=== PATIENT | female | born 1950 | race Caucasian/White ===

== ENCOUNTER → 2016-10-25 | Outpatient (CLI) | payer BC ==
[~2016-10-25] MED LIST: ALEN70TA4 PO; ASPCH81X PO; CALC600T9 PO; HYDROXYCHLOROQUINE PO; LEVO150T PO; LISI10TA PO; MULT-506 PO
--- NOTE | 2016-10-25 15:48 | MAMMOGRAPHY REPORT ---
BILATERAL DIGITAL SCREENING MAMMOGRAM TOMOSYNTHESIS WITH CAD: 10/25/2016 CLINICAL HISTORY: Routine screening. Patient has no complaints. TECHNIQUE: Breast tomosynthesis in addition to standard 2D mammography was performed. Current study was also evaluated with a Computer Aided Detection (CAD) system. COMPARISON: Comparison is made to exams dated: 10/24/2015 mammogram, 09/30/2014 mammogram, 05/06/2012 mammogram, and 03/14/2005 mammogram - [facility]. BREAST COMPOSITION: The tissue of both breasts is heterogeneously dense, which may obscure small ma sses. FINDINGS: No suspicious masses, calcifications, or areas of architectural distortion are noted in e ither breast. There has been no significant interval change compared to prior exams. There are stab le post surgical changes in the right 12:00 breast from prior lumpectomy. Scattered bilateral benig n-appearing calcifications are not significantly changed. IMPRESSION: ACR BI-RADS CATEGORY 2: BENIGN There is no mammographic evidence of malignancy. A 1 year screening mammogram is recommended. The p atient will receive written notification of the results. Approximately 10% of breast cancers are not detected with mammography. A negative mammographic repor t should not delay biopsy if a clinically suggestive mass is present. Jackie Mcclure M.D. ah/:10/25/2016 15:20:01 Restaurant Crew Member: Bety CHAMPAGNE)(M), [facility] letter sent: Normal 1/2 BI-RADS Code: ACR BI-RADS Category 2: Benign
== END | disposition home or self-care (01) ==
LOC: C.MAMM 10:57
PROVIDERS: ATTEND Family Medicine
DX: Z12.31 Encounter for screening mammogram for malignant neoplasm of breast (principal)

== ENCOUNTER → 2017-02-26 | Day surgery (SDC) | payer BC ==
[2017-02-20 13:14] VITALS: Ht 167.6 cm; Wt 72.7 kg
[~2017-02-26] VITALS: Ht 167.6 cm; Wt 72.7 kg
[~2017-02-26] MED LIST changes: +500ML BSS 0.3ML EPI 1:1000PF IRRIG ONE; +ACETAMINOPHEN 325 MG TAB PO PRN; +AMVISC PLUS 0.8ML SYRINGE INT OCU ONE; +ATROPINE SULFATE 0.1 MG/ML 5ML SYR IV PRN; +AcetaZOLAMIDE 250 MG TAB PO SCH; +BETAXOLOL HCL 0.25% OP SUSP PER DROP CHARGE OPL SCH; +BRIMONIDINE TART 0.2% OP SOLN PER DROP CHARGE ONE; +BSS FLUSH ONE; +ENDOCOAT 0.85ML SYRINGE INT OCU ONE; +EpHEDrine SULFATE INJ 50 MG/ML AMP IV PRN; +EpINEphrine INJ 1MG/ML AMP 1 MG/ML AMP ONE; +FENTANYL CITRATE INJ 50 MCG/1 ML 2 ML VIAL IV PRN; -HYDROXYCHLOROQUINE PO; +LACTATED RINGER'S 1000ML 500 ML IV SCH; +LIDOCAINE 4% OP SOLN DROP CHARGE ONE; +LIDOCAINE 4% OP SOLN DROP CHARGE OPL SCH; +LIDOCAINE HCL 1% MPF 2 ML VIAL ONE; +MIX: 4ML BSS 1ML EPI 1:1000 PF INSTIL ONE; +MOXIFLOXACIN OPH SOLN PER DROP CHARGE ONE; +OCUCOAT 1 ML SOLN IO ONE; +ONDANSETRON INJ 2 MG/ML 2 ML VIAL IV PRN; +POVIDONE-IODINE OP SOLN 30 ML BTL ONE; +PROPARACAINE 0.5% OP SOLN PER DROP CHARGE OPL SCH; +TOBRAMYCIN/DEXAMETHASONE OPH OINT PER APPLN CHARGE ONE
--- NOTE | 2017-02-26 09:37 | History & Physical Bridge - SC ---
H&P Re-Evaluation Bridge Note: I have examined the patient, reviewed the History & Physical and in the interval since the performance of the History & Physical I have noted the following changes of clinical significance: No changes noted
[2017-02-26 09:57] VITALS: TEMP 36.8
[2017-02-26] MEDS: PHENYLEPHRINE HCL 2.5% OP SOLN PER DROP CHARGE OPL SCH ×2 (10:11→10:16)
[2017-02-26] MEDS: TROPICAMIDE 1% OP SOLN PER DROP CHARGE OPL SCH ×2 (10:12→10:17)
[2017-02-26] MEDS: CYCLOPENTOLATE HCL 1% OP SOLN PER DROP CHARGE OPL SCH ×2 (10:13→10:19)
[2017-02-26] MEDS: MOXIFLOXACIN OPH SOLN PER DROP CHARGE OPL SCH ×2 (10:14→10:28)
[2017-02-26 11:05] VITALS: BP 179/93
[2017-02-26 11:06] VITALS: PULSE 81; O2SAT 95
--- NOTE | 2017-02-26 11:08 | Discharge Instructions-SurgCtr ---
Discharge Instructions Date of Service February 26, 2017. Visit Reason for Visit: Cataract Left Eye Discharge Discharge Diagnosis / Problem: lens implant left eye Discharge Goals Goal(s): Improve function Activity Recommendations Activity Limitations: resume your previous activity Lifting Limitations: no more than 10 pounds Exercise/Sports Limitations: gradually increase as tolerated May Resume Sexual Activity: when tolerated Shower/Bathe: tomorrow Driving or Machine Use: resume 1 day after discharge Anesthesia . Post Anesthesia Instructions: If you have had General Anesthesia or IV Sedation: * Do not drive today. * Resume driving when surgeon permits. * Do not make important decisions or sign legal documents today. * Call surgeon for: 1. Temperature elevations greater than 101 degrees F. 2. Uncontrollable pain. 3. Excessive bleeding. 4. Persistent nausea and vomiting. 5. Medication intolerance (nausea, vomiting or rash). * For nausea and vomiting use only clear liquids such as: tea, soda, bouillon until nausea subsides, then gradually increase diet as tolerated. * If you have any concerns or questions, call your surgeon's office. If physician is unavailable and it is an emergency, call 911 or go to the nearest emergency room. . Instructions / Follow-Up Instructions / Follow-Up ACTIVITY RECOMMENDATIONS: * Light activities. * Mild irritation and blurred vision are common for the first few days. * You may walk outside, read, watch television. * Redness around the white part of the eye is common. MEDICATIONS: Resume previous medications unless instructed otherwise by your surgeon. * Take white Diamox (Acetazolamide) tablet at 1 pm today. Start all eye drops at 1 pm today: * Eye drops (today and tomorrow): Durezol - one drop in operative eye every 3 hours while awake Ofloxacin - one drop in operative eye every 3 hours while awake Ilevro - one drop in operative eye once a day SPECIAL CARE INSTRUCTIONS: * Tape plastic shield over eye to sleep at night. Call your doctor at with any concerns or problems. FOLLOW UP VISIT: Follow-up with Dr Omalley at [place] office as scheduled. Diet Recommendations Home Diet: no limitations Procedures Procedures Performed: cataract extraction with lens implant Pending Studies Studies pending at discharge: no Medical Emergencies . Who to Call and When: Medical Emergencies: If at any time you feel your situation is an emergency, please call 911 immediately. . Non-Emergent Contact Non-Emergency issues call your: Systems Designer Call Non-Emergent contact if: your pain is not controlled [phone] . . "Provider Documentation" section prepared by Tip Omalley. .
--- NOTE | 2017-02-26 11:09 | [facility] Operative Report ---
Operative Report Date of Service February 26, 2017. Operative Report 1. PREOPERATIVE DIAGNOSIS: Senile nuclear cataract, left eye. 2. POSTOPERATIVE DIAGNOSIS: Senile nuclear cataract, left eye. 3. PROCEDURE: Phacoemulsification of left cataract with posterior chamber lens implant, type Bausch [employer] Lomb, model MX60, power +19.0 diopters. ANESTHESIA: Local standby. SURGEON: Dr. Omalley. COMPLICATIONS: None. OPERATING TIME: 10 minutes. 4. OPERATION AND FINDINGS: DESCRIPTION OF PROCEDURE: The left pupil was dilated. The anesthetic was administered using a topical technique. The left eye was prepped and draped. A speculum was placed. A clear corneal incision was formed. The chamber was filled with Amvisc Plus and Endocoat. Epinephrine solution was used. A paracentesis was placed. A capsulorrhexis was performed. The nucleus was hydrodissected. The lens was removed with phacoemulsification. Time was 2.59 seconds. The aspiration unit was used to remove the cortex. The capsule was filled with Amvisc Plus. The lens implant was folded and placed into the capsule. The incision was hydrated. The Amvisc was aspirated. The wound was secure. The chamber was deep. The pupil was round. Brimonidine, TobraDex ointment and Vigamox solution were placed. The speculum was removed. The patient was returned to the Recovery Room in stable condition. I attest to the content of the Intraoperative Record and any orders documented therein. Any exceptions are noted below. The scribe's documentation has been prepared in my presence, under my direction and personally reviewed by me in its entirety. I confirm that the note above accurately reflects all work, treatment, procedures, and medical decision making performed by me. I personally scribed for Tip Omalley M.D. (OSMAN) on 02/26/17 at 11:09. Electronically submitted by Beverley Power ([email or web address]).
== END | disposition home or self-care (01) ==
LOC: X.SURG 09:47
PROVIDERS: ATTEND Specialist
DX: H25.12 Age-related nuclear cataract, left eye (principal)

== ENCOUNTER → 2017-03-12 | Day surgery (SDC) | payer BC ==
[2017-03-10 15:41] VITALS: Ht 167.6 cm; Wt 72.7 kg
[~2017-03-12] VITALS: Ht 167.6 cm; Wt 72.7 kg
[~2017-03-12] MED LIST changes: -500ML BSS 0.3ML EPI 1:1000PF IRRIG ONE; -AMVISC PLUS 0.8ML SYRINGE INT OCU ONE; -ATROPINE SULFATE 0.1 MG/ML 5ML SYR IV PRN; -BETAXOLOL HCL 0.25% OP SUSP PER DROP CHARGE OPL SCH; +BETAXOLOL HCL 0.25% OP SUSP PER DROP CHARGE OPR SCH; -BSS FLUSH ONE; -EpHEDrine SULFATE INJ 50 MG/ML AMP IV PRN; -FENTANYL CITRATE INJ 50 MCG/1 ML 2 ML VIAL IV PRN; -LIDOCAINE 4% OP SOLN DROP CHARGE OPL SCH; +LIDOCAINE 4% OP SOLN DROP CHARGE OPR SCH; -ONDANSETRON INJ 2 MG/ML 2 ML VIAL IV PRN; -PROPARACAINE 0.5% OP SOLN PER DROP CHARGE OPL SCH; +PROPARACAINE 0.5% OP SOLN PER DROP CHARGE OPR SCH
[2017-03-12] MEDS: PHENYLEPHRINE HCL 2.5% OP SOLN PER DROP CHARGE OPR SCH ×2 (07:45→07:50)
[2017-03-12] MEDS: TROPICAMIDE 1% OP SOLN PER DROP CHARGE OPR SCH ×2 (07:46→07:51)
[2017-03-12] MEDS: CYCLOPENTOLATE HCL 1% OP SOLN PER DROP CHARGE OPR SCH ×2 (07:47→07:52)
[2017-03-12] MEDS: MOXIFLOXACIN OPH SOLN PER DROP CHARGE OPR SCH ×2 (07:48→08:00)
--- NOTE | 2017-03-12 08:32 | Discharge Instructions-SurgCtr ---
Discharge Instructions Date of Service March 12, 2017. Visit Reason for Visit: Cataract Right Eye Discharge Discharge Diagnosis / Problem: lens implant right eye Discharge Goals Goal(s): Improve function Activity Recommendations Activity Limitations: resume your previous activity Lifting Limitations: no more than 10 pounds Exercise/Sports Limitations: gradually increase as tolerated May Resume Sexual Activity: when tolerated Shower/Bathe: tomorrow Driving or Machine Use: resume 1 day after discharge Anesthesia . Post Anesthesia Instructions: If you have had General Anesthesia or IV Sedation: * Do not drive today. * Resume driving when surgeon permits. * Do not make important decisions or sign legal documents today. * Call surgeon for: 1. Temperature elevations greater than 101 degrees F. 2. Uncontrollable pain. 3. Excessive bleeding. 4. Persistent nausea and vomiting. 5. Medication intolerance (nausea, vomiting or rash). * For nausea and vomiting use only clear liquids such as: tea, soda, bouillon until nausea subsides, then gradually increase diet as tolerated. * If you have any concerns or questions, call your surgeon's office. If physician is unavailable and it is an emergency, call 911 or go to the nearest emergency room. . Instructions / Follow-Up Instructions / Follow-Up ACTIVITY RECOMMENDATIONS: * Light activities. * Mild irritation and blurred vision are common for the first few days. * You may walk outside, read, watch television. * Redness around the white part of the eye is common. MEDICATIONS: Resume previous medications unless instructed otherwise by your surgeon. * Take white Diamox (Acetazolamide) tablet at 1 pm today. Start all eye drops at 1 pm today: * Eye drops (today and tomorrow): Durezol - one drop in operative eye every 3 hours while awake Ofloxacin - one drop in operative eye every 3 hours while awake SPECIAL CARE INSTRUCTIONS: * Tape plastic shield over eye to sleep at night. Call your doctor at with any concerns or problems. FOLLOW UP VISIT: Follow-up with Dr Omalley at [place] office as scheduled. Diet Recommendations Home Diet: no limitations Procedures Procedures Performed: cataract extraction with lens implant Pending Studies Studies pending at discharge: no Medical Emergencies . Who to Call and When: Medical Emergencies: If at any time you feel your situation is an emergency, please call 911 immediately. . Non-Emergent Contact Non-Emergency issues call your: Assistant Clinical Nurse Manager Call Non-Emergent contact if: your pain is not controlled [phone] . . "Provider Documentation" section prepared by Tip Omalley. .
--- NOTE | 2017-03-12 08:35 | [facility] Operative Report ---
Operative Report Date of Service March 12, 2017. Operative Report 1. PREOPERATIVE DIAGNOSIS: Senile nuclear cataract, right eye. 2. POSTOPERATIVE DIAGNOSIS: Senile nuclear cataract, right eye. 3. PROCEDURE: Phacoemulsification of right cataract with posterior chamber lens implant, type Bausch & Lomb, model MX60, power +21.5 diopters. ANESTHESIA: Straight Local. SURGEON: Dr. Omalley. COMPLICATIONS: None. OPERATING TIME: 10 minutes. 4. OPERATION AND FINDINGS: DESCRIPTION OF PROCEDURE: The right pupil was dilated. The anesthetic was administered using a topical technique. The right eye was prepped and draped. A speculum was placed. A clear corneal incision was formed. The chamber was filled with Amvisc Plus and Endocoat. Epinephrine solution was used. A paracentesis was placed. A capsulorrhexis was performed. The nucleus was hydrodissected. The lens was removed with phacoemulsification. Time was 3.20 seconds. The aspiration unit was used to remove the cortex. The capsule was filled with Amvisc Plus. The lens implant was folded and placed into the capsule. The incision was hydrated. The Amvisc was aspirated. The wound was secure. The chamber was deep. The pupil was round. Brimonidine, TobraDex ointment and Vigamox solution were placed. The speculum was removed. The patient was returned to the Recovery Room in stable condition. I attest to the content of the Intraoperative Record and any orders documented therein. Any exceptions are noted below. The scribe's documentation has been prepared in my presence, under my direction and personally reviewed by me in its entirety. I confirm that the note above accurately reflects all work, treatment, procedures, and medical decision making performed by me. I personally scribed for Tip Omalley M.D. (OSMAN) on 03/12/17 at 08:35. Electronically submitted by Beverley Power ([facility]).
[2017-03-12 08:38] VITALS: TEMP 36.7
[2017-03-12 08:48] VITALS: BP 169/85; PULSE 76; O2SAT 96
== END | disposition home or self-care (01) ==
LOC: X.SURG 07:21
PROVIDERS: ATTEND Specialist
DX: H25.11 Age-related nuclear cataract, right eye (principal); Z85.3 Personal history of malignant neoplasm of breast; F17.200 Nicotine dependence, unspecified, uncomplicated

== ENCOUNTER → 2017-10-28 | Outpatient (CLI) | payer BC ==
[~2017-10-28] MED LIST changes: -ACETAMINOPHEN 325 MG TAB PO PRN; -AcetaZOLAMIDE 250 MG TAB PO SCH; -BETAXOLOL HCL 0.25% OP SUSP PER DROP CHARGE OPR SCH; -BRIMONIDINE TART 0.2% OP SOLN PER DROP CHARGE ONE; -ENDOCOAT 0.85ML SYRINGE INT OCU ONE; -EpINEphrine INJ 1MG/ML AMP 1 MG/ML AMP ONE; -LACTATED RINGER'S 1000ML 500 ML IV SCH; -LIDOCAINE 4% OP SOLN DROP CHARGE ONE; -LIDOCAINE 4% OP SOLN DROP CHARGE OPR SCH; -LIDOCAINE HCL 1% MPF 2 ML VIAL ONE; -MIX: 4ML BSS 1ML EPI 1:1000 PF INSTIL ONE; -MOXIFLOXACIN OPH SOLN PER DROP CHARGE ONE; -OCUCOAT 1 ML SOLN IO ONE; -POVIDONE-IODINE OP SOLN 30 ML BTL ONE; -PROPARACAINE 0.5% OP SOLN PER DROP CHARGE OPR SCH; -TOBRAMYCIN/DEXAMETHASONE OPH OINT PER APPLN CHARGE ONE
--- NOTE | 2017-10-28 14:29 | MAMMOGRAPHY REPORT ---
BILATERAL DIGITAL SCREENING MAMMOGRAM TOMOSYNTHESIS WITH CAD: 10/28/2017 CLINICAL HISTORY: Asymptomatic. Personal history of breast cancer. TECHNIQUE: Bilateral breast tomosynthesis in addition to standard 2D mammography was performed. Curre nt study was also evaluated with a Computer Aided Detection (CAD) system. COMPARISON: Comparison is made to exams dated: 10/25/2016 mammogram, 10/24/2015 mammogram, 09/30/2014 ma mmogram, 05/06/2012 mammogram, 03/14/2005 mammogram, and 12/30/2002 mammogram - [facility] nter. BREAST COMPOSITION: The tissue of both breasts is heterogeneously dense, which may obscure small mas ses. FINDINGS: There is a 10 mm nodular asymmetry in the superior posterior left breast, only seen on the MLO view that partially effaces on the corresponding tomosynthesis images. Although this could repr esent normal overlapping fibroglandular tissue, additional spot compression tomosynthesis views and p ossible ultrasound are recommended. There are stable post surgical changes in the 12:00 posterior right breast, including expected connie ectural distortion and surgical clips. There are numerous benign rim calcifications bilaterally. No other suspicious mass, architectural distortion or cluster of microcalcifications is seen. IMPRESSION: ACR BI-RADS CATEGORY 0: INCOMPLETE EVALUATION: NEED ADDITIONAL IMAGING EVALUATION The 10 mm nodular asymmetry in the superior, posterior left breast needs additional evaluation. The patient will be called to schedule an appointment. Approximately 10% of breast cancers are not detected with mammography. A negative mammographic report should not delay biopsy if a clinically suggestive mass is present. Angie Smith M.D. ay/:10/28/2017 14:21:18 Used Car Make Ready Worker: Bety MILLAN(R)(M), [facility] letter sent: Addl Imaging 0 BI-RADS Code: ACR BI-RADS Category 0: Incomplete Evaluation: Need Additional Imaging Evaluation
== END | disposition home or self-care (01) ==
LOC: C.MAMM 11:22
PROVIDERS: ATTEND Family Medicine
DX: Z12.31 Encounter for screening mammogram for malignant neoplasm of breast (principal); N64.89 Other specified disorders of breast; Z85.3 Personal history of malignant neoplasm of breast

== ENCOUNTER → 2017-10-31 | Outpatient (CLI) | payer BC ==
--- NOTE | 2017-10-31 15:08 | MAMMOGRAPHY REPORT ---
UNILATERAL LEFT DIGITAL DIAGNOSTIC MAMMOGRAM TOMOSYNTHESIS: 10/31/2017 CLINICAL HISTORY: Callback from screening mammogram for left breast asymmetry. TECHNIQUE: Breast tomosynthesis in addition to standard 2D mammography was performed. Spot compress ion left CC and MLO 2-D and tomosynthesis images were obtained. COMPARISON: Comparison is made to exams dated: 10/28/2017 mammogram, 10/25/2016 mammogram, 10/24/2015 mamm ogram, 09/30/2014 ultrasound, 09/30/2014 mammogram, and 03/14/2005 mammogram - [facility] enter. BREAST COMPOSITION: The tissue of the left breast is heterogeneously dense, which may obscure small masses. FINDINGS: The previously described asymmetry seen within the left superior posterior breast on the M LO view effaces to a baseline appearance on the spot compression tomosynthesis views, and has the parmjit earance of normal fibroglandular tissue on the tomosynthesis images. No suspicious mass, architectur al distortion, or other suspicious mammographic abnormality is seen on the additional images. Findin gs are benign and compatible with normal fibroglandular tissue. IMPRESSION: ACR BI-RADS CATEGORY 2: BENIGN The left breast asymmetry effaces on the additional spot compression views, and is benign and compati ble with normal fibroglandular tissue. There is no mammographic evidence of malignancy. A 1 year scr eening mammogram is recommended. The patient has been verbally notified of the results. Approximately 10% of breast cancers are not detected with mammography. A negative mammographic report should not delay biopsy if a clinically suggestive mass is present. Jackie Mcclure M.D. /:10/31/2017 11:33:04 Hand Drawer In Helper: Jessica MILLAN(Claus)(M), [facility] letter sent: Normal / BI-RADS Code: ACR BI-RADS Category 2: Benign
== END | disposition home or self-care (01) ==
LOC: C.MAMM 11:13
PROVIDERS: ATTEND Family Medicine
DX: N64.89 Other specified disorders of breast (principal)

== ENCOUNTER 2021-08-27 19:11 | Inpatient (IN) ==
[2021-08-27] MEDS ORDERED: dilTIAZem HCl 5 MG/ML 5 ML VIAL IV STA (19:21)
[2021-08-27] MEDS ORDERED: STAT IV Infusion **Titration per Protocol STA (19:21)
--- NOTE | 2021-08-27 19:24 | Emergency Department Note ---
Impression & Plan Atrial fibrillation with RVR, SOB (shortness of breath), Weakness ED Provider Note NAME: DARIA GORDILLO AGE: 71 SEX: F : 1950 ARRIVES VIA: Ambulance INFORMANT: Patient ED PROVIDER(S): Kirill Rivera DO CHIEF COMPLAINT: Weak and short of breath HPI: Patient is a 71-year-old female that presents the ER with past medical history of A. fib, COPD, emphysema, SLE, hypertension, hypothyroid who presents to the ER referred in by PCP. She was found to be in atrial fib with RVR as an outpatient. She denies any chest pain but admits to some shortness of breath. No belly pain, nausea, vomiting, or diarrhea. No dysuria, urgency, or frequency. No other exacerbating or remitting factors. She believes that she is always in A. fib. About a month ago she stopped her Cardizem. For the past several weeks she has been short of breath. She does not feel her heart racing notes that she normally does not feel that. She normally is not symptomatic with her A. fib so is difficult to ascertain when she went into her A. fib per the patient. ROS: See above HPI for pertinent positives & negatives. A total of 10 systems reviewed and were otherwise negative. PAST MEDICAL HISTORY:See Below PAST SURGICAL HISTORY:See Below FAMILY HISTORY:See Below SOCIAL HISTORY:See Below HOME MEDICATIONS:See Below ALLERGIES:See Below VITALS:See Below PHYSICAL EXAMINATION: GENERAL: Sitting up in bed, alert, well appearing, well nourished, no distress, non-toxic EYE EXAM: normal conjunctiva. PERRL and EOM's grossly intact. OROPHARYNX: no exudate, no erythema, lips, buccal mucosa, and tongue normal and mucous membranes are moist NECK: supple, no nuchal rigidity, no adenopathy, non-tender LUNGS: Clear to auscultation. Normal chest wall mechanics HEART: Tachycardic and irregular regular, S1 normal and S2 normal ABDOMEN: abdomen soft, non-tender, normo-active bowel sounds, no masses, no rebound or guarding. UPPER EXTREMITIES: upper extremities are grossly normal. LOWER EXTREMITIES: No pitting edema. NEURO EXAM: Normal sensorium, cranial nerves II-XII grossly intact, normal speech, no gross weakness of arms, no gross weakness of legs. MEDICAL DECISION MAKING: Patient is a 71-year-old female who presents the ER for A. fib with RVR referred in by PCP. IV was established blood work was taken. Labs show no significant leukocytosis or anemia. BMP was fairly unremarkable. INR was elevated at 7. She is not bleeding from anywhere. Troponin was negative. Lipase was unremarkable. TSH was elevated at 10.4. Free T4 was pending. Covid was negative. Patient was given Cardizem bolus and placed on Cardizem drip. Heart rate trended down to 130s down to the 80s with a flutter with a variable block. Chest x-ray with bilateral pleural effusions likely secondary to the A. fib with RVR. Triage Nursing notes reviewed. Limited review of prior medical records performed Vital Signs: reviewed and remarkable for tachycardic Differential diagnosis: Differential diagnoses includes but is not limited to pneumonia, bronchitis, COPD/Asthma exacerbation, pneumothorax, pulmonary embolism, congestive heart failure, acute coronary syndrome ER treatment provided: See below Diagnostics interpreted by me: ECG: A. fib RVR rate of 130 Left axis Inferior Q waves Right bundle branch block Nonspecific ST wave changes in lateral leads QTC 400 Cardiac Monitoring: An order was placed for continuous cardiac monitoring. The monitor shows a rate of 131 with A. fib RVR rhythm. Laboratory studies: As stated above and show below. Imaging studies: Chest x-ray with bilateral pleural effusions Consultation(s): Discussed with hospitalist for further evaluation Procedures: none Critical Care: I have personally spent 32 minutes of critical care time in the direct management of this patient. This includes bedside care, interpretation of diagnostic studies, and testing, discussion with consultants, patient, and family members, and other required patient management activities. This 32 minutes is in excess of all separately billable procedures. Past Med/Surg History Medical History Atrial fibrillation DX 11/2018 - ON WARFARIN - FOLLOWS W/ DR. COSTELLO Cancer of right breast 1995--sx, chemo, radiation Carotid atherosclerosis s/p CEA Chronic obstructive pulmonary disease RARELY USES INH. ONLY FLARES UP WHEN PATIENT HAS COLD History of colon polyps Hyperlipidemia Hypertension Hypothyroidism Lupus SLE- on chronic Plaquenil On anticoagulant therapy coumadin daily Pancreatic cyst GETTING CHECKED > REASON FOR PROCEDURE Parathyroid disorder Proteinuria FOLLOWS DR. FREDDY BAKER Surgical History History of anesthesia reaction "takes a long time to stop feeling weird after anesthesia" History of bilateral cataract extraction History of colonoscopy History of esophagogastroduodenoscopy (EGD) History of lumpectomy of right breast History of repair of patent ductus arteriosus CHILD REPAIRED History of right breast biopsy malignant History of right-sided carotid endarterectomy 7 YRS AGO >@ [facility] History of tonsillectomy and adenoidectomy History of tooth extraction Family History Sister Family hx of colon cancer Other No family history of adverse response to anesthesia Social History Smoking Status: Heavy tobacco smoker Tobacco Type: Cigarettes Cigarettes Per Day: 40; Second Hand Exposure: Yes; Hx Alcohol Use: No Hx Substance Use: No Preferred Language: Scottish Communication Ability: Effective 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 Beliefs That Will Affect Care: None Current Living Situation: Alone Feels Safe at Home: Yes Assistive Devices: Glasses Allergies Allergies Allergy/AdvReac Type Severity Reaction Status Date / Time No Known Drug Allergies Allergy Mild Verified 05/20/21 13:50 Pollen Allergy Mild cough, Uncoded 05/20/21 13:50 itchy watery eyes, stuffy nose Home Meds Home Medications Medication Instructions Recorded Confirmed hydroxychloroquine 200 mg tablet 200 mg PO HS 12/08/18 08/27/21 levothyroxine 150 mcg tablet 150 mcg PO QAM 12/08/18 08/27/21 atorvastatin 10 mg tablet 10 mg PO HS 01/13/19 08/27/21 cinacalcet 30 mg tablet (Sensipar) 30 mg PO Q OTHER DAY 11/16/19 08/27/21 zoledronic acid 5 mg/100 mL in 5 mg IV YEARLY 11/16/19 08/27/21 mannitol 5 %-water intravenous piggybck (Reclast) clobetasol 0.05 % topical ointment 1 applic TOPICAL DAILY PRN 12/11/20 08/27/21 metoprolol succinate 25 mg 25 mg PO BID 05/20/21 08/27/21 tablet,extended release 24 hr warfarin 5 mg tablet 5 mg PO UD 08/27/21 08/27/21 Results & Data (ED) Vital Signs Vital Signs - 24 hr 08/27/21 20:28 08/27/21 22:15 Temperature 36.8 C Temperature Source Oral Pulse Rate 105 H Pulse Rate [Finger] 80 96 H Blood Pressure 114/64 Blood Pressure [Left Arm] 114/75 132/78 Blood Pressure Mean 80 Blood Pressure Mean [Left Arm] 88 96 Pulse Oximetry 96 98 Oxygen Delivery Method Nasal Cannula Room Air Oxygen Flow Rate 2 Sepsis Recent Fever Within 48 Hours No Sepsis New/Unexplained Change in Mental Status N/A Sepsis Action Taken by Nursing No Action Required Oxygen Flow Rate - Titration 2 Pulse Oximetry Post Tiitration 96 Laboratory Data Result diagrams: 08/27/21 19:30 08/27/21 19:30 Lab Results 08/27/21 08/27/21 08/27/21 Range/Units 19:30 19:30 19:30 WBC 5.76 (4.8-10.8) K/uL RBC 5.04 (4.2-5.4) M/uL Hgb 14.4 (12.0-16.0) g/dL Hct 44.9 (37-47) % MCV 89.1 (80-100) fL MCH 28.6 (25-34) pg MCHC 32.1 (32-36) g/dL RDW Std Deviation 56.2 H (36.4-46.3) fL RDW Coeff of Jerri 17.6 H (11.5-14.5) % Plt Count 212 (130-400) K/uL MPV 11.9 H (7.4-10.4) fL Immature Gran % (Auto) 0.2 % Neut % (Auto) 72.6 % Lymph % (Auto) 15.1 % [place] % (Auto) 11.8 % Eos % (Auto) 0.0 % Baso % (Auto) 0.3 % Neut # (Auto) 4.18 (1.4-6.5) K/uL Lymph # (Auto) 0.87 L (1.2-3.4) K/uL [place] # (Auto) 0.68 H (0.11-0.59) K/uL Eos # (Auto) 0.00 (0-0.5) K/uL Baso # (Auto) 0.02 (0-0.2) K/uL Immature Gran # (Auto) 0.01 (0.00-0.02) K/uL Absolute Nucleated RBC 0.08 H (0-0) K/uL Nucleated RBC % (auto) 1.4 % PT 62.7 H (9.0-12.0) Seconds INR 7.2 H* (0.9-1.1) Sodium 137 (136-145) mmol/L Potassium 4.4 (3.5-5.1) mmol/L Chloride 105 (98-107) mmol/L Carbon Dioxide 25 (21-32) mmol/L Anion Gap 7.0 (3-11) BUN 20 H (7-18) mg/dl Creatinine 0.61 (0.6-1.2) mg/dl Est Cr Clr Drug Dosing Not Reportable Est GFR ( Amer) 105.0 ml/min Est GFR (Non-Af Amer) 90.6 ml/min BUN/Creatinine Ratio 31.9 H (10-20) Glucose 83 (70-99) mg/dl Calcium 9.8 (8.5-10.1) mg/dl Magnesium 1.9 (1.8-2.4) mg/dl Total Bilirubin 0.4 (0.2-1) mg/dl AST 74 H (15-37) U/L ALT 64 (12-78) U/L Alkaline Phosphatase 154 H (45-117) U/L Troponin I < 0.015 (0-0.045) ng/ml Total Protein 7.6 (6.4-8.2) gm/dl Albumin 3.4 (3.4-5.0) gm/dl Globulin 4.2 H (2.5-4.0) gm/dl Albumin/Globulin Ratio 0.8 L (0.9-2) Lipase 359 (73-393) U/L TSH 10.400 H (0.300-4.500) uIu/ml Specimen Hemolysis COVID-19 Eval Order SARS-CoV-2 (PCR) (Negative) 08/27/21 08/27/21 Range/Units Unknown Unknown WBC (4.8-10.8) K/uL RBC (4.2-5.4) M/uL Hgb (12.0-16.0) g/dL Hct (37-47) % MCV (80-100) fL MCH (25-34) pg MCHC (32-36) g/dL RDW Std Deviation (36.4-46.3) fL RDW Coeff of Jerri (11.5-14.5) % Plt Count (130-400) K/uL MPV (7.4-10.4) fL Immature Gran % (Auto) % Neut % (Auto) % Lymph % (Auto) % [place] % (Auto) % Eos % (Auto) % Baso % (Auto) % Neut # (Auto) (1.4-6.5) K/uL Lymph # (Auto) (1.2-3.4) K/uL [place] # (Auto) (0.11-0.59) K/uL Eos # (Auto) (0-0.5) K/uL Baso # (Auto) (0-0.2) K/uL Immature Gran # (Auto) (0.00-0.02) K/uL Absolute Nucleated RBC (0-0) K/uL Nucleated RBC % (auto) % PT (9.0-12.0) Seconds INR (0.9-1.1) Sodium (136-145) mmol/L Potassium (3.5-5.1) mmol/L Chloride (98-107) mmol/L Carbon Dioxide (21-32) mmol/L Anion Gap (3-11) BUN (7-18) mg/dl Creatinine (0.6-1.2) mg/dl Est Cr Clr Drug Dosing Est GFR ( Amer) ml/min Est GFR (Non-Af Amer) ml/min BUN/Creatinine Ratio (10-20) Glucose (70-99) mg/dl Calcium (8.5-10.1) mg/dl Magnesium (1.8-2.4) mg/dl Total Bilirubin (0.2-1) mg/dl AST (15-37) U/L ALT (12-78) U/L Alkaline Phosphatase (45-117) U/L Troponin I (0-0.045) ng/ml Total Protein (6.4-8.2) gm/dl Albumin (3.4-5.0) gm/dl Globulin (2.5-4.0) gm/dl Albumin/Globulin Ratio (0.9-2) Lipase (73-393) U/L TSH (0.300-4.500) uIu/ml Specimen Hemolysis COVID-19 Eval Order Covid19 at [facility] SARS-CoV-2 (PCR) NEGATIVE (Negative) Administered Medications Diltiazem HCl 125 mg/ Dextrose 125 mls @ 5 mls/hr IV .Q24H [facility]; Protocol Stop: 09/26/21 19:29 Last Admin: 08/27/21 19:37 Dose: 5 mg/hr, 5 mls/hr Documented by: [id number] Cosigned by: [id number] Magnesium Sulfate/Dextrose (Magnesium Sulfate / D5w) 1 gm in 100 mls @ 50 mls/hr IV ONE ONE Stop: 08/28/21 01:11 Last Admin: 08/27/21 23:38 Dose: 50 mls/hr Documented by: [id number] Discontinued Medications Diltiazem HCl (Diltiazem Hcl 5 Mg/Ml 5 Ml Vial) 10 mg IV NOW STA Stop: 08/27/21 19:22 Last Admin: 08/27/21 19:37 Dose: 10 mg Documented by: [id number] Cosigned by: [id number] Miscellaneous (Stat Iv Infusion Titration Per Protocol) 1 ea N/A NOW STA Stop: 08/27/21 19:22 Last Admin: 08/27/21 19:40 Dose: 1 ea Documented by: [id number] Imaging Data Radiologist's Impression: Chest X-Ray 08/27/21 19:22 XR chest 1V portable CLINICAL HISTORY: Atypical chest pain TECHNIQUE: Single frontal radiograph of the chest was obtained. Comparison: Comparison is made to chest one view 05/20/2021 FINDINGS: No lines and tubes are seen. Surgical clips are seen in the right axilla. Calcified aortic knob is seen. Bilateral lower lobe predominant airspace opacities are seen. There are small bilateral pleural effusions. IMPRESSION: Lateral small pleural effusions. Bilateral lower lobe predominant airspace opacities which may represent atelectasis, pneumonia, and/or aspiration. ACT 112: Negative or not required by law. Electronically signed by: Gene Neri M.D. 08/27/2021 7:55 PM Discharge Plan Visit Data Chief Complaint: Arrhythmia/Palpitations Stated Complaint: SOB, WEAKNESS, AFIB ED Provider: Kirill Rivera Discharge Problem: Atrial fibrillation with RVR, SOB (shortness of breath), Weakness Patient Disposition: Admitted As Inpatient Forms Stand Alone Forms: [facility] Prescriptions Prescriptions: No Action clobetasol 0.05 % ointment 1 applic topical DAILY PRN (Reason: lupus) RF: 0 atorvastatin 10 mg Tablet 10 mg PO HS RF: 0 cinacalcet [Sensipar] 30 mg Tablet 30 mg PO Q OTHER DAY RF: 0 zoledronic [id number] [Reclast] 5 mg/100 mL Piggyback 5 mg IV YEARLY RF: 0 levothyroxine 150 mcg tablet 150 mcg PO QAM RF: 0 hydroxychloroquine 200 mg tablet 200 mg PO HS RF: 0 metoprolol succinate 25 mg tablet extended release 24 hr 25 mg PO BID RF: 0 warfarin 5 mg tablet 5 mg PO UD RF: 0 Referrals Referrals: Kusum Rutherford DO [Primary Care Provider] -
[2021-08-27] MEDS ORDERED: dilTIAZem HCL 125 MG in DEXTROSE 5% 100 ML IV SCH (19:30)
[2021-08-27 19:43] LABS: Basophils # (auto) 0.02 K/uL (0-0.2); Basophils % (auto) 0.3 %; Hematocrit (blood only) 44.9 % (37-47); Hemoglobin 14.4 g/dL (12.0-16.0); Immature Granulocytes # (auto) 0.01 K/uL (0.00-0.02); Immature Granulocytes % (auto) 0.2 %; Lymphocytes # (auto) 0.87 K/uL (1.2-3.4); Lymphocytes % (auto) 15.1 %; Mean Corpuscular Hemoglobin 28.6 pg (25-34); Mean Corpuscular Hgb Conc 32.1 g/dL (32-36); Mean Corpuscular Volume 89.1 fL (80-100); Mean Platelet Volume 11.9 fL (7.4-10.4); Monocytes # (auto) 0.68 K/uL (0.11-0.59); Monocytes % (auto) 11.8 %; Neutrophils # (auto) 4.18 K/uL (1.4-6.5); Neutrophils % (auto) 72.6 %; Nucleated RBC # (auto) 0.08 K/uL (0-0); Nucleated RBC % (auto) 1.4 %; Platelet Count 212 K/uL (130-400); RDW Coefficient of Variation 17.6 % (11.5-14.5); RDW Standard Deviation 56.2 fL (36.4-46.3); Red Blood Count 5.04 M/uL (4.2-5.4); White Blood Count 5.76 K/uL (4.8-10.8)
--- NOTE | 2021-08-27 19:57 | XRay Report ---
XR chest 1V portable CLINICAL HISTORY: Atypical chest pain TECHNIQUE: Single frontal radiograph of the chest was obtained. Comparison: Comparison is made to chest one view 05/20/2021 FINDINGS: No lines and tubes are seen. Surgical clips are seen in the right axilla. Calcified aortic knob is se en. Bilateral lower lobe predominant airspace opacities are seen. There are small bilateral pleural e ffusions. IMPRESSION: Lateral small pleural effusions. Bilateral lower lobe predominant airspace opacities which may repres ent atelectasis, pneumonia, and/or aspiration. ACT 112: Negative or not required by law. Electronically signed by: Gene Neri M.D. 08/27/2021 7:55 PM
[2021-08-27 20:04] LABS: INR 7.2 (0.9-1.1); Prothrombin Time 62.7 Seconds (9.0-12.0)
[2021-08-27 20:06] LABS: Alanine Aminotransferase 64 U/L (12-78); Albumin Level 3.4 gm/dl (3.4-5.0); Aspartate Aminotransferase 74 U/L (15-37); BUN Creatinine Ratio 31.9 (10-20); Blood Urea Nitrogen 20 mg/dl (7-18); Calcium 9.8 mg/dl (8.5-10.1); Carbon Dioxide 25 mmol/L (21-32); Chloride 105 mmol/L (98-107); Est GFR (Non-African American) 90.6 ml/min; Glucose 83 mg/dl (70-99); Lipase 359 U/L (73-393); Potassium 4.4 mmol/L (3.5-5.1); Sodium 137 mmol/L (136-145)
[2021-08-27 20:10] LABS: Albumin Globulin Ratio 0.8 (0.9-2); Alkaline Phosphatase 154 U/L (45-117); Bilirubin,Total 0.4 mg/dl (0.2-1); Globulin 4.2 gm/dl (2.5-4.0); Total Protein 7.6 gm/dl (6.4-8.2); Troponin I < 0.015 ng/ml (0-0.045)
[2021-08-27 22:51] LABS: Magnesium 1.9 mg/dl (1.8-2.4)
[2021-08-27] MEDS ORDERED: MAGNESIUM SULFATE / D5W 1 GM/100 ML BAG IV ONE (23:12)
[2021-08-27] MEDS ORDERED: PHYTONADIONE 5 MG TAB PO STA (23:13)
[2021-08-27] MEDS ORDERED: PHYTONADIONE PED 1 MG, ORA-SWEET SYRUP 2.25 ML, ORA-PLUS SUSP VEHICLE 2.25 ML, BARCODE ... PO SCH (23:30)
--- NOTE | 2021-08-27 23:42 | History & Physical Report ---
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 until patient seen by Cardiology in anticipation of any procedure Update TTE Recheck TFTs with a.m. labs DVT prophylaxis. Coumadin INR goal between 2 and 3 Full code Text document was generated using Facio voice recognition software. It may contain grammatical or spelling errors. Kindly contact undersigned for clarification of any documentation item in question. History of Present Illness Chief Complaint: Fast heartbeat, sent by family doctor Primary Care Provider: Kusum Rutherford, History obtained from patient and records. Medical history significant for Christopher crane on Coumadin, hypertension, hyperlipidemia, PVD status post surgery, COPD, breast cancer status post surgery, IPMN status post surgery, SLE, ongoing tobacco abuse. Last confinement November 2018 for Christopher crane RVR secondary to COPD exacerbation. 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 Patient diltiazem was being weaned off due to hypotension, lightheadedness especially in the morning. Patient as not to some weight loss after elective pancreactomy[place] [facility] [place] for a pancreatic tumor. SBP 90s, cardiac rate 90s during Cardiology visit. Patient cardiac rate in the 110s on patient's BP monitor after stopping Cardizem. 2 weeks ago, patient noted fatigue and generalized weakness symptoms. Shortness of breath usually with exertion. No unusual cough symptoms. No actual chest pain, palpitations. Denies headache or bleeding concerns. Ankle swelling coming and going at home. Patient seen at PCPs office today, cardiac rate noted to be 140s. Rapid atrial flutter noted on EKG. Patient directed to the ER for evaluation. IV Cardizem initiated at the ER. 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 Allergies Allergy/AdvReac Type Severity Reaction Status Date / Time No Known Drug Allergies Allergy Mild Verified 05/20/21 13:50 Pollen Allergy Mild cough, Uncoded 05/20/21 13:50 itchy watery eyes, stuffy nose Home Medications Medication Instructions Recorded Confirmed Type hydroxychloroquine 200 mg tablet 200 mg PO HS 12/08/18 08/27/21 History levothyroxine 150 mcg tablet 150 mcg PO QAM 12/08/18 08/27/21 History atorvastatin 10 mg tablet 10 mg PO HS 01/13/19 08/27/21 History cinacalcet 30 mg tablet (Sensipar) 30 mg PO Q OTHER DAY 11/16/19 08/27/21 History zoledronic acid 5 mg/100 mL in 5 mg IV YEARLY 11/16/19 08/27/21 History mannitol 5 %-water intravenous piggybck (Reclast) clobetasol 0.05 % topical ointment 1 applic TOPICAL DAILY PRN 12/11/20 08/27/21 History metoprolol succinate 25 mg 25 mg PO BID 05/20/21 08/27/21 History tablet,extended release 24 hr warfarin 5 mg tablet 5 mg PO UD 08/27/21 08/27/21 History Past Med/Surg History Medical History Atrial fibrillation DX 11/2018 - ON WARFARIN - FOLLOWS W/ DR. SAWYER Cancer of right breast 1995--sx, chemo, radiation Carotid atherosclerosis s/p CEA Chronic obstructive pulmonary disease RARELY USES INH. ONLY FLARES UP WHEN PATIENT HAS COLD History of colon polyps Hyperlipidemia Hypertension Hypothyroidism Lupus SLE- on chronic Plaquenil On anticoagulant therapy coumadin daily Pancreatic cyst GETTING CHECKED > REASON FOR PROCEDURE Parathyroid disorder Proteinuria FOLLOWS DR. FREDDY BAKER Surgical History History of anesthesia reaction "takes a long time to stop feeling weird after anesthesia" History of bilateral cataract extraction History of colonoscopy History of esophagogastroduodenoscopy (EGD) History of lumpectomy of right breast History of repair of patent ductus arteriosus CHILD REPAIRED History of right breast biopsy malignant History of right-sided carotid endarterectomy 7 YRS AGO >@ [facility] History of tonsillectomy and adenoidectomy History of tooth extraction Family History Sister Family hx of colon cancer Other No family history of adverse response to anesthesia Social History Smoking Status: Current every day smoker Tobacco Type: Cigarettes Cigarettes Per Day: 60; Second Hand Exposure: Yes; Do You Dip or Chew Tobacco: No; Tobacco Cessation Education Requested by Patient: No Hx Alcohol Use: No Hx Substance Use: No Preferred Language: [place] Communication Ability: Effective Barrel Centerer Required: No Beliefs That Will Affect Care: None Current Living Situation: Alone How many Children do You have: 0 Other Information That Helps Us Care for You: No Feels Safe at Home: Yes Safety Concerns: Feels Safe At This Time Assistive Devices: None Review of Systems Review of Systems: As per HPI, all 10 systems reviewed, all other ROS negative Physical Exam Physical Exam: GENERAL: Comfortable, pleasant, no respiratory distress SKIN: Normal color, warm HEENT: [place] palpebral conjunctivae, no ptosis, dry buccal mucosa NECK : Supple, no tenderness CHEST : Decreased breath sounds, no tenderness HEART : Tachycardic, no obvious murmurs ABDOMEN: Some distention, nontender EXTREMITIES : Minimal LE swelling, no LE tenderness, no other conspicuous deformities noted NEUROLOGIC : Coherent, no facial asymmetry, no other gross focality Results & Data Results & Data ([facility]) Vital Signs (Past 12 Hours) Vital Signs Temp Pulse Pulse BP BP Pulse Ox 08/27/21 22:15 96 H 132/78 98 08/27/21 20:28 36.8 C 105 H 80 114/64 114/75 96 Laboratory Results Laboratory Results WBC 5.76 K/uL (4.8-10.8) 08/27/21 19:30 RBC 5.04 M/uL (4.2-5.4) 08/27/21 19:30 Hgb 14.4 g/dL (12.0-16.0) 08/27/21 19:30 Hct 44.9 % (37-47) 08/27/21 19:30 MCV 89.1 fL (80-100) 08/27/21 19: MCH 28.6 pg (25-34) 08/27/21 19: MCHC 32.1 g/dL (32-36) 08/27/21 19: RDW Std Deviation 56.2 fL (36.4-46.3) H 08/27/21 19:30 RDW Coeff of Jerri 17.6 % (11.5-14.5) H 08/27/21 19: Plt Count 212 K/uL (130-400) 08/27/21 19: MPV 11.9 fL (7.4-10.4) H 08/27/21 19: Immature Gran % (Auto) 0.2 % 08/27/21: Neut % (Auto) 72.6 % 08/27/21 19: Lymph % (Auto) 15.1 % 08/27/21 19:30 [place] % (Auto) 11.8 % 08/27/21: Eos % (Auto) 0.0 % 08/27/21: Baso % (Auto) 0.3 % 08/27/21: Neut # (Auto) 4.18 K/uL (1.4-6.5) 08/27/21 19: Lymph # (Auto) 0.87 K/uL (1.2-3.4) L 08/27/21 19:30 [place] # (Auto) 0.68 K/uL (0.11-0.59) H 08/27/21 19: Eos # (Auto) 0.00 K/uL (0-0.5) 08/27/21: Baso # (Auto) 0.02 K/uL (0-0.2) 08/27/21: Immature Gran # (Auto) 0.01 K/uL (0.00-0.02) 08/27/21: Absolute Nucleated RBC 0.08 K/uL (0-0) H 08/27/21: Nucleated RBC % (auto) 1.4 % 08/27/21 19: PT 62.7 Seconds (9.0-12.0) H 08/27/21 19:30 INR 7.2 (0.9-1.1) H* 08/27/21 19:30 Sodium 137 mmol/L (136-145) 08/27/21 19:30 Potassium 4.4 mmol/L (3.5-5.1) 08/27/21: Chloride 105 mmol/L (98-107) 08/27/21 19:30 Carbon Dioxide 25 mmol/L (21-32) 08/27/21 19: Anion Gap 7.0 (3-11) 08/27/21:30 BUN 20 mg/dl (7-18) H 08/27/21 19:30 Creatinine 0.61 mg/dl (0.6-1.2) 08/27/21 19: Est Cr Clr Drug Dosing Not Reportable 08/27/21: Est GFR ( Amer) 105.0 ml/min 08/27/21: Est GFR (Non-Af Amer) 90.6 ml/min 08/27/21:30 BUN/Creatinine Ratio 31.9 (10-20) H 08/27/21: Glucose 83 mg/dl (70-99) 08/27/21: Calcium 9.8 mg/dl (8.5-10.1) 08/27/21: Magnesium 1.9 mg/dl (1.8-2.4) 08/27/21: Total Bilirubin 0.4 mg/dl (0.2-1) 08/27/21 19:30 AST 74 U/L (15-37) H 08/27/21:30 ALT 64 U/L (12-78) 08/27/21: Alkaline Phosphatase 154 U/L (45-117) H 08/27/21 19:30 Troponin I < 0.015 ng/ml (0-0.045) 08/27/21 19:30 Total Protein 7.6 gm/dl (6.4-8.2) 08/27/21: Albumin 3.4 gm/dl (3.4-5.0) 08/27/21 19: Globulin 4.2 gm/dl (2.5-4.0) H 08/27/21 19:30 Albumin/Globulin Ratio 0.8 (0.9-2) L 08/27/21 19: Lipase 359 U/L (73-393) 08/27/21 19:30 TSH 10.400 uIu/ml (0.300-4.500) H 08/27/21 19:30 Specimen Hemolysis 08/27/21 19:30 COVID-19 Eval Order Covid19 at [facility] 08/27/21 Unknown SARS-CoV-2 (PCR) NEGATIVE (Negative) 08/27/21 Unknown Impressions Chest X-Ray 08/27/21 19:22 XR chest 1V portable CLINICAL HISTORY: Atypical chest pain TECHNIQUE: Single frontal radiograph of the chest was obtained. Comparison: Comparison is made to chest one view 05/20/2021 FINDINGS: No lines and tubes are seen. Surgical clips are seen in the right axilla. Calcified aortic knob is seen. Bilateral lower lobe predominant airspace opacities are seen. There are small bilateral pleural effusions. IMPRESSION: Lateral small pleural effusions. Bilateral lower lobe predominant airspace opacities which may represent atelectasis, pneumonia, and/or aspiration. ACT 112: Negative or not required by law. Electronically signed by: Gene Neri M.D. 08/27/2021 7:55 PM Diagnostic Findings EKG as per my interpretation: Rate 130, atrial flutter, LAD, LAFB, incomplete RBBB, inferior infarct, low voltage
[2021-08-27] MEDS ORDERED: METOPROLOL SUCC 25MG EXT REL TAB PO STA (23:49)
[2021-08-27] MEDS ORDERED: ALBUMIN 25% 12.5 GM/50 ML VIAL IV ONE (23:49)
[2021-08-28 00:48] LABS: T4 Free Thyroxine 4.08 ng/dl (0.8-1.6)
[2021-08-28] MEDS ORDERED: HYDROXYCHLOROQUINE SULFATE 200 MG TAB PO STA (01:12)
[2021-08-28] MEDS ORDERED: NITROGLYCERIN SL 0.4 MG/TAB TAB SL PRN (02:15)
[2021-08-28] MEDS ORDERED: traMADol HCL 50 MG TABLET PO PRN (02:15)
[2021-08-28] MEDS ORDERED: ACETAMINOPHEN 325 MG TAB PO PRN (02:15)
[2021-08-28] MEDS ORDERED: PROMETHAZINE HCL 12.5 MG in SODIUM CHLORIDE 0.9% 50 ML IV PRN (02:15)
[2021-08-28] MEDS: ATORVASTATIN 10 MG TAB PO SCH ×2 (02:58→21:00)
[2021-08-28] MEDS: CINACALCET HCL 30 MG TAB PO SCH (03:20)
[2021-08-28] MEDS ORDERED: LEVOTHYROXINE SODIUM 150 MCG TABLET PO SCH (06:30)
[2021-08-28 06:33] LABS: Basophils # (auto) 0.02 K/uL (0-0.2); Basophils % (auto) 0.4 %; Eosinophils # (auto) 0.05 K/uL (0-0.5); Hematocrit (blood only) 39.5 % (37-47); Hemoglobin 12.6 g/dL (12.0-16.0); Immature Granulocytes # (auto) 0.01 K/uL (0.00-0.02); Immature Granulocytes % (auto) 0.2 %; Lymphocytes # (auto) 1.04 K/uL (1.2-3.4); Lymphocytes % (auto) 20.9 %; Mean Corpuscular Hemoglobin 27.6 pg (25-34); Mean Corpuscular Hgb Conc 31.9 g/dL (32-36); Mean Corpuscular Volume 86.4 fL (80-100); Mean Platelet Volume 11.4 fL (7.4-10.4); Monocytes # (auto) 0.73 K/uL (0.11-0.59); Monocytes % (auto) 14.7 %; Neutrophils # (auto) 3.12 K/uL (1.4-6.5); Neutrophils % (auto) 62.8 %; Nucleated RBC # (auto) 0.07 K/uL (0-0); Nucleated RBC % (auto) 1.3 %; Platelet Count 208 K/uL (130-400); RDW Coefficient of Variation 17.6 % (11.5-14.5); RDW Standard Deviation 54.8 fL (36.4-46.3); Red Blood Count 4.57 M/uL (4.2-5.4); White Blood Count 4.97 K/uL (4.8-10.8)
[2021-08-28 07:03] LABS: INR 4.3 (0.9-1.1); Prothrombin Time 39.2 Seconds (9.0-12.0)
[2021-08-28 07:14] LABS: BUN Creatinine Ratio 30.8 (10-20); Creatinine Clr Calc Pharmacy 95.2 ml/min; Est GFR (African American) 112.1 ml/min; Est GFR (Non-African American) 96.7 ml/min; Magnesium 2.6 mg/dl (1.8-2.4); Potassium 4.5 mmol/L (3.5-5.1)
[2021-08-28 07:29] LABS: Thyroid Stimulating Hormone 12.2 uIu/ml (0.300-4.500)
[2021-08-28] MEDS: METOPROLOL SUCC 25MG EXT REL TAB PO SCH ×2 (08:26→21:00)
--- NOTE | 2021-08-28 08:57 | Cardiology Consultation ---
Date of Consultation August 28, 2021 Assessment & Plan (1) Atrial fibrillation with RVR: (2) SLE (systemic lupus erythematosus): (3) Weakness: (4) COPD exacerbation: Patient is a complex 71-year-old female who notes several months history of declining functional capacity worsening shortness of breath and fatigue. She carries a history of chronic atrial fibrillation previously requiring high-dose medical therapies to control heart rate including metoprolol succinate 25 mg/day and diltiazem CD 300 mg/day. She underwent abdominal surgery in May and postoperatively suffered difficulties with hypotension and diltiazem was weaned from medical regimen but with increasing heart rate response. She presents now noting marked fatigue dyspnea with minimal exertion. Heart rate significantly elevated on presentation. Echocardiogram demonstrates low normal LV systolic function but with bilateral pleural effusions noted on echo as well as chest x-ray Exam with rhonchorous cough Atrial fibrillation now improved with IV diltiazem Patient with chronic atrial fibrillation flutter heart rates being driven elevated due to multiple issues including reduction in medical therapy, likely COPD exacerbation by exam, component of diastolic heart failure with bilateral pleural effusions Plan: We will restart oral diltiazem initially at 120 mg/day and discontinue IV diltiazem. Continue metoprolol succinate at 25 mg twice per day Dose of IV furosemide 40 mg to be administered given pleural effusion and increased vasculature on chest x-ray Evaluation/treatment of COPD suggested INR on presentation supratherapeutic and warfarin currently on hold Expect minimum 1 to 2 days to rectify current complaints History of Present Illness Reason for Consultation: Chronic atrial fibrillation with elevated ventricular response rate, weakness Requesting Physician: Dr. Linares Attending Physician: Ashok Linares MD History of Present Illness Patient is a 71-year-old female with ongoing issues which include 1. Systemic lupus erythematous, on chronic Plaquenil 2. Chronic obstructive lung disease, moderate chronic tobacco use 3. Atherosclerotic carotid disease status post right carotid enterectomy, 2008 4. Hypothyroidism 5. Persistent atrial fibrillation, [id number] score of 3 (age, female, carotid disease), on warfarin 6. Status post laparoscopic distal pancreatectomy and splenectomy my Dr. De La Torre [place] [facility] [place] for low-grade IPMN She has recent complex history which includes undergoing surgical procedure as noted in April. Postoperatively patient had difficulties with anorexia malaise and greater than 20 pound weight loss. She was seen in the outpatient setting for complaints of hypotension on several occasions and ultimately diltiazem was weaned then discontinued due to lower blood pressures metoprolol succinate increased to twice daily. Patient's continued to feel weak and washed out since that time and was seen in the outpatient setting by PCP due to dyspnea. Chronic atrial fibrillation flutter was noted to have elevated ventricular response rate and patient was sent to the ER for multiple concerns for further evaluation. Hypoxia noted on presentation. Patient was begun on IV diltiazem with good rate control. Chest x-ray does demonstrate diffuse increase in interstitial markings as well as bilateral pleural effusions Patient notes as described poor p.o. intake for several months. Feels it may have increased slightly recently. The weight has been trending upward has a persistent cough. This morning rhonchorous in nature. Does continue to smoke. Denies overt fevers or chills. Allergies Allergy/AdvReac Type Severity Reaction Status Date / Time No Known Drug Allergies Allergy Mild Verified 05/20/21 13:50 Pollen Allergy Mild cough, Uncoded 05/20/21 13:50 itchy watery eyes, stuffy nose Home Medications Medication Instructions Recorded Confirmed Type hydroxychloroquine 200 mg tablet 200 mg PO HS 12/08/18 08/27/21 History levothyroxine 150 mcg tablet 150 mcg PO QAM 12/08/18 08/27/21 History atorvastatin 10 mg tablet 10 mg PO HS 01/13/19 08/27/21 History cinacalcet 30 mg tablet (Sensipar) 30 mg PO Q OTHER DAY 11/16/19 08/27/21 History zoledronic acid 5 mg/100 mL in 5 mg IV YEARLY 11/16/19 08/27/21 History mannitol 5 %-water intravenous piggybck (Reclast) clobetasol 0.05 % topical ointment 1 applic TOPICAL DAILY PRN 12/11/20 08/27/21 History metoprolol succinate 25 mg 25 mg PO BID 05/20/21 08/27/21 History tablet,extended release 24 hr warfarin 5 mg tablet 5 mg PO UD 08/27/21 08/27/21 History Patient History Medical History Atrial fibrillation DX 11/2018 - ON WARFARIN - FOLLOWS W/ DR. SAWYER Cancer of right breast 1995--sx, chemo, radiation Carotid atherosclerosis s/p CEA Chronic obstructive pulmonary disease RARELY USES INH. ONLY FLARES UP WHEN PATIENT HAS COLD History of colon polyps Hyperlipidemia Hypertension Hypothyroidism Lupus SLE- on chronic Plaquenil On anticoagulant therapy coumadin daily Pancreatic cyst GETTING CHECKED > REASON FOR PROCEDURE Parathyroid disorder Proteinuria FOLLOWS DR. FREDDY BAKER Surgical History History of anesthesia reaction "takes a long time to stop feeling weird after anesthesia" History of bilateral cataract extraction History of colonoscopy History of esophagogastroduodenoscopy (EGD) History of lumpectomy of right breast History of repair of patent ductus arteriosus CHILD REPAIRED History of right breast biopsy malignant History of right-sided carotid endarterectomy 7 YRS AGO >@ [facility] History of tonsillectomy and adenoidectomy History of tooth extraction Family History Sister Family hx of colon cancer Other No family history of adverse response to anesthesia Social History Smoking Status: Current every day smoker Tobacco Type: Cigarettes Cigarettes Per Day: 60; Second Hand Exposure: Yes; Do You Dip or Chew Tobacco: No; Tobacco Cessation Education Requested by Patient: No Hx Alcohol Use: No Hx Substance Use: No Preferred Language: Albanian Communication Ability: Effective 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: No Beliefs That Will Affect Care: None Current Living Situation: Alone Other Information That Helps Us Care for You: No Feels Safe at Home: Yes Safety Concerns: Feels Safe At This Time Assistive Devices: Oxygen - Continuous Review of Systems Review of Systems: All systems reviewed & are unremarkable except as noted in HPI & below Physical Exam Constitutional: + ill appearing; no acute distress Eyes: PERRL, conjunctivae normal, anicteric sclerae Neck: trachea midline, no thyromegaly Respiratory: Auscultation: + rhonchi (Bilateral, worse with forced cough with diminished breath sounds at the bas) Cardiovascular: Rate/Rhythm: + irregularly irregular Heart Sounds: no gallop Extremities: + edema (1+) Gastrointestinal (Abdomen): normal bowel sounds, soft, nontender, no hepatosplenomegaly Musculoskeletal: no cyanosis or clubbing, extremities motor strength 5/5 Skin: Chronic malar rash Neurologic: PERRL, EOMI, accommodation nl, no face palsy, no dysarthria Results & Data ([facility]) Vital Signs (Past 12 Hours) Vital Signs Temp Pulse Resp BP Pulse Ox 08/28/21 08:07 36.6 C 79 18 112/82 98 08/28/21 04:39 36.4 C L 77 16 110/74 98 08/28/21 02:57 36.3 C L 90 18 115/72 99 08/28/21 01:00 85 122/86 98 08/27/21 22:15 96 H 132/78 98 Laboratory Results Laboratory Results - last 24 hr 08/27/21 08/27/21 08/27/21 19:30 19:30 19:30 WBC 5.76 RBC 5.04 Hgb 14.4 Hct 44.9 MCV 89.1 MCH 28.6 MCHC 32.1 RDW Std Deviation 56.2 H RDW Coeff of Jerri 17.6 H Plt Count 212 MPV 11.9 H Immature Gran % (Auto) 0.2 Neut % (Auto) 72.6 Lymph % (Auto) 15.1 Wilcox % (Auto) 11.8 Eos % (Auto) 0.0 Baso % (Auto) 0.3 Neut # (Auto) 4.18 Lymph # (Auto) 0.87 L Wilcox # (Auto) 0.68 H Eos # (Auto) 0.00 Baso # (Auto) 0.02 Immature Gran # (Auto) 0.01 Absolute Nucleated RBC 0.08 H Nucleated RBC % (auto) 1.4 PT 62.7 H INR 7.2 H* Sodium 137 Potassium 4.4 Chloride 105 Carbon Dioxide 25 Anion Gap 7.0 BUN 20 H Creatinine 0.61 Est Cr Clr Drug Dosing Not Reportable Est GFR ( Amer) 105.0 Est GFR (Non-Af Amer) 90.6 BUN/Creatinine Ratio 31.9 H Glucose 83 Calcium 9.8 Magnesium 1.9 Total Bilirubin 0.4 AST 74 H ALT 64 Alkaline Phosphatase 154 H Troponin I < 0.015 Total Protein 7.6 Albumin 3.4 Globulin 4.2 H Albumin/Globulin Ratio 0.8 L Lipase 359 TSH 10.400 H Free T4 4.08 H Specimen Hemolysis COVID-19 Eval Order SARS-CoV-2 (PCR) Hepatitis C Ab Screen 1108/27/21 08/28/21 Unknown Unknown 06:11 WBC 4.97 RBC 4.57 Hgb 12.6 Hct 39.5 MCV 86.4 MCH 27.6 MCHC 31.9 L RDW Std Deviation 54.8 H RDW Coeff of Jerri 17.6 H Plt Count 208 MPV 11.4 H Immature Gran % (Auto) 0.2 Neut % (Auto) 62.8 Lymph % (Auto) 20.9 Wilcox % (Auto) 14.7 Eos % (Auto) 1.0 Baso % (Auto) 0.4 Neut # (Auto) 3.12 Lymph # (Auto) 1.04 L Wilcox # (Auto) 0.73 H Eos # (Auto) 0.05 Baso # (Auto) 0.02 Immature Gran # (Auto) 0.01 Absolute Nucleated RBC 0.07 H Nucleated RBC % (auto) 1.3 PT INR Sodium Potassium Chloride Carbon Dioxide Anion Gap BUN Creatinine Est Cr Clr Drug Dosing Est GFR ( Amer) Est GFR (Non-Af Amer) BUN/Creatinine Ratio Glucose Calcium Magnesium Total Bilirubin AST ALT Alkaline Phosphatase Troponin I Total Protein Albumin Globulin Albumin/Globulin Ratio Lipase TSH Free T4 Specimen Hemolysis COVID-19 Eval Order Covid19 at [facility] SARS-CoV-2 (PCR) NEGATIVE Hepatitis C Ab Screen 08/28/21 08/28/21 08/28/21 06:11 06:11 06:11 WBC RBC Hgb Hct MCV MCH MCHC RDW Std Deviation RDW Coeff of Jerri Plt Count MPV Immature Gran % (Auto) Neut % (Auto) Lymph % (Auto) Wilcox % (Auto) Eos % (Auto) Baso % (Auto) Neut # (Auto) Lymph # (Auto) Wilcox # (Auto) Eos # (Auto) Baso # (Auto) Immature Gran # (Auto) Absolute Nucleated RBC Nucleated RBC % (auto) PT 39.2 H INR 4.3 H Sodium 138 Potassium 4.5 Chloride 105 Carbon Dioxide 30 Anion Gap 3.0 BUN 15 Creatinine 0.50 L Est Cr Clr Drug Dosing 95.2 Est GFR ( Amer) 112.1 Est GFR (Non-Af Amer) 96.7 BUN/Creatinine Ratio 30.8 H Glucose 85 Calcium 9.0 Magnesium 2.6 H Total Bilirubin AST ALT Alkaline Phosphatase Troponin I Total Protein Albumin Globulin Albumin/Globulin Ratio Lipase TSH 12.200 H Free T4 Specimen Hemolysis COVID-19 Eval Order SARS-CoV-2 (PCR) Hepatitis C Ab Screen Neg Diagnostic Findings Echocardiogram 08/28/2021: Mild left hypertrophy, ejection fraction 50 to 55% without regional abnormality. Mild to moderate mitral insufficiency, dilated IVC ECG Additional Comments: 27-AUG-2021 19:23:35 [facility]-EDSTAT ROUTINE RETRIEVAL Atrial flutter with variable A-V block Left axis deviation Low voltage QRS Inferior infarct (cited on or bef ore 22-MAR-2019) Cannot rule out Anterior infarct (cited on or before 20-MAY-2021) Abnormal ECG When compared with ECG of 20-MAY-2021 11:22, Questionable change in initial forces of Inferior leads Non-specific change in ST segment in Inferior leads Nonspecific T wave abnormality now evident in Inferior leads
[2021-08-28] MEDS ORDERED: FUROSEMIDE 40 MG/4 ML VIAL IV ONE (10:30)
[2021-08-28] MEDS: dilTIAZem ER 120 MG CAPCR PO SCH (11:09)
--- NOTE | 2021-08-28 13:36 | Electrocardiogram Report ---
Test Reason : Blood Pressure : / mmHG Vent. Rate : 130 BPM Atrial Rate : 375 BPM P-R Int : 000 ms QRS Dur : 080 ms QT Int : 272 ms P-R-T Axes : 000 -58 066 degrees QTc Int : 400 ms Atrial flutter with variable A-V block Left axis deviation Low voltage QRS Inferior infarct (cited on or before 22-MAR-2019) Cannot rule out Anterior infarct (cited on or before 20-MAY-2021) Abnormal ECG When compared with ECG of 20-MAY-2021 11:22, Nonspecific T wave abnormality now evident in Inferior leads Confirmed by Tip Silva ([id number]) on 08/28/2021 1:35:44 PM Referred By: REFERRED SELF Confirmed By:Tip Silva
--- NOTE | 2021-08-28 14:43 | Hospitalist Progress Note ---
Date of Service August 28, 2021 Assessment & Plan (1) Atrial flutter with rapid ventricular response: Plan: Atrial fibrillation with RVR H/O chronic atrial fibrillation H/O Cardioversion --ECHO: Mild concentric LVH. EF 50 to 55%. Moderate sized left pleural effus ion. Mild to moderate mitral regurgitation. Left atrium is moderately dilated. IV diltiazem transition to regular p.o. diltiazem 120 mg daily Also continue metoprolol succinate 25 mg twice daily Appreciate cardiology input Supratherapeutic INR Secondary to Coumadin use Hold Coumadin for now Monitor INR Currently no bleeding issues Possible COPD Exacerbation Suspected Pneumonitis Hypoxia H/O COPD Tobacco use disorder Reports minimal non productive cough CXR:Lateral small pleural effusions. Bilateral lower lobe predominant airspace opacities which may represent atelectasis, pneumonia, and/or aspiration. Started on doxycycline, prednisone Xopenex as needed Check procalcitonin Pulmonary toilet Consider CT chest if no improvement Continue supplemental oxygen as needed H/O SLE On hydroxychloroquine Abnormal thyroid function test Elevated TSH, free T4 H/O hypothyroidism Discussed with cable spooler on 08/28/21 Advised to hold levothyroxine for 1 week Plan to resume levothyroxine at reduced dose 75 mcg daily after 1 week Recommend to follow-up with endocrinology upon discharge Hypertension Blood pressure stable Continue current medications Hyperlipidemia on statin PVD S/P Surgery Continue statin H/O Breast cancer S/P lumpectomy, radiation therapy, chemotherapy DVT Px; INR supratherapeutic Coumadin on hold CODE STATUS Full code Admission and Anticipated Discharge Date Admission Date: August 27, 2021 Subjective Patient is seen and examined at bedside States having generalized weakness, tiredness Reports dyspnea on exertion Denies any chest pain, dizziness, nausea, abdominal pain Review of Systems Review of Systems: All systems reviewed & are unremarkable except as noted in Subjective Physical Exam Physical Exam: Physical Exam: Vitals signs as noted above General Appearance: Thin, chronically ill appearing, no apparent distress Head: normocephalic, Atraumatic Eyes: normal inspection, EOMI Neck: supple, Trachea midline Respiratory/Chest: Decreased breath sounds, scattered rhonchi Cardiovascular: Irregularly irregular, No murmur Abdomen/GI:Soft, Non tender, Bowel sounds present Extremities/Musculoskeletal:normal inspection, Trace edema Neurologic/Psych:AAOX3, grossly no focal neurological deficits Skin: normal color, warm Results & Data Results & Data ([facility]) Vital Signs (Past 12 Hours) Vital Signs Temp Pulse Resp BP Pulse Ox 08/28/21 12:32 36.4 C L 94 H 14 118/74 98 08/28/21 08:07 36.6 C 79 18 112/82 98 08/28/21 04:39 36.4 C L 77 16 110/74 98 08/28/21 02:57 36.3 C L 90 18 115/72 99 Laboratory Results Short CBC 08/27/21 08/28/21 Range/Units 19:30 06:11 WBC 5.76 4.97 (4.8-10.8) K/uL Hgb 14.4 12.6 (12.0-16.0) g/dL Hct 44.9 39.5 (37-47) % Plt Count 212 208 (130-400) K/uL BMP 08/27/21 08/28/21 19:30 06:11 Sodium 137 138 Potassium 4.4 4.5 Chloride 105 105 Carbon Dioxide 25 30 BUN 20 H 15 Creatinine 0.61 0.50 L Glucose 83 85 Calcium 9.8 9.0 Cardiac Enzymes 08/27/21 Range/Units 19:30 Troponin I < 0.015 (0-0.045) ng/ml Liver Function 08/27/21 Range/Units 19:30 Total Bilirubin 0.4 (0.2-1) mg/dl AST 74 H (15-37) U/L ALT 64 (12-78) U/L Alkaline Phosphatase 154 H (45-117) U/L Albumin 3.4 (3.4-5.0) gm/dl
[2021-08-28] MEDS ORDERED: LEVALBUTEROL HCL 0.63 MG/3 ML NEB NEB PRN (14:49)
[2021-08-28] MEDS: DOXYCYCLINE HYCLATE 100 MG CAP PO SCH ×2 (15:51→21:00)
[2021-08-28] MEDS: predniSONE 20 MG TAB PO SCH (15:53)
[2021-08-28] MEDS: HYDROXYCHLOROQUINE SULFATE 200 MG TAB PO SCH (21:00)
[2021-08-29] MEDS ORDERED: SODIUM CHLORIDE 0.65% NA SOLN 45 ML (OCEAN) ONE (06:01)
[2021-08-29 07:31] LABS: Hematocrit (blood only) 41.4 % (37-47); Hemoglobin 12.8 g/dL (12.0-16.0); Mean Corpuscular Hemoglobin 27.3 pg (25-34); Mean Corpuscular Hgb Conc 30.9 g/dL (32-36); Mean Corpuscular Volume 88.3 fL (80-100); Mean Platelet Volume 11.3 fL (7.4-10.4); Nucleated RBC # (auto) 0.07 K/uL (0-0); Nucleated RBC % (auto) 1.6 %; Platelet Count 215 K/uL (130-400); RDW Coefficient of Variation 17.4 % (11.5-14.5); RDW Standard Deviation 56.3 fL (36.4-46.3); Red Blood Count 4.69 M/uL (4.2-5.4); White Blood Count 4.35 K/uL (4.8-10.8)
[2021-08-29 07:43] LABS: INR 2.2 (0.9-1.1); Prothrombin Time 20.9 Seconds (9.0-12.0)
[2021-08-29] MEDS: predniSONE 20 MG TAB PO SCH (07:46)
[2021-08-29] MEDS: dilTIAZem ER 120 MG CAPCR PO SCH (07:46)
[2021-08-29] MEDS: METOPROLOL SUCC 25MG EXT REL TAB PO SCH ×2 (07:46→20:45)
[2021-08-29] MEDS: DOXYCYCLINE HYCLATE 100 MG CAP PO SCH ×2 (07:46→20:45)
[2021-08-29 08:12] LABS: BUN Creatinine Ratio 24.1 (10-20); Calcium 9.3 mg/dl (8.5-10.1); Creatinine Clr Calc Pharmacy 91.5 ml/min; Est GFR (African American) 110.6 ml/min; Est GFR (Non-African American) 95.5 ml/min; Magnesium 1.9 mg/dl (1.8-2.4); Potassium 4.3 mmol/L (3.5-5.1)
[2021-08-29] MEDS ORDERED: dilTIAZem ER 120 MG CAPCR PO ONE (09:30)
--- NOTE | 2021-08-29 10:24 | Cardiology Progress Note ---
Date of Service August 29, 2021 Assessment & Plan (1) Atrial fibrillation with RVR: (2) SLE (systemic lupus erythematosus): (3) Weakness: (4) COPD exacerbation: (5) Pleural effusion: Plan: Patient is a complex 71-year-old female who notes several months history of declining functional capacity worsening shortness of breath and fatigue. She carries a history of chronic atrial fibrillation previously requiring high-dose medical therapies to control heart rate including metoprolol succinate 25 mg/day and diltiazem CD 300 mg/day. She underwent abdominal surgery in May and postoperatively suffered difficulties with hypotension and diltiazem was weaned from medical regimen but with increasing heart rate response. She presented noting marked fatigue dyspnea with minimal exertion. Heart rate significantly elevated on presentation. Echocardiogram demonstrates low normal LV systolic function but with bilateral pleural effusions noted on echo as well as chest x-ray Exam with rhonchorous cough Atrial fibrillation/flutter now improved with IV diltiazem Patient with chronic atrial fibrillation flutter heart rates being driven elevated due to multiple issues including reduction in medical therapy, likely COPD exacerbation by exam, component of diastolic heart failure with bilateral pleural effusions Heart rates now improved but still elevated times with 3-1 conduction flutter mechanism. Plan: Increase oral diltiazem continuing current dose of metoprolol Patient responding to treatment of underlying pulmonary Resume anticoagulation with warfarin Full diet and increase in activity We will give oral dose of furosemide today and repeat chest x-ray in a.m. Future considerations may mean flutter ablation versus AV junction ablation with pacemaker insertion. Would not consider at this time Admission and Anticipated Discharge Date Admission Date: August 27, 2021 Subjective Patient seen and examined, chart, medications, telemetry reviewed. Feels somewhat improved from yesterday less dyspneic. Still with rhonchorous cough now clearing secretions. Appetite has returned and patient is hungry Heart rates generally controlled overnight but increase with activity to 3-1 conduction with atrial flutter No bleeding issues and INR returning to therapeutic levels Responded to diuretics yesterday Review of Systems Review of Systems: All systems reviewed & are unremarkable except as noted in Subjective Physical Exam Constitutional: + ill appearing (Chronic); no acute distress Eyes: PERRL, conjunctivae normal, anicteric sclerae Neck: trachea midline, no thyromegaly Respiratory: Auscultation: + rhonchi (Bilateral, worse with forced cough with diminished breath sounds at the bas) Cardiovascular: Rate/Rhythm: + irregularly irregular Heart Sounds: no gallop Vessels: no JVD Extremities: + edema (1+) Gastrointestinal (Abdomen): normal bowel sounds, soft, nontender, no hepatosplenomegaly Musculoskeletal: no cyanosis or clubbing, extremities motor strength 5/5 Neurologic: PERRL, EOMI, accommodation nl, no face palsy, no dysarthria Results & Data ([facility]) Vital Signs (Past 12 Hours) Vital Signs Temp Pulse Resp BP Pulse Ox 08/29/21 07:31 36.3 C L 114 H 24 117/76 93 08/29/21 02:32 36.4 C L 68 16 110/75 98 08/28/21 22:49 36.5 C 71 17 107/72 96 Laboratory Results Laboratory Results - last 24 hr 08/29/21 08/29/21 08/29/21 07:04 07:04 07:04 WBC 4.35 L RBC 4.69 Hgb 12.8 Hct 41.4 MCV 88.3 MCH 27.3 MCHC 30.9 L RDW Std Deviation 56.3 H RDW Coeff of Jerri 17.4 H Plt Count 215 MPV 11.3 H Absolute Nucleated RBC 0.07 H Nucleated RBC % (auto) 1.6 PT 20.9 H INR 2.2 H Sodium 139 Potassium 4.3 Chloride 104 Carbon Dioxide 29 Anion Gap 6.0 BUN 13 Creatinine 0.52 L Est Cr Clr Drug Dosing 91.5 Est GFR ( Amer) 110.6 Est GFR (Non-Af Amer) 95.5 BUN/Creatinine Ratio 24.1 H Glucose 106 H Calcium 9.3 Magnesium 1.9 Procalcitonin Specimen Hemolysis 08/29/21 07:04 WBC RBC Hgb Hct MCV MCH MCHC RDW Std Deviation RDW Coeff of Jerri Plt Count MPV Absolute Nucleated RBC Nucleated RBC % (auto) PT INR Sodium Potassium Chloride Carbon Dioxide Anion Gap BUN Creatinine Est Cr Clr Drug Dosing Est GFR ( Amer) Est GFR (Non-Af Amer) BUN/Creatinine Ratio Glucose Calcium Magnesium Procalcitonin 0.62 H Specimen Hemolysis
[2021-08-29] MEDS ORDERED: FUROSEMIDE 40 MG TAB PO ONE (11:00)
--- NOTE | 2021-08-29 14:16 | Hospitalist Progress Note ---
Date of Service August 29, 2021 Assessment & Plan (1) Atrial flutter with rapid ventricular response: Plan: H/O chronic atrial fibrillation s/p Cardioversion. Presented with RVR, treated with IV diltiazem wtih transition to oral diltiazem and continues on home met oprolol. (2) Hypoxia: (3) Pleural effusion: (4) Pneumonia: Plan: Recent productive cough symptoms with atelectasis vs pneumonia on chest imaging along with secondary pleural effusions. Effusions likely the result of poorly controlled disease in recent months and is contributing to her hypoxia. With ongoing respiratory symptoms and elevated procalcitonin will broaden antibiotic coverage to include Rocephin and treat her with a short course of antibiotics for pneumonia. Cont with diuretic per direction of cardiology team and monitor strict I/Os. (5) Supratherapeutic INR: Plan: INR 7.2 on admission, which has trended down. No overt bleeding, restart co umadin (6) Hypothyroidism: Plan: Abnormal thyroid function test Elevated TSH, free T4 H/O hypothyroidism Discussed with rhinestone setter on 08/28/21 Advised to hold levothyroxine for 1 week Plan to resume levothyroxine at reduced dose 75 mcg daily after 1 week Recommend to follow-up with endocrinology upon discharge (7) COPD (chronic obstructive pulmonary disease): Plan: h/o COPD (8) Osteoporosis: Plan: Receives annual Reclast infusions. Encourage Ca/D supplementation at discharge. (9) SLE (systemic lupus erythematosus): Plan: cont hydroxychloroquine to avoid stopping it and causing flare of her disease. She is not septic or even grossly infected at this point, and will only be on a short course of antibiotics. (10) DVT prophylaxis: Plan: warfarin Full Code Dispo-to home when off oxygen and medically improved. DO [facility] [place] [facility] Admission and Anticipated Discharge Date Admission Date: August 27, 2021 Subjective 71 yo F with h/o afib on Coumadin presented with rapid ventricular response and hypoxia 2/2 pleural effusions recent large pancreatic surgery this summer which caused her a significant post- operative recovery process. reports she was very sedentary postop for a few months today, denies any chest pain or SOB +junky productive cough, no fevers or chills She is feeling better overall since admission. Furosemide IV given yesterday and one additional dose PO today Review of Systems Review of Systems: All systems were reviewed and negative except as indicated in HPI above. Physical Exam Physical Exam: CONSTITUTIONAL: thin, vitals as above, generally well- appearing, NAD EYES: normal conjunctivae, no scleral icterus ENT: external ear and nose normal, MMM, 4LPM NC in place. NECK: trachea midline RESPIRATORY: +crackles at bases antionette on the left base, +rales at left base, no wheezing, normal respiratory effort on 4LPM oxygen CARDIOVASCULAR: regular rate and rhythm, S1 and 2 heard without murmurs, gallops or rubs, no JVD, no peripheral edema CHEST: inspection of chest was normal GASTROINTESTINAL: soft, nontender, ND, small laparoscopic incision site that is well-healing, no guarding MUSCULOSKELETAL: strength 5/5 throughout, head is normocephalic and atraumatic SKIN: warm and dry, malar rash, erythema on dorsal fingers antionette right side NEUROLOGIC: CN 2-12 grossly intact, normal cognition, normal speech, no gross focal deficits. PSYCHIATRIC: alert cooperative and oriented to person, place and time. Euthymic mood, makes good eye contact, language grossly intact, recent and remote memory grossly intact. Results & Data Results & Data ([facility]) Vital Signs (Past 12 Hours) Vital Signs Temp Pulse Resp BP Pulse Ox 08/29/21 11:07 36.3 C L 96 H 18 110/67 93 08/29/21 07:31 36.3 C L 114 H 24 117/76 93 08/29/21 02:32 36.4 C L 68 16 110/75 98 Laboratory Results Short CBC 08/29/21 Range/Units 07:04 WBC 4.35 L (4.8-10.8) K/uL Hgb 12.8 (12.0-16.0) g/dL Hct 41.4 (37-47) % Plt Count 215 (130-400) K/uL BMP 08/29/21 07:04 Sodium 139 Potassium 4.3 Chloride 104 Carbon Dioxide 29 BUN 13 Creatinine 0.52 L Glucose 106 H Calcium 9.3 Medications Administered Current Inpatient Medications Acetaminophen (Acetaminophen 325 Mg Tab) 650 mg PO Q6H PRN PRN Reason: Fever/pain Stop: 09/27/21 02:14 Atorvastatin Calcium (Atorvastatin 10 Mg Tab) 10 mg PO HS MARY Stop: 09/27/21 01:11 Last Admin: 08/28/21 21:00 Dose: 10 mg Documented by: Cinacalcet (Cinacalcet Hcl 30 Mg Tab) 30 mg PO Q2D@2100 [facility] Stop: 09/27/21 02:14 Last Admin: 08/28/21 03:20 Dose: Not Given Documented by: Diltiazem HCl (Diltiazem Er 180 Mg Capcr) 180 mg PO QAM [facility] Stop: 09/29/21 08:59 Doxycycline Hyclate (Doxycycline Hyclate 100 Mg Cap) 100 mg PO BID [facility] Stop: 09/04/21 14:59 Last Admin: 08/29/21 07:46 Dose: 100 mg Documented by: Hydroxychloroquine Sulfate (Hydroxychloroquine Sulfate 200 Mg Tab) 200 mg PO HS [facility] Stop: 09/27/21 20:59 Last Admin: 08/28/21 21:00 Dose: 200 mg Documented by: Promethazine HCl 12.5 mg/ (Sodium Chloride) 50.5 mls @ 202 mls/hr IV Q6H PRN PRN Reason: Nausea And Vomiting Stop: 09/27/21 02:14 Levalbuterol HCl (Levalbuterol Hcl 0.63 Mg/3 Ml Neb) 0.63 mg NEB Q6R PRN PRN Reason: Shortness Of Breath Or Wheezing Stop: 09/27/21 18:59 Levothyroxine Sodium (Levothyroxine Sodium 150 Mcg Tablet) 150 mcg PO DAILYBB [facility] Stop: 09/27/21 06:29 Last Admin: 08/28/21 07:58 Dose: 150 mcg Documented by: Metoprolol Succinate (Metoprolol Succ 25mg Ext Rel Tab) 25 mg PO BID [facility] Stop: 09/27/21 08:59 Last Admin: 08/29/21 07:46 Dose: 25 mg Documented by: Nitroglycerin (Nitroglycerin Sl 0.4 Mg/Tab Tab) 0.4 mg SL PRN PRN PRN Reason: cp Stop: 09/27/21 02:14 Prednisone (Prednisone 20 Mg Tab) 20 mg PO DAILY [facility] Stop: 09/27/21 14:59 Last Admin: 08/29/21 07:46 Dose: 20 mg Documented by: Tramadol HCl (Tramadol Hcl 50 Mg Tablet) 25 - 50 mg PO Q4H PRN PRN Reason: Pain Stop: 09/27/21 02:14
--- NOTE | 2021-08-29 16:27 | CT Scan Report ---
CT SCAN OF THE CHEST WITHOUT IV CONTRAST CLINICAL HISTORY: Hypoxia. Pleural effusion. COMPARISON STUDY: Chest x-ray dated 08/27/2021. Chest CT scans dated 03/01/2021 and 12/08/2018. TECHNIQUE: CT scan of the thorax was performed from the thoracic inlet to the upper abdomen. Images are reviewed in the axial, sagittal, and coronal planes. IV contrast was not administered for this ex amination as per the referring clinician. A dose lowering technique was utilized adhering to the alberto soto of [place]. CT DOSE: 239.26 mGycm FINDINGS: Thyroid: Atrophic versus surgically absent. Thoracic aorta: There is atherosclerotic calcification of the thoracic aorta, which is normal in tita essie and demonstrates standard 3-vessel arch anatomy. Heart: The heart is enlarged and without pericardial effusion. The coronary arteries and mitral annul us are densely calcified. Lungs and pleural spaces: Advanced emphysematous change is similar to previous. There are small to mo derate pleural effusions with bibasilar consolidation. Segmental atelectasis is noted in the lingula. A 12 mm focus of pleural-based nodularity is suggested in the right middle lobe on image #[id number]. This appear increased in size as compared to 03/01/2021. The trachea and central airways are clear. Mediastinum: There are prominent subcentimeter mediastinal lymph nodes. Heather: Not well assessed without IV contrast. Axillae: Surgical clips are noted in the right axilla. There is no axillary lymphadenopathy. Upper abdomen: Partially visualized upper abdominal viscera is within normal limits. Skeletal structures: The skeletal structures are osteopenic. Degenerative change and hyperkyphosis ar e noted in the thoracic spine. No lytic or blastic bony lesions are seen. IMPRESSION: 1. Cardiomegaly and advanced emphysema. 2. There are small to moderate pleural effusions with bibasilar consolidation. This could represent a telectasis and/or pneumonia and clinical correlation will be required. 3. There is a 12 mm pleural-based nodule within the right middle lobe. This appears increased in size as compared to 03/01/2021 but suboptimally assessed due to pleural effusions and atelectasis. A follo w-up chest CT in 3 months time is recommended for reassessment. 4. Additional findings as above. ACT 112: Negative or not required by law. Electronically signed by: Ismael Levin M.D. 08/29/2021 4:26 PM
[2021-08-29] MEDS: HYDROXYCHLOROQUINE SULFATE 200 MG TAB PO SCH (20:45)
[2021-08-29] MEDS: ATORVASTATIN 10 MG TAB PO SCH (20:45)
[2021-08-29] MEDS: cefTRIAXone SODIUM 1,000 MG in DEXTROSE 5% 50 ML IV SCH (23:11)
[2021-08-29] MEDS ORDERED: diphenhydrAMINE HCL 25 MG/10 ML UDC PO ONE (23:48)
[2021-08-30 06:22] LABS: Hematocrit (blood only) 39.1 % (37-47); Hemoglobin 12.4 g/dL (12.0-16.0); Mean Corpuscular Hemoglobin 28.1 pg (25-34); Mean Corpuscular Hgb Conc 31.7 g/dL (32-36); Mean Corpuscular Volume 88.7 fL (80-100); Mean Platelet Volume 11.4 fL (7.4-10.4); Nucleated RBC # (auto) 0.08 K/uL (0-0); Nucleated RBC % (auto) 1.1 %; Platelet Count 200 K/uL (130-400); RDW Coefficient of Variation 17.2 % (11.5-14.5); RDW Standard Deviation 55.2 fL (36.4-46.3); Red Blood Count 4.41 M/uL (4.2-5.4); White Blood Count 7.73 K/uL (4.8-10.8)
[2021-08-30 06:35] LABS: INR 1.9 (0.9-1.1); Prothrombin Time 18.1 Seconds (9.0-12.0)
[2021-08-30 06:58] LABS: BUN Creatinine Ratio 27.6 (10-20); Calcium 9.1 mg/dl (8.5-10.1); Creatinine Clr Calc Pharmacy 101.3 ml/min; Est GFR (African American) 114.4 ml/min; Est GFR (Non-African American) 98.7 ml/min; Magnesium 1.9 mg/dl (1.8-2.4); Potassium 3.8 mmol/L (3.5-5.1)
[2021-08-30] MEDS: METOPROLOL SUCC 25MG EXT REL TAB PO SCH ×2 (08:00→20:32)
[2021-08-30] MEDS: dilTIAZem ER 180 MG CAPCR PO SCH (08:00)
[2021-08-30] MEDS: DOXYCYCLINE HYCLATE 100 MG CAP PO SCH ×2 (08:01→20:32)
--- NOTE | 2021-08-30 11:30 | Cardiology Progress Note ---
Date of Service August 30, 2021 Assessment & Plan (1) Atrial fibrillation with RVR: (2) SLE (systemic lupus erythematosus): (3) Weakness: (4) COPD exacerbation: (5) Pleural effusion: Plan: Patient is a complex 71-year-old female who notes several months history of declining functional capacity worsening shortness of breath and fatigue. She carries a history of chronic atrial fibrillation previously requiring high-dose medical therapies to control heart rate including metoprolol succinate 25 mg/day and diltiazem CD 300 mg/day. She underwent abdominal surgery in May and postoperatively suffered difficulties with hypotension and diltiazem was weaned from medical regimen but with increasing heart rate response. She presented noting marked fatigue dyspnea with minimal exertion. Heart rate significantly elevated on presentation. Echocardiogram demonstrates low normal LV systolic function but with bilateral pleural effusions noted on echo as well as chest x-ray Patient with chronic atrial fibrillation flutter heart rates being driven elevated due to multiple issues including reduction in medical therapy, likely COPD exacerbation by exam, component of diastolic heart failure with bilateral pleural effusions Heart rates now improved Plan: Continue metoprolol and diltiazem as ordered Furosemide 40 mg p.o. today with potassium supplement then 20 mg daily Patient responding to treatment of underlying pneumonia/COPD exac erbation Warfarin resumed Future considerations may mean flutter ablation versus AV junction ablation with pacemaker insertion. Would not consider at this time Admission and Anticipated Discharge Date Admission Date: August 27, 2021 Subjective Patient was seen and examined, chart, medications, telemetry reviewed. Review of Systems Review of Systems: All systems reviewed & are unremarkable except as noted in Subjective Physical Exam Constitutional: no acute distress Eyes: PERRL, conjunctivae normal, anicteric sclerae Neck: trachea midline, no thyromegaly Respiratory: Auscultation: + rhonchi (Bilateral, worse with forced cough with diminished breath sounds at the bas) Cardiovascular: Rate/Rhythm: + irregularly irregular Heart Sounds: no gallop Vessels: no JVD Extremities: + edema (1+) Gastrointestinal (Abdomen): normal bowel sounds, soft, nontender, no hepatosplenomegaly Musculoskeletal: no cyanosis or clubbing, extremities motor strength 5/5 Neurologic: PERRL, EOMI, accommodation nl, no face palsy, no dysarthria Results & Data ([facility]) Vital Signs (Past 12 Hours) Vital Signs Temp Pulse Resp BP Pulse Ox 08/30/21 08:08 36.8 C 78 18 118/72 94 08/30/21 03:18 36.4 C L 93 H 19 114/71 98
[2021-08-30] MEDS ORDERED: FUROSEMIDE 40 MG TAB PO ONE (11:32)
--- NOTE | 2021-08-30 11:49 | XRay Report ---
TWO VIEW CHEST CLINICAL HISTORY: Pleural effusions. COPD. FINDINGS: PA and lateral chest radiographs are compared to study dated 08/27/2021 and correlated with chest CT dated 08/29/2021. The heart is enlarged noting atherosclerotic calcification of the thoracic aorta. The pulmonary vasculature is noncongested. Advanced and edematous change and chronic intersti tial thickening are similar to previous. There are small to moderate pleural effusions with bibasilar consolidation. There is no pneumothorax. The skeletal structures are osteopenic. The bony thorax parmjit ears intact. Surgical clips are noted in the right axilla and the right breast. IMPRESSION: 1. Cardiomegaly and emphysema. 2. Small to moderate pleural effusions with bibasilar consolidation. This is similar to yesterday's C T scan ACT 112: Negative or not required by law. Electronically signed by: Ismael Levin M.D. 08/30/2021 11:48 AM
[2021-08-30] MEDS: POTASSIUM CHLORIDE 10 MEQ TABCR PO SCH (12:18)
--- NOTE | 2021-08-30 13:00 | Hospitalist Progress Note ---
Date of Service August 30, 2021 Assessment & Plan (1) Atrial flutter with rapid ventricular response: Plan: H/O chronic atrial fibrillation s/p Cardioversion historically (not this admission). Presented with RVR, treated with IV diltiazem with transition to oral diltiazem and continues on home metoprolol. (2) Hypoxia: (3) Pleural effusion: (4) Pneumonia: Plan: Recent productive cough symptoms with atelectasis vs pneumonia on chest imaging along with secondary pleural effusions. Effusions likely the result of poorly controlled disease in recent months and is contributing to her hypoxia. With ongoing respiratory symptoms and elevated procalcitonin will broaden antibiotic coverage to include Rocephin and treat her with a short course of antibiotics for pneumonia. Cont with diuretic per direction of cardiology team and monitor strict I/Os. (5) Supratherapeutic INR: Plan: INR 7.2 on admission, which has trended down. No overt bleeding, coumadin restarted (6) Hypothyroidism: Plan: Abnormal thyroid function test Elevated TSH, free T4 H/O hypothyroidism Discussed with stationary engineer on 08/28/21 Advised to hold levothyroxine for 1 week Plan to resume levothyroxine at reduced dose 75 mcg daily after 1 week Recommend to follow-up with endocrinology upon discharge (7) COPD (chronic obstructive pulmonary disease): Plan: h/o COPD (8) Osteoporosis: Plan: Receives annual Reclast infusions. Encourage Ca/D supplementation at discharge. (9) SLE (systemic lupus erythematosus): Plan: cont hydroxychloroquine to avoid stopping it and causing flare of her disease. She is not septic or even grossly infected at this point, and will only be on a short course of antibiotics. (10) DVT prophylaxis: Plan: warfarin Full Code Dispo-to home when off oxygen and medically improved. Khushbu Mendes DO [facility] Hospitalist Admission and Anticipated Discharge Date Admission Date: August 27, 2021 Subjective 71-year-old female with known history of atrial fibrillation on chronic warfarin presented with several months history of declining functional capacity and worsening shortness of breath fatigue along with atrial fibrillation with RVR. She remains hypoxic today and reports feeling somewhat better after addition of ceftriaxone overnight to doxycycline. Remains afebrile. Reports improvement in junky cough. Diuresing well with furosemide. Review of Systems Review of Systems: All systems were reviewed and negative except as indicated in HPI above. Physical Exam Physical Exam: CONSTITUTIONAL: thin, vitals as above, generally well- appearing, NAD EYES: normal conjunctivae, no scleral icterus ENT: external ear and nose normal, MMM, 4LPM NC in place. NECK: trachea midline RESPIRATORY: +crackles at bases bilaterally, no rales or wheezing, normal respiratory effort on 4LPM oxygen CARDIOVASCULAR: regular rate and rhythm, S1 and 2 heard without murmurs, gallops or rubs, no JVD, no peripheral edema CHEST: inspection of chest was normal GASTROINTESTINAL: soft, nontender, ND, small laparoscopic incision site that is well-healing, no guarding MUSCULOSKELETAL: strength 5/5 throughout, head is normocephalic and atraumatic SKIN: warm and dry, malar rash, erythema on dorsal fingers antionette right side NEUROLOGIC: CN 2-12 grossly intact, normal cognition, normal speech, no gross focal deficits. PSYCHIATRIC: alert cooperative and oriented to person, place and time. Euthymic mood, makes good eye contact, language grossly intact, recent and remote memory grossly intact. Results & Data Results & Data ([facility]) Vital Signs (Past 12 Hours) Vital Signs Temp Pulse Resp BP Pulse Ox 08/30/21 12:00 36.8 C 74 74 H 134/63 98 08/30/21 08:08 36.8 C 78 18 118/72 94 08/30/21 03:18 36.4 C L 93 H 19 114/71 98 Laboratory Results Short CBC 08/30/21 Range/Units 05:54 WBC 7.73 (4.8-10.8) K/uL Hgb 12.4 (12.0-16.0) g/dL Hct 39.1 (37-47) % Plt Count 200 (130-400) K/uL BMP 08/30/21 05:54 Sodium 139 Potassium 3.8 Chloride 105 Carbon Dioxide 29 BUN 13 Creatinine 0.47 L Glucose 93 Calcium 9.1 Diagnostic Findings Chest X-Ray 08/30/21 08:36 TWO VIEW CHEST CLINICAL HISTORY: Pleural effusions. COPD. FINDINGS: PA and lateral chest radiographs are compared to study dated 08/27/2021 and correlated with chest CT dated 08/29/2021. The heart is enlarged noting atherosclerotic calcification of the thoracic aorta. The pulmonary vasculature is noncongested. Advanced and edematous change and chronic interstitial thickening are similar to previous. There are small to moderate pleural effusions with bibasilar consolidation. There is no pneumothorax. The skeletal structures are osteopenic. The bony thorax appears intact. Surgical clips are noted in the right axilla and the right breast. IMPRESSION: 1. Cardiomegaly and emphysema. 2. Small to moderate pleural effusions with bibasilar consolidation. This is similar to yesterday's CT scan ACT 112: Negative or not required by law. Electronically signed by: Ismael Levin M.D. 08/30/2021 11:48 AM Medications Administered Current Inpatient Medications Acetaminophen (Acetaminophen 325 Mg Tab) 650 mg PO Q6H PRN PRN Reason: Fever/pain Stop: 09/27/21 02:14 Atorvastatin Calcium (Atorvastatin 10 Mg Tab) 10 mg PO [facility] Stop: 09/27/21 01:11 Last Admin: 08/29/21 20:45 Dose: 10 mg Documented by: Cinacalcet (Cinacalcet Hcl 30 Mg Tab) 30 mg PO Q2D@2100 [facility] Stop: 09/27/21 02:14 Last Admin: 08/28/21 03:20 Dose: Not Given Documented by: Diltiazem HCl (Diltiazem Er 180 Mg Capcr) 180 mg PO [facility] Stop: 09/29/21 08:59 Last Admin: 08/30/21 08:00 Dose: 180 mg Documented by: Doxycycline Hyclate (Doxycycline Hyclate 100 Mg Cap) 100 mg PO BID [facility] Stop: 09/04/21 14:59 Last Admin: 08/30/21 08:01 Dose: 100 mg Documented by: Furosemide (Furosemide 20 Mg Tab) [facility] [place]: 09/30/21 08:59 Hydroxychloroquine Sulfate (Hydroxychloroquine Sulfate 200 Mg Tab) 200 mg PO [facility] Stop: 09/27/21 20:59 Last Admin: 08/29/21 20:45 Dose: 200 mg Documented by: Promethazine HCl 12.5 mg/ (Sodium Chloride) 50.5 mls @ 202 mls/hr IV Q6H PRN PRN Reason: Nausea And Vomiting Stop: 09/27/21 02:14 Ceftriaxone Sodium 1,000 mg/ (Dextrose) 50 mls @ 100 mls/hr IV Q24H [facility]; Protocol Stop: 09/05/21 22:14 Last Infusion: 08/29/21 23:48 Dose: Infused Documented by: Levalbuterol HCl (Levalbuterol Hcl 0.63 Mg/3 Ml Neb) 0.63 mg NEB Q6R PRN PRN Reason: Shortness Of Breath Or Wheezing Stop: 09/27/21 18:59 Levothyroxine Sodium (Levothyroxine Sodium 150 Mcg Tablet) 150 mcg PO DAILYBB [facility] Stop: 09/27/21 06:29 Last Admin: 08/28/21 07:58 Dose: 150 mcg Documented by: Metoprolol Succinate (Metoprolol Succ 25mg Ext Rel Tab) 25 mg PO BID [facility] Stop: 09/27/21 08:59 Last Admin: 08/30/21 08:00 Dose: 25 mg Documented by: Nitroglycerin (Nitroglycerin Sl 0.4 Mg/Tab Tab) 0.4 mg SL PRN PRN PRN Reason: cp Stop: 09/27/21 02:14 Potassium Chloride (Potassium Chloride 10 Meq Tabcr) 10 meq PO DAILY [facility] Stop: 09/29/21 11:44 Last Admin: 08/30/21 12:18 Dose: 10 meq Documented by: Tramadol HCl (Tramadol Hcl 50 Mg Tablet) 25 - 50 mg PO Q4H PRN PRN Reason: Pain Stop: 09/27/21 02:14 Warfarin Sodium (Warfarin Sod 5 Mg Tab) 5 mg PO DAILY@1600 [facility] Stop: 09/29/21 15:59
[2021-08-30] MEDS ORDERED: WARFARIN SOD 5 MG TAB PO SCH (16:00)
[2021-08-30] MEDS: CINACALCET HCL 30 MG TAB PO SCH (20:32)
[2021-08-30] MEDS: ATORVASTATIN 10 MG TAB PO SCH (20:32)
[2021-08-30] MEDS ORDERED: diphenhydrAMINE HCL 25 MG/10 ML UDC PO ONE (20:40)
[2021-08-30] MEDS: HYDROXYCHLOROQUINE SULFATE 200 MG TAB PO SCH (21:20)
[2021-08-30] MEDS: cefTRIAXone SODIUM 1,000 MG in DEXTROSE 5% 50 ML IV SCH (23:07)
[2021-08-31] MEDS: dilTIAZem ER 180 MG CAPCR PO SCH (08:19)
[2021-08-31] MEDS: POTASSIUM CHLORIDE 10 MEQ TABCR PO SCH (08:19)
[2021-08-31] MEDS: METOPROLOL SUCC 25MG EXT REL TAB PO SCH (08:19)
[2021-08-31] MEDS: DOXYCYCLINE HYCLATE 100 MG CAP PO SCH (08:19)
--- NOTE | 2021-08-31 08:32 | Discharge Summary ---
Date of Service August 31, 2021 Admission HPI Per Admitting Provider History obtained from patient and records. Medical history significant for Christopher crane on Coumadin, hypertension, hyperlipidemia, PVD status post surgery, COPD, breast cancer status post surgery, IPMN status post surgery, SLE, ongoing tobacco abuse. Last confinement November 2018 for Rtu. royce RVR secondary to COPD exacerbation. Patient seen at [facility] group sales manager office last month for follow-up visit. Patient diltiazem was being weaned off due to hypotension, lightheadedness especially in the morning. Patient as not to some weight loss after [place] [facility] for a pancreatic tumor. SBP 90s, cardiac rate 90s during Cardiology visit. Patient cardiac rate in the 110s on patient's BP monitor after stopping Cardizem. 2 weeks ago, patient noted fatigue and generalized weakness symptoms. Shortness of breath usually with exertion. No unusual cough symptoms. No actual chest pain, palpitations. Denies headache or bleeding concerns. Ankle swelling coming and going at home. Patient seen at PCPs office today, cardiac rate noted to be 140s. Rapid atrial flutter noted on EKG. Patient directed to the ER for evaluation. IV Cardizem initiated at the ER. 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 Admission Exam Per Admitting Provider GENERAL: Comfortable, pleasant, no respiratory distress SKIN: Normal color, warm HEENT: [place] palpebral conjunctivae, no ptosis, dry buccal mucosa NECK : Supple, no tenderness CHEST : Decreased breath sounds, no tenderness HEART : Tachycardic, no obvious murmurs ABDOMEN: Some distention, nontender EXTREMITIES : Minimal LE swelling, no LE tenderness, no other conspicuous deformities noted NEUROLOGIC : Coherent, no facial asymmetry, no other gross focality Principal Diagnosis Atrial flutter with rapid ventricular response Hypoxia Pleural effusion Pneumonia Hypothyroidism Discharge Exam CONSTITUTIONAL: thin, vitals as above, generally well-appearing, NAD EYES: normal conjunctivae, no scleral icterus ENT: external ear and nose normal, MMM, 4LPM NC in place. NECK: trachea midline RESPIRATORY: Bilateral crackles at bases have improved, no rales or wheezing, Normal respiratory effort. CARDIOVASCULAR: regular rate and rhythm, S1 and 2 heard without murmurs, gallops or rubs, no JVD, no peripheral edema CHEST: inspection of chest was normal GASTROINTESTINAL: soft, nontender, ND, small laparoscopic incision site that is well-healing, no guarding MUSCULOSKELETAL: strength 5/5 throughout, head is normocephalic and atraumatic SKIN: warm and dry, malar rash, erythema on dorsal fingers antionette right side NEUROLOGIC: CN 2-12 grossly intact, normal cognition, normal speech, no gross focal deficits. PSYCHIATRIC: alert cooperative and oriented to person, place and time. Euthymic mood, makes good eye contact, language grossly intact, recent and remote memory grossly intact. Discharge Data Allergies Allergy/AdvReac Type Severity Reaction Status Date / Time No Known Drug Allergies Allergy Mild Verified 05/20/21 13:50 Pollen Allergy Mild cough, Uncoded 05/20/21 13:50 itchy watery eyes, stuffy nose Consultations 08/27/21 20:11 ED Decision to Admit Stat 08/27/21 23:48 Consult Cardiology Routine Ordered Studies Laboratory Results WBC 7.73 K/uL (4.8-10.8) 08/30/21 05:54 RBC 4.41 M/uL (4.2-5.4) 08/30/21 05:54 Hgb 12.4 g/dL (12.0-16.0) 08/30/21 05:54 Hct 39.1 % (37-47) 08/30/21 05:54 MCV 88.7 fL (80-100) 08/30/21 05:54 MCH 28.1 pg (25-34) 08/30/21 05:54 MCHC 31.7 g/dL (32-36) L 08/30/21 05:54 RDW Std Deviation 55.2 fL (36.4-46.3) H 08/30/21 05:54 RDW Coeff of Jerri 17.2 % (11.5-14.5) H 08/30/21 05:54 Plt Count 200 K/uL (130-400) 08/30/21 05:54 MPV 11.4 fL (7.4-10.4) H 08/30/21 05:54 Immature Gran % (Auto) 0.2 % 08/28/21 06:11 Neut % (Auto) 62.8 % 08/28/21 06:11 Lymph % (Auto) 20.9 % 08/28/21 06:11 [place] % (Auto) 14.7 % 08/28/21 06:11 Eos % (Auto) 1.0 % 08/28/21 06:11 Baso % (Auto) 0.4 % 08/28/21 06:11 Neut # (Auto) 3.12 K/uL (1.4-6.5) 08/28/21 06:11 Lymph # (Auto) 1.04 K/uL (1.2-3.4) L 08/28/21 06:11 [place] # (Auto) 0.73 K/uL (0.11-0.59) H 08/28/21 06:11 Eos # (Auto) 0.05 K/uL (0-0.5) 08/28/21 06:11 Baso # (Auto) 0.02 K/uL (0-0.2) 08/28/21 06:11 Immature Gran # (Auto) 0.01 K/uL (0.00-0.02) 08/28/21 06:11 Absolute Nucleated RBC 0.08 K/uL (0-0) H 08/30/21 05:54 Nucleated RBC % (auto) 1.1 % 08/30/21 05:54 PT 18.1 Seconds (9.0-12.0) H 08/30/21 05:54 INR 1.9 (0.9-1.1) H 08/30/21 05:54 Sodium 139 mmol/L (136-145) 08/30/21 05:54 Potassium 3.8 mmol/L (3.5-5.1) 08/30/21 05:54 Chloride 105 mmol/L (98-107) 08/30/21 05:54 Carbon Dioxide 29 mmol/L (21-32) 08/30/21 05:54 Anion Gap 5.0 (3-11) 08/30/21 05:54 BUN 13 mg/dl (7-18) 08/30/21 05:54 Creatinine 0.47 mg/dl (0.6-1.2) L 08/30/21 05:54 Est Cr Clr Drug Dosing 101.3 ml/min 08/30/21 05:54 Est GFR ( Amer) 114.4 ml/min 08/30/21 05:54 Est GFR (Non-Af Amer) 98.7 ml/min 08/30/21 05:54 BUN/Creatinine Ratio 27.6 (10-20) H 08/30/21 05:54 Glucose 93 mg/dl (70-99) 08/30/21 05:54 Calcium 9.1 mg/dl (8.5-10.1) 08/30/21 05:54 Magnesium 1.9 mg/dl (1.8-2.4) 08/30/21 05:54 Total Bilirubin 0.4 mg/dl (0.2-1) 08/27/21 19:30 AST 74 U/L (15-37) H 08/27/21 19:30 ALT 64 U/L (12-78) 08/27/21 19:30 Alkaline Phosphatase 154 U/L (45-117) H 08/27/21 19:30 Troponin I < 0.015 ng/ml (0-0.045) 08/27/21 19:30 Total Protein 7.6 gm/dl (6.4-8.2) 08/27/21 19:30 Albumin 3.4 gm/dl (3.4-5.0) 08/27/21 19:30 Globulin 4.2 gm/dl (2.5-4.0) H 08/27/21 19:30 Albumin/Globulin Ratio 0.8 (0.9-2) L 08/27/21 19:30 Lipase 359 U/L (73-393) 08/27/21 19:30 Procalcitonin 0.37 ng/ml (0-0.5) 08/30/21 05:54 TSH 12.200 uIu/ml (0.300-4.500) H 08/28/21 06:11 Free T4 4.08 ng/dl (0.8-1.6) H 08/27/21 19:30 Specimen Hemolysis 08/29/21 07:04 COVID-19 Eval Order Covid19 at [facility] 08/27/21 Unknown SARS-CoV-2 (PCR) NEGATIVE (Negative) 08/27/21 Unknown Hepatitis C Ab Screen Neg (Neg) 08/28/21 06:[address] 08/29/21 14:20 CT SCAN OF THE CHEST WITHOUT IV CONTRAST CLINICAL HISTORY: Hypoxia. Pleural effusion. COMPARISON STUDY: Chest x-ray dated 08/27/2021. Chest CT scans dated 03/01/2021 and 12/08/2018. TECHNIQUE: CT scan of the thorax was performed from the thoracic inlet to the upper abdomen. Images are reviewed in the axial, sagittal, and coronal planes. IV contrast was not administered for this examination as per the referring clinician. A dose lowering technique was utilized adhering to the principles of ALARA. CT DOSE: 239.26 mGycm FINDINGS: Thyroid: Atrophic versus surgically absent. Thoracic aorta: There is atherosclerotic calcification of the thoracic aorta, which is normal in caliber and demonstrates standard 3-vessel arch anatomy. Heart: The heart is enlarged and without pericardial effusion. The coronary arteries and mitral annulus are densely calcified. Lungs and pleural spaces: Advanced emphysematous change is similar to previous. There are small to moderate pleural effusions with bibasilar consolidation. Segmental atelectasis is noted in the lingula. A 12 mm focus of pleural-based nodularity is suggested in the right middle lobe on image #[id number]. This appear increased in size as compared to 03/01/2021. The trachea and central airways are clear. Mediastinum: There are prominent subcentimeter mediastinal lymph nodes. Heather: Not well assessed without IV contrast. Axillae: Surgical clips are noted in the right axilla. There is no axillary lymphadenopathy. Upper abdomen: Partially visualized upper abdominal viscera is within normal limits. Skeletal structures: The skeletal structures are osteopenic. Degenerative change and hyperkyphosis are noted in the thoracic spine. No lytic or blastic bony lesions are seen. IMPRESSION: 1. Cardiomegaly and advanced emphysema. 2. There are small to moderate pleural effusions with bibasilar consolidation. This could represent atelectasis and/or pneumonia and clinical correlation will be required. 3. There is a 12 mm pleural-based nodule within the right middle lobe. This appears increased in size as compared to 03/01/2021 but suboptimally assessed due to pleural effusions and atelectasis. A follow-up chest CT in 3 months time is recommended for reassessment. 4. Additional findings as above. ACT 112: Negative or not required by law. Electronically signed by: Ismael Levin M.D. 08/29/2021 4:26 PM Chest X-Ray 08/30/21 08:36 TWO VIEW CHEST CLINICAL HISTORY: Pleural effusions. COPD. FINDINGS: PA and lateral chest radiographs are compared to study dated 08/27/2021 and correlated with chest CT dated 08/29/2021. The heart is enlarged noting atherosclerotic calcification of the thoracic aorta. The pulmonary vasculature is noncongested. Advanced and edematous change and chronic interstitial thickening are similar to previous. There are small to moderate pleural effusions with bibasilar consolidation. There is no pneumothorax. The skeletal structures are osteopenic. The bony thorax appears intact. Surgical clips are noted in the right axilla and the right breast. IMPRESSION: 1. Cardiomegaly and emphysema. 2. Small to moderate pleural effusions with bibasilar consolidation. This is similar to yesterday's CT scan ACT 112: Negative or not required by law. Electronically signed by: Ismael Levin M.D. 08/30/2021 11:48 AM Hospital Course (1) Atrial flutter with rapid ventricular response: H/O chronic atrial fibrillation s/p Cardioversion. Presented with RVR, treated with IV diltiazem wtih transition to oral diltiazem and continues on home metoprolol. (2) Hypoxia: (3) Pleural effusion: (4) Pneumonia: Recent productive cough symptoms with atelectasis vs pneumonia on chest imaging along with secondary pleural effusions. Effusions likely the result of poorly controlled disease in recent months and is contributing to her hypoxia. With ongoing respiratory symptoms and elevated procalcitonin will broaden antibiotic coverage to include Rocephin and treat her with a short course of antibiotics for pneumonia. She was transitioned to oral furosemide with potassium supplementation at discharge and will need a BMP in 1 to 2 weeks. Intravenous antibiotics were transitioned to Augmentin and doxycycline for short course to treat pneumonia. Repeat chest x-ray is recommended in 4 weeks time to ensure complete resolution of pneumonia and pleural effusions. Suspect oxygen supplementation needs will decrease as this improves. She will be discharged on 2 L/min oxygen supplementation continuously. (5) Supratherapeutic INR: INR 7.2 on admission, which has trended down. No overt bleeding, restart coumadin. Close follow-up with [facility] for INR goal 2-3 is recommended. (6) Hypothyroidism: Abnormal thyroid function test Elevated TSH, free T4 H/O hypothyroidism Discussed with patient support partner on 08/28/21 Advised to hold levothyroxine for 1 week Plan to resume levothyroxine at reduced dose 75 mcg daily after 1 week Recommend to follow-up with endocrinology upon discharge (7) COPD (chronic obstructive pulmonary disease): h/o COPD (8) Osteoporosis: Receives annual Reclast infusions. Encourage Ca/D supplementation at discharge. (9) SLE (systemic lupus erythematosus): cont hydroxychloroquine to avoid stopping it and causing flare of her disease. She is not septic or even grossly infected at this point, and will only be on a short course of antibiotics. At time of discharge she was hemodynamically stable and afebrile and tolerating p.o. She was mentating and ambulating at baseline and oxygenating well on 2 L/min oxygen supplementation continuously per two-step evaluation by respiratory therapy. She was sent home in stable condition with close primary care follow-up recommended. Follow-up with cardiology as instructed. Total Time Total Time Spent Total Time Spent (In Minutes): 60 Discharge Plan Discharge Items Patient Disposition: Home - Self-Care Reason For Visit: AF RVR Discharge Diagnosis: Atrial flutter with rapid ventricular response Hypoxia Pleural effusion Pneumonia Hypothyroidism Condition on Discharge: Good Activity: Resume your previous activity Non-emergency contact: Primary Care Provider and Technical Communication Teacher Call non-emergency contact if: you have any medication questions and your symptoms worsen Follow-up/Referrals: Kusum Rutherford, [Primary Care Provider] - (Date & Time 09/05/2021 12:20 PM Provider Martha Rome PA-C Department [facility] ) Diet: Heart Healthy and Low Sodium (2gm) Addtl Attending Provider Instructions: Please take all medications as instructed on discharge list below. Please followup with [facility] Cardiology as instructed It is recommended that you follow up with your primary care provider within one week of discharge from the hospital. This will be to ensure your INR is at goal, ensure your kidney function and electrolytes are stable on the new me dications via bloodwork, and continued monitoring of your pleural effusions and oxygen levels. Repeat chest x-ray is recommended within 4 weeks to ensure complete resolution of pneumonia and pleural effusions. This may be ordered by her primary care provider. Per Dr. Melendez from Endocrinology: Advised to hold levothyroxine for 1 week Plan to resume levothyroxine at reduced dose 75 mcg daily after 1 week Recommend to follow-up with endocrinology upon discharge It was a pleasure taking care of you! Please call if you have any questions or problems. You can reach a [facility] hospitalist on duty at [facility] 24 hours a day by calling [phone]. Take care of yourself. Khushbu Mendes, [facility] Medical Center[facility] Pending Studies at Discharge: No Stand-Alone Forms: My [facility] Medications and DC Order Prescriptions: New doxycycline hyclate 100 mg Capsule 100 mg PO BID Qty: 10 RF: 0 amoxicillin-pot clavulanate [Augmentin] 875-125 mg tablet 1 tab PO BID Qty: 10 RF: 0 diltiazem HCl [Tiazac] 180 mg Capsule,Extended Release 24 Hr 180 mg PO QAM Qty: 60 RF: 0 furosemide 20 mg Tablet 20 mg PO QAM Qty: 30 RF: 0 potassium chloride 10 mEq Tablet,Er Particles/Crystals 10 meq PO DAILY Qty: 30 RF: 0 levothyroxine 75 mcg capsule 75 mcg PO DAILY@0600 Qty: 30 RF: 0 Continued clobetasol 0.05 % ointment 1 applic topical DAILY PRN (Reason: lupus) RF: 0 atorvastatin 10 mg Tablet 10 mg PO HS RF: 0 cinacalcet [Sensipar] 30 mg Tablet 30 mg PO Q OTHER DAY RF: 0 zoledronic [id number] [Reclast] 5 mg/100 mL Piggyback 5 mg IV YEARLY RF: 0 hydroxychloroquine 200 mg tablet 200 mg PO HS RF: 0 metoprolol succinate 25 mg tablet extended release 24 hr 25 mg PO BID RF: 0 warfarin 5 mg tablet 5 mg PO UD RF: 0 Discontinued levothyroxine 150 mcg tablet 150 mcg PO QAM RF: 0 Discharge Orders: Discharge Order (Routine); Ordered 08/31/21 Ordered By: Khushbu Mendes Admission Data Admit Date/Time: 08/27/21 23:45 Attending Provider: Khushbu Mendes Admit Provider: Viktor Ro Primary Care Provider: Kusum Rutherford Other Providers: Vin Uribe ; Jamir Abel ; Anthony Sawyer ; Juanito Vitale ; Jeremy Quinones ; Carlos Alberto Taylor ; Violette Bryson ; Wendi Larsen ; Deborah Yost ; Karson Lujan ; Viktor Ro.
[2021-08-31] MEDS ORDERED: FUROSEMIDE 20 MG TAB PO SCH (09:00)
--- NOTE | 2021-08-31 10:11 | Cardiology Progress Note ---
Date of Service August 31, 2021 Assessment & Plan (1) Atrial fibrillation with RVR: (2) SLE (systemic lupus erythematosus): (3) Weakness: (4) COPD exacerbation: (5) Pleural effusion: Plan: Patient is a complex 71-year-old female who notes several months history of declining functional capacity worsening shortness of breath and fatigue. She carries a history of chronic atrial fibrillation previously requiring high-dose medical therapies to control heart rate including metoprolol succinate 25 mg/day and diltiazem CD 300 mg/day. She underwent abdominal surgery in May and postoperatively suffered difficulties with hypotension and diltiazem was weaned from medical regimen but with increasing heart rate response. She presented noting marked fatigue dyspnea with minimal exertion. Heart rate significantly elevated on presentation. Echocardiogram demonstrates low normal LV systolic function but with bilateral pleural effusions noted on echo as well as chest x-ray Patient with chronic atrial fibrillation flutter heart rates being driven elevated due to multiple issues including reduction in medical therapy, likely COPD exacerbation by exam, component of diastolic heart failure with bilateral pleural effusions Heart rates now improved Plan: Patient stable for discharge as planned on current dosing of metoprolol, diltiazem extended release 240 mg/day Warfarin resumed and will need recheck next week Furosemide 20 mg p.o. daily, CHF instructions Office contacted to arrange cardiology follow-up approximately 2 weeks time Admission and Anticipated Discharge Date Admission Date: August 27, 2021 Subjective Patient was seen and examined, chart, medications, telemetry reviewed. Patient once again feels improved this morning. Heart rate is under much better control predominantly though occasional elevation with activity Cough improved Review of Systems Review of Systems: All systems reviewed & are unremarkable except as noted in Subjective Physical Exam Constitutional: no acute distress Eyes: PERRL, conjunctivae normal, anicteric sclerae Neck: trachea midline, no thyromegaly Respiratory: Auscultation: + rhonchi (Bilateral, worse with forced cough with diminished breath sounds at the bas) Cardiovascular: Rate/Rhythm: + irregularly irregular Heart Sounds: no gallop Vessels: no JVD Extremities: + edema (1+) Gastrointestinal (Abdomen): normal bowel sounds, soft, nontender, no hepatosplenomegaly Musculoskeletal: no cyanosis or clubbing, extremities motor strength 5/5 Neurologic: PERRL, EOMI, accommodation nl, no face palsy, no dysarthria Results & Data ([facility]) Vital Signs (Past 12 Hours) Vital Signs Temp Pulse Pulse Pulse Pulse Pulse Resp 08/31/21 08:41 94 H 117 H 105 H 93 H 08/31/21 07:52 36.5 C 68 18 08/31/21 03:31 36.4 C L 74 15 08/30/21 22:27 36.6 C 80 18 Resp Resp Resp Resp BP Pulse Ox Pulse Ox 08/31/21 08:41 16 20 16 16 93 08/31/21 07:52 124/60 98 08/31/21 03:31 118/83 96 08/30/21 22:27 122/74 95 Pulse Ox Pulse Ox Pulse Ox 08/31/21 08:41 94 94 88 L 08/31/21 07:52 08/31/21 03:31 08/30/21 22:27
[2021-09-01] MEDS ORDERED: dilTIAZem ER 120 MG CAPCR PO SCH (09:00)
== END 2021-08-31 15:46 | disposition home or self-care (01) | DRG 308 ==
LOC: ED 19:11 → 2S 23:45 → SUATTDRO 23:45 → 2S 08-28 01:36

== ENCOUNTER 2022-01-18 14:04 | Inpatient (IN) ==
[2022-01-18] MEDS ORDERED: SODIUM CHLORIDE 0.9% 1000ML 1,000 ML IV ONE (14:30)
--- NOTE | 2022-01-18 14:37 | XRay Report ---
XR chest 1V portable CLINICAL HISTORY: Chest Pain. COMPARISON STUDY: 08/30/2021 TECHNIQUE: 1 view of the chest FINDINGS: Single frontal view of the chest demonstrates the cardiomediastinal silhouette to be within normal li mits. Compared to the previous examination, there is either a chronic or recurrent small right pleura l effusion with atelectasis versus scarring at the right lung base. There is no evidence for left ple ural effusion. The lungs are otherwise clear of acute alveolar opacities. There are no air bronchograms. There is no evidence for vascular congestion. There is no acute osseous pathology. IMPRESSION: 1. Small right pleural effusion with right basilar atelectasis versus scarring. This is similar as wa s seen on the previous study and the findings may represent either a recurrent pleural effusion or re sidual chronic pleural effusion. 2. The remainder of the lungs are clear. ACT 112: Negative or not required by law. Electronically signed by: Varun Pleitez M.D. 01/18/2022 2:35 PM
--- NOTE | 2022-01-18 14:43 | Emergency Department Note ---
Impression & Plan Pneumothorax, Pleural effusion, Elevated INR ED Provider Note NAME: DARIA GORDILLO AGE: 71 SEX: F : 1950 ARRIVES VIA: Walk-In INFORMANT: Patient ED PROVIDER(S): Kirill Rivera DO CHIEF COMPLAINT: coughing up blood HPI: Patient is a 71-year-old female with a past medical history of hypothyroidism, COPD, pulmonary emphysema, hypertension that presents the ER for coughing up blood. She had a biopsy performed at [facility] where they came through her right chest wall and biopsied a lymph node. She notes she was off Coumadin for 5 days prior to that. That day she restarted her Coumadin. She notes that she is coughing up blood in the morning initially when she wakes up and then every couple hours she coughs up a little blood. She admits to mild shortness of breath. No belly pain, nausea, vomiting, or diarrhea. No dysuria, urgency, or frequency. No other exacerbating or remitting factors. ROS: See above HPI for pertinent positives & negatives. A total of 10 systems reviewed and were otherwise negative. PAST MEDICAL HISTORY:See Below PAST SURGICAL HISTORY:See Below FAMILY HISTORY:See Below SOCIAL HISTORY:See Below HOME MEDICATIONS:See Below ALLERGIES:See Below VITALS:See Below PHYSICAL EXAMINATION: GENERAL: Sitting up in bed, alert, well appearing, well nourished, no distress, non-toxic EYE EXAM: normal conjunctiva. PERRL and EOM's grossly intact. OROPHARYNX: no exudate, no erythema, lips, buccal mucosa, and tongue normal and mucous membranes are moist NECK: supple, no nuchal rigidity, no adenopathy, non-tender LUNGS: Clear to auscultation. Normal chest wall mechanics CHEST: Right chest wall slightly green discoloration from casting cleaner with no active bleeding or swelling HEART: no murmurs, S1 normal and S2 normal ABDOMEN: abdomen soft, non-tender, normo-active bowel sounds, no masses, no rebound or guarding. UPPER EXTREMITIES: upper extremities are grossly normal. LOWER EXTREMITIES: No pitting edema. NEURO EXAM: Normal sensorium, cranial nerves II-XII grossly intact, normal speech, no gross weakness of arms, no gross weakness of legs. MEDICAL DECISION MAKING: Patient is a 71-year-old female who presents ER for above-stated complaint. IV was established blood was obtained. Labs showed a mild leukopenia at 4.3 thousand. No significant anemia. INR was therapeutic at 2.7. BMP with LFTs bilirubin and lipase is unremarkable. Troponin was negative. Chest x-ray consistent with previous. CT angio of the chest shows pneumothorax, pleural effusion. Case was discussed with Dr. Kurtz who is on-call for pulmonology. He recommended reversal of the Coumadin level and admission to medicine. Updated and discussed with Kapil Samuels. Patient was updated at bedside admitted for further work-up. Patient was given vitamin K. Triage Nursing notes reviewed. Limited review of prior medical records performed Vital Signs: reviewed and remarkable for tachy Differential diagnosis: Differential diagnoses includes but is not limited to pneumonia, bronchitis, COPD/Asthma exacerbation, pneumothorax, pulmonary embolism, congestive heart failure, acute coronary syndrome ER treatment provided: See below Diagnostics interpreted by me: ECG: Atrial flutter rate of 100 Left axis PVC QTC 456 Cardiac Monitoring: An order was placed for continuous cardiac monitoring. The monitor shows a rate of 102 with sinus rhythm. Laboratory studies: As stated above and show below. Imaging studies: CT angio as discussed above Consultation(s): Discussed with pulmonology as stated above Discussed with hospitalists as discussed above Procedures: none Critical Care: None Past Med/Surg History Medical History (Updated 01/18/22 @ 19:39 by Kirill Rivera DO) Acute on chronic diastolic (congestive) heart failure Atrial fibrillation DX 11/2018 - ON WARFARIN - FOLLOWS W/ DR. SAWYER Atrial fibrillation with RVR Cancer of right breast 1995--sx, chemo, radiation Carotid atherosclerosis s/p CEA Chronic obstructive pulmonary disease RARELY USES INH. ONLY FLARES UP WHEN PATIENT HAS COLD History of colon polyps Hyperlipidemia Hypertension Lupus SLE- on chronic Plaquenil On anticoagulant therapy coumadin daily Osteoporosis Pancreatic cyst GETTING CHECKED > REASON FOR PROCEDURE Pancreatic cyst Parathyroid disorder Primary hyperparathyroidism Proteinuria FOLLOWS DR. FREDDY BAKER SOB (shortness of breath) Vitamin D deficiency Weakness Surgical History History of anesthesia reaction "takes a long time to stop feeling weird after anesthesia" History of bilateral cataract extraction History of colonoscopy History of esophagogastroduodenoscopy (EGD) History of lumpectomy of right breast History of repair of patent ductus arteriosus CHILD REPAIRED History of right breast biopsy malignant History of right-sided carotid endarterectomy 7 YRS AGO >@ [facility] History of tonsillectomy and adenoidectomy History of tooth extraction Family History Sister Family hx of colon cancer Other No family history of adverse response to anesthesia Social History Smoking Status: Current every day smoker Tobacco Type: Cigarettes Cigarettes Per Day: 60; Second Hand Exposure: Yes; Hx Alcohol Use: No Hx Substance Use: No Preferred Language: Mohawk Communication Ability: Effective Vocational Trainer Required: No Beliefs That Will Affect Care: None Current Living Situation: Alone How many Children do You have: 0 Feels Safe at Home: Yes Assistive Devices: Glasses and Oxygen - Continuous Allergies Allergies Allergy/AdvReac Type Severity Reaction Status Date / Time No Known Drug Allergies Allergy Mild Verified 01/18/22 17:33 Pollen Allergy Mild cough, Uncoded 01/01/22 10:30 itchy watery eyes, stuffy nose Home Meds Home Medications Medication Instructions Recorded Confirmed hydroxychloroquine 200 mg tablet 200 mg PO HS 12/08/18 01/18/22 atorvastatin 10 mg tablet 10 mg PO HS 01/13/19 01/18/22 metoprolol succinate 25 mg 25 mg PO BID 05/20/21 01/18/22 tablet,extended release 24 hr warfarin 5 mg tablet 5 mg PO 3XWK 08/27/21 01/18/22 aspirin 81 mg tablet,delayed 81 mg PO DAILY 01/18/22 01/18/22 release valacyclovir 1 gram tablet 1,000 mg PO DAILY PRN 01/18/22 01/18/22 warfarin 5 mg tablet 7.5 mg PO 4XWK 01/18/22 01/18/22 Previous Rx's Medication Instructions Recorded levothyroxine 150 mcg tablet 150 mcg PO DAILY #90 tab 10/29/21 Results & Data (ED) Vital Signs Vital Signs - 24 hr 01/18/22 14:06 01/18/22 15:08 01/18/22 15:30 Temperature 36.8 C Temperature Source Temporal Artery Scan Pulse Rate 129 H 87 85 Respiratory Rate 20 17 Respiratory Effort / Characteristics Respiratory Depth Blood Pressure 135/84 Blood Pressure [Left Arm] Blood Pressure Mean 101 Blood Pressure Mean [Left Arm] Blood Pressure Position [Left Arm] Pulse Oximetry 91 92 92 Oxygen Delivery Method Room Air Room Air Sepsis Recent Fever Within 48 Hours No Sepsis New/Unexplained Change in Mental Status No Sepsis Action Taken by Nursing No Action Required 01/18/22 17:00 Temperature Temperature Source Pulse Rate Respiratory Rate Respiratory Effort / Characteristics Non-Labored Respiratory Depth Normal Blood Pressure Blood Pressure [Left Arm] 127/84 Blood Pressure Mean Blood Pressure Mean [Left Arm] 98 Blood Pressure Position [Left Arm] Semi-fowlers Pulse Oximetry Oxygen Delivery Method Room Air Sepsis Recent Fever Within 48 Hours Sepsis New/Unexplained Change in Mental Status Sepsis Action Taken by Nursing Laboratory Data Result diagrams: 01/18/22 15:53 01/18/22 15:53 Lab Results 01/18/22 01/18/22 01/18/22 Range/Units 15:53 15:53 15:53 WBC 4.30 L (4.8-10.8) K/uL RBC 4.69 (4.2-5.4) M/uL Hgb 14.1 (12.0-16.0) g/dL Hct 42.6 (37-47) % MCV 90.8 (80-100) fL MCH 30.1 (25-34) pg MCHC 33.1 (32-36) g/dL RDW Std Deviation 52.7 H (36.4-46.3) fL RDW Coeff of Jerri 16.5 H (11.5-14.5) % Plt Count 187 (130-400) K/uL MPV 10.8 H (7.4-10.4) fL Immature Gran % (Auto) 0.2 % Neut % (Auto) 74.5 % Lymph % (Auto) 13.7 % [place] % (Auto) 10.9 % Eos % (Auto) 0.5 % Baso % (Auto) 0.2 % Neut # (Auto) 3.20 (1.4-6.5) K/uL Lymph # (Auto) 0.59 L (1.2-3.4) K/uL [place] # (Auto) 0.47 (0.11-0.59) K/uL Eos # (Auto) 0.02 (0-0.5) K/uL Baso # (Auto) 0.01 (0-0.2) K/uL Immature Gran # (Auto) 0.01 (0.00-0.02) K/uL PT 27.0 H (9.0-12.0) Seconds INR 2.7 H (0.9-1.1) Sodium 140 (136-145) mmol/L Potassium 4.1 (3.5-5.1) mmol/L Chloride 105 (98-107) mmol/L Carbon Dioxide 28 (21-32) mmol/L Anion Gap 7 (3-11) BUN 16 (6-23) mg/dl Creatinine 0.52 L (0.6-1.2) mg/dl Est Cr Clr Drug Dosing 91.5 ml/min Est GFR ( Amer) 110.6 ml/min Est GFR (Non-Af Amer) 95.5 ml/min BUN/Creatinine Ratio 30.8 H (10-20) Glucose 86 (70-99(Fasting)) mg/dl Calcium 10.1 (8.5-10.1) mg/dl Total Bilirubin 0.5 (0.2-1.0) mg/dl AST 25 (13-39) U/L ALT 19 (7-52) U/L Alkaline Phosphatase 103 (34-104) U/L Troponin I < 0.03 (0-0.04) ng/ml Total Protein 7.8 (6.0-8.3) gm/dl Albumin 4.0 (3.4-5.0) gm/dl Globulin 3.8 (2.5-4.0) gm/dl Albumin/Globulin Ratio 1.1 (0.9-2) Lipase 60 (11-82) U/L Administered Medications Discontinued Medications Sodium Chloride (Nss 1000ml) 1,000 mls @ 999 mls/hr IV .Q1H1M ONE Stop: 01/18/22 15:30 Last Infusion: 01/18/22 18:00 Dose: 999 mls/hr Documented by: [id number] Admin: 01/18/22 16:30 Dose: 999 mls/hr Documented by: [id number] Phytonadione 10 mg/ Dextrose 51 mls @ 102 mls/hr IV ONE ONE Stop: 01/18/22 18:39 Last Admin: 01/18/22 19:27 Dose: 102 mls/hr Documented by: [id number] Ioversol (Optiray 320 125ml) 121 ml IV ONCE ONE Stop: 01/18/22 17:04 Last Admin: 01/18/22 17:04 Dose: 121 ml Documented by: [id number] Imaging Data Radiologist's Impression: Chest X-Ray 01/18/22 14:18 XR chest 1V portable CLINICAL HISTORY: Chest Pain. COMPARISON STUDY: 08/30/2021 TECHNIQUE: 1 view of the chest FINDINGS: Single frontal view of the chest demonstrates the cardiomediastinal silhouette to be within normal limits. Compared to the previous examination, there is either a chronic or recurrent small right pleural effusion with atelectasis versus scarring at the right lung base. There is no evidence for left pleural effusion. The lungs are otherwise clear of acute alveolar opacities. There are no air bronchograms. There is no evidence for vascular congestion. There is no acute osseous pathology. IMPRESSION: 1. Small right pleural effusion with right basilar atelectasis versus scarring. This is similar as was seen on the previous study and the findings may represent either a recurrent pleural effusion or residual chronic pleural effusion. 2. The remainder of the lungs are clear. ACT 112: Negative or not required by law. Electronically signed by: Varun Pleitez M.D. 01/18/2022 2:35 PM Chest CTA 01/18/22 14:30 CT ANGIOGRAPHY OF THE CHEST, PULMONARY EMBOLUS PROTOCOL CLINICAL HISTORY: recent biopsy of the right chest on Coumadin cough COMPARISON STUDY: Chest CT August 29, 2021. Chest radiograph performed earlier today. PET/CT December 26, 2021. TECHNIQUE: Following IV administration of 121 mL of Optiray, helical axial images of the chest were obtained utilizing the pulmonary embolus protocol. Maximal intensity projections and sagittal and coronal reformats were viewed on an independent 3D workstation. IV contrast was administered without complication. Automated exposure control was utilized for the study. A dose lowering technique was utilized adhering to the principles of ALARA. CT DOSE: 252.83 mGy.cm FINDINGS: No pulmonary emboli are identified. Moderate cardiomegaly is present. There is no pericardial effusion. A right hydropneumothorax is present. The amount of pleural fluid has increased since PET/CT of January 05, 2022. Small to moderate amount of pleural gas within the right hemithorax is noted. There is no left pneumothorax. Extensive right lower lobe airspace opacity is noted. Emphysema is present. A 1.9 cm subpleural right middle lobe nodule has increased in size since CT of August 29, 2021. This is similar to PET/CT of December 26, 2021. There are suspected mild interstitial pulmonary edema. No suspicious lesions within the bony thorax are present. Gastrohepatic ligament stranding is nonspecific. This is partially imaged on this examination. IMPRESSION: 1. Right hydropneumothorax with a small to moderate size right pneumothorax. Short-term radiographic follow-up is recommended to ensure stability. 2. No pulmonary emboli identified. 3. Increase in size of a right pleural effusion with extensive right lower lobe airspace opacity which could reflect atelectasis or consolidation. 4. Redemonstration of an indeterminate 1.9 cm subpleural right middle lobe nodule, increased in size since CT of August 29, 2021. 5. Emphysema. 6. Interstitial pulmonary edema. ACT 112: Negative or not required by law. Electronically signed by: Rohan Ayala M.D. 01/18/2022 5:36 PM Discharge Plan Visit Data Chief Complaint: Cough Stated Complaint: LUNG BIOPSY ON 01/14, COUGHING UP BLOOD ED Provider: Kirill Rivera Discharge Problem: Pneumothorax, Pleural effusion, Elevated INR Forms Stand Alone Forms: My [facility] Prescriptions Prescriptions: No Action levothyroxine 150 mcg tablet 150 mcg PO DAILY Qty: 90 RF: 0 atorvastatin 10 mg Tablet 10 mg PO HS RF: 0 hydroxychloroquine 200 mg tablet 200 mg PO HS RF: 0 metoprolol succinate 25 mg tablet extended release 24 hr 25 mg PO BID RF: 0 warfarin 5 mg tablet 5 mg PO 3XWK RF: 0 warfarin 5 mg tablet 7.5 mg PO 4XWK RF: 0 aspirin [Aspir-Low] 81 mg Tablet,Delayed Release (Dr/Ec) 81 mg PO DAILY RF: 0 valacyclovir 1 gram tablet 1,000 mg PO DAILY PRN (Reason: .FLARES) RF: 0 Referrals Referrals: Kusum Rutherford DO [Primary Care Provider] - Discharge Problem: Pneumothorax Qualifiers: Pneumothorax type: unspecified pneumothorax Qualified Code(s): J93.9 - Pneumothorax, unspecified
[2022-01-18 16:04] LABS: Basophils # (auto) 0.01 K/uL (0-0.2); Basophils % (auto) 0.2 %; Eosinophils # (auto) 0.02 K/uL (0-0.5); Eosinophils % (auto) 0.5 %; Hematocrit (blood only) 42.6 % (37-47); Hemoglobin 14.1 g/dL (12.0-16.0); Immature Granulocytes # (auto) 0.01 K/uL (0.00-0.02); Immature Granulocytes % (auto) 0.2 %; Lymphocytes # (auto) 0.59 K/uL (1.2-3.4); Lymphocytes % (auto) 13.7 %; Mean Corpuscular Hemoglobin 30.1 pg (25-34); Mean Corpuscular Hgb Conc 33.1 g/dL (32-36); Mean Corpuscular Volume 90.8 fL (80-100); Mean Platelet Volume 10.8 fL (7.4-10.4); Monocytes # (auto) 0.47 K/uL (0.11-0.59); Monocytes % (auto) 10.9 %; Neutrophils % (auto) 74.5 %; Platelet Count 187 K/uL (130-400); RDW Coefficient of Variation 16.5 % (11.5-14.5); RDW Standard Deviation 52.7 fL (36.4-46.3); Red Blood Count 4.69 M/uL (4.2-5.4)
[2022-01-18 16:24] LABS: Alanine Aminotransferase 19 U/L (7-52); Albumin Globulin Ratio 1.1 (0.9-2); Alkaline Phosphatase 103 U/L (34-104); Anion Gap 7 (3-11); Aspartate Aminotransferase 25 U/L (13-39); BUN Creatinine Ratio 30.8 (10-20); Bilirubin,Total 0.5 mg/dl (0.2-1.0); Blood Urea Nitrogen 16 mg/dl (6-23); Calcium 10.1 mg/dl (8.5-10.1); Carbon Dioxide 28 mmol/L (21-32); Chloride 105 mmol/L (98-107); Creatinine Clr Calc Pharmacy 91.5 ml/min; Est GFR (African American) 110.6 ml/min; Est GFR (Non-African American) 95.5 ml/min; Globulin 3.8 gm/dl (2.5-4.0); Glucose 86 mg/dl (70-99(Fasting)); Lipase 60 U/L (11-82); Potassium 4.1 mmol/L (3.5-5.1); Sodium 140 mmol/L (136-145); Total Protein 7.8 gm/dl (6.0-8.3)
[2022-01-18 16:25] LABS: Troponin I < 0.03 ng/ml (0-0.04)
[2022-01-18 16:30] LABS: INR 2.7 (0.9-1.1)
--- NOTE | 2022-01-18 16:31 | Electrocardiogram Report ---
Test Reason : Blood Pressure : / mmHG Vent. Rate : 100 BPM Atrial Rate : 104 BPM P-R Int : 000 ms QRS Dur : 094 ms QT Int : 354 ms P-R-T Axes : 000 -59 000 degrees QTc Int : 456 ms Atrial fibrillation Left axis deviation Incomplete right bundle branch block Inferior infarct (cited on or before 22-MAR-2019) Possible Anterior infarct (cited on or before 20-MAY-2021) Abnormal ECG When compared with ECG of 27-AUG-2021 19:23, Atrial fibrillation has replaced Atrial flutter Nonspecific T wave abnormality no longer evident in Anterior leads Confirmed by Tip Silva ([id number]) on 01/18/2022 4:30:46 PM Referred By: REFERRED SELF Confirmed By:Tip Silva
[2022-01-18] MEDS ORDERED: OPTIRAY 320 125ml IV ONE (17:03)
--- NOTE | 2022-01-18 17:38 | CT Scan Report ---
CT ANGIOGRAPHY OF THE CHEST, PULMONARY EMBOLUS PROTOCOL CLINICAL HISTORY: recent biopsy of the right chest on Coumadin cough COMPARISON STUDY: Chest CT August 29, 2021. Chest radiograph performed earlier today. PET/CT December 26, 2021. TECHNIQUE: Following IV administration of 121 mL of Optiray, helical axial images of the chest were o btained utilizing the pulmonary embolus protocol. Maximal intensity projections and sagittal and cor onal reformats were viewed on an independent 3D workstation. IV contrast was administered without co mplication. Automated exposure control was utilized for the study. A dose lowering technique was ut ilized adhering to the principles of ALARA. CT DOSE: 252.83 mGy.cm FINDINGS: No pulmonary emboli are identified. Moderate cardiomegaly is present. There is no pericard ial effusion. A right hydropneumothorax is present. The amount of pleural fluid has increased since P ET/CT of January 05, 2022. Small to moderate amount of pleural gas within the right hemithorax is noted . There is no left pneumothorax. Extensive right lower lobe airspace opacity is noted. Emphysema is p resent. A 1.9 cm subpleural right middle lobe nodule has increased in size since CT of August 29. This is similar to PET/CT of December 26, 2021. There are suspected mild interstitial pulmonary solitario a. No suspicious lesions within the bony thorax are present. Gastrohepatic ligament stranding is nons pecific. This is partially imaged on this examination. IMPRESSION: 1. Right hydropneumothorax with a small to moderate size right pneumothorax. Short-term radiographic follow-up is recommended to ensure stability. 2. No pulmonary emboli identified. 3. Increase in size of a right pleural effusion with extensive right lower lobe airspace opacity whic h could reflect atelectasis or consolidation. 4. Redemonstration of an indeterminate 1.9 cm subpleural right middle lobe nodule, increased in size since CT of August 29, 2021. 5. Emphysema. 6. Interstitial pulmonary edema. ACT 112: Negative or not required by law. Electronically signed by: Rohan Ayala M.D. 01/18/2022 5:36 PM
[2022-01-18] MEDS ORDERED: PHYTONADIONE 10 MG in DEXTROSE 5% 50 ML IV ONE (18:10)
[2022-01-18] MEDS ORDERED: CONSULT PHARMACY STA (19:34)
--- NOTE | 2022-01-18 20:40 | History & Physical Report ---
Date of Service January 18, 2022 Assessment & Plan (1) Pneumothorax: (2) Hemothorax: Plan: 71-year-old female with history of COPD, atrial fibrillation on Coumadin, SLE, smoking, hyperparathyroidism, hypothyroidism Presenting with hemoptysis and cough x2 to 3 days. Right hemo-/pneumothorax Status post lung biopsy January 14, 2022 Chronic Coumadin use for A. fib -92% on room air -Hemoglobin 14 INR 2.7 -Messaged Dr. Kurtz Recommend: INR reversal, oxygen supplement, repeat chest x-ray in the morning -Vitamin K 10 mg IV ordered 2 L via nasal cannula Repeat check x-ray in the morning INR in the morning CBC in a.m. as well Possible right-sided pneumonia -Check nasal MRSA swab, sputum culture -Cefepime plus doxycycline started COPD -Not in exacerbation Atrial fibrillation on Coumadin -Continue diltiazem and metoprolol Hold Coumadin SLE -Hydroxychloroquine Smoker Hyperparathyroidism Hypothyroidism Full code as per patient History of Present Illness Primary Care Provider: Kusum Rutherford, 71-year-old female with history of COPD, atrial fibrillation on Coumadin, SLE, smoking, hyperparathyroidism, hypothyroidism Presenting with hemoptysis and cough x2 to [address]-guided percutaneous right middle lobe lung biopsy last January 15, 2020. The next day, patient resumed her usual Coumadin regimen. Since that time, patient has been having hemoptysis and shortness of breath. At the ER, patient saturating 92% on room air. CT chest revealing moderate pneumo/hydrothorax. INR 2.7. Dr. Rivera, ER physician, discussed with orthotic technician, Dr. Kurtz. Reversal of INR recommended as well as repeat chest x-ray. On exam, patient seen sitting up in bed, comfortable, not in distress States she feels okay while resting, but does have dyspnea on exertion Denies active chest pain, dizziness, palpitations, nausea vomiting abdominal pain, or any other symptoms. Allergies Allergy/AdvReac Type Severity Reaction Status Date / Time No Known Drug Allergies Allergy Mild Verified 01/18/22 17:33 Pollen Allergy Mild cough, Uncoded 01/01/22 10:30 itchy watery eyes, stuffy nose Home Medications Medication Instructions Recorded Confirmed Type hydroxychloroquine 200 mg tablet 200 mg PO HS 12/08/18 01/18/22 History atorvastatin 10 mg tablet 10 mg PO HS 01/13/19 01/18/22 History metoprolol succinate 25 mg 25 mg PO BID 05/20/21 01/18/22 History tablet,extended release 24 hr warfarin 5 mg tablet 5 mg PO 3XWK 08/27/21 01/18/22 History levothyroxine 150 mcg tablet 150 mcg PO DAILY #90 tab 10/29/21 01/18/22 Rx aspirin 81 mg tablet,delayed 81 mg PO DAILY 01/18/22 01/18/22 History release valacyclovir 1 gram tablet 1,000 mg PO DAILY PRN 01/18/22 01/18/22 History warfarin 5 mg tablet 7.5 mg PO 4XWK 01/18/22 01/18/22 History Past Med/Surg History Medical History (Updated 01/18/22 @ 20:37 by Kapil Saravia MD) Acute on chronic diastolic (congestive) heart failure Atrial fibrillation DX 11/2018 - ON WARFARIN - FOLLOWS W/ DR. SAWYER Atrial fibrillation with RVR Cancer of right breast 1995--sx, chemo, radiation Carotid atherosclerosis s/p CEA Chronic obstructive pulmonary disease RARELY USES INH. ONLY FLARES UP WHEN PATIENT HAS COLD History of colon polyps Hyperlipidemia Hypertension Lupus SLE- on chronic Plaquenil On anticoagulant therapy coumadin daily Osteoporosis Pancreatic cyst GETTING CHECKED > REASON FOR PROCEDURE Pancreatic cyst Parathyroid disorder Primary hyperparathyroidism Proteinuria FOLLOWS DR. FREDDY BAKER SOB (shortness of breath) Vitamin D deficiency Weakness Surgical History History of anesthesia reaction "takes a long time to stop feeling weird after anesthesia" History of bilateral cataract extraction History of colonoscopy History of esophagogastroduodenoscopy (EGD) History of lumpectomy of right breast History of repair of patent ductus arteriosus CHILD REPAIRED History of right breast biopsy malignant History of right-sided carotid endarterectomy 7 YRS AGO >@ [facility] History of tonsillectomy and adenoidectomy History of tooth extraction Family History Sister Family hx of colon cancer Other No family history of adverse response to anesthesia Social History Smoking Status: Current every day smoker Tobacco Type: Cigarettes Cigarettes Per Day: 40; Second Hand Exposure: Yes; Do You Dip or Chew Tobacco: No; Tobacco Cessation Education Requested by Patient: No Hx Alcohol Use: No Hx Substance Use: No Preferred Language: Slovak Communication Ability: Effective Principal Database Developer Required: No Beliefs That Will Affect Care: None Current Living Situation: Alone How many Children do You have: 0 Other Information That Helps Us Care for You: No Feels Safe at Home: Yes Safety Concerns: Feels Safe At This Time Assistive Devices: Glasses Review of Systems Review of Systems: all noted and negative except for above Physical Exam Physical Exam: General- oriented x 3, not in distress, speaks in sentences with no effort or accessory muscle use Head- atraumatic Eyes- PERRL, EOMI, anicteric ENT- oropharynx clear Neck- supple, no JVD, no adenopathy, no thyromegaly; carotids +2/2, no bruits appreciated Lungs-right lung: Somewhat decreased breath sounds Left lung: Diminished but clear Heart- normal rate, regular rhythm; no murmur, no gallop, no rub appreciated Abdomen- normal bowel sounds, nondistended, soft, nontender, no masses or hepatosplenomegaly Extremities- no pretibial edema, no calf tenderness; peripheral pulses intact Neuro- alert, oriented x 3; CN 2-12 grossly intact; motor 5/5 bilaterally;sensation 100% on all extremities; no other gross focal neurologic deficits Skin- warm & dry Results & Data Results & Data ([facility]) Vital Signs (Past 12 Hours) Vital Signs Temp Pulse Resp BP BP Pulse Ox 01/18/22 19:55 100 01/18/22 19:30 128/83 91 01/18/22 19:17 149/75 H 95 01/18/22 19:16 91 01/18/22 17:00 127/84 01/18/22 15:30 85 92 01/18/22 15:08 87 17 92 01/18/22 14:06 36.8 C 129 H 20 135/84 91 all noted and reviewed including below Code Status & VTE Plan VTE Prophylaxis Plan VTE Prophylaxis will be ordered: No (1) Pneumothorax Pneumothorax type: unspecified pneumothorax Qualified Code(s): J93.9 - Pneumothorax, unspecified
[2022-01-18] MEDS ORDERED: ACETAMINOPHEN 325 MG TAB PO PRN (21:11)
[2022-01-18] MEDS ORDERED: NSS + 20MEQ KCL 20 MEQ/1,000 ML BAG IV SCH (21:11)
[2022-01-18] MEDS: HYDROXYCHLOROQUINE SULFATE 200 MG TAB PO SCH (21:48)
[2022-01-18] MEDS: DOXYCYCLINE HYCLATE 100 MG CAP PO SCH (21:49)
[2022-01-18] MEDS: METOPROLOL SUCC 25MG EXT REL TAB PO SCH (21:49)
[2022-01-18] MEDS: CEFEPIME 2,000 MG in SYRINGE 0 ML IV SCH (21:50)
[2022-01-18 22:01] LABS: BUN Creatinine Ratio 28.3 (10-20); Calcium 9.6 mg/dl (8.5-10.1); Creatinine Clr Calc Pharmacy 103.5 ml/min; Est GFR (African American) 115.2 ml/min; Est GFR (Non-African American) 99.4 ml/min
[2022-01-19] MEDS: CEFEPIME 2,000 MG in SYRINGE 0 ML IV SCH ×3 (05:19→22:14)
[2022-01-19 06:11] LABS: Basophils # (auto) 0.02 K/uL (0-0.2); Basophils % (auto) 0.5 %; Eosinophils % (auto) 2.5 %; Hematocrit (blood only) 39.4 % (37-47); Hemoglobin 12.4 g/dL (12.0-16.0); Immature Granulocytes # (auto) 0.01 K/uL (0.00-0.02); Immature Granulocytes % (auto) 0.2 %; Lymphocytes # (auto) 0.62 K/uL (1.2-3.4); Lymphocytes % (auto) 15.4 %; Mean Corpuscular Hemoglobin 28.8 pg (25-34); Mean Corpuscular Hgb Conc 31.5 g/dL (32-36); Mean Corpuscular Volume 91.6 fL (80-100); Mean Platelet Volume 11.3 fL (7.4-10.4); Monocytes # (auto) 0.62 K/uL (0.11-0.59); Monocytes % (auto) 15.4 %; Neutrophils # (auto) 2.65 K/uL (1.4-6.5); Platelet Count 188 K/uL (130-400); RDW Coefficient of Variation 16.7 % (11.5-14.5); RDW Standard Deviation 53.9 fL (36.4-46.3); White Blood Count 4.02 K/uL (4.8-10.8)
[2022-01-19] MEDS: LEVOTHYROXINE SODIUM 150 MCG TABLET PO SCH (06:13)
[2022-01-19 06:28] LABS: INR 1.4 (0.9-1.1); Prothrombin Time 14.3 Seconds (9.0-12.0)
[2022-01-19 06:39] LABS: BUN Creatinine Ratio 34.9 (10-20); Calcium 8.8 mg/dl (8.5-10.1); Creatinine Clr Calc Pharmacy 110.7 ml/min; Est GFR (African American) 117.8 ml/min; Est GFR (Non-African American) 101.6 ml/min; Potassium 4.3 mmol/L (3.5-5.1)
--- NOTE | 2022-01-19 06:54 | XRay Report ---
XR chest 1V portable HISTORY: 71 years-old Female ff up pneumo- and hydrothorax follow-up study in a patient with right-s ided hydropneumothorax COMPARISON: Chest radiograph and CTA chest study is 01/18/2022 TECHNIQUE: Portable AP view of the chest FINDINGS: Right hydropneumothorax redemonstrated. There is pleural separation at the right lung apex of 1.9 cm which appears similar to yesterday's study. Layering pleural effusion with mildly progressed right ba silar opacities. Emphysema. Progressively worsened reticular interstitial opacities. Atherosclerosis of the aorta. Degenerative changes of the shoulders and spine. Surgical clips of the right axilla and chest wall. Right middle lobe nodule is better seen on the comparison CTA of the chest. IMPRESSION: 1. Stable right-sided hydropneumothorax. 2. Progressively worsened consolidation of the right lung base. 3. Cardiomegaly with mild pulmonary edema. 4. Emphysema. ACT 112: Negative or not required by law. The above report was generated using voice recognition software. It may contain grammatical, syntax o r spelling errors. Electronically signed by: Lee Kumar M.D. 01/19/2022 6:52 AM
[2022-01-19] MEDS: DOXYCYCLINE HYCLATE 100 MG CAP PO SCH (09:22)
[2022-01-19] MEDS: dilTIAZem ER 180 MG CAPCR PO SCH (09:22)
[2022-01-19] MEDS: METOPROLOL SUCC 25MG EXT REL TAB PO SCH ×2 (09:22→20:01)
--- NOTE | 2022-01-19 10:25 | Pulmonary Consultation ---
Date of Consultation January 19, 2022 Assessment & Plan (1) Pneumothorax: Pneumothorax type: unspecified pneumothorax Qualified Code(s): J93.9 - Pneumothorax, unspecified (2) Pleural effusion: (3) Pulmonary nodule: Impression: 71-year-old female with history of tobacco abuse being worked up for pulmonary nodule status post biopsy with associated pneumothorax. She has a pleural effusion as well. Recommendations: 1. Postprocedural pneumothorax: Given that it is persisted for about 5 days, drainage is indicated. Will proceed with 12 Brazilian pigtail catheter placement and follow clinically. 2. Pleural effusion: Unclear etiology. Hemothorax would be in the differential although the Hounsfield units do not appear elevated. We will plan on placing pigtail catheter. Fluid will be sent for microbiologic as well as cytologic analysis. 3. Pulmonary nodule: Await pathology report from [facility]. 4. Tobacco abuse: Smoking cessation was recommended. 5. Her chest x-ray appears to demonstrate mild fluid overload. Recommend diuresis and assessment of BNP. No indication for abx currently. We will follow with chest tube in place. Thanks for the opportunity of participating in the care of this patient. Feel free to contact us with additional questions or concerns History of Present Illness Attending Physician: Kapil Saravia MD History of Present Illness Asked by hospitalist to evaluate this patient with post lung biopsy pneumothorax and associated pleural effusion. History is obtained from discussion with the ER staff, review the patient, and reviewed electronic medical record. Patient is a 71-year-old female who I cared for in the outpatient pulmonary clinic. She is being worked up for pulmonary nodule. She underwent CT-guided biopsy with interventional radiology at [facility] on Friday. She was taken off her Coumadin for the procedure. She restarted it 24 hours later. She developed some scant hemoptysis but over the last 24 hours has noted that hemoptysis is increased. Remains submassive and she states that she is coughing up may be a tablespoon of blood-tinged phlegm 3-4 times in the morning and then clears out during the day. The last time that she had an hemoptysis was over 24 hours ago. She contacted her primary care provider who referred her to the emergency room. In the ER she was studied with a chest x-ray which demonstrated a right-sided pleural effusion. She then had a CT angiogram performed which sh owed an associated pneumothorax with the effusion. She was admitted to the hospital and placed on oxygen. Her Coumadin was reversed. This morning the patient states that she feels well. She denies fevers chills or night sweats. She not had any trauma. She does not report any increased shortness of breath or oxygen requirement. Overall she feels well and states that she contemplated not even coming to the hospital. Allergies Allergy/AdvReac Type Severity Reaction Status Date / Time No Known Drug Allergies Allergy Mild Verified 01/18/22 17:33 Pollen Allergy Mild cough, Uncoded 01/01/22 10:30 itchy watery eyes, stuffy nose Home Medications Medication Instructions Recorded Confirmed Type hydroxychloroquine 200 mg tablet 200 mg PO HS 12/08/18 01/18/22 History atorvastatin 10 mg tablet 10 mg PO HS 01/13/19 01/18/22 History metoprolol succinate 25 mg 25 mg PO BID 05/20/21 01/18/22 History tablet,extended release 24 hr warfarin 5 mg tablet 5 mg PO 3XWK 08/27/21 01/18/22 History levothyroxine 150 mcg tablet 150 mcg PO DAILY #90 tab 10/29/21 01/18/22 Rx aspirin 81 mg tablet,delayed 81 mg PO DAILY 01/18/22 01/18/22 History release valacyclovir 1 gram tablet 1,000 mg PO DAILY PRN 01/18/22 01/18/22 History warfarin 5 mg tablet 7.5 mg PO 4XWK 01/18/22 01/18/22 History Patient History Medical History (Updated 01/18/22 @ 20:37 by Kapil Saravia MD) Acute on chronic diastolic (congestive) heart failure Atrial fibrillation DX 11/2018 - ON WARFARIN - FOLLOWS W/ DR. SAWYER Atrial fibrillation with RVR Cancer of right breast 1995--sx, chemo, radiation Carotid atherosclerosis s/p CEA Chronic obstructive pulmonary disease RARELY USES INH. ONLY FLARES UP WHEN PATIENT HAS COLD History of colon polyps Hyperlipidemia Hypertension Lupus SLE- on chronic Plaquenil On anticoagulant therapy coumadin daily Osteoporosis Pancreatic cyst GETTING CHECKED > REASON FOR PROCEDURE Pancreatic cyst Parathyroid disorder Primary hyperparathyroidism Proteinuria FOLLOWS DR. FREDDY BAKER SOB (shortness of breath) Vitamin D deficiency Weakness Surgical History History of anesthesia reaction "takes a long time to stop feeling weird after anesthesia" History of bilateral cataract extraction History of colonoscopy History of esophagogastroduodenoscopy (EGD) History of lumpectomy of right breast History of repair of patent ductus arteriosus CHILD REPAIRED History of right breast biopsy malignant History of right-sided carotid endarterectomy 7 YRS AGO >@ [facility] History of tonsillectomy and adenoidectomy History of tooth extraction Family History Sister Family hx of colon cancer Other No family history of adverse response to anesthesia Social History Smoking Status: Current every day smoker Tobacco Type: Cigarettes Cigarettes Per Day: 40; Second Hand Exposure: Yes; Do You Dip or Chew Tobacco: No; Tobacco Cessation Education Requested by Patient: No Hx Alcohol Use: No Hx Substance Use: No Preferred Language: Afghan Communication Ability: Effective Tank Cleaner Required: No Beliefs That Will Affect Care: None Current Living Situation: Alone How many Children do You have: 0 Other Information That Helps Us Care for You: No Feels Safe at Home: Yes Safety Concerns: Feels Safe At This Time Assistive Devices: Glasses Review of Systems Review of Systems: Please refer to admission H&P. No additions or deletions Physical Exam Constitutional: WD/WN, vitals as above Neck: trachea midline, no thyromegaly Respiratory: no respiratory distress, no labored breathing and not tachypneic Decreased breath sounds at the right lung base. Few crackles. No wheezes Cardiovascular: RRR, no murmur, no edema Gastrointestinal (Abdomen): normal bowel sounds, soft, nontender, no hepatosplenomegaly Musculoskeletal: Extremities: extremities normal to inspection Skin: no rashes, warm and dry Neurologic: Nonfocal exam Lymphatic: no cervical lymphadenopathy Results & Data Results & Data ([facility]) Vital Signs (Past 12 Hours) Vital Signs Temp Pulse Pulse Resp BP BP Pulse Ox 01/19/22 08:11 36.6 C 82 18 117/67 92 01/19/22 02:15 36.4 C L 74 16 123/75 98 01/18/22 23:04 36.4 C L 84 18 116/64 100 Critical Care Results & Data Vital Signs (Past 12 Hours) Vital Signs Temp Pulse Pulse Resp BP BP Pulse Ox 01/19/22 08:11 36.6 C 82 18 117/67 92 01/19/22 02:15 36.4 C L 74 16 123/75 98 01/18/22 23:04 36.4 C L 84 18 116/64 100 Lab & Micro Results (Past 24 Hours) RBC 4.30 M/uL (4.2-5.4) 01/19/22 WBC 4.02 K/uL (4.8-10.8) L 01/19/22 Hgb 12.4 g/dL (12.0-16.0) 01/19/22 Hct 39.4 % (37-47) 01/19/22 MCV 91.6 fL (80-100) 01/19/22 MCH 28.8 pg (25-34) 01/19/22 MCHC 31.5 g/dL (32-36) L 01/19/22 RDW Standard Deviation 53.9 fL (36.4-46.3) H 01/19/22 RDW Coefficient of Variation 16.7 % (11.5-14.5) H 01/19/22 Plt Count 188 K/uL (130-400) 01/19/22 MPV 11.3 fL (7.4-10.4) H 01/19/22 Neutrophils (%) (Auto) 66.0 % 01/19/22 Lymphocytes (%) (Auto) 15.4 % 01/19/22 Monocytes # (Auto) 0.62 K/uL (0.11-0.59) H 01/19/22 Eosinophils # (Auto) 0.10 K/uL (0-0.5) 01/19/22 Immature Granulocyte % (Auto) 0.2 % 01/19/22 Neutrophils # (Auto) 2.65 K/uL (1.4-6.5) 01/19/22 Lymphocytes # (Auto) 0.62 K/uL (1.2-3.4) L 01/19/22 Monocytes # (Auto) 0.62 K/uL (0.11-0.59) H 01/19/22 Eosinophils # (Auto) 0.10 K/uL (0-0.5) 01/19/22 Basophils # (Auto) 0.02 K/uL (0-0.2) 01/19/22 Immature Granulocyte # (Auto) 0.01 K/uL (0.00-0.02) 01/19/22 Na 141 mmol/L (136-145) 01/19/22 K 4.3 mmol/L (3.5-5.1) 01/19/22 Cl 110 mmol/L (98-107) H 01/19/22 CO2 27 mmol/L (21-32) 01/19/22 Anion Gap 4 (3-11) 01/19/22 BUN 15 mg/dl (6-23) 01/19/22 Creatinine 0.43 mg/dl (0.6-1.2) L 01/19/22 Estimated GFR ( Amer) 117.8 ml/min 01/19/22 Estimated GFR (Non-Af Amer) 101.6 ml/min 01/19/22 BUN/Creatinine Ratio 34.9 (10-20) H 01/19/22 Glu 97 mg/dl (70-99(Fasting)) 01/19/22 Ca 8.8 mg/dl (8.5-10.1) 01/19/22 Total Bilirubin 0.5 mg/dl (0.2-1.0) 01/18/22 AST 25 U/L (13-39) 01/18/22 ALT 19 U/L (7-52) 01/18/22 Alkaline Phosphatase 103 U/L (34-104) 01/18/22 TP 7.8 gm/dl (6.0-8.3) 01/18/22 Albumin 4.0 gm/dl (3.4-5.0) 01/18/22 Globulin 3.8 gm/dl (2.5-4.0) 01/18/22 Albumin/Globulin Ratio 1.1 (0.9-2) 01/18/22 Calcium Level 8.8 mg/dl (8.5-10.1) 01/19/22 05:35 01/19/22 Prothromb Time International Ratio 1.4 (0.9-1.1) H 01/19/22 05:35 01/19/22 Microbiology 01/18/22 23:00 Gram Stain - Final Sputum, Expectorated Diagnostic Findings (Past 24 Hours) Chest X-Ray 01/18/22 14:18 XR chest 1V portable CLINICAL HISTORY: Chest Pain. COMPARISON STUDY: 08/30/2021 TECHNIQUE: 1 view of the chest FINDINGS: Single frontal view of the chest demonstrates the cardiomediastinal silhouette to be within normal limits. Compared to the previous examination, there is either a chronic or recurrent small right pleural effusion with atelectasis versus scarring at the right lung base. There is no evidence for left pleural effusion. The lungs are otherwise clear of acute alveolar opacities. There are no air bronchograms. There is no evidence for vascular congestion. There is no acute osseous pathology. IMPRESSION: 1. Small right pleural effusion with right basilar atelectasis versus scarring. This is similar as was seen on the previous study and the findings may represent either a recurrent pleural effusion or residual chronic pleural effusion. 2. The remainder of the lungs are clear. ACT 112: Negative or not required by law. Electronically signed by: Varun Pleitez M.D. 01/18/2022 2:35 PM Chest CTA 01/18/22 14:30 CT ANGIOGRAPHY OF THE CHEST, PULMONARY EMBOLUS PROTOCOL CLINICAL HISTORY: recent biopsy of the right chest on Coumadin cough COMPARISON STUDY: Chest CT August 29, 2021. Chest radiograph performed earlier today. PET/CT December 26, 2021. TECHNIQUE: Following IV administration of 121 mL of Optiray, helical axial images of the chest were obtained utilizing the pulmonary embolus protocol. Maximal intensity projections and sagittal and coronal reformats were viewed on an independent 3D workstation. IV contrast was administered without complication. Automated exposure control was utilized for the study. A dose lowering technique was utilized adhering to the principles of ALARA. CT DOSE: 252.83 mGy.cm FINDINGS: No pulmonary emboli are identified. Moderate cardiomegaly is present. There is no pericardial effusion. A right hydropneumothorax is present. The amount of pleural fluid has increased since PET/CT of January 05, 2022. Small to moderate amount of pleural gas within the right hemithorax is noted. There is no left pneumothorax. Extensive right lower lobe airspace opacity is noted. Emphysema is present. A 1.9 cm subpleural right middle lobe nodule has increased in size since CT of August 29, 2021. This is similar to PET/CT of December 26, 2021. There are suspected mild interstitial pulmonary edema. No suspicious lesions within the bony thorax are present. Gastrohepatic ligament stranding is nonspecific. This is partially imaged on this examination. IMPRESSION: 1. Right hydropneumothorax with a small to moderate size right pneumothorax. Short-term radiographic follow-up is recommended to ensure stability. 2. No pulmonary emboli identified. 3. Increase in size of a right pleural effusion with extensive right lower lobe airspace opacity which could reflect atelectasis or consolidation. 4. Redemonstration of an indeterminate 1.9 cm subpleural right middle lobe nodule, increased in size since CT of August 29, 2021. 5. Emphysema. 6. Interstitial pulmonary edema. ACT 112: Negative or not required by law. Electronically signed by: Rohan Ayala M.D. 01/18/2022 5:36 PM Chest X-Ray 01/19/22 07:00 XR chest 1V portable HISTORY: 71 years-old Female ff up pneumo- and hydrothorax follow-up study in a patient with right-sided hydropneumothorax COMPARISON: Chest radiograph and CTA chest study is 01/18/2022 TECHNIQUE: Portable AP view of the chest FINDINGS: Right hydropneumothorax redemonstrated. There is pleural separation at the right lung apex of 1.9 cm which appears similar to yesterday's study. Layering pleural effusion with mildly progressed right basilar opacities. Emphysema. Progressively worsened reticular interstitial opacities. Atherosclerosis of the aorta. Degenerative changes of the shoulders and spine. Surgical clips of the right axilla and chest wall. Right middle lobe nodule is better seen on the comparison CTA of the chest. IMPRESSION: 1. Stable right-sided hydropneumothorax. 2. Progressively worsened consolidation of the right lung base. 3. Cardiomegaly with mild pulmonary edema. 4. Emphysema. ACT 112: Negative or not required by law. The above report was generated using voice recognition software. It may contain grammatical, syntax or spelling errors. Electronically signed by: Lee Kumar M.D. 01/19/2022 6:52 AM I & O Totals 24 Hours 01/18/22 01/19/22 01/20/22 06:59 06:59 06:59 Intake Total 1401 / 1401 Balance 1401 / 1401 Cumulative 01/18/22 14:04 thru 01/18/22 22:00 Intake Total 1401 Balance 1401 RT Ventilator Mngmt (Last Documented) Ventilator Ordered Settings Respiratory Rate 18 01/19/22 08:11 Ventilator - PT Measurements Respiratory Rate 18 PG Care Time/CCT Total # of Minutes Spent Total Time Spent with Patient: Total time spent is greater than 50% in coordination of care (as documented) at patient's floor/unit and/or counseling patient: Coding Level of Care Code 30358 Initial Inpt Care Lvl 3 Diagnoses Pneumothorax J93.9 Pneumothorax type: unspecified pneumothorax Pleural effusion J90 Pulmonary nodule R91.1
--- NOTE | 2022-01-19 10:30 | Procedure Note ---
Procedure Note Date of Service January 19, 2022 Note Procedure: Diagnostic therapeutic ultrasound-guided 12 Kittitian pigtail catheter placement on right Photographic Laboratory Supervisor: Dr. Mane Kurtz Indication: Pleural effusion with postprocedural pneumothorax Consent: Signed by patient and verified with timeout prior to procedure Anesthesia: 8 mL's 1% lidocaine without epinephrine local. Procedure: Consent was verified and timeout performed. Appropriate imaging studies were reviewed prior to the procedure. Patient was placed in a seated position and limited thoracic ultrasound was performed of the right chest. A moderate-sized pleural effusion with compressive atelectasis was noted.Site appropriate for thoracentesis was selected. The skin was prepped and draped in normal sterile fashion. Lidocaine was used for local analgesia. Fluid was aspirated via the finder needle. A small skin carissa was made with the scalpel and an 8 Kittitian catheter over the needle apparatus was advanced over the rib into the pleural space. The needle was withdrawn leaving the catheter in place. A guidewire was advanced through the 8 Kittitian catheter and the catheter removed leaving the guidewire in place. Through the chest wall into the pleural space. A 12 Kittitian locking pigtail catheter was then advanced over the wire. The locking mechanism was secured. Elsy fluid was collected. No evidence of pneumothorax. System was attached to a Cori drainage system at 20 cm of suction. There did appear to be significant aspiration of air. The tube was secured using the skater catheter locking mechanism and a Tegaderm. Post procedure chest x-ray is pending Fluid was sent for cytology, cell count differential, Gram stain and culture, LDH, glucose, and total protein. Follow-up chest x-ray is pending The patient tolerated the procedure well without obvious complication Coding CPT Codes Pulmonary/Thoracic - Pulmonary and Thoracic: 61651 Tube thoracostomy ([id number]) Pulmonary/Thoracic - Pulmonary and Thoracic: 41635 US, Chest, real time with imaging documentation ([id number]) [facility] [place] Codes (Charges) Pulmonary/Thoracic Procedure 1: Pulmonary and Thoracic: 20807 Tube thoracostomy Procedure 2: Pulmonary and Thoracic: 28291 US, Chest, real time with imaging documentation
--- NOTE | 2022-01-19 10:48 | XRay Report ---
XR chest 1V portable HISTORY: 71 years-old Female S/P Thoracentesis follow-up study in a patient with right pleural effus ion. Status post thoracentesis. COMPARISON: Chest radiograph of same day at 6:22 AM, CTA chest 01/18/2022 TECHNIQUE: Portable AP view of the chest FINDINGS: Right-sided hydropneumothorax redemonstrated. The right apical pneumothorax component appears stable with pleural separation of 1.7 cm. Decreased amount of pleural fluid within the right hemithorax stat us post placement of a pigtail drainage catheter projecting over the right lung base. There is improv ed aeration of the right lung base. Mild persistent bibasilar densities. Cardiomegaly with emphysema and persistent interstitial coarsening. Degenerative changes of the shoulders and spine. Surgical cli ps project over the right axilla. IMPRESSION: 1. Right-sided hydropneumothorax redemonstrated with decreased amount of right-sided pleural fluid. P igtail drainage catheter projects over the right lung base. 2. Improved aeration of the right lung base. 3. Cardiomegaly with emphysema and unchanged interstitial coarsening. ACT 112: Negative or not required by law. The above report was generated using voice recognition software. It may contain grammatical, syntax o r spelling errors. Electronically signed by: Lee Kumar M.D. 01/19/2022 10:47 AM
[2022-01-19 10:53] LABS: Total Protein Pleural Fluid 3.8 gm/dl
[2022-01-19 11:02] LABS: Appearance Pleural Fluid CLOUDY; Color Pleural Fluid AMBER; RBC Pleural Fluid (A) 11000 /uL; Source Pleural Fluid RIGHT LUNG; WBC Pleural Fluid (A) 10306 /uL
[2022-01-19] MEDS: FUROSEMIDE INJ 20 MG/2 ML VIAL IV SCH (11:05)
[2022-01-19 11:12] LABS: Basophils, Fluid 0 %; Eosinophils, Fluid 1 %; Lymphocytes, Fluid 14 %; Mono,Macrophage,Mesothelial 29 %; Neutrophils, Fluid 56 %
[2022-01-19] MEDS: traMADol HCL 50 MG TABLET PO PRN ×3 (13:14→23:45)
--- NOTE | 2022-01-19 15:15 | Hospitalist Progress Note ---
Date of Service January 19, 2022 Assessment & Plan (1) Pneumothorax: (2) Hemothorax: Plan: 71-year-old female with history of COPD, atrial fibrillation on Coumadin, SLE, smoking, hyperparathyroidism, hypothyroidism Presenting with hemoptysis and cough x2 to 3 days. Right hemo-/pneumothorax Status post lung biopsy January 14, 2022 Chronic Coumadin use for A. fib 01/19/2022: Status post pigtail catheter placement today With thoracentesis Follow-up chest x-ray, pleural fluid studies Currently on 2 L of oxygen via nasal cannula DC antibiotics per pulmonary service INR reversed with vitamin K INR 1.4 Coumadin on hold COPD -Not in exacerbation Atrial fibrillation on Coumadin -Continue diltiazem and metoprolol Hold Coumadin SLE -Hydroxychloroquine Smoker Hyperparathyroidism Hypothyroidism Full code as per patient plan of care discussed with patient in detail and at length all questions answered she is understanding, agreeable, comfortable with the plan of care Admission and Anticipated Discharge Date Admission Date: January 18, 2022 Subjective Follow-up for pneumothorax, hydrothorax, status post lung biopsy, etc. Status post pigtail catheter placement on the right Sitting up in bed, comfortable, on 2 L of oxygen Good spirits States her breathing is improved today No cough, fevers or chills, chest pain No other symptom Review of Systems Review of Systems: all noted and negative except for above Physical Exam Physical Exam: General- oriented x 3, not in distress, speaks in sentences with no effort or accessory muscle use Eyes- anicteric Neck- no JVD Lungs-mild crackles on the right base Good air entry bilaterally Heart- normal rate, regular rhythm; no murmurs Abdomen- normal bowel sounds, nondistended, soft, nontender Extremities- no pretibial edema, no calf tenderness Neuro- alert, oriented x 3; no gross focal neurologic deficits Skin- warm & dry Results & Data Results & Data ([facility]) Vital Signs (Past 12 Hours) Vital Signs Temp Pulse Pulse Resp BP Pulse Ox 01/19/22 11:53 36.4 C L 80 19 124/80 97 01/19/22 11:34 71 01/19/22 08:11 36.6 C 82 18 117/67 92 all noted and reviewed including below (1) Pneumothorax Pneumothorax type: unspecified pneumothorax Qualified Code(s): J93.9 - Pneumothorax, unspecified
[2022-01-19] MEDS: HYDROXYCHLOROQUINE SULFATE 200 MG TAB PO SCH (20:01)
[2022-01-20] MEDS: CEFEPIME 2,000 MG in SYRINGE 0 ML IV SCH (05:22)
[2022-01-20] MEDS: LEVOTHYROXINE SODIUM 150 MCG TABLET PO SCH (05:32)
[2022-01-20 05:47] LABS: Basophils # (auto) 0.01 K/uL (0-0.2); Basophils % (auto) 0.3 %; Eosinophils # (auto) 0.15 K/uL (0-0.5); Eosinophils % (auto) 4.2 %; Hematocrit (blood only) 37.6 % (37-47); Hemoglobin 12.2 g/dL (12.0-16.0); Immature Granulocytes # (auto) 0.01 K/uL (0.00-0.02); Immature Granulocytes % (auto) 0.3 %; Lymphocytes # (auto) 0.71 K/uL (1.2-3.4); Lymphocytes % (auto) 19.7 %; Mean Corpuscular Hemoglobin 30.3 pg (25-34); Mean Corpuscular Hgb Conc 32.4 g/dL (32-36); Mean Corpuscular Volume 93.3 fL (80-100); Mean Platelet Volume 10.9 fL (7.4-10.4); Monocytes # (auto) 0.53 K/uL (0.11-0.59); Monocytes % (auto) 14.7 %; Neutrophils # (auto) 2.19 K/uL (1.4-6.5); Neutrophils % (auto) 60.8 %; Nucleated RBC # (auto) 0.02 K/uL (0-0); Nucleated RBC % (auto) 0.5 %; Platelet Count 176 K/uL (130-400); RDW Coefficient of Variation 16.6 % (11.5-14.5); RDW Standard Deviation 54.5 fL (36.4-46.3); Red Blood Count 4.03 M/uL (4.2-5.4)
[2022-01-20 06:02] LABS: INR 1.2 (0.9-1.1); Prothrombin Time 12.5 Seconds (9.0-12.0)
[2022-01-20 06:21] LABS: BUN Creatinine Ratio 34.5 (10-20); Creatinine Clr Calc Pharmacy 86.6 ml/min; Est GFR (African American) 108.6 ml/min; Est GFR (Non-African American) 93.7 ml/min; Potassium 4.4 mmol/L (3.5-5.1)
--- NOTE | 2022-01-20 06:59 | XRay Report ---
XR chest 1V portable CLINICAL HISTORY: chest tube COMPARISON STUDY: Chest radiograph January 19, 2022 at 10:16 AM. FINDINGS: Right basilar pleural catheter remains in place. A right hydropneumothorax is again noted. Small amount of pleural gas has decreased since prior exam. Superior pleural separation measures 1.2 cm. Interstitial thickening suggests pulmonary edema. Bibasilar opacities persist. Mild cardiomegaly is unchanged. There are right axillary surgical clips IMPRESSION: Right basilar pleural catheter in place. Small right hydropneumothorax with interval dec rease in pleural gas. ACT 112: Negative or not required by law. Electronically signed by: Rohan Ayala M.D. 01/20/2022 6:58 AM
--- NOTE | 2022-01-20 08:05 | Pulmonology Progress Note ---
Date of Service January 20, 2022 Assessment & Plan (1) Pneumothorax: Pneumothorax type: unspecified pneumothorax Qualified Code(s): J93.9 - Pneumothorax, unspecified (2) Pleural effusion: (3) Pulmonary nodule: Plan: Impression: 71-year-old female with history of tobacco abuse being worked up for pulmonary nodule status post biopsy with associated pneumothorax. She underwent pigtail catheter placement 01/19/2022 with drainage of pleural fluid and improvement in the pneumothorax. Recommendations: 1. Postprocedural pneumothorax: Increased pigtail drain to 40 cm of suction and follow-up chest x-ray in the morning. If the pneumothorax continues to decrease in size, would consider clamping the tube and following up chest x-ray in 4 hours with potential discontinuation of the tube if the lung remains up. 2. Pleural effusion: Unclear etiology. Appears exudative. Await cytology 3. Pulmonary nodule: Await pathology report from [facility]. 4. Tobacco abuse: Smoking cessation was recommended. 5. Mild fluid overload: BNP elevated and better with diuretics. Continue Lasix. We will follow with chest tube in place. Thanks for the opportunity of participating in the care of this patient. Feel free to contact us with additional questions or concerns Admission and Anticipated Discharge Date Admission Date: January 18, 2022 Subjective Patient seen and examined. She is sitting up in bed eating breakfast. She feels better. She required 1 dose of tramadol yesterday but otherwise her pain is controlled. She is coughing less. She continues to expectorate small amounts of dark blood. No fevers chills night sweats or other constitutional symptoms. Review of Systems Review of Systems: All systems reviewed & are unremarkable except as noted in Subjective Physical Exam Constitutional: WD/WN, vitals as above Neck: trachea midline, no thyromegaly Respiratory: no respiratory distress, no labored breathing and not tachypneic Cardiovascular: RRR, no murmur, no edema Chest (Breasts): Additional Comments: No crepitus Gastrointestinal (Abdomen): normal bowel sounds, soft, nontender, no he patosplenomegaly Musculoskeletal: Extremities: extremities normal to inspection Skin: no rashes, warm and dry Lymphatic: no cervical lymphadenopathy Results & Data Results & [facility] ([facility]) Vital Signs (Past 12 Hours) Vital Signs Temp Pulse Pulse Resp BP Pulse Ox Pulse Ox 01/20/22 07:33 36.4 C L 87 19 114/71 92 01/20/22 07:22 86 01/20/22 03:20 36.7 C 92 H 18 122/78 87 L 01/19/22 23:09 36.5 C 68 18 115/66 94 01/19/22 22:20 65 01/19/22 21:11 95 Laboratory Results 01/20/22 05:16 01/20/22 05:16 Pleural fluid studies: Differential: 56% neutrophils, 14% lymphocytes, 1% eosinophils, 29% mesothelial cells Total protein 3.8 Pleural LDH 494 Pleural glucose 92 Gram stain: Many polys no organisms, cultures pending Cytology: Pending Diagnostic Findings Chest x-ray from today was reviewed. The pigtail catheter is in the costophrenic recess. Minimal effusion. Pulmonary edema looks slightly better. The apical pneumothorax has decreased in size currently measuring about 12 mm PG Care Time/CCT Total # of Minutes Spent Total Time Spent with Patient: Total time spent is greater than 50% in coordination of care (as documented) at patient's floor/unit and/or counseling patient: Coding Level of Care Code 61856 Subseq Hosp Care Lvl 2 Diagnoses Pneumothorax J93.9 Pneumothorax type: unspecified pneumothorax Pleural effusion J90 Pulmonary nodule R91.1
[2022-01-20] MEDS: FUROSEMIDE INJ 20 MG/2 ML VIAL IV SCH (08:43)
[2022-01-20] MEDS: dilTIAZem ER 180 MG CAPCR PO SCH (08:43)
[2022-01-20] MEDS: METOPROLOL SUCC 25MG EXT REL TAB PO SCH ×2 (08:43→20:06)
--- NOTE | 2022-01-20 12:42 | Hospitalist Progress Note ---
Date of Service January 20, 2022 Assessment & Plan (1) Pneumothorax: (2) Hemothorax: Plan: 71-year-old female with history of COPD, atrial fibrillation on Coumadin, SLE, smoking, hyperparathyroidism, hypothyroidism Presenting with hemoptysis and cough x2 to 3 days. Right hemo-/pneumothorax Status post lung biopsy January 14, 2022 Chronic Coumadin use for A. fib 01/19/2022: Status post pigtail catheter placement pleural fluid studies: exudative pleural fluid culture: negative so far Cytology: pending Sputum culture: negative so far INR reversed with vitamin K INR 1.2 Coumadin on hold COPD -Not in exacerbation Atrial fibrillation on Coumadin -Continue diltiazem and metoprolol Hold Coumadin SLE -Hydroxychloroquine Smoker Hyperparathyroidism Hypothyroidism Full code as per patient plan of care discussed with patient in detail and at length all questions answered she is understanding, agreeable, comfortable with the plan of care Admission and Anticipated Discharge Date Admission Date: January 18, 2022 Subjective ff up for pneumo-/hemothorax seen resting in bed, sitting up on 2 L NC comfortable states she feels better today breathing continues to improve less cough no fever/chills, chest pain no other symptoms Review of Systems Review of Systems: all noted and negative except for above Physical Exam Physical Exam: General- oriented x 2, not in distress, speaks in sentences with no effort or accessory muscle use Eyes- anicteric Neck- no JVD Lungs- mild crackles on the R base clear on the left pigtail cath in place Heart- normal rate, regular rhythm; no murmurs Abdomen- normal bowel sounds, nondistended, soft, nontender Extremities- no pretibial edema, no calf tenderness Neuro- alert, oriented x 3; no gross focal neurologic deficits Skin- warm & dry Results & Data Results & Data ([facility]) Vital Signs (Past 12 Hours) Vital Signs Temp Pulse Pulse Resp BP Pulse Ox 01/20/22 11:35 36.5 C 98 H 20 103/69 90 01/20/22 07:33 36.4 C L 87 19 114/71 92 01/20/22 07:22 86 01/20/22 03:20 36.7 C 92 H 18 122/78 87 L all noted and reviewed including below (1) Pneumothorax Pneumothorax type: unspecified pneumothorax Qualified Code(s): J93.9 - Pneumothorax, unspecified
[2022-01-20] MEDS: HYDROXYCHLOROQUINE SULFATE 200 MG TAB PO SCH (20:05)
[2022-01-20] MEDS: traMADol HCL 50 MG TABLET PO PRN (21:48)
[2022-01-21] MEDS: LEVOTHYROXINE SODIUM 150 MCG TABLET PO SCH (05:35)
[2022-01-21 06:38] LABS: Basophils # (auto) 0.01 K/uL (0-0.2); Basophils % (auto) 0.3 %; Eosinophils # (auto) 0.13 K/uL (0-0.5); Eosinophils % (auto) 3.3 %; Hematocrit (blood only) 37.8 % (37-47); Hemoglobin 12.3 g/dL (12.0-16.0); Lymphocytes # (auto) 0.69 K/uL (1.2-3.4); Lymphocytes % (auto) 17.6 %; Mean Corpuscular Hemoglobin 28.9 pg (25-34); Mean Corpuscular Hgb Conc 32.5 g/dL (32-36); Mean Corpuscular Volume 88.9 fL (80-100); Mean Platelet Volume 11.5 fL (7.4-10.4); Monocytes # (auto) 0.55 K/uL (0.11-0.59); Neutrophils # (auto) 2.55 K/uL (1.4-6.5); Neutrophils % (auto) 64.8 %; Platelet Count 216 K/uL (130-400); RDW Coefficient of Variation 16.3 % (11.5-14.5); RDW Standard Deviation 52.4 fL (36.4-46.3); Red Blood Count 4.25 M/uL (4.2-5.4); White Blood Count 3.93 K/uL (4.8-10.8)
[2022-01-21 06:51] LABS: INR 1.2 (0.9-1.1); Prothrombin Time 12.6 Seconds (9.0-12.0)
[2022-01-21 07:08] LABS: BUN Creatinine Ratio 42.9 (10-20); Calcium 8.8 mg/dl (8.5-10.1); Creatinine Clr Calc Pharmacy 113.3 ml/min; Est GFR (African American) 118.7 ml/min; Est GFR (Non-African American) 102.4 ml/min; Potassium 3.8 mmol/L (3.5-5.1)
[2022-01-21] MEDS: METOPROLOL SUCC 25MG EXT REL TAB PO SCH ×2 (08:35→20:21)
[2022-01-21] MEDS: FUROSEMIDE INJ 20 MG/2 ML VIAL IV SCH (08:36)
[2022-01-21] MEDS: dilTIAZem ER 180 MG CAPCR PO SCH (08:36)
--- NOTE | 2022-01-21 08:43 | Pulmonology Progress Note ---
Date of Service January 21, 2022 Assessment & Plan (1) Pneumothorax: Pneumothorax type: unspecified pneumothorax Qualified Code(s): J93.9 - Pneumothorax, unspecified (2) Pleural effusion: (3) Pulmonary nodule: Plan: Impression: 71-year-old female with history of tobacco abuse being worked up for pulmonary nodule status post biopsy with associated pneumothorax. She underwent pigtail catheter placement 01/19/2022 with drainage of pleural fluid and improvement in the pneumothorax. Recommendations: 1. Postprocedural pneumothorax: Pigtail catheter was clamped. Discussed with nursing at bedside. The patient can ambulate with the stopcock closed if she would like. We will plan on repeating her chest x-ray in 4 hours. If the lung remains up, the tube can be discontinued. 2. Pleural effusion: Unclear etiology. Appears exudative. Await cytology. The chest tube did put out almost 700 cc yesterday. 3. Pulmonary nodule: Await pathology report from [facility]. 4. Tobacco abuse: Smoking cessation was recommended. 5. Mild fluid overload: Continue Lasix. 6. Hemoptysis: Resolved. Can likely restart Coumadin once the tube is discontinued We will follow with chest tube in place. Thanks for the opportunity of participating in the care of this patient. Feel free to contact us with additional questions or concerns Admission and Anticipated Discharge Date Admission Date: January 18, 2022 Subjective Patient seen and examined. EMR reviewed. She states she is feeling well. Her hemoptysis is completely resolved. Her pain is well controlled. She is not experiencing any shortness of breath. No cough or sputum production. She denies any wheezing or shortness of breath. Review of Systems Review of Systems: All systems reviewed & are unremarkable except as noted in Subjective Physical Exam Constitutional: WD/WN, vitals as above Neck: trachea midline, no thyromegaly Respiratory: no respiratory distress, no labored breathing and not tachypneic Cardiovascular: RRR, no murmur, no edema Gastrointestinal (Abdomen): normal bowel sounds, soft, nontender, no hepa tosplenomegaly Musculoskeletal: Extremities: extremities normal to inspection Skin: no rashes, warm and dry Lymphatic: no cervical lymphadenopathy Results & Data Results & Data ([facility]) Vital Signs (Past 12 Hours) Vital Signs Temp Pulse Pulse Resp BP Pulse Ox Pulse Ox 01/21/22 07:33 36.5 C 82 15 102/66 93 04/04/22 07:08 71 01/21/22 03:08 36.5 C 83 17 106/68 95 01/20/22 23:23 36.5 C 70 18 114/73 95 01/20/22 22:22 68 01/20/22 21:00 95 Laboratory Results 01/21/22 06:18 01/21/22 06:18 Diagnostic Findings Chest x-ray from today was independently reviewed. No obvious pneumothorax is identified. Pigtail catheter is in good position. No residual fluid PG Care Time/CCT Total # of Minutes Spent Total Time Spent with Patient: Total time spent is greater than 50% in coordination of care (as documented) at patient's floor/unit and/or counseling patient: Coding Level of Care Code 30676 Subseq Hosp Care Lvl 2 Diagnoses Pneumothorax J93.9 Pneumothorax type: unspecified pneumothorax Pleural effusion J90 Pulmonary nodule R91.1
--- NOTE | 2022-01-21 09:45 | XRay Report ---
XR chest 1V portable HISTORY: Follow-up right-sided pneumothorax COMPARISON: Chest 01/20/2022. FINDINGS: A right basilar pleural catheter is unchanged in position. Small right pneumothorax has sli ghtly decreased in size. This demonstrate a maximal pleural gap of 9 mm, previously measuring 12 mm. No left-sided pneumothorax. The heart is mildly enlarged. There is diffuse interstitial/vascular thic kening consistent with mild pulmonary edema. Small bilateral pleural effusions and bibasilar densitie s persist. IMPRESSION: 1. Small right pneumothorax has slightly decreased in size. A right basilar chest tube is unchanged i n position. 2. Cardiomegaly with mild interstitial pulmonary edema, small bilateral pleural effusions, and bibasi lar densities persist. ACT 112: Negative or not required by law. Electronically signed by: Owen Campuzano M.D. 01/21/2022 9:44 AM
--- NOTE | 2022-01-21 12:44 | XRay Report ---
XR chest 1V portable HISTORY: Follow-up Pneumothorax, tube clamped COMPARISON: Chest 01/21/2022. FINDINGS: Slight decrease in size in the small right pneumothorax demonstrating a maximal pleural gap of 7 mm. Small bilateral pleural effusions and bibasilar densities persist. Cardiomegaly with mild i nterstitial pulmonary edema remains unchanged. Right basilar chest tube is unchanged in position. IMPRESSION: 1. Slight decrease in size in the small right pneumothorax. Right basilar chest tube is unchanged in position. 2. No change in the cardiomegaly, mild interstitial pulmonary edema, small bilateral pleural effusion s, bibasilar densities. ACT 112: Negative or not required by law. Electronically signed by: Owen Campuzano M.D. 01/21/2022 12:42 PM
--- NOTE | 2022-01-21 16:12 | Hospitalist Progress Note ---
Date of Service January 21, 2022 Assessment & Plan (1) Pneumothorax: (2) Hemothorax: Plan: 71-year-old female with history of COPD, atrial fibrillation on Coumadin, SLE, smoking, hyperparathyroidism, hypothyroidism Presenting with hemoptysis and cough x2 to 3 days. Right hemo-/pneumothorax Status post lung biopsy January 14, 2022 Chronic Coumadin use for A. fib 01/19/2022: Status post pigtail catheter placement pleural fluid studies: exudative pleural fluid culture: negative so far Cytology: pending Sputum culture: negative so far INR reversed with vitamin K INR 1.2 Coumadin on hold CXR: pneumothorax improving 01/21/2022: s/p removal of pigtail cath repeat CXR tomorrow COPD -Not in exacerbation Atrial fibrillation on Coumadin -Continue diltiazem and metoprolol Hold Coumadin SLE -Hydroxychloroquine Smoker Hyperparathyroidism Hypothyroidism Full code as per patient plan of care discussed with patient in detail and at length all questions answered she is understanding, agreeable, comfortable with the plan of care Admission and Anticipated Discharge Date Admission Date: January 18, 2022 Subjective ff up for pneumo/hydrothorax, etc seen resting in bed, sitting in chair comfortable, on 2 L NC states she feels fine overall no shortness of breath, cough, fever/chills, chest pain no other symptoms Review of Systems Review of Systems: all noted and negative except for above Physical Exam Physical Exam: General- oriented x 3, not in distress, speaks in sentences with no effort or accessory muscle use Eyes- anicteric Neck- no JVD Lungs-very mild rales at the bases, no wheezing Heart- normal rate, regular rhythm; no murmurs Abdomen- normal bowel sounds, nondistended, soft, nontender Extremities- no pretibial edema, no calf tenderness Neuro- alert, oriented x 3; no gross focal neurologic deficits Skin- warm & dry Results & Data Results & Data ([facility]) Vital Signs (Past 12 Hours) Vital Signs Temp Pulse Pulse Resp BP BP Pulse Ox 01/21/22 15:33 36.5 C 71 15 96/65 L 93 01/21/22 15:14 94 H 01/21/22 11:21 36.7 C 92 H 15 123/84 97 01/21/22 07:33 36.5 C 82 15 102/66 93 01/21/22 07:08 71 all noted and reviewed including below (1) Pneumothorax Pneumothorax type: unspecified pneumothorax Qualified Code(s): J93.9 - Pneumothorax, unspecified
[2022-01-21] MEDS ORDERED: POLYETHYLENE (MIRALAX) 17 GM PACK PO STA (19:52)
[2022-01-21] MEDS: HYDROXYCHLOROQUINE SULFATE 200 MG TAB PO SCH (20:21)
[2022-01-22] MEDS: LEVOTHYROXINE SODIUM 150 MCG TABLET PO SCH (05:33)
[2022-01-22 06:23] LABS: Basophils # (auto) 0.01 K/uL (0-0.2); Basophils % (auto) 0.2 %; Eosinophils # (auto) 0.19 K/uL (0-0.5); Eosinophils % (auto) 4.1 %; Hematocrit (blood only) 40.1 % (37-47); Hemoglobin 12.8 g/dL (12.0-16.0); Lymphocytes # (auto) 0.72 K/uL (1.2-3.4); Lymphocytes % (auto) 15.6 %; Mean Corpuscular Hemoglobin 28.8 pg (25-34); Mean Corpuscular Hgb Conc 31.9 g/dL (32-36); Mean Corpuscular Volume 90.1 fL (80-100); Mean Platelet Volume 10.9 fL (7.4-10.4); Monocytes # (auto) 0.72 K/uL (0.11-0.59); Monocytes % (auto) 15.6 %; Neutrophils # (auto) 2.98 K/uL (1.4-6.5); Neutrophils % (auto) 64.5 %; Platelet Count 229 K/uL (130-400); RDW Standard Deviation 51.3 fL (36.4-46.3); Red Blood Count 4.45 M/uL (4.2-5.4); White Blood Count 4.62 K/uL (4.8-10.8)
[2022-01-22 06:32] LABS: INR 1.1 (0.9-1.1); Prothrombin Time 11.9 Seconds (9.0-12.0)
[2022-01-22 06:46] LABS: BUN Creatinine Ratio 29.5 (10-20); Calcium 9.3 mg/dl (8.5-10.1); Creatinine Clr Calc Pharmacy 102.4 ml/min; Est GFR (African American) 116.9 ml/min; Est GFR (Non-African American) 100.8 ml/min; Potassium 3.8 mmol/L (3.5-5.1)
[2022-01-22] MEDS ORDERED: SODIUM CHLORIDE 0.65% NA SOLN 45 ML (OCEAN) ONE (07:44)
[2022-01-22] MEDS: dilTIAZem ER 180 MG CAPCR PO SCH (07:45)
[2022-01-22] MEDS: METOPROLOL SUCC 25MG EXT REL TAB PO SCH (07:45)
[2022-01-22] MEDS: FUROSEMIDE INJ 20 MG/2 ML VIAL IV SCH (07:46)
--- NOTE | 2022-01-22 08:20 | XRay Report ---
XR chest 1V portable CLINICAL HISTORY: ff up pneumothorax COMPARISON STUDY: Chest radiograph January 21, 2022 at 10:59 AM. FINDINGS: Right pleural catheter has been removed. A small right apical pneumothorax has slightly dec reased in size since prior exam. Small bilateral pleural effusions are present. There are minimal bib asilar opacities. Emphysema is present. Cardiomediastinal silhouette is stable IMPRESSION: Interval removal of the right pleural catheter. Slight decrease in size of a small right apical pneumothorax. ACT 112: Negative or not required by law. Electronically signed by: Rohan Ayala M.D. 01/22/2022 8:18 AM
--- NOTE | 2022-01-22 09:44 | Hospitalist Progress Note ---
Date of Service January 22, 2022 Assessment & Plan (1) Pneumothorax: (2) Hemothorax: Plan: 71-year-old female with history of COPD, atrial fibrillation on Coumadin, SLE, smoking, hyperparathyroidism, hypothyroidism Presenting with hemoptysis and cough x2 to 3 days. Right hemo-/pneumothorax Status post lung biopsy January 14, 2022 Chronic Coumadin use for A. fib 01/19/2022: Status post pigtail catheter placement pleural fluid studies: exudative pleural fluid culture: negative so far Cytology: pending Sputum culture: negative so far INR reversed with vitamin K INR 1.1 Coumadin may be resumed as per Pulm 01/21/2022: s/p removal of pigtail cath repeat CXR: pneumothorax further improving ff up with Pulm in 1 week COPD -Not in exacerbation Atrial fibrillation on Coumadin -Continue diltiazem and metoprolol resume Coumadin ff up with [facility] SLE -Hydroxychloroquine Smoker Hyperparathyroidism Hypothyroidism Full code as per patient plan of care discussed with patient in detail and at length all questions answered she is understanding, agreeable, comfortable with the plan of care Admission and Anticipated Discharge Date Admission Date: January 18, 2022 Subjective delayed entry date of service noted above ff up for pneumothorax, pleural effusion, etc seen resting in bed, comfortable states she feels fine overall denies SOB, palpitations, chest pain, dizziness no other symptoms states she is ready and would like to be discharged Review of Systems Review of Systems: all noted and negative except for above Physical Exam Physical Exam: General- oriented x 3, not in distress, speaks in sentences with no effort or accessory muscle use Eyes- anicteric Neck- no JVD Lungs- clear breath sounds bilaterally, no crackles or wheezing Heart- normal rate, regular rhythm; no murmurs Abdomen- normal bowel sounds, nondistended, soft, nontender Extremities- no pretibial edema, no calf tenderness Neuro- alert, oriented x 3; no gross focal neurologic deficits Skin- warm & dry Results & Data Results & Data ([facility]) Vital Signs (Past 12 Hours) Vital Signs Temp Pulse Pulse Pulse Pulse Pulse Pulse 01/22/22 09:27 36.5 C 85 64 01/22/22 07:47 36.5 C 85 01/22/22 07:33 99 H 101 H 79 01/22/22 03:40 36.3 C L 84 01/21/22 23:42 36.4 C L 87 01/21/22 23:15 77 Pulse Resp Resp Resp Resp Resp BP 01/22/22 09:27 18 96/65 L 01/22/22 07:47 18 01/22/22 07:33 80 16 20 16 16 01/22/22 03:40 18 01/21/22 23:42 18 01/21/22 23:15 BP Pulse Ox Pulse Ox Pulse Ox Pulse Ox Pulse Ox 01/22/22 09:27 121/79 98 01/22/22 07:47 121/79 98 01/22/22 07:33 93 93 91 86 L 01/22/22 03:40 125/78 96 01/21/22 23:42 111/69 93 01/21/22 23:15 all noted and reviewed including below (1) Pneumothorax Pneumothorax type: unspecified pneumothorax Qualified Code(s): J93.9 - Pneumothorax, unspecified
--- NOTE | 2022-01-28 10:45 | Discharge Summary ---
Date of Service January 28, 2022 Admission HPI Per Admitting Provider 71-year-old female with history of COPD, atrial fibrillation on Coumadin, SLE, smoking, hyperparathyroidism, hypothyroidism Presenting with hemoptysis and cough x2 to [address]-guided percutaneous right middle lobe lung biopsy last January 15, 2020. The next day, patient resumed her usual Coumadin regimen. Since that time, patient has been having hemoptysis and shortness of breath. At the ER, patient saturating 92% on room air. CT chest revealing moderate pneumo/hydrothorax. INR 2.7. Dr. Rivera, ER physician, discussed with heel pricker, Dr. Arnold. Reversal of INR recommended as well as repeat chest x-ray. On exam, patient seen sitting up in bed, comfortable, not in distress States she feels okay while resting, but does have dyspnea on exertion Denies active chest pain, dizziness, palpitations, nausea vomiting abdominal pain, or any other symptoms. Admission Exam Per Admitting Provider General- oriented x 3, not in distress, speaks in sentences with no effort or accessory muscle use Head- atraumatic Eyes- PERRL, EOMI, anicteric ENT- oropharynx clear Neck- supple, no JVD, no adenopathy, no thyromegaly; carotids +2/2, no bruits appreciated Lungs-right lung: Somewhat decreased breath sounds Left lung: Diminished but clear Heart- normal rate, regular rhythm; no murmur, no gallop, no rub appreciated Abdomen- normal bowel sounds, nondistended, soft, nontender, no masses or hepatosplenomegaly Extremities- no pretibial edema, no calf tenderness; peripheral pulses intact Neuro- alert, oriented x 3; CN 2-12 grossly intact; motor 5/5 bilaterally;sensation 100% on all extremities; no other gross focal neurologic deficits Skin- warm & dry Principal Diagnosis Right hemo-/pneumothorax Status post lung biopsy January 14, 2022 Chronic Coumadin use for A. fib Discharge Exam General- oriented x 3, not in distress, speaks in sentences with no effort or accessory muscle use Eyes- anicteric Neck- no JVD Lungs- clear breath sounds bilaterally, no crackles or wheezing Heart- normal rate, regular rhythm; no murmurs Abdomen- normal bowel sounds, nondistended, soft, nontender Extremities- no pretibial edema, no calf tenderness Neuro- alert, oriented x 3; no gross focal neurologic deficits Skin- warm & dry Discharge Data Allergies Allergy/AdvReac Type Severity Reaction Status Date / Time No Known Drug Allergies Allergy Mild Verified 01/25/22 10:49 Pollen Allergy Mild cough, Uncoded 01/25/22 10:49 itchy watery eyes, stuffy nose Consultations 01/18/22 18:10 ED Decision to Admit Stat 01/18/22 21:11 Consult Pulmonology Routine Ordered Studies 01/18/22 14:30 CT angio chest PE protocol Stat FINDINGS: No pulmonary emboli are identified. Moderate cardiomegaly is present. There is no pericardial effusion. A right hydropneumothorax is present. The amount of pleural fluid has increased since PET/CT of January 05, 2022. Small to moderate amount of pleural gas within the right hemithorax is noted. There is no left pneumothorax. Extensive right lower lobe airspace opacity is noted. Emphysema is present. A 1.9 cm subpleural right middle lobe nodule has increased in size since CT of August 29, 2021. This is similar to PET/CT of December 26, 2021. There are suspected mild interstitial pulmonary edema. No suspicious lesions within the bony thorax are present. Gastrohepatic ligament stranding is nonspecific. This is partially imaged on this examination. IMPRESSION: 1. Right hydropneumothorax with a small to moderate size right pneumothorax. Short-term radiographic follow-up is recommended to ensure stability. 2. No pulmonary emboli identified. 3. Increase in size of a right pleural effusion with extensive right lower lobe airspace opacity which could reflect atelectasis or consolidation. 4. Redemonstration of an indeterminate 1.9 cm subpleural right middle lobe nodule, increased in size since CT of August 29, 2021. 5. Emphysema. 6. Interstitial pulmonary edema. ACT 112: Negative or not required by law. Electronically signed by: Rohan Ayala M.D. 01/18/2022 5:36 PM Hospital Course (1) Pneumothorax: (1) Pneumothorax: (2) Hemothorax: Plan: 71-year-old female with history of COPD, atrial fibrillation on Coumadin, SLE, smoking, hyperparathyroidism, hypothyroidism Presenting with hemoptysis and cough x2 to 3 days. Right hemo-/pneumothorax Status post lung biopsy January 14, 2022 Chronic Coumadin use for A. fib 01/19/2022: Status post pigtail catheter placement pleural fluid studies: exudative pleural fluid culture: negative so far Cytology: pending Sputum culture: negative so far INR reversed with vitamin K INR 1.1 Coumadin may be resumed as per Pulm 01/21/2022: s/p removal of pigtail cath repeat CXR: pneumothorax further improving ff up with Pulm in 1 week REPEAT CHEST XRAY ON FOLLOW UP WITH PRIMARY CARE PHYSICIAN IN 1 WEEK REPEAT BLOODWORK (BASIC METABOLIC PANEL) ON FOLLOW UP WITH PRIMARY CARE PHYSICIAN IN 1 WEEK FINAL RESULT OF PLEURAL EFFUSION CYTOLOGY STUDIES COPD -Not in exacerbation Atrial fibrillation on Coumadin -Continue diltiazem and metoprolol resume Coumadin ff up with Coumadin Clinic SLE -Hydroxychloroquine Smoker Hyperparathyroidism Hypothyroidism Full code as per patient plan of care discussed with patient in detail and at length all questions answered she is understanding, agreeable, comfortable with the plan of care Total Time Total Time Spent Total Time Spent (In Minutes): >30 minutes Discharge Plan Discharge Items Patient Disposition: Home - Self-Care Reason For Visit: PNEUMO - AND HEMOTHORAX Discharge Diagnosis: PNEUMOTHORAX PLEURAL EFFUSION Activity: As commented below Activity Comment: NO HEAVY EXERTION, USE 2 LITERS VIA NASAL CANNULA AT ALL TIMES Lifting: Wait until after follow-up appointment Exercise/Sports: Wait until after follow-up appointment Driving/Machine Use: NO DRIVING UNTIL RE-EVALUATED AND ALLOWED BY PRIMARY CARE PHYSICIAN Non-emergency contact: Primary Care Provider Call non-emergency contact if: you have any medication questions, your symptoms worsen, your pain is not controlled, your pain is worsening, your pain is unusual for you, your pain is concerning for you and you have a fever Follow-up/Referrals: Mane Arnold MD [Physician] - 03/15/22 3:45 pm (Please follow up with Dr. Arnold on Friday03/15/22 at 3:45 pm. Please arrive to the office at 3:30 pm for your appointment. If you are unable to keep this appointment, please call the office to reschedule at [phone].) Kusum Rutherford DO [Primary Care Provider] - (Date & Time 01/28/2022 11:20 AM Provider Kusum Rutherford DO [facility] ) Diet: Heart Healthy Addtl Attending Provider Instructions: PLEASE REFER TO YOUR NEW MEDICATION LIST AND FOLLOW INSTRUCTIONS CAREFULLY. YOUR NEW MEDICATIONS INCLUDE: LASIX- diuretic for pleural effusion THE COUMADIN CLINIC WILL BE CALLING YOU SOON FOR ADVICE REGARDING BLOODWORK AND COUMADIN DOSE. PLEASE CALL YOUR PRIMARY CARE PHYSICIAN OR RETURN TO THE ER IF WITH WORSENING OF SYMPTOMS, INCLUDING SHORTNESS OF BREATH, COUGH, CHEST PAIN, FEVER/CHILLS, LEG SWELLING. FOLLOW UP WITH PRIMARY CARE PHYSICIAN IN 1 WEEK OUTLINED ABOVE. FOLLOW UP WITH LUNG SPECIALIST DR. ARNOLD IN 2 WEEKS. Pending Studies at Discharge: Yes Studies:: REPEAT CHEST XRAY ON FOLLOW UP WITH PRIMARY CARE PHYSICIAN IN 1 WEEK REPEAT BLOODWORK (BASIC METABOLIC PANEL) ON FOLLOW UP WITH PRIMARY CARE PHYSICIAN IN 1 WEEK FINAL RESULT OF PLEURAL EFFUSION CYTOLOGY STUDIES Stand-Alone Forms: [facility] [employer], Smoking Cessation Medications and DC Order Prescriptions: New furosemide [Lasix] 20 mg tablet 20 mg PO DAILY Qty: 30 RF: 0 Continued levothyroxine 150 mcg tablet 150 mcg PO DAILY Qty: 90 RF: 0 atorvastatin 10 mg Tablet 10 mg PO HS RF: 0 hydroxychloroquine 200 mg tablet 200 mg PO HS RF: 0 metoprolol succinate 25 mg tablet extended release 24 hr 25 mg PO BID RF: 0 warfarin 5 mg tablet 5 mg PO 3XWK RF: 0 warfarin 5 mg tablet 7.5 mg PO 4XWK RF: 0 aspirin 81 mg Tablet,Delayed Release (Dr/Ec) 81 mg PO DAILY RF: 0 valacyclovir 1 gram tablet 1,000 mg PO DAILY PRN (Reason: .FLARES) RF: 0 diltiazem HCl 180 mg capsule,extended release 24hr 180 mg PO RF: 0 Discharge Orders: Discharge Order (Routine); Ordered 01/22/22 Ordered By: Kapil Saravia Admission Data Admit Date/Time: 01/18/22 19:34 Attending Provider: Kapil Saravia Admit Provider: Kapil Saravia Primary Care Provider: Kusum Rutherford Other Providers: Kapil Saravia ; Mane Arnold Other Interventions: Discharge Summary Assessment (RN) Last Done: 01/22/22 09:27
== END 2022-01-22 10:50 | disposition home or self-care (01) | DRG 200 ==
LOC: ED 14:04 → 2S 19:34

== ENCOUNTER 2024-05-12 11:16 | Inpatient (IN) ==
--- NOTE | 2024-05-12 11:19 | Emergency Department Note ---
Impression & Plan Acute exacerbation of chronic heart failure, Localized swelling of both lower legs, Leukopenia, Thrombocytopenia ED Provider Note NAME: DARIA GORDILLO AGE: 73 SEX: F : 1950 ARRIVES VIA: Ambulance INFORMANT: Patient, Outpatient records, triage note ED PROVIDER(S): Lobito Hebert MD CHIEF COMPLAINT: Shortness of breath, outpatient referral MEDICAL DECISION MAKING: Patient presented due to concern for worsening shortness of breath after being seen and evaluated in the outpatient setting by cardiology. IV was established and blood work was obtained. Patient was ordered Xopenex as well as IV steroids 40 mg as the patient could have a COPD component. The patient is unsure as whether or not she feels as though she has COPD in addition to her CHF. [place] shows leukopenia with thrombocytopenia. Platelet count today is 102. This may be new from comparison. Patient does have associated leukopenia. A bio fire was added. Kidney function with prerenal azotemia. Troponin is 29.5 with BNP of 964. Patient's weight is up 6 kg from December. I did speak with the on-call hospital service Clementina Laws PA-C and the patient was admitted by Dr. Bills. Discussion w/ other healthcare providers: Dr. Bills inpatient medicine service Prior /Outside records reviewed: I reviewed a discharge summary from December 21, 2023. Known history of COPD lung cancer status post right middle lobectomy A-fib RVR carotid stenosis status post right carotid endarterectomy SLE tobacco use hypothyroidism hyperparathyroidism dyslipidemia history of IPMN status post distal pancreatectomy and splenectomy who presented with worsening shortness of breath at that time. Patient was noted to have acute on chronic heart failure with preserved EF pulmonary edema and acute COPD exacerbation. I reviewed a cardiology progress note from Dr. Ray from December 20, 2023. Patient reportedly on metoprolol 37.5 twice daily and diltiazem 180 as well as Coumadin. Also on Lasix 20 mg daily as needed for weight gain or swelling. I reviewed outpatient visit note from JOSE ALFREDO Pino dated from today. Referred here for evaluation and treatment for hypervolemia and anticipated IV diuresis. Differential diagnosis: Reactive airway disease, pneumonia, pneumothorax, COPD, CHF, ACS, pulmonary embolism, musculoskeletal, GERD as well as other pathologies were considered. Diagnostics, as interpreted by me: ECG: A-fib, rate 93, normal QRS, left axis deviation, nonspecific T wave abnormality. Cardiac monitoring: An order was placed for continuous cardiac monitoring. The monitor shows a rate of 92 with irregular irregular rhythm. Patient was placed on pulse oximetry Medical decision rules: None Imaging studies: I informally interpreted the patient'sChest x-ray shows bilateral pulmonary edema with bilateral pleural effusions no obvious pneumothorax with formal report to follow. HPI: Patient presents as a referral from the cardiology clinic due to concern for worsening shortness of breath lower extremity edema. The patient's had worsening swelling over the last 1 month in duration. Patient does have a known history of CHF and COPD. Patient still smokes about 1 pack/day but has been improving. The patient has her normal productive cough with whitish sputum. No change in the amount of sputum production. The patient does complain of shortness of breath but no chest pains. Patient has exertional dyspnea but no significant orthopnea. Patient states that she is taking her medications as prescribed. No falls or trauma. Patient states that her energy level has been down that she has been more weak and fatigable. Patient believes that she has gained 10 to 15 pounds. Cardiology note reports significant orthopnea and PND. Patient did admit that sometimes if she lays on a certain side she may get short of breath but that seems to resolve but does not complain of orthopnea. The patient is on 2 L at all times. Patient was seen by Deborah Yost today and was referred here for further evaluation. Prior echo LVEF 55 to 60% left atrium moderately dilated mild MR mild TR. Patient was referred here for admission for CHF and A-fib anticipated needs for IV diuretics. PAST MEDICAL HISTORY: See Below PAST SURGICAL HISTORY: See Below SOCIAL HISTORY: See Below HOME MEDICATIONS: See Below ALLERGIES: See Below VITALS: See Below PHYSICAL EXAMINATION: GENERAL: NAD, non-toxic. Nasal cannula in place, wearing glasses, smells of cigarette smoke. EYE EXAM: Normal conjunctiva. PERRL, no anisocoria and EOM's grossly intact w/o pain. OROPHARYNX: Moist mucus membranes, grossly normal dentition. NECK: Trachea midline, no stridor. Supple, no nuchal rigidity, no adenopathy, non-tender. No signs of meningismus. FROM of the neck with good chin to chest and neck extension. LUNGS: Slight wheezing in the right upper chest, bibasilar crackles. Normal chest wall mechanics. HEART: Irregular irregular, no MRG. ABDOMEN: Abdomen soft, non-tender, no masses, no rebound or guarding. BACK: No CVA TTP. SKIN: No rashes and no bruising. UPPER EXTREMITIES: Upper extremities are grossly normal. LOWER EXTREMITIES: Grossly normal, 3+ bilateral lower extremity edema without any calf pain or erythema no calor. Compartments are soft. NEURO EXAM: A&O x3, cranial nerves II-XII grossly intact, normal speech, moves all 4 extremities. Past Med/Surg History Problem List (Updated 05/12/24 @ 14:40 by Lobito Hebert MD) Thrombocytopenia (Acute) Leukopenia (Acute) Localized swelling of both lower legs (Acute) Acute exacerbation of chronic heart failure (Acute) Permanent atrial fibrillation Acute diastolic CHF (congestive heart failure) Fluid overload (Acute) Hypoxia (Acute) Carotid atherosclerosis s/p CEA Tobacco use disorder Acute respiratory failure with hypoxia Pulmonary edema Primary hyperparathyroidism Vitamin D deficiency Osteoporosis Hypothyroidism Colon adenomas COPD (chronic obstructive pulmonary disease) (Acute) Pulmonary emphysema determined by X-ray HTN (hypertension) History of breast cancer Carotid artery aneurysm Medical History COPD (chronic obstructive pulmonary disease) Proteinuria FOLLOWS DR. FREDDY BAKER History of colon polyps Hypothyroidism Cancer of right breast 1995--sx, chemo, radiation Hyperlipidemia Hypertension Atrial fibrillation DX 11/2018 - ON WARFARIN - FOLLOWS W/ DR. COSTELLO Osteoporosis SLE (systemic lupus erythematosus) Surgical History S/P breast biopsy, right (04/17/22) Right breast punch biopsy in office 04/17/22 Dr. Hay History of pancreatectomy (05/02/21) Laparoscopic pancreatic tail resection with splenectomy mobilization of the splenic flexure of the colon Dr. De La Torre in [place] Status post lung surgery (03/08/22) Robotic right VATS (thoracoscopy) -- therapeutic right middle lobe lateral wedge resection and franco dissection Dr Zacarias in [place] History of right-sided carotid endarterectomy (04/07/09) 7 YRS AGO >@ [facility] Right carotid endarterectomy with Bovine patch angioplasty Dr. Anaya History of anesthesia reaction "takes a long time to stop feeling weird after anesthesia" History of colonoscopy History of esophagogastroduodenoscopy (EGD) History of lumpectomy of right breast (~1995) History of right breast biopsy malignant History of tooth extraction History of tonsillectomy and adenoidectomy History of bilateral cataract extraction History of repair of patent ductus arteriosus CHILD REPAIRED Family History Sister Family hx of colon cancer Colorectal cancer Grandfather Breast cancer Father Heart disease Other No family history of adverse response to anesthesia Social History Smoking Status: Current every day smoker Tobacco Type: Cigarettes Age Started Using Tobacco: 17; packs per day: 2; Cigarettes Per Day: 40; Second Hand Exposure: Yes; Do You Dip or Chew Tobacco: No; Hx Alcohol Use: No Hx Substance Use: No Preferred Language: Haitian Communication Ability: Effective Visual Impairment: No Limitations Physician Pediatrician Required: No Beliefs That Will Affect Care: None marital status: Single Current Living Situation: Alone current occupational status: retired How many Children do You have: 0 Feels Safe at Home: Yes Diet: regular during the past year weight has: decreased > 10 lbs Assistive Devices: None Allergies Allergies Allergy/AdvReac Type Severity Reaction Status Date / Time No Known Drug Allergies Allergy Mild Unknown Verified 05/12/24 14:21 Home Meds Home Medications Medication Instructions Recorded Confirmed hydroxychloroquine 200 mg tablet 200 mg PO QPM 12/08/18 05/12/24 atorvastatin 10 mg tablet 10 mg PO QPM 01/13/19 05/12/24 metoprolol succinate 25 mg 75 mg PO BID 05/20/21 05/12/24 tablet,extended release 24 hr valacyclovir 1 gram tablet 0.5 mg PO AMHS PRN flare 01/18/22 05/12/24 albuterol sulfate 90 mcg/actuation 2 puff inhalation Q4 PRN Shortness 12/15/23 05/12/24 aerosol inhaler Of Breath Or Wheezing aspirin 81 mg capsule 81 mg PO QPM 12/15/23 05/12/24 dicyclomine 10 mg capsule 10 mg PO BID PRN Abdominal Pain 12/15/23 05/12/24 fluoride (sodium) 1.1 % dental 1 applic dental DAILY 12/15/23 05/12/24 paste levothyroxine 175 mcg tablet 175 mcg PO DAILYBB 12/15/23 05/12/24 warfarin 5 mg tablet 0 mg PO DAILY 12/15/23 05/12/24 digoxin 125 mcg (0.125 mg) tablet 125 mcg PO QAM 05/12/24 05/12/24 Previous Rx's Medication Instructions Recorded Oxygen Home #1 ea 05/01/22 furosemide 20 mg tablet 20 mg PO DAILY PRN edema #20 tabs 12/21/23 nicotine 21 mg/24 hr daily 21 mg transdermal QAM #7 ea 12/21/23 transdermal patch (Nicoderm CQ) Results & Data (ED) Vital Signs Vital Signs - 24 hr 05/12/24 11:24 05/12/24 12:01 05/12/24 13:06 Temperature 36.5 C Temperature Source Oral Pulse Rate 102 H 114 H Pulse Rate [Apical] 93 H Pulse Rhythm Irregular Pulse Rhythm [Apical] Respiratory Rate 19 19 20 Respiratory Effort / Characteristics Non-Labored Non-Labored Respiratory Depth Normal Normal Respiratory Pattern Regular Blood Pressure 93/70 L Blood Pressure [Left Arm] 103/78 Blood Pressure [Right Arm] Blood Pressure Mean 77 Blood Pressure Mean [Left Arm] 86 Blood Pressure Mean [Right Arm] Blood Pressure Position [Right Arm] Pulse Oximetry 96 95 96 Oxygen Delivery Method Nasal Cannula Nasal Cannula Nasal Cannula Oxygen Flow Rate 2 2 3 Sepsis Recent Fever Within 48 Hours No Sepsis New/Unexplained Change in Mental Status N/A Sepsis Action Taken by Nursing No Action Required 05/12/24 13:06 05/12/24 13:48 Temperature Temperature Source Pulse Rate Pulse Rate [Apical] 114 H 113 H Pulse Rhythm Pulse Rhythm [Apical] Irregular Respiratory Rate 20 18 Respiratory Effort / Characteristics Non-Labored Spontaneous Non-Labored Respiratory Depth Normal Normal Respiratory Pattern Regular Blood Pressure Blood Pressure [Left Arm] Blood Pressure [Right Arm] 106/73 112/66 Blood Pressure Mean Blood Pressure Mean [Left Arm] Blood Pressure Mean [Right Arm] 84 81 Blood Pressure Position [Right Arm] Semi-fowlers Pulse Oximetry 96 95 Oxygen Delivery Method Nasal Cannula Nasal Cannula Oxygen Flow Rate 3 2 Sepsis Recent Fever Within 48 Hours Sepsis New/Unexplained Change in Mental Status Sepsis Action Taken by Retirement Medications Current Medication List: was personally reviewed by me Laboratory Data Attestation: I reviewed the patient's lab results. 05/12/24 11:30 05/12/24 12:22 Lab Results 05/12/24 05/12/24 05/12/24 Range/Units 11:30 12:16 12:22 WBC 3.11 L (4.8-10.8) K/ul RBC 5.29 (4.20-5.40) M/uL Hgb 12.4 (12.0-16.0) g/dl Hct 42.4 (37.0-47.0) % MCV 80.2 (80.0-100.0) fL MCH 23.4 L (25.0-34.0) pg MCHC 29.2 L (32.0-36.0) g/dL RDW Std Deviation 75.2 H (36.4-46.3) fL RDW Coeff of Jerri 27.3 H (11.5-14.5) % Plt Count 102 L (130-400) K/uL Immature Gran % (Auto) 0.3 % Neut % (Auto) 75.3 % Lymph % (Auto) 10.3 % [place] % (Auto) 12.5 % Eos % (Auto) 1.0 % Baso % (Auto) 0.6 % Neut # (Auto) 2.34 (1.40-6.50) K/uL Lymph # (Auto) 0.32 L (1.20-3.40) K/uL [place] # (Auto) 0.39 (0.11-0.59) K/uL Eos # (Auto) 0.03 (0.00-0.50) K/uL Baso # (Auto) 0.02 (0.00-0.20) K/uL Immature Gran # (Auto) 0.01 (0.01-0.20) K/uL Absolute Nucleated RBC 0.39 H (0.00-0.12) K/uL Nucleated RBC % (auto) 12.5 % Polychromasia 1+ Anisocytosis Present Spherocytes 1+ Target Cells 1+ [place] Bodies 1+ PT Cancelled Cancelled INR Cancelled Cancelled APTT Cancelled Cancelled PTT Ratio Cancelled Cancelled Sodium 138 (136-145) mmol/L Potassium TNP TNP Chloride 106 (98-107) mmol/L Carbon Dioxide 26 (21-32) mmol/L Anion Gap 6 (3-11) BUN 24 H (6-23) mg/dl Creatinine 0.64 (0.6-1.2) mg/dl Est Cr Clr Drug Dosing 80.9 ml/min Est GFR ( Amer) 101.9 ml/min Est GFR (Non-Af Amer) 87.9 ml/min BUN/Creatinine Ratio 37.5 H (10-20) Glucose 74 (70-99(Fasting)) mg/dl Calcium 10.1 (8.6-10.3) mg/dl Magnesium 1.4 L (1.7-2.4) mg/dl Total Bilirubin 1.1 H (0.2-1.0) mg/dl AST TNP TNP ALT 41 (7-52) U/L Alkaline Phosphatase 141 H (34-104) U/L Troponin I High Sens 29.5 H (0-14) pg/ml B-Natriuretic Peptide 964 H (0-100) pg/ml Total Protein 7.7 (6.0-8.3) gm/dl Albumin 3.4 (3.4-5.0) gm/dl Globulin 4.3 H (2.5-4.0) gm/dl Albumin/Globulin Ratio 0.8 L (0.9-2) Digoxin 1.4 (0.8-2.0) ng/ml Administered Medications Discontinued Medications Furosemide (Furosemide 40 Mg/4 Ml Vial) 40 mg IV ONE ONE Stop: 05/12/24 11:37 Last Admin: 05/12/24 11:51 Dose: 40 mg Documented By: UNIQUE Levalbuterol HCl (Levalbuterol 1.25 Mg/3 Ml Neb) 1.25 mg NEB NOW STA Stop: 05/12/24 11:37 Last Admin: 05/12/24 11:51 Dose: 1.25 mg Documented By: UNIQUE Methylprednisolone (Methylprednisolone 125 Mg/2 Ml Vial) 40 mg IV NOW STA Stop: 05/12/24 11:37 Last Admin: 05/12/24 11:51 Dose: 40 mg Documented By: UNIQUE Imaging Data Radiologist's Impression: Chest X-Ray 05/12/24 11:36 XR chest 1V portable HISTORY: Dyspnea COMPARISON: Chest 12/20/2023. FINDINGS: No pneumothorax. Mild emphysema again noted. Cardiomegaly with diffuse interstitial thickening which has progressed. This suggests mild interstitial pulmonary edema. Small bilateral pleural effusions and bibasilar densities have also increased. No acute fractures. IMPRESSION: 1. Cardiomegaly with interval progression of the mild pulmonary edema and small bilateral pleural effusions. 2. Emphysema. 3. Bibasilar densities have progressed. These are nonspecific but may represent atelectasis from the pleural effusions. ACT 112: Negative or not required by law. Electronically signed by: Owen Campuzano M.D. 05/12/2024 12:25 PM Discharge Plan Visit Data Chief Complaint: Swelling/Edema to Extremity Stated Complaint: EDEMA ED Provider: Lobito Hebert Discharge Problem: Acute exacerbation of chronic heart failure, Localized swelling of both lower legs, Leukopenia, Thrombocytopenia Forms Stand Alone Forms: My [facility] [employer] Prescriptions Prescriptions: No Action (DME) Oxygen Home Liters Per Minute See Rx Instructions .MEDSUPPLY Qty: 1 0RF Rx Instructions: discontinue home oxygen atorvastatin 10 mg Tablet 10 mg PO QPM hydroxychloroquine 200 mg tablet 200 mg PO QPM metoprolol succinate 25 mg tablet extended release 24 hr 75 mg PO BID valacyclovir 1 gram tablet 0.5 mg PO AMHS PRN (Reason: flare) levothyroxine 175 mcg tablet 175 mcg PO DAILYBB fluoride (sodium) 1.1 % paste 1 applic dental DAILY Rx Instructions: apply thin ribbon to toothbrush warfarin 5 mg tablet 0 mg PO DAILY Rx Instructions: Pt doesn't remember how she was taking this medication. Does state that today is her new INR check. albuterol sulfate 90 mcg/actuation HFA aerosol inhaler 2 puff INHALATION Q4 PRN (Reason: Shortness Of Breath Or Wheezing) dicyclomine 10 mg Capsule 10 mg PO BID PRN (Reason: Abdominal Pain) aspirin 81 mg Capsule 81 mg PO QPM nicotine [Nicoderm CQ] 21 mg/24 hr Patch 24 Hour 21 mg transdermal QAM Qty: 7 0RF furosemide 20 mg tablet 20 mg PO DAILY PRN (Reason: edema) Qty: 20 0RF digoxin [Digox] 125 mcg (0.125 mg) Tablet 125 mcg PO QAM Referrals Referrals: Kusum Rutherford DO [Primary Care Provider] - Discharge Problem: Leukopenia Qualifiers: Leukopenia type: unspecified Qualified Code(s): D72.819 - Decreased white blood cell count, unspecified
[2024-05-12] MEDS: methylPREDNISolone 125 MG/2 ML VIAL IV STA (11:51)
[2024-05-12] MEDS: LEVALBUTEROL 1.25 MG/3 ML NEB NEB STA (11:51)
[2024-05-12] MEDS: FUROSEMIDE 40 MG/4 ML VIAL IV ONE (11:51)
[2024-05-12 12:20] LABS: Albumin Level 3.4 gm/dl (3.4-5.0); Anion Gap 6 (3-11); Bilirubin,Total 1.1 mg/dl (0.2-1.0); Calcium 10.1 mg/dl (8.6-10.3); Carbon Dioxide 26 mmol/L (21-32); Chloride 106 mmol/L (98-107); Magnesium 1.4 mg/dl (1.7-2.4); Sodium 138 mmol/L (136-145)
[2024-05-12 12:22] LABS: Alanine Aminotransferase 41 U/L (7-52); Albumin Globulin Ratio 0.8 (0.9-2); Alkaline Phosphatase 141 U/L (34-104); BUN Creatinine Ratio 37.5 (10-20); Blood Urea Nitrogen 24 mg/dl (6-23); Creatinine Clr Calc Pharmacy 80.9 ml/min; Est GFR (African American) 101.9 ml/min; Est GFR (Non-African American) 87.9 ml/min; Globulin 4.3 gm/dl (2.5-4.0); Glucose 74 mg/dl (70-99(Fasting)); Total Protein 7.7 gm/dl (6.0-8.3)
--- NOTE | 2024-05-12 12:27 | XRay Report ---
XR chest 1V portable HISTORY: Dyspnea COMPARISON: Chest 12/20/2023. FINDINGS: No pneumothorax. Mild emphysema again noted. Cardiomegaly with diffuse interstitial thicken ing which has progressed. This suggests mild interstitial pulmonary edema. Small bilateral pleural ef fusions and bibasilar densities have also increased. No acute fractures. IMPRESSION: 1. Cardiomegaly with interval progression of the mild pulmonary edema and small bilateral pleural eff usions. 2. Emphysema. 3. Bibasilar densities have progressed. These are nonspecific but may represent atelectasis from the pleural effusions. ACT 112: Negative or not required by law. Electronically signed by: Owen Campuzano M.D. 05/12/2024 12:25 PM
[2024-05-12 12:29] LABS: Troponin I High Sensitivity 29.5 pg/ml (0-14)
[2024-05-12 12:42] LABS: Hematocrit (blood only) 42.4 % (37.0-47.0); Hemoglobin 12.4 g/dl (12.0-16.0); Mean Corpuscular Hemoglobin 23.4 pg (25.0-34.0); Mean Corpuscular Hgb Conc 29.2 g/dL (32.0-36.0); Mean Corpuscular Volume 80.2 fL (80.0-100.0); Nucleated RBC # (auto) 0.39 K/uL (0.00-0.12); Nucleated RBC % (auto) 12.5 %; Platelet Count 102 K/uL (130-400); RDW Coefficient of Variation 27.3 % (11.5-14.5); RDW Standard Deviation 75.2 fL (36.4-46.3); Red Blood Count 5.29 M/uL (4.20-5.40); White Blood Count 3.11 K/ul (4.8-10.8)
[2024-05-12 13:16] LABS: Anisocytosis Present; Basophils # (auto) 0.02 K/uL (0.00-0.20); Basophils % (auto) 0.6 %; Eosinophils # (auto) 0.03 K/uL (0.00-0.50); Howell-Jolly Bodies 1+; Immature Granulocytes # (auto) 0.01 K/uL (0.01-0.20); Immature Granulocytes % (auto) 0.3 %; Lymphocytes # (auto) 0.32 K/uL (1.20-3.40); Lymphocytes % (auto) 10.3 %; Monocytes # (auto) 0.39 K/uL (0.11-0.59); Monocytes % (auto) 12.5 %; Neutrophils # (auto) 2.34 K/uL (1.40-6.50); Neutrophils % (auto) 75.3 %; Polychromasia 1+; Spherocytes 1+; Target Cells 1+
--- NOTE | 2024-05-12 13:46 | History & Physical Report ---
Date of Service May 12, 2024 Assessment & Plan (1) Acute diastolic CHF (congestive heart failure): Plan: PE and Assessment and Plan Per Dr Bills Patient is a 73-year-old female with past medical history of COPD, history of lung cancer status post RM Lobectomy 03/08/22 , A-fib on Coumadin, carotid stenosis s/p R CEA, SLE, tobacco use disorder (2-3 ppd), hypothyroidism, hyperparathyroidism, dyslipidemia, h/o IPMN s/p distal pancreatectomy and splenectomy was referred to the ED from cardiology clinic due to volume overload. Acute on chronic diastolic heart failure Atrial fibrillation with RVR History of recent admission in with CHF exacerbation. Was discharged on Lasix 20 mg as needed daily. Was not taking diuretics Presents with bilateral lower extremity 4+ pitting edema going up to upper thigh and lower back. Last echocardiogram in November 2023 showed EF of 55 to 60%; LA moderately dilated. BNP- 964 pg/ml: 419 in November Will start diuresis with IV Lasix 40 mg twice daily Strict input output monitoring Daily weights For A-fib; on metoprolol and digoxin. On Coumadin; continue telemonitoring COPD Not on acute exacerbation Continue DuoNeb as needed Will need follow-up with pulmonology as outpatient Hypertensioncontinue on metoprolol, dose increased to 100mg bid Hypothyroidismcontinue levothyroxine Hyperlipidemiacontinue on Lipitor SLEcontinue on Plaquenil Full code DVT prophylaxis Coumadin Time spent evaluating patient, direct bedside care, chart review, placing orders, interpretation of diagnostic studies, discussion with consultants, patient, and family members, as well as other required patient management activities is 75 minutes Please note the above document was generated using voice recognition software. It may contain grammatical, syntax or spelling errors. Any formal questions or concerns about the content, text or information contained within the body of this dictation should be directly addressed to the provider for clarification History of Present Illness Chief Complaint: Referred by cardiology Primary Care Provider: Kusum Rutherford DO Patient is 73-year-old female with PMH COPD, history of lung CA s/p right VATS with RML lateral wedge resection and franco dissection, atrial fibrillation anticoagulated on Coumadin, dyslipidemia, carotid stenosis s/p right carotid en darterectomy, SLE, tobacco use, hypothyroidism, dyslipidemia, history IPMN s/p distal pancreatectomy and splenectomy and other medical problems listed below presented to ER from cardiology clinic for volume overload. Reviewed recent inpatient hospitalization notes 11/2023 for acute hypoxic respiratory failure, acute on chronic heart failure. Has been following up with cardiology outpatient for persistent atrial fibrillation RVR. Her metoprolol was increased to 75 mg twice daily from 50 mg twice daily. Had follow-up appointment with cardiology on 04/01/2024 patient had remained tachycardic and metoprolol was continued at 75 mg twice daily and digoxin was added at 125 mcg daily, Aldactone was stopped due to hyperkalemia, Lasix 20mg, however patient states hasn't been taking Lasix as when she takes it she feels like she doesn't have any energy. Her levothyroxine was reduced to 150 mcg daily however patient thinks is still taking 175mcg daily. Patient continues to use oxygen 2L with exertion at home. She reports chronic has cough with white phlegm and doesn't think worsening cough. Uses albuterol as needed. States past week with some lightheadedness and denies CP, syncope. Reviewed outpatient notes was seen in outpatient cardiology clinic today 05/12/2024 for close follow-up and patient had reported continued to feel poorly with progressive shortness of breath over past week and orthopnea, PND and fluid retention with weight gain 10 to 15 pounds. States took Lasix Friday and Friday and did urinate more but has continued edema. States edema extends from legs to abdomen. Patient was referred to ER today for further evaluation and treatment. Denies fever/chills, diaphoresis, N/V/D/C, GARCIA, neck pain, CP, palpitations, hemoptysis, sore throat, rhinorrhea, abdominal pain, paresthesias, rashes, urinary symptoms. In ER given lasix 40mg IV, Xopenex, Solumderol 40mg IV Allergies Allergy/AdvReac Type Severity Reaction Status Date / Time No Known Drug Allergies Allergy Mild Unknown Verified 05/12/24 14:21 Home Medications Medication Instructions Recorded Confirmed Type hydroxychloroquine 200 mg tablet 200 mg PO QPM 12/08/18 05/12/24 History atorvastatin 10 mg tablet 10 mg PO QPM 01/13/19 05/12/24 History metoprolol succinate 25 mg 75 mg PO BID 05/20/21 05/12/24 History tablet,extended release 24 hr Oxygen Home #1 ea 05/01/22 12/15/23 Rx albuterol sulfate 90 mcg/actuation 2 puff inhalation Q4 PRN Shortness 12/15/23 05/12/24 History aerosol inhaler Of Breath Or Wheezing aspirin 81 mg capsule 81 mg PO QPM 12/15/23 05/12/24 History levothyroxine 175 mcg tablet 175 mcg PO DAILYBB 12/15/23 05/12/24 History warfarin 5 mg tablet 5 mg PO UD 12/15/23 05/12/24 History furosemide 20 mg tablet 20 mg PO DAILY PRN edema #20 tabs 12/21/23 05/12/24 Rx digoxin 125 mcg (0.125 mg) tablet 125 mcg PO QAM 05/12/24 05/12/24 History warfarin 5 mg tablet 2.5 mg PO UD 05/12/24 05/12/24 History Past Med/Surg History Problem List Acute heart failure with preserved ejection fraction Thrombocytopenia (Acute) Leukopenia (Acute) Localized swelling of both lower legs (Acute) Acute exacerbation of chronic heart failure (Acute) Permanent atrial fibrillation Acute diastolic CHF (congestive heart failure) Fluid overload (Acute) Hypoxia (Acute) Carotid atherosclerosis s/p CEA Tobacco use disorder Acute respiratory failure with hypoxia Pulmonary edema Primary hyperparathyroidism Vitamin D deficiency Osteoporosis Hypothyroidism Colon adenomas COPD (chronic obstructive pulmonary disease) (Acute) Pulmonary emphysema determined by X-ray HTN (hypertension) History of breast cancer Carotid artery aneurysm Medical History COPD (chronic obstructive pulmonary disease) Proteinuria FOLLOWS DR. FREDDY BAKER History of colon polyps Hypothyroidism Cancer of right breast 1995--sx, chemo, radiation Hyperlipidemia Hypertension Atrial fibrillation DX 11/2018 - ON WARFARIN - FOLLOWS W/ DR. COSTELLO Osteoporosis SLE (systemic lupus erythematosus) Surgical History S/P breast biopsy, right (04/17/22) Right breast punch biopsy in office 04/17/22 Dr. Hay History of pancreatectomy (05/02/21) Laparoscopic pancreatic tail resection with splenectomy mobilization of the splenic flexure of the colon Dr. De La Torre in [place] Status post lung surgery (03/08/22) Robotic right VATS (thoracoscopy) -- therapeutic right middle lobe lateral wedge resection and franco dissection Dr Zacarias in [place] History of right-sided carotid endarterectomy (04/07/09) 7 YRS AGO >@ [facility] Right carotid endarterectomy with Bovine patch angioplasty Dr. Anaya History of anesthesia reaction "takes a long time to stop feeling weird after anesthesia" History of colonoscopy History of esophagogastroduodenoscopy (EGD) History of lumpectomy of right breast (~1995) History of right breast biopsy malignant History of tooth extraction History of tonsillectomy and adenoidectomy History of bilateral cataract extraction History of repair of patent ductus arteriosus CHILD REPAIRED Family History Sister Family hx of colon cancer Colorectal cancer Grandfather Breast cancer Father Heart disease Other No family history of adverse response to anesthesia Social History Smoking Status: Current every day smoker Tobacco Type: Cigarettes Age Started Using Tobacco: 17; packs per day: 2; Cigarettes Per Day: 40; Second Hand Exposure: Yes; Do You Dip or Chew Tobacco: No; Hx Alcohol Use: No Hx Substance Use: No Preferred Language: Wallisian Communication Ability: Effective Visual Impairment: No Limitations 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 Respiratory: Occasional bilateral basilar crackles Cardiovascular: Irregular, no murmur, no edema Vessels: no JVD or carotid bruit Chest: normal inspection of chest Abdomen: normal bowel sounds, soft, nontender, no hepatosplenomegaly Musculoskeletal: 4+ pitting edema going up to the lower back. Neurologic: PERRL, EOMI, accommodation nl, no face palsy, no dysarthria CN's II- XI intact bilaterally and moves all extremities Psychiatric: A+Ox3, euthymic affect Results & Data Results & Data Vital Signs (Past 12 Hours) Vital Signs Temp Pulse Pulse Resp BP BP BP 05/12/24 13:06 114 H 20 106/73 05/12/24 13:06 114 H 20 05/12/24 12:01 93 H 19 103/78 05/12/24 11:24 36.5 C 102 H 19 93/70 L Pulse Ox O2 Del Method O2 Flow Rate 05/12/24 13:06 96 Nasal Cannula 3 05/12/24 13:06 96 Nasal Cannula 3 05/12/24 12:01 95 Nasal Cannula 2 05/12/24 11:24 96 Nasal Cannula 2 Laboratory Results Short CBC 05/12/24 Range/Units 11:30 WBC 3.11 L (4.8-10.8) K/ul Hgb 12.4 (12.0-16.0) g/dl Hct 42.4 (37.0-47.0) % Plt Count 102 L (130-400) K/uL BMP 05/12/24 05/12/24 05/12/24 11:30 12:22 14:12 Sodium 138 Potassium TNP TNP 3.9 Chloride 106 Carbon Dioxide 26 BUN 24 H Creatinine 0.64 Glucose 74 Calcium 10.1 Liver Function 05/12/24 05/12/24 05/12/24 Range/Units 11:30 12:22 14:12 Total Bilirubin 1.1 H (0.2-1.0) mg/dl AST TNP TNP 56 H ALT 41 (7-52) U/L Alkaline Phosphatase 141 H (34-104) U/L Albumin 3.4 (3.4-5.0) gm/dl
--- NOTE | 2024-05-12 14:05 | Cardiology Consultation ---
Date of Consultation May 12, 2024 Assessment & Plan (1) Acute heart failure with preserved ejection fraction: (2) Acute respiratory failure with hypoxia: (3) Permanent atrial fibrillation: Plan Patient admitted with worsening SOB, volume overload, hypoxia consistent with acute on chronic HFpEF. Symptoms have been persistent over the last few weeks. BNP elevated. Start IV lasix - 40 mg IV BID. She received one dose IV lasix this morning. 2nd dose later this afternoon. Magnesium is low - Supplement 2 gm now. Potassium level pending. Recent hyperkalemia and spironolactone stopped as outpatient. Monitor I+O's Afib RVR - Continue digoxin. Increase metoprolol to 100 mg BID INR pending continue coumadin. Continue supplemental O2. Update echo given persistent afib RVR and worsening fluid retention. Further recommendations pending response to medication adjustments and discussion/evaluation with Dr. Vitale Case discussed with Dr. Vitale I spent a total of 50 minutes on the date of service in preparation, delivery, and documentation of the care provided to this patient, excluding any time spent in the performance of separately billed services. Violette Bryson PA-C Department of Cardiology, [facility] This chart was completed in part utilizing Speech Voice Recognition Software. Grammatical errors, random word insertions, pronoun errors, and incomplete sentences are an occasional consequence of this system due to software limitations, ambient noise, and hardware issues. Any formal questions or concerns about the content, text, or information contained within the body of this dictation should be directly addressed to the provider for clarification. Supervising Physician Co-Signing Physician Notes Attending attestation. I have personally performed a history and physical examination on the patient. I have reviewed the advance practitioner's documentation, and I agree with, and take responsibility for the plan of care. 73-year-old female admitted with acute decompensated heart failure and atrial fibrillation with rapid ventricular response. Patient failed outpatient medical treatment. Recommend IV diuresis and titration of beta-radha therapy. Will continue to follow during hospitalization. I spent a total of 35 minutes on the date of service in preparation, delivery, and documentation of the care provided to this patient, excluding any time spent in the performance of separately billed services. Juanito Vitale DO, [facility] History of Present Illness Reason for Consultation: CHF Requesting Physician: [facility] Hospitalist Attending Physician: Dr. Vitale History of Present Illness Patient is a 73 year old female who was referred to [facility] ER from cardiology office after several weeks of worsening SOB, fluid overload and afib RVR. 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 History includes: 1. Permanent atrial fibrillation, [id number] score of 3 (age, female, carotid disease), on warfarin 2. Atherosclerotic carotid disease, status post carotid endarterectomy. a. Carotid duplex less than 50% stenosis bilaterally, per [id number] 3. Moderate to MR/TR. 4. Systemic lupus erythematous, on chronic Plaquenil- follows with Rheumatology 5. COPD with ongoing tobacco use (2-3 ppd) and chronic PARRA a. Malignant neoplasm of middle lobe of lung, S/p RM Lobectomy 03/08/22 Pathological stage IB, follows with heme/onc (did not receive chemo) and thoracic surgery. 6. Hypothyroidism- following with [facility] endocrine 7. Status post laparoscopic distal pancreatectomy and splenectomy my Dr. De La Torre at [facility] [place] 05/[place]21 8. Acute respiratory failure December 09, 2023, COPD exacerbation, diastolic heart failure with preserved ejection fraction Recently evaluation in March [address] Sawyer revealed persistent afib (chronic) with elevated rates. Metoprolol increased and digoxin added. Spironolactone was stopped due to elevated potassium. Furosemide also initiated at 20 mg weekly but patient admits she has not been taking. She also just started digoxin 4 days ago. She returned to the office today feeling poorly. Arrived in a wheelchair, normally able to walk into the office. Notes that she has had progressive shortness of breath and fluid retention over the last week or so. Swelling extends up to her abdomen and buttocks She is up at minimum 10-15 lb. Unable to weigh herself at home as she can not stand for even short periods of time. Notes significant orthopnea and PND. Woke up multiple times in the middle of the night through the week with shortness of breath and thought to call an ambulance but held off. She is having palpitations. She feels very weak and lightheaded at times. She has a congested cough. Has not increased her oxygen requirements. Patient appears pale. Due to her worsening symptoms, patient was referred to the ER. Upon arrival to ER, stable renal function. Potassium needed to be repeated due to hemolysis and is pending. Magnesium is low at 1.4. BNP is elevated. Troponin minimally elevated at 29. EKG demonstrated afib with RVR. No acute ischemic changes. At time of evaluation, patient resting in bed comfortably. She reports ongoing dyspnea with minmal activity but comfortable at rest. Swelling noted to hips. She has received one dose IV lasix thus far and notes frequent urination. Allergies Allergy/AdvReac Type Severity Reaction Status Date / Time No Known Drug Allergies Allergy Mild Unknown Verified 05/12/24 14:21 Home Medications Medication Instructions Recorded Confirmed Type hydroxychloroquine 200 mg tablet 200 mg PO QPM 12/08/18 05/12/24 History atorvastatin 10 mg tablet 10 mg PO QPM 01/13/19 05/12/24 History metoprolol succinate 25 mg 75 mg PO BID 05/20/21 05/12/24 History tablet,extended release 24 hr Oxygen Home #1 ea 05/01/22 12/15/23 Rx albuterol sulfate 90 mcg/actuation 2 puff inhalation Q4 PRN Shortness 12/15/23 05/12/24 History aerosol inhaler Of Breath Or Wheezing aspirin 81 mg capsule 81 mg PO QPM 12/15/23 05/12/24 History levothyroxine 175 mcg tablet 175 mcg PO DAILYBB 12/15/23 05/12/24 History warfarin 5 mg tablet 5 mg PO UD 12/15/23 05/12/24 History furosemide 20 mg tablet 20 mg PO DAILY PRN edema #20 tabs 12/21/23 05/12/24 Rx digoxin 125 mcg (0.125 mg) tablet 125 mcg PO QAM 05/12/24 05/12/24 History warfarin 5 mg tablet 2.5 mg PO UD 05/12/24 05/12/24 History Patient History Medical History COPD (chronic obstructive pulmonary disease) Proteinuria FOLLOWS DR. FREDDY BAKER History of colon polyps Hypothyroidism Cancer of right breast 1995--sx, chemo, radiation Hyperlipidemia Hypertension Atrial fibrillation DX 11/2018 - ON WARFARIN - FOLLOWS W/ DR. SAWYER Osteoporosis SLE (systemic lupus erythematosus) Surgical History S/P breast biopsy, right (04/17/22) Right breast punch biopsy in office 04/17/22 Dr. Hay History of pancreatectomy (05/02/21) Laparoscopic pancreatic tail resection with splenectomy mobilization of the splenic flexure of the colon Dr. De La Torre in [place] Status post lung surgery (03/08/22) Robotic right VATS (thoracoscopy) -- therapeutic right middle lobe lateral wedge resection and franco dissection Dr Zacarias in [place] History of right-sided carotid endarterectomy (04/07/09) 7 YRS AGO >@ [facility] Right carotid endarterectomy with Bovine patch angioplasty Dr. nAaya History of anesthesia reaction "takes a long time to stop feeling weird after anesthesia" History of colonoscopy History of esophagogastroduodenoscopy (EGD) History of lumpectomy of right breast (~1995) History of right breast biopsy malignant History of tooth extraction History of tonsillectomy and adenoidectomy History of bilateral cataract extraction History of repair of patent ductus arteriosus CHILD REPAIRED Family History Sister Family hx of colon cancer Colorectal cancer Grandfather Breast cancer Father Heart disease Other No family history of adverse response to anesthesia Social History Smoking Status: Current every day smoker Tobacco Type: Cigarettes Age Started Using Tobacco: 17; packs per day: 2; Cigarettes Per Day: 1 PPD; Second Hand Exposure: No; Do You Dip or Chew Tobacco: No; Hx Alcohol Use: No Hx Substance Use: No Preferred Language: Malay Communication Ability: Effective Visual Impairment: No Limitations [employer] 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 Beliefs That Will Affect Care: None marital status: Single Current Living Situation: Alone current occupational status: retired How many Children do You have: 0 Other Information That Helps Us Care for You: No Feels Safe at Home: Yes Safety Concerns: Feels Safe At This Time Diet: regular during the past year weight has: decreased > 10 lbs Assistive Devices: Glasses and Oxygen - Continuous Review of Systems Review of Systems: All systems reviewed & are unremarkable except as noted in HPI & below Physical Exam Constitutional: + ill appearing; no acute distress Respiratory: able to speak in complete sentences (Mild conversational dyspnea) Auscultation: + diminished lung sounds and + rales Cardiovascular: Rate/Rhythm: + tachycardic and + irregularly irregular Heart Sounds: + murmur (II/ systolic murmur) Vessels: + JVD Extremities: + edema (2-3+ edema to hips; +sacral edema) Gastrointestinal (Abdomen): normal bowel sounds, soft, nontender, no hepatosplenomegaly Neurologic: PERRL, EOMI, accommodation nl, no face palsy, no dysarthria Psychiatric: A+Ox3, euthymic affect Results & Data Vital Signs (Past 12 Hours) Vital Signs Temp Pulse Pulse Resp BP BP BP 05/12/24 13:48 113 H 18 112/66 05/12/24 13:06 114 H 20 106/73 05/12/24 13:06 114 H 20 05/12/24 12:01 93 H 19 103/78 05/12/24 11:24 36.5 C 102 H 19 93/70 L Pulse Ox O2 Del Method O2 Flow Rate 05/12/24 13:48 95 Nasal Cannula 2 05/12/24 13:06 96 Nasal Cannula 3 05/12/24 13:06 96 Nasal Cannula 3 05/12/24 12:01 95 Nasal Cannula 2 05/12/24 11:24 96 Nasal Cannula 2 Laboratory Results Cardiac Enzymes 05/12/24 05/12/24 05/12/24 Range/Units 11:30 12:16 12:22 AST TNP TNP Troponin I High Sens 29.5 H (0-14) pg/ml B-Natriuretic Peptide 964 H (0-100) pg/ml 05/12/24 Range/Units 14:12 AST 56 H Troponin I High Sens (0-14) pg/ml B-Natriuretic Peptide (0-100) pg/ml Coagulation 05/12/24 05/12/24 05/12/24 Range/Units 11:30 12:16 12:22 PT Cancelled Cancelled APTT Cancelled Cancelled B-Natriuretic Peptide 964 H (0-100) pg/ml CBC 05/12/24 Range/Units 11:30 WBC 3.11 L (4.8-10.8) K/ul RBC 5.29 (4.20-5.40) M/uL Hgb 12.4 (12.0-16.0) g/dl Hct 42.4 (37.0-47.0) % Plt Count 102 L (130-400) K/uL Neut # (Auto) 2.34 (1.40-6.50) K/uL Lymph # (Auto) 0.32 L (1.20-3.40) K/uL [place] # (Auto) 0.39 (0.11-0.59) K/uL Eos # (Auto) 0.03 (0.00-0.50) K/uL Baso # (Auto) 0.02 (0.00-0.20) K/uL Comprehensive Metabolic Panel 05/12/24 05/12/24 05/12/24 Range/Units 11:30 12:22 14:12 Sodium 138 (136-145) mmol/L Potassium TNP TNP 3.9 Chloride 106 (98-107) mmol/L Carbon Dioxide 26 (21-32) mmol/L BUN 24 H (6-23) mg/dl Creatinine 0.64 (0.6-1.2) mg/dl Glucose 74 (70-99(Fasting)) mg/dl Calcium 10.1 (8.6-10.3) mg/dl AST TNP TNP 56 H ALT 41 (7-52) U/L Alkaline Phosphatase 141 H (34-104) U/L Total Protein 7.7 (6.0-8.3) gm/dl Albumin 3.4 (3.4-5.0) gm/dl Intake and Output 05/11/24 05/12/24 05/12/24 22:59 06:59 14:59 Output Total 900 / 900 Balance -900 / -900 Output: Urine 900 / 900 Other: Weight 77.2 kg Patient Weight 05/13/24 06:59 Weight 77.2 kg Diagnostic Findings Telemetry reviewed: Afib with elevated rates ranging 100-120 bmp EKG on admission: Afib at 93 bmp LAD Low voltage Underlying artifact noted. No acute change Chest xray reviewed: IMPRESSION: 1. Cardiomegaly with interval progression of the mild pulmonary edema and small bilateral pleural effusions. 2. Emphysema. 3. Bibasilar densities have progressed. These are nonspecific but may represent atelectasis from the pleural effusions. Echo report reviewed from 11/2023: Normal LV systolic function is normal EF 55-60% LA is moderately dilated Mild MR Mild TR Estimated systolic pulm pressure is 36 mmHg Medications Administered Medications hydroxychloroquine 200 mg tablet 200 mg PO QPM 12/08/18 [History Confirmed 05/12/24] atorvastatin 10 mg tablet 10 mg PO QPM 01/13/19 [History Confirmed 05/12/24] metoprolol succinate 25 mg tablet,extended release 24 hr 75 mg PO BID 05/20/21 [History Confirmed 05/12/24] Oxygen Home #1 ea 05/01/22 [Rx Confirmed 12/15/23] albuterol sulfate 90 mcg/actuation aerosol inhaler 2 puff inhalation Q4 PRN Shortness Of Breath Or Wheezing 12/15/23 [History Confirmed 05/12/24] aspirin 81 mg capsule 81 mg PO QPM 12/15/23 [History Confirmed 05/12/24] levothyroxine 175 mcg tablet 175 mcg PO DAILYBB 12/15/23 [History Confirmed 05/12/24] warfarin 5 mg tablet 5 mg PO UD 12/15/23 [History Confirmed 05/12/24] furosemide 20 mg tablet 20 mg PO DAILY PRN edema #20 tabs 12/21/23 [Rx Confirmed 05/12/24] digoxin 125 mcg (0.125 mg) tablet 125 mcg PO QAM 05/12/24 [History Confirmed 05/12/24] warfarin 5 mg tablet 2.5 mg PO UD 05/12/24 [History Confirmed 05/12/24] Home Medications Magnesium Sulfate/Dextrose (Magnesium Sulfate / D5w) 1 gm in 100 mls @ 50 mls/hr IV Q2H MARY Stop: 05/12/24 18:59
[2024-05-12 14:51] LABS: Potassium 3.9 mmol/L (3.5-5.1)
[2024-05-12 14:59] LABS: Troponin I High Sensitivity 32.3 pg/ml (0-14)
[2024-05-12 15:02] LABS: Partial Thromboplastin Ratio 1.3; Partial Thromboplastin Time 34 Seconds (21-31); Prothrombin Time 20.4 Seconds (9.0-12.0)
[2024-05-12 15:22] LABS: Adenovirus PCR Not Detected (NotDetected); Bordetella parapertussis PCR Not Detected (NotDetected); Bordetella pertussis PCR Not Detected (NotDetected); Chlamydia pneumoniae PCR Not Detected (NotDetected); Coronavirus 229E PCR Not Detected (NotDetected); Coronavirus CoV-2 (COVID19)PCR Not Detected (NotDetected); Coronavirus HKU1 PCR Not Detected (NotDetected); Coronavirus NL63 PCR Not Detected (NotDetected); Coronavirus OC43PCR Not Detected (NotDetected); Human Metapneumovirus PCR Not Detected (NotDetected); Influenza A PCR Not Detected (NotDetected); Influenza B PCR Not Detected (NotDetected); Mycoplasma pneumoniae PCR Not Detected (NotDetected); Parainfluenza Virus 1 PCR Not Detected (NotDetected); Parainfluenza Virus 2 PCR Not Detected (NotDetected); Parainfluenza Virus 3 PCR Not Detected (NotDetected); Parainfluenza Virus 4 PCR Not Detected (NotDetected); Respiratory Syncytial VirusPCR Not Detected (NotDetected); Rhinovirus/Enterovirus PCR Not Detected (NotDetected)
[2024-05-12 15:48] LABS: Thyroid Stimulating Hormone 8.009 uIu/ml (0.300-4.500)
[2024-05-12] MEDS: POTASSIUM CHLORIDE CRTAB 20 MEQ TABCR PO STA (15:55)
[2024-05-12] MEDS: MAGNESIUM SULFATE / D5W 1 GM/100 ML BAG IV SCH (15:56)
[2024-05-12 16:23] LABS: T4 Free Thyroxine 1.47 ng/dl (0.61-1.60)
[2024-05-12] MEDS ORDERED: ONDANSETRON INJ 2 MG/ML 2 ML VIAL IV PRN (16:51)
[2024-05-12] MEDS ORDERED: ALUMINUM/MAGNESIUM SUSP 30 ML UDC PO PRN (16:51)
[2024-05-12] MEDS: FUROSEMIDE 40 MG/4 ML VIAL IV SCH (18:14)
[2024-05-12] MEDS: WARFARIN SOD 2.5 MG TAB PO SCH (18:39)
[2024-05-12] MEDS: HYDROXYCHLOROQUINE SULFATE 200 MG TAB PO SCH (20:17)
[2024-05-12] MEDS: ATORVASTATIN 10 MG TAB PO SCH (20:17)
[2024-05-12] MEDS: ASPIRIN 81 MG ECTAB PO SCH (20:18)
[2024-05-12] MEDS: METOPROLOL SUCC 50MG EXT REL TAB PO SCH (20:18)
--- NOTE | 2024-05-12 20:19 | Electrocardiogram Report ---
Test Reason : Blood Pressure : / mmHG Vent. Rate : 093 BPM Atrial Rate : 000 BPM P-R Int : 000 ms QRS Dur : 098 ms QT Int : 348 ms P-R-T Axes : 000 -59 250 degrees QTc Int : 432 ms Atrial fibrillation Left axis deviation Low voltage QRS Incomplete right bundle branch block Nonspecific T wave abnormality Abnormal ECG When compared with ECG of 16-DEC-2023 06:49, No significant change was found Confirmed by Dimitris Uribe ([id number]) on 05/12/2024 8:18:33 PM Referred By: REFERRED SELF Confirmed By:Dimitris Uribe
--- OUTSIDE RECORDS SUMMARY | 2024-05-12 21:32 | External Medical Summary | Summary of Care ---
Author Name Unknown Organization [facility] Address [address] [place] [address] Phone [phone] Care Team Providers Care Drywall Hanger Name Role Phone Kusum Rutherford DO Primary Care Provider Reason for Visit * Reason Comments Outpatient Testing Encounter Details Date Type Department Care Team (Late st Contact Info) Description 05/12/2024 10:10 AM EDT Laboratory Laboratory, [facility] [address] [place] [phone] [facility] [address] [place] [address] Atrial fibrillation with RVR (HCC); Permanent atrial fibrillation (HCC); Anticoagulation management encounter Allergies Active Allergy Reactions Criticality Noted Date Comments Pollen Low 11/24/2015 Nasal congestion, watery eyes Other reaction(s): cough, itchy watery eyes, stuffy nose documented as of this encounter (statuses as of 05/12/2024) Medications Medication Sig Dispensed Refills Start Date End Date Status Multiple Vitamin (MULTI VITAMIN) TABS Take by mouth daily at noon . 06/18/2018 Active Pimecrolimus (ELIDEL) 1 % cream Apply topically to affected area 2 times a day. Apply to face and frontal scalp 60 g 11 06/09/2020 Active Acetaminophen 500 MG Oral Tablet (Tylenol) as needed. Active valACYclovir HCl 1 GM Oral Tablet (Valtrex) Take by mouth 0.5 Tablets in the morning AND 0.5 Tablets before bedtime. 14 Tablet 5 05/30/2022 Active Clobetasol Propionate 0.05 % External Ointment (Temovate) Spots of flare hands and face 2 x daily until healed Genital area twice weekly, increase for flares of symptoms to daily if needed 60 g 3 11/11/2022 Active ProAir HFA 108 (90 Base) MCG/ACT Inhalation Aerosol Solution Inhale 2 Puffs by mouth every 4 hours as needed for Shortness of Breath or Wheezing. 18 g 3 02/25/2023 Active Warfarin Sodium 5 MG Oral Tablet (Coumadin) Take 1-2 Tablets by mouth every evening. Or as directed by coag 180 Tablet 3 03/03/2023 Active Atorvastatin Calcium 10 MG Oral Tablet (Lipitor)Indication s:Dyslipidemia, goal LDL below 70,Hypotension, unspecified hypotension type,Chronic atrial fibrillation (HCC),Asymptomatic bilateral carotid artery stenosis Take 1 Tablet by mouth in the morning. 90 Tablet 3 09/01/2023 Active Hydroxychloroquine Sulfate 200 MG Oral Tablet (Plaquenil) Take 1 Tablet by mouth in the morning. 90 Tablet 3 11/13/2023 Active Sodium Fluoride 5000 PPM 1.1 % Dental Paste APPLY THIN RIBBON DAILY TO TOOTHBRUSH 10/30/2023 Active Furosemide 20 MG Oral Tablet (Lasix) Take one tab weekly and as directed for weight 36 Tablet 3 01/09/2024 Active Metoprolol Succinate ER 25 MG Oral Tablet Extended Release 24 Hour (toPROL XL)Indications:Perm anent atrial fibrillation (HCC),Dyslipidemia, goal LDL below 70,Asymptomatic bilateral carotid artery stenosis,Atrial fibrillation with RVR (HCC),Hypotension, unspecified hypotension type Take 3 Tablets by mouth in the morning and 3 Tablets before bedtime. 360 Tablet 3 03/23/2024 Active Aspirin 81 MG Oral Tablet Delayed ReleaseIndications: Dyslipidemia, goal LDL below 70,Asymptomatic bilateral carotid artery stenosis,Hypotensio n, unspecified hypotension type,Chronic atrial fibrillation (HCC) Take 1 Tablet by mouth in the morning. 03/23/2024 Active Levothyroxine Sodium 150 MCG Oral Tablet (Levoxyl) Take 1 Tablet by mouth in the morning. (at least 30 min prior to breakfast or other meds). 90 Tablet 3 04/01/2024 Active Digoxin 125 MCG Oral Tablet (Lanoxin) Take 1 Tablet by mouth in the morning. Take 2 tablets the first two days. 90 Tablet 3 04/01/2024 Active Trelegy Ellipta 100-62.5-25 MCG/ACT Aerosol Powder Breath Activated (Fluticasone-Umecli dinium-Vilanterol)I ndications:COPD, severe (HCC) Inhale 1 Puff by mouth in the morning. 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 IPMN (intraductal papillary mucinous neoplasm) 0 05/20/2021 Lichen sclerosus et atrophicus 11/29/2020 Senile osteoporosis 02/01/2020 Dyslipidemia, goal LDL below 70 02/23/2019 Hyperparathyroidism, primary 01/12/2019 Inflammation of sacroiliac joint 12/15/2018 Malignant neoplasm of middle lobe of right lung 12/15/2018 Cancer Staging:Clinical stage from 03/08/2022:Stage IA2(cT1b, cN0, cM0) - Signed by Jose Zacarias MD on 03/08/2022 Pathologic stage from 03/13/2022:Stage IB(pT2a, pN0, cM0) - Signed by Jose Zacarias MD on 03/13/2022 Personal history of breast cancer 06/18/2018 Overview: 1996 Proteinuria 06/18/2018 Tobacco use 01/21/2017 S/P carotid endarterectomy 01/02/2012 Overview: Right High risk for fracture due to osteoporosis by DE XA scan 11/14/2011 Systemic lupus erythematosus 01/24/2004 Overview: This began in 1987 and was manifested by a photosensitive skin rash, alopecia and abnormal serology. She has been on Plaquenil since October of 1999. Hypothyroidism 01/24/2004 documented as of this encounter (statuses as of 05/12/2024) Resolved Problems Problem Noted Date Diagnosed Date Resolved Date Bilateral pleural effusion 03/01/2024 0 03/23/2024 Chronic atrial fibrillation 12/29/2023 03/23/2024 Herpes simplex virus (HSV) infection 11/29/2020 03/07/2022 Persistent atrial fibrillation 02/23/2019 06/26/2021 Pure hypercholesterolemia 01/12/2019 Atrial fibrillation with RVR 12/15/2018 03/23/2024 Hospital discharge follow-up 12/15/2018 03/07/2022 Encounter for long-term (cur rent) use of medications 07/14/2018 03/23/2024 COPD, moderate 06/18/2018 10/03/2022 Overview: Per COPD GOLD Classification Pancreatic cyst 05/11/2018 06/26/2021 Malignant neoplasm of right breast 11/23/2015 06/18/2018 Breast cancer 05/01/2012 11/23/2015 ADVANCE DIRECTIVE INFORMATION 04/20/2009 11/23/2015 Overview: Yes, Patient instructed to provide copy of advance directive for provider to review and to be scanned into Electronic Medical Record Symptomatic stenosis of both carotid arteries without infarction 03/30/2009 06/18/2018 Hypothyroid 11/23/2015 documented as of this encounter (statuses as of 05/12/2024) Immunizations Name Administration Dates Next Due COVID-19 mRNA, LNP-s, No Pre serve, 2-Dose Series ([employer]) 08/01/2021,12/28/2020,11/30/2020 COVID-19, MRNA-LNP, 23-24, P F, 30 MCG/0.3 mL, 12 YRS AND ABOVE, IM ([employer]) 08/26/2023 Covid-19, Mrna, Lnp-s, Pf, B ivalent, 30 Mcg, IM, 12 yrs and above ([employer]) 08/09/2022 HEP A - Hepatitis A (Adult > 18 yrs) 08/16/2014 HIB PRP-T, 4 Dose, PF, IM (H iberix, ActHib) 05/04/2021 HepA Inact/HepB Recomb>=18yrs old 10/22/2010 Hepatitis B, 20+ yrs 08/16/2014 IPV - Polio Virus Vaccine (Inact) 10/22/2010 MMR - Measles/Mumps/Rubella Vaccine 11/10/2010 Meningococcal B, 2/3-Dose Se lisa (TRUMENBA) 01/23/2022(Deferred: Patient Refused),05/04/2021 Meningococcal MCV4O Conjugat e Vaccine (Menveo) 06/21/2021,05/04/2021 Pneumococcal Conjugate Vacc, 13 Valent (Prevnar) 05/04/2021,08/18/2014 Pneumococcal Polysaccharide PPV23 (Pneumovax) 02/27/2022,01/23/2022(Deferred: Patient Refused),12/05/2016 Season Influenza, Quad, PF, Adjuvanted, 65+ Yrs, IM (FLUAD) 07/20/2020 Seasonal Influenza, PF, 6 M & above, IM , (FluLaval or Fluzone) 07/08/2018,07/18/2017 Seasonal Influenza, Quadriva lent Hd (Fluzone Hd) 08/25/2023,07/11/2022,07/07/2021 Seasonal Influenza, Quadriva lent, No Preserve, IM 08/09/2016,10/02/2015 08/09/2017 Seasonal Influenza, Split, I IV3, With Preserve, Inj 06/17/2014,07/03/2013,08/05/2012,07/20,07/20/2010,08/03/2009,11/07/19 09 Seasonal Influenza, Trivalen t, Adjuvanted, 65+ yrs 08/18/2019 TDAP (age 10 and older)(Boostrix) 10/22/2010 Typhoid Vaccine Oral (Vivotif) 10/22/2010 Varicella Zoster Vaccine (Adult) 10/22/1999 Zoster Vaccine Recombinant (Shingrix) 08/18/2020 ,05/31/2020 documented as of this encounter Social History Tobacco Use Types Packs/Day Years Used Date Smoking Tobacco: Every Day Cigarettes 2.5 56.6 Started: 1968 Smokeless Tobacco: Never Comments:1 pack daily. Alcohol Use Standard Drinks/Week Comments No 0 (1 standard drink = 0.6 oz pur e alcohol) PHQ-2 Answer Date Recorded PHQ Adult Total Score 0 11/01/2021 Utilities Answer Date Recorded Do you have trouble paying y our heating, water, or electric bill? (Adult - for ages 18 years and over) Not on file 04/06/2024 Is your family able to pay t he heat, water, or electric bill? (Household - for ages 0-17 years) Not on file 04/06/2024 Does your family have access to good internet? (Household - for ages 0-17 years) Not on file 04/06/2024 Social Connections Answer Date Recorded How often do you feel lonely or isolated from those around you? (Adult - for ages 18 years and over) Not on file 04/06/2024 Sex and Gender Information Value Date Recorded Sex Assigned at Female 01/12/2019 8:55 AM EDT Gender Identity Female 01/12/2019 8:55 AM EDT Sexual Orientation Straight 01/12/2019 8: 55 AM EDT Job Start Date Occupation Industry Not on file Not on file Not on file documented as of this encounter Functional Status Functional Status Response Date of Assess ment Are you deaf or do you have serious difficulty h earing? No 03/08/2022 Are you blind or do you have serious difficulty seeing, even when wearing glasses? No 03/08/2022 Do you have serious difficul ty walking or climbing stairs? (5 years old or older) No 03/08/2022 Do you have difficulty dress ing or bathing? (5 years old or older) No 03/08/2022 Because of a physical, menta l, or emotional condition, do you have difficulty doing errands alone such as visiting a doctor s office or shopping? (15 years old or older) No 03/08/20 Cognitive Status Response Date of Assessm ent Because of a physical, menta l, or emotional condition, do you have serious difficulty concentrating, remembering, or making decisions? (5 years old or older) No 03/08/2022 documented as of this encounter Plan of Treatment Upcoming Encounters Date Type Department Care Team (Latest Contact Info) Description 05/12/2024 10:30 AM EDT Office Visit Cardiology, [facility] [address] [address] Deborah Yost CRNP 132 [facility] [place] [address] Permanent atrial fibrillation (HCC)*; Dyslipidemia, goal LDL below 70; S/P carotid endarterectomy; Chronic diastolic congestive heart failure (HCC); Chronic obstructive pulmonary disease, unspecified COPD type (HCC); Malignant neoplasm of middle lobe of right lung (HCC); Tobacco use 05/13/2024 7:00 AM EDT Anticoagulation Pharmacy, [facility] [address] [facility] [place] [address] Pharmacist1, [facility] [address] [facility] [place] [address] 05/26/2024 1:00 PM EDT PulmDiagnostic Pulmonary Function Lab, [facility] [address] [place] [address] [place], [address] [facility] [address] 2024 1:00 PM EDT Office Visit Dermatology [facility] [address] [facility] [place] [address] Alex Parrish MD [address] [facility] [place] [address] 06/01/2024 2:30 PM EDT Imaging Radiology [facility]st [facility] [address] [facility] [place] [address] 06/07/2024 11:30 AM EDT [facility] [address] [place] [address] Jose Zacarias MD [address] [place] [address] 09/07/2024 3:00 PM EST Office Visit Pulmonary Medicine, [facility] 132 [facility] [place] [address] Jean Crews MD [address] [place] [address] 11/25/2024 10:20 AM EST Office Visit Rheumatology [place] [address] [employer] [address] [place] [address] Nikunj Kessler MD [address] [place] [address] Pending Results Name Type Priority Associated Diagnoses Date /Time PT INR Lab Routine Atrial fibrillation with RVR (HCC) Permanent atrial fibrillation (HCC) Anticoagulation management encounter 05/12/2024 10:09 AM EDT Scheduled Procedures Name Priority Associated Diagnoses Date/Ti me COLONOSCOPY FLEXIBLE PROXIMAL DIAGNOSTIC Recall History of colon polyps Health Maintenance Due Date Last Done Comments Alpha-1 Antitrypsin 1967 Cologuard 1994 Sigmoidoscopy 1994 Fecal Occult Blood Test 08/25/2000 08/25/1999 Hepatitis B Vaccine (3 of 3 - 19+ 3-dose series) 10/11/2014 08/16/2014, 10/22/2010 DTaP,Tdap,and Td Vaccines (2 - Td or Tdap) 10/22/2020 10/22/2010 Meningitis B Vaccine (Bexsero/Trumemba) (2 of 5 - Increased Risk Trumenba 3-dose series) 06/01/2021 05/04/2021 MENINGOCOCCAL (MENACTRA/MENVEO) (2 - Risk 2-dose series) 08/16/2021 06/21/2021, 05/04/2021 *BISPHONATE OR OTHER ACCEPTABLE MEDICATION NEEDED FOR OSTEOPOROSIS (REFER TO SMARTSET #1146) 02/28/2022 Depression Screening 11/01/2022 11/01/2021 Colonoscopy 12/08/2022 12/08/2019, 03/2016, 2012 Colorectal Cancer Screening 12/08/2022 Mammogram 02/08/2023 02/08/2022, 10/20, 11/01/2019, Additional history exists COVID-19 Vaccine ( season) 2023 08/26/2023, 08/09/2022, 08/01/2021, Additional history exists *COPD SEVERITY VERIFIED BY PFT 05/02/2024 Influenza Vaccine (FLU shot) (#1) 2024 08/25/2023, 07/11/2022, 07/07/2021, Additional history exists DISCUSS TOBACCO CESSATION (REFER TO SMARTSET #3291) 12/28/2024 12/29/2023, 06/18/2018 (Discussed) O2 ASSESSMENT COMPLETED IN PAST YEAR FOR COPD 01/05/2025 01/06/2024 DXA Scan 02/25/2025 02/25/2023, 05/0 12/2020, 01/27/2019, Additional history exists TSH 03/30/2025 03/30/2024, 03/0 05/2023, 05/30/2022, Additional history exists Lipid Panel 12/31/2028 01/01/2024, 12/19, 06/15/2020, Additional history exists Zoster Vaccines Completed 08/18/2020, 05/20, 10/22/1999 Pneumococcal Vaccine: 65+ Years Completed 02/27/2022, 05/04/2021, 12/05/2016, Additional history exists VITAMIN D LEVEL ONCE IN A LIFETIME-USE SMARTSET# [id number] Completed 11/29/2023, 08/26/2022, 02/01/2021, Additional history exists HPV (Gardasil) Vaccine Aged Out No lo nger eligible based on patient's age to complete this topic documented as of this encounter Medical Devices Not on filedocumented as of this encounter Visit Diagnoses Diagnosis Permanent atrial fibrillation (HCC)- Primary Atrial fibrillation Dyslipidemia, goal LDL below 70 Other and unspecified hyperlipidemia S/P carotid endarterectomy Other postprocedural status Chronic diastolic congestive heart failure (HCC) Chronic diastolic heart failure Chronic obstructive pulmonary disease, unspecified COPD type (HCC) Malignant neoplasm of middle lobe of right lung (HCC) Tobacco use Tobacco use disorder Atrial fibrillation with RVR (HCC) Atrial fibrillation Permanent atrial fibrillation (HCC) Atrial fibrillation Anticoagulation management encounter Encounter for therapeutic drug monitoring documented in this encounter Advance Directives Documents on File Type Date Recorded Patient Zoo Director Expl anation Advance Directives and Living Will 03/11/2022 ADVANCE DIRECTIVE / LIVING WILL Power of Instructor Pilot 05/05/2021 POWER OF A TTORNEY * Full Code (Latest Code Status on File) Date Activated Date Inactivated Comments 03/08/2022 10:35 AM 03/11/2022 6:03 PM This order reflects the patients wishes and were consensually agreed upon. * Full Code Date Activated Date Inactivated Comments 05/02/2021 2:05 PM 05/04/2021 7:49 PM Question Answer Comments Discussion of Advance Directives occurred with: Not Discussed Does the patient have a Living Will? No Does the patient have Health Care Power of Attor alisha? No * Full Code Date Activated Date Inactivated Comments 05/02/2021 10:57 AM 05/02/2021 2:05 PM Question Answer Comments Discussion of Advance Directives occurred with: Not Discussed Does the patient have a Living Will? No Does the patient have Health Care Power of Attor alisha? No Care Teams Drywall Hanger Relationship Specialty Start Date End Date Kusum Rutherford DO [address] [place] [address] PCP - General Family Medicine 05/01/12 documented as of this encounter
--- OUTSIDE RECORDS SUMMARY | 2024-05-12 21:32 | External Medical Summary | Summary of Care ---
Author Name Unknown Organization [facility] Address [address] [place] [address] Phone [phone] Care Team Providers Care Target Network Analyst Name Role Phone Kusum Rutherford DO Primary Care Provider Reason for Visit * Reason Comments Dosage Adjustment In Person (Anticoag Cl inic) Encounter Details Date Type Department Care Team (Latest Contact Info) Description 04/12/2024 2:50 PM EDT Anticoagulation Pharmacy, [facility] [address] Pharmacist1, [facility] [address] [facility] [place] [address] Drug-induced systemic lupus erythematosus, unspecified organ involvement status (HCC)*; Atrial fibrillation with RVR (HCC); Permanent atrial fibrillation (HCC); Anticoagulation management encounter Allergies Active Allergy Reactions Criticality Noted Date Comments Pollen Low 11/24/2015 Nasal congestion, watery eyes Other reaction(s): cough, itchy watery eyes, stuffy nose documented as of this encounter (statuses as of 05/04/2024) Medications Medication Sig Dispensed Refills Start Date [...] as of this encounter (statuses as of 05/04/2024) Active Problems Problem Noted Date Diagnosed Date [...] as of this encounter (statuses as of 05/04/2024) Resolved Problems Problem Noted Date Diagnosed Date [...] as of this encounter (statuses as of 05/04/2024) Immunizations Name Administration Dates Next Due COVID-19 mRNA, LNP-s, No Pre serve, 2-Dose Series ([employer]) 08/01/2021,12/28/2020,11/30/2020 COVID-19, MRNA-LNP, 23-24, P F, 30 MCG/0.3 mL, 12 YRS AND ABOVE, IM ([employer]) 08/26/2023 Covid-19, Mrna, Lnp-s, Pf, B ivalent, 30 Mcg, IM, 12 yrs and above ([employer]) 08/09/2022 HEP A - Hepatitis A (Adult [...] Date Smoking Tobacco: Every Day Cigarettes 2.5 56.5 Started: 1968 Smokeless Tobacco: Never Comments:2 packs daily 01/05 Alcohol Use Standard Drinks/Week Comments No 0 [...] No 03/08/2022 documented as of this encounter Progress Notes * Evangelista Burkett, [facility] - 04/12/2024 2:57 PM EDT Images from the original note were not included. Medication Therapy Disease Management - Anticoagulation Maria Alejandra Patel 1950 Current Warfarin Dose As of 04/12/2024 Warfarin maintenance plan: 2.5 mg (5 mg x 0.5) every Sun, Tue, Lily; 5 mg (5 mg x 1) all other days Patient Findings Positives: Change in medications (levothyroxine increased) Negatives: Signs/symptoms of thrombosis, Signs/symptoms of bleeding, Change in health, Change in alcohol use, Change in activity, Upcoming invasive procedure, Missed doses, Extra doses, Change in diet/appetite, Bruising INR Result As of 04/12/2024 INR goal: 2.0-3.0 INR used for dosin.9 (04/12/2024) Warfarin Plan As of 04/12/2024 Full warfarin instructions: 04/12: Hold; 04/13: Hold; Otherwise 2.5 mg every Sun, Tue, Lily; 5 mg all other days Next INR check: 04/16/2024 Repeat PT/INR in 4 day(s) Weekly dose: decreased Evangelista Green RPh, CACP, CDE Clinical Pharmacist Medication Therapy Management [facility] 04/12/2024 3:04 PM documented in this encounter Plan of Treatment Upcoming Encounters Date Type Department Care Team (Late st Contact Info) Description 05/06/2024 2:30 PM EDT Anticoagulation Pharmacy, [facility] 200 [facility] [place] [address] Pharmacist1, [facility] [address] [facility] [place] [address] 05/12/2024 10:30 AM EDT Office Visit Cardiology, [facility] [address] [address] Deborah Yost CRNP [address] [place] [address] 05/26/2024 1:00 PM EDT PulmDiagnostic Pulmonary Function Lab, [facility] [address] [place] [address] [place], [address] 132 [place] [address] 2024 1:00 PM EDT Office Visit Dermatology [facility] 200 [facility] [place] [address] Alex Parrish MD 200 [facility] [place] [address] 06/01/2024 2:30 PM EDT Imaging Radiology [facility] 1st [facility] [address] [place] [address] 06/07/2024 11:30 AM EDT [facility] [address] [place] [address] Jose Zacarias MD [address] [place] [address] 09/07/2024 3:00 PM EST Office Visit Pulmonary Medicine, [facility] [address] [place] [address] Jean Crews MD [address] [place] [address] 11/25/2024 10:20 AM EST Office Visit Rheumatology [address] [place] [address] Nikunj Kessler MD [address] [place] [address] [place] [address] Scheduled Procedures Name Priority Associated Diagnoses Date/Ti [...] exists DISCUSS TOBACCO CESSATION (REFER TO SMARTSET #4605) 12/28/2024 12/29/2023, 06/18/2018 (Discussed) O2 ASSESSMENT COMPLETED IN PAST YEAR FOR COPD 01/05/2025 01/06/2024 DXA Scan 02/25/2025 02/25/2023, 0512/2020, 01/27/2019, Additional history exists TSH 03/30/2025 03/30/2024, 030 05/2023, 05/30/2022, Additional history exists Lipid Panel 12/31/2028 01/01/2024, 12/19, 06/15/2020, Additional history exists Zoster Vaccines Completed 08/18/2020, 05/20, 10/22/1999 Pneumococcal Vaccine: 65+ Years Completed 02/27/2022, 05/04/2021, 12/05/2016, Additional history exists VITAMIN D LEVEL ONCE IN A LIFETIME-USE SMARTSET# [id number] Completed 11/29/2023, 08/26/2022, 02/01/2021, Additional history exists HPV (Gardasil) Vaccine Aged Out No lo nger eligible based on patient's age to complete this topic documented as of this encounter Medical Devices Not on filedocumented as of this encounter Procedures Procedure Name Priority Date/Time Associated Diagnosis Comments INR FINGERSTICK, POINT OF CARE STAT 04/12/2024 3:00 PM EDT Atrial fibrillation with RVR (HCC) Permanent atrial fibrillation (HCC) Anticoagulation management encounter documented in this encounter Results * INR FINGERSTICK, POINT OF CARE (04/12/2024 3:00 PM EDT) Fingerstick INR 7.1 INR 3:09 PM EDT [facility] Blood 04/12/2024 3:00 PM EDT 04/12/2024 3:09 PM EDT Narrative [facility] - 04/12/2024 3:09 PM EDT Therapeutic ranges for non-operative patients: Prophylaxsis/treatment of DVT: (Range:2.0-3.0) Treatment of pulmonary embolism:(Range:2.0-3.0) Prevention of systemic embolism from: -tissue heart valves -acute myocardial infarction -valvular heart disease -atrial fibrillation (Range: 2.0-3.0) Mechanical prosthetic valves: (Range: 2.5-3.5) Evangelista Green V [facility] LAB POINT OF CARE TE ST DOCKED DEVICE UNSOLICITED RESULTS [facility] [place] [address] documented in this encounter Visit Diagnoses Diagnosis Drug-induced systemic lupus erythematosus, unspecified organ involvement status (HCC)- Primary Atrial fibrillation with RVR (HCC) Atrial fibrillation Permanent atrial fibrillation (HCC) Atrial fibrillation Anticoagulation management encounter Encounter for therapeutic drug monitoring documented in this encounter Advance Directives Documents on File Type Date Recorded Patient Mergers And Acquisitions Manager Expl anation Advance Directives and Living Will 03/11/2022 ADVANCE DIRECTIVE / LIVING WILL Power of Vascular Sonographer 05/05/2021 POWER OF A TTORNEY * Full [...] Power of Attor alisha? No Care Teams Target Network Analyst Relationship Specialty Start Date End Date Kusum Rutherford DO [facility] [place] [address] PCP - General Family Medicine 05/01/12 documented as of this encounter
--- OUTSIDE RECORDS SUMMARY | 2024-05-12 21:32 | External Medical Summary | Summary of Care ---
Author Name Unknown Organization [facility] Address [address] [place] [address] Phone [phone] Care Team Providers Care Head Cleaning Porter Name Role Phone KrishKusum DO Primary Care Provider Reason for Visit * Reason Onset Date Comments Medication Problem 04/05/2024 Encounter Details Date Type Department Care Team (Late st Contact Info) Description 04/05/2024 Telephone Cardiology, [facility] [address] [facility] [address] Anthony Sawyer MD [address] [facility] [address] Medication Problem Allergies Active Allergy Reactions Criticality Noted Date Comments Pollen Low 11/24/2015 Nasal congestion, watery eyes Other reaction(s): cough, itchy watery eyes, stuffy nose documented as of this encounter (statuses as of 04/20/2024) Medications Medication Sig Dispensed Refills Start Date [...] Active Atorvastatin Calcium 10 MG Oral Tablet (Lipitor)Indicatio ns:Dyslipidemia, goal LDL below 70,Hypotension, unspecified hypotension type,Chronic [...] Oral Tablet Extended Release 24 Hour (toPROL XL)Indications:Per manent atrial fibrillation (HCC),Dyslipidemia , goal LDL below 70,Asymptomatic bilateral carotid artery stenosis,Atrial fibrillation with RVR (HCC),Hypotension, unspecified hypotension type Take 3 Tablets by mouth in the morning and 3 Tablets before bedtime. 360 Tablet 3 03/23/2024 Active Aspirin 81 MG Oral Tablet Delayed ReleaseIndications :Dyslipidemia, goal LDL below 70,Asymptomatic bilateral carotid artery stenosis,Hypotensi on, unspecified hypotension type,Chronic atrial fibrillation (HCC) Take [...] two days. 90 Tablet 3 04/01/2024 Active Vitamin D 25 MCG (1000 UT) Oral Tablet 4 Discontinue d(Medicatio n List Clean Up) documented as of this encounter (statuses as of 04/20/2024) Active Problems Problem Noted Date Diagnosed Date [...] as of this encounter (statuses as of 04/20/2024) Resolved Problems Problem Noted Date Diagnosed Date [...] as of this encounter (statuses as of 04/20/2024) Immunizations Name Administration Dates Next Due COVID-19 mRNA, LNP-s, No Pre serve, 2-Dose Series ([employer]) 08/01/2021,12/28/2020,11/30/2020 COVID-19, MRNA-LNP, 23-24, P F, 30 MCG/0.3 mL, 12 YRS AND ABOVE, IM ([facility] 08/26/2023 Covid-19, Mrna, Lnp-s, Pf, B ivalent, 30 Mcg, IM, 12 yrs and above ([facility]) 08/09/2022 HEP A - Hepatitis A (Adult > 18 yrs) 08/16/2014 HIB PRP-T, 4 Dose, PF, IM ([employer]) 05/04/2021 HepA Inact/HepB Recomb>=18yrs old 10/22/2010 Hepatitis [...] No 03/08/2022 documented as of this encounter Miscellaneous Notes * Telephone Encounter - Marizol Selby, ELIJAH - 04/20/2024 3:11 PM EDT Person calling: Patient Relationship to patient: self Number to return call: [phone] Reason for call(brief): Medication Problem Pharmacy: [facility] Provider Name: Dr. Sawyer Detailed message to office: Pt insisting on speaking with nurse directly and would like a call back as soon as possible. Patient states that there has been a confusion regarding medication refill of Digoxin and states that medication needs to be refilled to [facility] and states that office needs to reach pharmacy directly over phone or through fax to be able to approved. Please advise * Telephone Encounter - Jon Villa LPN - 04/15/2024 2:25 PM EDT Message given to pharmacist at [facility] * Telephone Encounter - Nikunj Kessler MD - 04/15/2024 12:47 PM EDT Ok to use both - please let pharmacy know * Telephone Encounter - Anthony Sawyer MD - 04/13/2024 12:14 PM EDT Okay to use digoxin. Can follow laboratory levels with low-dose being used * Telephone Encounter - Nikunj Kessler MD - 04/05/2024 4:[address] Sawyer - are you ok with filling both? * Telephone Encounter - Ama Cobb LPN - 04/05/2024 3:51 PM EDT Xin from [facility] Pharmacy states that there is an interaction between digoxin and hydroxychloroquine sulfate ordered by Dr Kessler. The interaction is plasma concentration of digoxin be elevated. Pharmacy wants to make both Dr Sawyer and Dr Kessler aware of this interaction and needs to confirm that it is ok to fill script. The script can't be filled without a call back or a new script sent. Pharmacy selected Please advise documented in this encounter Plan of Treatment Upcoming Encounters Date Type Department Care Team (Late st Contact Info) Description 04/26/2024 2:50 PM EDT Anticoagulation Pharmacy, [facility] 200 [facility] [place] [address] Pharmacist1, [facility] [address] [place] [address] 05/12/2024 10:30 AM EDT Office Visit Cardiology, [facility] 132 [facility] [place] [address] Deborah Yost CRNP [address] [place] [address] 05/26/2024 1:00 PM EDT PulmDiagnostic Pulmonary Function Lab, [facility] 132 [facility] [place] [address] [address], [address] 132 [facility] [place] [address] 2024 1:00 PM EDT Office Visit Dermatology [facility] [address] [facility] [place] [address] Alex Parrish MD 200 [facility] [place] [address] 06/01/2024 2:30 PM EDT Imaging Radiology [facility] 1st [facility] 132 [facility] [place] [address] 06/07/2024 11:30 AM EDT Office Visit Thoracic Surg [facility] [place] [address] [place] [address] Jose Zacarias MD [address] [place] [address] 09/07/2024 3:00 PM EST Office Visit Pulmonary Medicine, [facility] 132 [facility] [place] [address] Jean Crews MD [address] [facility] [place] [address] 11/25/2024 10:20 AM EST Office Visit Rheumatology [facility] [address] [place] [address] Nikunj Kessler MD [address] [place] [address] Scheduled Procedures Name Priority Associated Diagnoses Date/Ti me COLONOSCOPY FLEXIBLE PROXIMAL DIAGNOSTIC Recall History of colon polyps Health Maintenance Due Date Last Done Comments Alpha-1 Antitrypsin 1967 Cologuard 1994 Sigmoidoscopy 1994 Fecal Occult Blood Test 08/25/2000 08/25/1999 Hepatitis B (3 of 3 - 19+ 3-dose series) [...] 2023 08/26/2023, 08/09/2022, 08/01/2021, Additional history exists Influenza Vaccine (FLU shot) (#1) 2024 08/25/2023, [...] D LEVEL ONCE IN A LIFETIME-USE SMARTSET# 75598 Completed 11/29/2023, 08/26/2022, 02/01/2021, Additional history exists GARDASIL-HPV IMMUNIZATION SERIES Aged Out No longer eligible based on patient's age to complete this topic documented as of this encounter Medical Devices Not on filedocumented as of this encounter Advance Directives Documents on File Type Date Recorded 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 No Care Teams Head Cleaning Porter Relationship Specialty Start Date End Date Kusum Rutherford DO [address] [place] [address] PCP - General Family Medicine 05/01/12 documented as of this encounter
--- OUTSIDE RECORDS SUMMARY | 2024-05-12 21:32 | External Medical Summary | Summary of Care ---
Author Name Unknown Organization [facility] Address [address] [place] [address] Phone [phone] Care Team Providers Care Iron Erector Name Role Phone KrishKusum DO Primary Care Provider Reason for Visit * Reason Onset Date Comments Medication Problem 04/05/2024 Encounter Details Date Type Department Care Team (Late st Contact Info) Description 04/05/2024 Telephone Cardiology, [facility] [address] [facility] [address] Anthony [facility] MD [address] [facility] [address] Medication Problem Allergies Active Allergy Reactions Criticality Noted Date Comments Pollen Low 11/24/2015 Nasal congestion, watery eyes Other reaction(s): cough, itchy watery eyes, stuffy nose documented as of this encounter (statuses as of 04/23/2024) Medications Medication Sig Dispensed Refills Start Date [...] as of this encounter (statuses as of 04/23/2024) Active Problems Problem Noted Date Diagnosed Date [...] as of this encounter (statuses as of 04/23/2024) Resolved Problems Problem Noted Date Diagnosed Date [...] as of this encounter (statuses as of 04/23/2024) Immunizations Name Administration Dates Next Due COVID-19 mRNA, LNP-s, No Pre serve, 2-Dose Series ([employer]) 08/01/2021,12/28/2020,11/30/2020 COVID-19, MRNA-LNP, 23-24, P F, 30 MCG/0.3 mL, 12 YRS AND ABOVE, IM ([facility]) 08/26/2023 Covid-19, Mrna, Lnp-s, Pf, B ivalent, 30 Mcg, IM, 12 yrs and above ([employer]) 08/09/2022 HEP A - Hepatitis A (Adult [...] encounter Miscellaneous Notes * Telephone Encounter - Angie Soria CMA - 04/23/2024 3:23 PM EDT Spoke with Tayler at [facility]. Notified that patient may take digoxin and hydroxychloroquine in conjunction and that digoxin levelwould be monitored via blood testing. Tayler made notation in patient's file and will proceed with filling medication. * Telephone Encounter - Marizol Selby OSA - 04/20/2024 3:11 PM EDT Person calling: Patient Relationship to patient: self Number to return call: [phone] Reason for call(brief): Medication Problem Pharmacy: [facility] Provider Name: Dr. Sawyer Detailed message to office: Pt insisting on speaking with nurse directly and would like a call back as soon as possible. Patient states that there has been a confusion regarding medication refill of Digoxin and states that medication needs to be refilled to [facility] and states that office needs to reach pharmacy directly over phone or through fax to be able to approved. Please advise * Telephone Encounter - Jon Villa LPN - 04/15/2024 2:25 PM EDT Message given to pharmacist at [facility] * Telephone Encounter - Nikunj Kessler MD [...] - 04/05/2024 3:51 PM EDT Xin from [facility] Pharm[facility] states that there is an interaction [...] Description 04/26/2024 2:50 PM EDT Anticoagulation Pharmacy, [facility] [address] [facility] [place] [address] Pharmacist1, [facility] 200 [facility] [place] [address] 05/12/2024 10:30 AM EDT Office Visit Cardiology, [facility] 132 [facility] [place] [address] Deborah Yost CRNP 132 [facility] [place] [address] 05/26/2024 1:00 PM EDT PulmDiagnostic Pulmonary Function Lab, [facility] 132 [facility] [place] [address] [address], [address] 132 [facility] [place] [address] 2024 1:00 PM EDT Office Visit Dermatology [facility] [address] [facility] [place] [address] Alex Parrish MD [address] [facility] [place] [address] 06/01/2024 2:30 PM EDT Imaging Radiology [place] 1st [facility] 132 [facility] [place] [address] 06/07/2024 11:30 AM EDT [facility] [address] [place] [address] Jose Zacarias MD [address] [place] [address] 09/07/2024 3:00 PM EST Office Visit Pulmonary Medicine, [facility] [address] [facility] [place] [address] Jean Crews MD [address] [facility] [address] 11/25/2024 10:20 AM EST Office Visit Rheumatology [facility] [address] [place] [address] Nikunj Kessler MD [address] [place] [address] Scheduled Procedures Name Priority Associated Diagnoses Date/Ti [...] COPD 01/05/2025 01/06/2024 DXA Scan 02/25/2025 02/25/2023, 050 12/2020, 01/27/2019, Additional history exists TSH 03/30/2025 03/30/2024, 030 05/2023, 05/30/2022, Additional history exists Lipid Panel 12/31/2028 01/01/2024, 12/19, 06/15/2020, Additional history exists Zoster Vaccines Completed 08/18/2020, 05/20, 10/22/1999 Pneumococcal Vaccine: 65+ Years Completed 02/27/2022, 05/04/2021, 12/05/2016, Additional history exists VITAMIN D LEVEL ONCE IN A LIFETIME-USE SMARTSET# [id number] Completed 11/29/2023, 08/26/2022, 02/01/2021, Additional history exists HPV (Gardasil) Vaccine Aged Out No lo nger eligible based on patient's age to complete this topic documented as of this encounter Medical Devices Not on filedocumented as of this encounter Advance Directives Documents on File Type Date Recorded Patient Equip Tech Expl anation Advance Directives and Living Will 03/11/2022 ADVANCE DIRECTIVE / LIVING WILL Power of Heater Worker 05/05/2021 POWER OF A TTORNEY * Full [...] Power of Attor alisha? No Care Teams Iron Erector Relationship Specialty Start Date End Date Kusum Rutherford DO [address] [place] [address] PCP - General Family Medicine 05/01/12 documented as of this encounter
--- OUTSIDE RECORDS SUMMARY | 2024-05-12 21:32 | External Medical Summary | Summary of Care ---
Author Name Unknown Organization [facility] Address [address] [place] [address] Phone [phone] Care Team Providers Care Orthophotography Technician Name Role Phone Kusum Rutherford DO Primary Care Provider Reason for Visit * Reason Comments Dosage Adjustment In Person (Anticoag Cl inic) Encounter Details Date Type Department Care Team (Latest Contact Info) Description 04/16/2024 2:50 PM EDT Anticoagulation Pharmacy, [facility] 200 [facility] [address] Pharmacist1, [facility] 200 [facility] [place] [address] Drug-induced systemic lupus erythematosus, unspecified organ involvement status (HCC)*; Atrial fibrillation with RVR (HCC); Permanent atrial fibrillation (HCC); Anticoagulation management encounter Allergies Active Allergy Reactions Criticality Noted Date Comments Pollen Low 11/24/2015 Nasal congestion, watery eyes Other reaction(s): cough, itchy watery eyes, stuffy nose documented as of this encounter (statuses as of 05/06/2024) Medications Medication Sig Dispensed Refills Start Date [...] Ellipta 100-62.5-25 MCG/ACT Aerosol Powder Breath Activated (Fluticasone-Umecl idinium-Vilanterol )Indications:COPD, severe (HCC) Inhale 1 Puff by mouth in the morning. 60 Blister Dosing Unit 5 04/06/2024 Active Cephalexin 500 MG Oral Capsule Take 1 Capsule by mouth in the morning and 1 Capsule before bedtime. Do all this for 10 days. 20 Capsule 04/12/2024 4 documented as of this encounter (statuses as of 05/06/2024) Active Problems Problem Noted Date Diagnosed Date [...] as of this encounter (statuses as of 05/06/2024) Resolved Problems Problem Noted Date Diagnosed Date [...] as of this encounter (statuses as of 05/06/2024) Immunizations Name Administration Dates Next Due COVID-19 mRNA, LNP-s, No Pre serve, 2-Dose Series ([employer]) 08/01/2021,12/28/2020,11/30/2020 COVID-19, MRNA-LNP, 23-24, P F, 30 MCG/0.3 mL, 12 YRS AND ABOVE, IM ([employer]) 08/26/2023 Covid-19, Mrna, Lnp-s, Pf, B ivalent, 30 Mcg, IM, 12 yrs and above (Pfizer) 08/09/2022 HEP A - Hepatitis A (Adult [...] of this encounter Progress Notes * Evangelista Burkett RPh - 04/16/2024 2:54 PM EDT Medication Therapy Disease Management - Anticoagulation Maria Alejandra Patel 1950 Current Warfarin Dose As of 04/16/2024 Warfarin maintenance plan: 5 mg (5 mg x 1) every Mon, Fri; 2.5 mg (5 mg x 0.5) all other days Patient Findings Negatives: Signs/symptoms of thrombosis, Signs/symptoms of bleeding, Change in health, Change in alcohol use, Change in activity, Upcoming invasive procedure, Missed doses, Extra doses, Change in medications, Change in diet/appetite, Bruising INR Result As of 04/16/2024 INR goal: 2.0-3.0 INR used for dosin.7 (04/16/2024) Warfarin Plan As of 04/16/2024 Full warfarin instructions: 5 mg every Mon, Fri; 2.5 mg all other days Next INR check: 04/26/2024 Repeat PT/INR in 10 day(s) Weekly dose: decreased Evangelista Green RPh, CACP, CDE Clinical Pharmacist Medication Therapy [facility] 04/16/2024 3:02 PM documented in this encounter Plan of Treatment Upcoming Encounters Date Type Department Care Team (Late st Contact Info) Description 05/06/2024 2:30 PM EDT Anticoagulation Pharmacy, [facility] 200 [facility] [place] [address] Pharmacist1, [facility] 200 [facility] [place] [address] 05/12/2024 10:30 AM EDT Office Visit Cardiology, [facility] [address] [place] [address] Deborah Yost CRNP [address] [place] [address] 05/26/2024 1:00 PM EDT PulmDiagnostic Pulmonary Function Lab, [facility] [address] [place] [address] [address], [address] [place] [address] 2024 1:00 PM EDT Office Visit Dermatology [facility] 200 [facility] [address] Alex Parrish MD 200 [facility] [place] [address] 06/01/2024 2:30 PM EDT Imaging Radiology [facility] 1st [facility] [address] [place] [address] 06/07/2024 11:30 AM EDT Office Visit [facility] [address] [place] [address] Jose Zacarias MD [address] [place] [address] 09/07/2024 3:00 PM EST Office Visit Pulmonary Medicine, [facility] [address] [place] [address] Jean Crews MD [address] [place] [address] 11/25/2024 10:20 AM EST Office Visit Rheumatology [address] [place], [place] [address] Nikunj Kessler MD [facility] [address] [facility] [place] [address] Scheduled Procedures Name Priority Associated Diagnoses Date/Ti [...] exists DISCUSS TOBACCO CESSATION (REFER TO SMARTSET #1611) 12/28/2024 12/29/2023, 06/18/2018 (Discussed) O2 ASSESSMENT COMPLETED [...] D LEVEL ONCE IN A LIFETIME-USE SMARTSET# [id number] Completed 11/29/2023, 08/26/2022, 02/01/2021, Additional history exists HPV (Gardasil) Vaccine Aged Out No lo nger eligible based on patient's age to complete this topic documented as of this encounter Medical Devices Not on filedocumented as of this encounter Procedures Procedure Name Priority Date/Time Associated Diagnosis Comments INR FINGERSTICK, POINT OF CARE STAT 04/16/2024 2:57 PM EDT Atrial fibrillation with RVR (HCC) Permanent atrial fibrillation (HCC) Anticoagulation management encounter documented in this encounter Results * INR FINGERSTICK, POINT OF CARE (04/16/2024 2:57 PM EDT) Fingerstick INR 2.7 INR 2:58 PM EDT [facility] 56[facility]02 Blood 04/16/2024 2:57 PM EDT 04/16/2024 2:58 PM EDT Narrative [facility] 56-02 - 04/16/2024 2:58 PM EDT Therapeutic ranges for non-operative patients: Prophylaxsis/treatment of DVT: (Range:2.0-3.0) Treatment of pulmonary embolism:(Range:2.0-3.0) Prevention of systemic embolism from: -tissue heart valves -acute myocardial infarction -valvular heart disease -atrial fibrillation (Range: 2.0-3.0) Mechanical prosthetic valves: (Range: 2.5-3.5) Evangelista Green V, [facility] POINT OF CARE TE ST DOCKED DEVICE UNSOLICITED RESULTS [facility] 56-[address] [place] [address] documented in this encounter Visit Diagnoses Diagnosis Drug-induced systemic lupus erythematosus, unspecified organ involvement status (HCC)- Primary Atrial fibrillation with RVR (HCC) Atrial fibrillation Permanent atrial fibrillation (HCC) Atrial fibrillation Anticoagulation management encounter Encounter for therapeutic drug monitoring documented in this encounter Advance Directives Documents on File Type Date Recorded Patient Supervisor Kosher Dietary Service Expl anation Advance Directives and Living Will 03/11/2022 ADVANCE DIRECTIVE / LIVING WILL Power of Marketing Forecaster 05/05/2021 POWER OF A TTORNEY * Full [...] Power of Attor alisha? No Care Teams Orthophotography Technician Relationship Specialty Start Date End Date Kusum Rutherford DO [address] [place] [address] PCP - General Family Medicine 05/01/12 documented as of this encounter
--- OUTSIDE RECORDS SUMMARY | 2024-05-12 21:33 | External Medical Summary ---
Author Name Unknown Address Unknown Organization [id number]:[facility] [place] [address] Laboratory Report Ordering Provider Test Date Status SENG TIWARI V 04/16/2024 14:57:25 Final Therapeutic ranges for non-o perative patients:
Prophylaxsis/treatment of DVT: (Range:2.0-3.0)
Treatment of pulmonary embolism:(Range:2.0-3.0)
Prevention of systemic embolism from:
-tissue heart valves
-acute myocardial infarction
-valvular heart disease
-atrial fibrillation
(Range: 2.0-3.0)
Mechanical prosthetic valves: (Range: 2.5-3.5) Observation Date Value Abnormality Reference (Units ) Status INR in Capillary blood by Coagulation assay 04/16/2024 14:57:25 2.7 (INR) Final Performing Location [facility] [place] [address]
--- OUTSIDE RECORDS SUMMARY | 2024-05-12 21:33 | External Medical Summary | Summary of Care ---
Author Name Unknown Organization [facility] Address [address] [place] [address] Phone [phone] Care Team Providers Care Nurse Advisor Name Role Phone Kusum Rutherford DO Primary Care Provider Reason for Visit * Reason Comments Re-Check Encounter Details Date Type Department Care Team (Latest Contact Info) Description 04/12/2024 3:00 PM EDT Office Visit [facility] [address] [facility] [place] [address] Kusum Rutherford DO [address] [facility] [place] [id number] Vaginal discharge*; COPD, group B, by GOLD 2017 classification ([facility]); Chronic diastolic congestive heart failure ([facility]); PARRA (dyspnea on exertion); Malignant neoplasm of middle lobe of right lung ([facility]); Permanent atrial fibrillation ([facility]); S/P carotid endarterectomy; S/P laparoscopic splenectomy; Drug-induced systemic lupus erythematosus, unspecified organ involvement status ([facility]); Tobacco use Allergies Active Allergy Reactions Criticality Noted Date Comments Pollen Low 11/24/2015 Nasal congestion, watery eyes Other reaction(s): cough, itchy watery eyes, stuffy nose documented as of this encounter (statuses as of 04/18/2024) Medications Medication Sig Dispensed Refills Start Date [...] for 10 days. 20 Capsule 04/12/2024 4 Active Vitamin D 25 MCG (1000 UT) Oral Tablet 4 Discontinue d(Medicatio n List Clean Up) documented as of this encounter (statuses as of 04/18/2024) Active Problems Problem Noted Date Diagnosed Date [...] as of this encounter (statuses as of 04/18/2024) Resolved Problems Problem Noted Date Diagnosed Date [...] as of this encounter (statuses as of 04/18/2024) Immunizations Name Administration Dates Next Due COVID-19 mRNA, LNP-s, No Pre serve, 2-Dose Series ([employer]) 08/01/2021,12/28/2020,11/30/2020 COVID-19, MRNA-LNP, 23-24, P F, 30 MCG/0.3 mL, 12 YRS AND ABOVE, IM ([employer]) 08/26/2023 Covid-19, Mrna, Lnp-s, Pf, B ivalent, [...] on file documented as of this encounter Last Filed Vital Signs Vital Sign Reading Time Taken Comments Blood Pressure 112/66 04/12/2024 3:34 PM EDT Pulse 108 04/12/2024 3:34 PM EDT Temperature 35.8 C (96.5 F) 04/12/2024 3:34 PM ED T Respiratory Rate 18 04/12/2024 3:34 PM EDT Oxygen Saturation - - Inhaled Oxygen Concentration - - Weight - - Height - - Body Mass Index - - documented in this encounter Functional Status Functional Status Response [...] as of this encounter Progress Notes * Kusum Rutehrford, - 04/12/2024 3:48 PM EDT Subjective: Maria Alejandra Patel is a 73 year old female. Chief Complaint Patient presents with Re-Check HPI: Smell and brown discharge from vaginal area for a few months. Smoking is down about half from 2ppd to 1ppd. Continuing to cut back. Humidity really affects breathing,. Was winded coming up from parking lot. Dr. Sawyer recommended using O2 at night which she is doing, sleeps very well. Trying to get pulsator approved.Dr. Sawyer recommends digoxin, on hydroxychloroquin. Pharmacy called both docs and have not responded yet- rheum had recommended going off hydroxychloroquin last year anyhow and she wanted to restart, due to hairloss, they said okay Has not seen change in water weight. Would have taken furosemide today- at least once a week, but didn't today due to coming for appts. Not taking digoxin yet. PHM: Patient Active Problem List Diagnosis Systemic lupus erythematosus (HCC) Hypothyroidism High risk for fracture due to osteoporosis by DEXA scan S/P carotid endarterectomy Tobacco use Personal history of breast cancer Proteinuria Inflammation of sacroiliac joint (HCC) Malignant neoplasm of middle lobe of right lung (HCC) Hyperparathyroidism, primary (HCC) Dyslipidemia, goal LDL below 70 Senile osteoporosis Lichen sclerosus et atrophicus PARRA (dyspnea on exertion) S/P laparoscopic splenectomy IPMN (intraductal papillary mucinous neoplasm) Permanent atrial fibrillation (HCC) COPD, group B, by GOLD 2017 classification ([facility]) Hyperparathyroidism ([facility]) Chronic diastolic congestive heart failure ([facility]) Current Outpatient Medications Medication Sig Dispense Refill Trelegy Ellipta 100-62.5-25 MCG/ACT Aerosol Powder Breath Activated (Xiknottbalr-Yrmwswyazpin-Bhqoblgskv) Inhale 1 Puff by mouth in the morning. 60 Blister Dosing Unit 5 Digoxin 125 MCG Oral Tablet (Lanoxin) Take 1 Tablet by mouth in the morning. Take 2 tablets the first two days. 90 Tablet 3 Levothyroxine Sodium 150 MCG Oral Tablet (Levoxyl) Take 1 Tablet by mouth in the morning. (at least30 min prior to breakfast or other meds). 90 Tablet 3 Aspirin 81 MG Oral Tablet Delayed Release Take 1 Tablet by mouth in the morning. Metoprolol Succinate ER 25 MG Oral Tablet Extended Release 24 Hour (toPROL XL) Take 3 Tablets by mouth in the morning and 3 Tablets before bedtime. 360 Tablet 3 Furosemide 20 MG Oral Tablet (Lasix) Take one tab weekly and as directed for weight 36 Tablet 3 Sodium Fluoride 5000 PPM 1.1 % Dental Paste APPLY THIN RIBBON DAILY TO TOOTHBRUSH Hydroxychloroquine Sulfate 200 MG Oral Tablet (Plaquenil) Take 1 Tablet by mouth in the morning. 90Tablet 3 Atorvastatin Calcium 10 MG Oral Tablet (Lipitor) Take 1 Tablet by mouth in the morning. 90 Tablet 3 Warfarin Sodium 5 MG Oral Tablet (Coumadin) Take 1-2 Tablets by mouth every evening. Or as directedby coag 180 Tablet 3 ProAir HFA 108 (90 Base) MCG/ACT Inhalation Aerosol Solution Inhale 2 Puffs by mouth every 4 hours as needed for Shortness of Breath or Wheezing. 18 g 3 Clobetasol Propionate 0.05 % External Ointment (Temovate) Spots of flare hands and face 2 x daily until healed Genital area twice weekly, increase for flares of symptoms to daily if needed 60 g 3 valACYclovir HCl 1 GM Oral Tablet (Valtrex) Take by mouth 0.5 Tablets in the morning AND 0.5 Tablets before bedtime. 14 Tablet 5 Acetaminophen 500 MG Oral Tablet (Tylenol) as needed. Pimecrolimus (ELIDEL) 1 % cream Apply topically to affected area 2 times a day. Apply to face and frontal scalp 60 g 11 Multiple Vitamin (MULTI VITAMIN) TABS Take by mouth daily at noon . No current facility-administered medications for this visit. Review of patient's allergies indicates: Allergen Reactions Pollen Nasal congestion, watery eyes Other reaction(s): cough, itchy watery eyes, stuffy nose Objective: BP 112/66 | Pulse 108 | Temp 35.8 C (96.5 F) (Tympanic) | Resp 18 Physical Exam: General: alert, healthy, and no distress Neck: supple, no adenopathy, no bruits, thyroid normal size, non-tender, without nodularity Heart: regular rate & rhythm, no murmur, and no gallops Lungs: chest symmetric with normal AP diameter, no chest deformities noted, no chest wall tenderness, lungs clear to auscultation Pulses: carotid=2/4 w/o bruits Extremities: less than 2 second capillary refill, no joint deformities, effusion, or inflammation Abdomen: Non-tender. Without rebound or guarding. Pelvic Exam: Vulva: anatomy is normal Vagina: vaginal tissues are not inflamed, atrophic, with decreased rugation, stenotic, +moderate amount thick yellow foul smelling discharge Cervix: no cervicitis, no discharge from os ASSESSMENT: Vaginal discharge PLAN: Swabs sent Vaginal discharge (Primary) - CULTURE, GENITAL, AEROBIC; Future; Expected date: 04/12/2024 - VAGINOSIS PANEL, PCR; Future; Expected date: 04/12/2024 - CULTURE, GENITAL, AEROBIC Other orders - Cephalexin 500 MG Oral Capsule; Take 1 Capsule by mouth in the morning and 1 Capsule before bedtime. Do all this for 10 days. Patient education: Proper use of medication including possible side effects discussed. Current diagnosis discussed with patient including cause (when known), potential risks to sexual contacts (if any), and methods of preventing a recurrence. See Patient Instructions for any further specific instructions given. COPD, group B, by GOLD 2017 classification (HCC) Chronic diastolic congestive heart failure (HCC) PARRA (dyspnea on exertion) Malignant neoplasm of middle lobe of right lung (HCC) May need oxygen, but still smoking, can't/ wont stop Permanent atrial fibrillation (HCC) S/P carotid endarterectomy S/P laparoscopic splenectomy Drug-induced systemic lupus erythematosus, unspecified organ involvement status (HCC) Tobacco use Other orders - Cephalexin 500 MG Oral Capsule; Take 1 Capsule by mouth in the morning and 1 Capsule before bedtime. Do all this for 10 days. 45 min spent with patient, reviewing history, performing physical exam, reviewing labs, studies, specialist OVNs, and reports, educating and coordinating care, discussing treatment Kusum Rutherford DO documented in this encounter Nursing Notes * Hermelinda Mcmahon LPN - 04/12/2024 3:25 PM EDT Maria Alejandra Patel presents for 3 month recheck. Medications & HM reviewed. documented in this encounter Plan of Treatment Upcoming Encounters Date Type Department Care Team (Late st Contact Info) Description 04/26/2024 2:50 PM EDT Anticoagulation Pharmacy, [facility] [address] [facility] [place] [address] Pharmacist1, [facility] 200 [facility] [place] [address] 05/12/2024 10:30 AM EDT Office Visit Cardiology, [facility] 132 [facility] [place] [address] Deborah Yost CRNP [facility] [place] [address] 05/26/2024 1:00 PM EDT PulmDiagnostic Pulmonary Function Lab, [facility] [address] [facility] [place] [address] [place], [address] 132 [facility] [place] [address] 2024 1:00 PM EDT Office Visit Dermatology [facility] [address] [facility] [place] [address] Alex Parrish MD [address] [facility] [place] [address] 06/01/2024 2:30 PM EDT Imaging Radiology [address] [facility] [place] [address] 06/07/2024 11:30 AM EDT Office [facility] [address] [place] [address] Jose Zacarias MD [address] [place] [address] 09/07/2024 3:00 PM EST Office Visit Pulmonary Medicine, [facility] [address] [facility] [place] [address] Jean Crews MD [address] [place] [address] 11/25/2024 10:20 AM EST Office Visit Rheumatology [place] [id number] [place] [address] Nikunj Kessler MD [address] [place] [address] Scheduled Procedures Name Priority Associated Diagnoses Date/Ti [...] 2023 08/26/2023, 08/09/2022, 08/01/2021, Additional history exists DISCUSS TOBACCO CESSATION (REFER TO SMARTSET #3291) 12/28/2024 12/29/2023, 06/18/2018 (Discussed) O2 ASSESSMENT COMPLETED IN PAST YEAR FOR COPD 01/05/2025 01/06/2024 DXA Scan 02/25/2025 02/25/2023, 12/2020, 01/27/2019, Additional history exists TSH 03/30/2025 03/30/2024, 05/2023, 05/30/2022, Additional history exists Lipid Panel 12/31/2028 01/01/2024, 12/19, 06/15/2020, Additional history exists Zoster Vaccines Completed 08/18/2020, 05/20, 10/22/1999 Pneumococcal Vaccine: 65+ Years Completed 02/27/2022, 05/04/2021, 12/05/2016, Additional history exists Influenza Vaccine (FLU shot) Completed 03/2023, 07/11/2022, 07/07/2021, Additional history exists VITAMIN D LEVEL ONCE IN A LIFETIME-USE SMARTSET# 16626 Completed 11/29/2023, 08/26/2022, 02/01/2021, Additional history exists GARDASIL-HPV IMMUNIZATION SERIES Aged Out No longer eligible based on patient's age to complete this topic documented as of this encounter Medical Devices Not on filedocumented as of this encounter Procedures Procedure Name Priority Date/Time Associated Diagnosis Comments CULTURE, GENITAL, AEROBIC Routine 04/12/2024 5:06 PM EDT Vaginal discharge documented in this encounter Results * CULTURE, GENITAL, AEROBIC (04/12/2024 5:06 PM EDT) Culture Growth Heavy growth normal emmy 04/15/2024 1:08 PM EDT [facility] Specimen from wound / Unknown 04/12/2024 5:06 PM EDT 04/13/2024 9:17 AM EDT Kusum Rutherford DO LAB MICRO - GEN ERAL ORDERABLES [facility] [address] [place] [address] documented in this encounter Visit Diagnoses Diagnosis Vaginal discharge- Primary Leukorrhea, not specified as infective COPD, group B, by GOLD 2017 classification (HCC) Chronic diastolic congestive heart failure (HCC) Chronic diastolic heart failure PARRA (dyspnea on exertion) Other dyspnea and respiratory abnormality Malignant neoplasm of middle lobe of right lung (HCC) Permanent atrial fibrillation (HCC) Atrial fibrillation S/P carotid endarterectomy Other postprocedural status S/P laparoscopic splenectomy Other acquired absence of organ Drug-induced systemic lupus erythematosus, unspecified organ involvement status (HCC) Tobacco use Tobacco use disorder documented in this encounter Advance Directives Documents on File Type Date Recorded Patient Public Finance Specialist Expl anation Advance Directives and Living Will 03/11/2022 ADVANCE DIRECTIVE / LIVING WILL Power of Fundraising Manager 05/05/2021 POWER OF A TTORNEY * Full [...] Power of Attor alisha? No Care Teams Nurse Advisor Relationship Specialty Start Date End Date Kusum Rutherford DO [address] [place] [address] PCP - General Family Medicine 05/01/12 documented as of this encounter"
--- OUTSIDE RECORDS SUMMARY | 2024-05-12 21:33 | External Medical Summary ---
Author Name Unknown Address Unknown Organization [id number]:[facility] [place] [address] Laboratory Report Ordering Provider Test Date Status SENG TIWARI V 04/12/2024 15:00:22 Final Therapeutic ranges for non-o perative patients:
Prophylaxsis/treatment of DVT: (Range:2.0-3.0)
Treatment of pulmonary embolism:(Range:2.0-3.0)
Prevention of systemic embolism from:
-tissue heart valves
-acute myocardial infarction
-valvular heart disease
-atrial fibrillation
(Range: 2.0-3.0)
Mechanical prosthetic valves: (Range: 2.5-3.5) Observation Date Value Abnormality Reference (Units ) Status INR in Capillary blood by Coagulation assay 04/12/2024 15:00:22 7.1 (INR) Final Performing Location [facility] [place] [address]
--- OUTSIDE RECORDS SUMMARY | 2024-05-12 21:33 | External Medical Summary ---
Author Name Unknown Address Unknown Organization [id number]:[facility] [place] - [address] [place] [id number] Laboratory Report Ordering Provider Test Date Status CORINA ARCHER 04/12/2024 17:06:39 Final Observation Date Value Abnormality Reference (Units ) Status Bacteria identified in Specimen by Culture 04/12/2024 17:06:39 Heavy growth normal emmy Final Test: Culture, Genital, Aero bic
Specimen Source: Vagina
Specimen Type: Swab
Specimen Date: 04/12/2024 1706
Result Date: 04/15/2024 1308
Result Status: Final result
Resulting Lab: [facility]
[address]
[place] [id number]

CULTURE

Heavy growth normal emmy

null Performing Location [facility] [place] - [address] [facility] [address]
--- OUTSIDE RECORDS SUMMARY | 2024-05-12 21:33 | External Medical Summary | Summary of Care ---
Author Name Unknown Organization [facility] Address [address] [place] [address] Phone [phone] Care Team Providers Care Property Staff Accountant Name Role Phone Kusum Rutherford DO Primary Care Provider Reason for Visit * Reason Comments Outpatient Testing Encounter Details Date Type Department Care Team (Late st Contact Info) Description 04/12/2024 4:30 PM EDT Laboratory Laboratory [facility] [place] [address] [place] [address] [place], Lab Scenery [address] [place] [address] Malignant neoplasm of middle lobe of lung (HCC); Atrial fibrillation with RVR (HCC); Permanent atrial fibrillation (HCC); Anticoagulation management encounter; Bilateral pleural effusion; COPD, group B, by GOLD 2017 classification (HCC); PARRA (dyspnea on exertion); Hyperkalemia Allergies Active Allergy Reactions Criticality Noted Date Comments Pollen Low 11/24/2015 Nasal congestion, watery eyes Other reaction(s): cough, itchy watery eyes, stuffy nose documented as of this encounter (statuses as of 04/12/2024) Medications Medication Sig Dispensed Refills Start Date [...] this for 10 days. 20 Capsule 04/12/2024 04/22/2024 Active documented as of this encounter (statuses as of 04/12/2024) Active Problems Problem Noted Date Diagnosed Date [...] as of this encounter (statuses as of 04/12/2024) Resolved Problems Problem Noted Date Diagnosed Date [...] as of this encounter (statuses as of 04/12/2024) Immunizations Name Administration Dates Next Due COVID-19 mRNA, LNP-s, No Pre serve, 2-Dose Series ([employer]) 08/01/2021,12/28/2020,11/30/2020 COVID-19, MRNA-LNP, 23-24, P F, 30 MCG/0.3 mL, 12 YRS AND ABOVE, IM ([facility]) 08/26/2023 Covid-19, Mrna, Lnp-s, Pf, B ivalent, [...] Care Team (Late st Contact Info) Description 04/16/2024 2:50 PM EDT Anticoagulation Pharmacy, [facility] 200 [place] [address] Pharmacist1, [facility] [place] [address] [address] 05/12/2024 10:30 AM EDT [facility] [address] Deborah Yost CRNP 132 [facility] [place] [address] 2024 1:00 PM EDT Office Visit Dermatology [facility] 200 [facility] [place] [address] Alex Parrish MD [address] [facility] [place] [address] 06/01/2024 2:30 PM EDT Imaging Radiology [facility] 132 [facility] [place] [address] 06/07/2024 11:30 AM EDT Office [facility] [address] [place] [address] Jose Zacarias MD [address] [place] [address] 09/07/2024 3:00 PM EST Office Visit Pulmonary Medicine, Health system [address] [facility] [place] [address] Jean Crews MD [address] [place] [address] 11/25/2024 10:20 AM EST Office Visit Rheumatology [place] [id number] [facility] [place] [address] Nkiunj Kessler MD [address] [place] [address] Pending Results Name Type Priority Associated Diagnoses Date /Time PT INR Lab Routine Atrial fibrillation with RVR (HCC) Permanent atrial fibrillation (HCC) Anticoagulation management encounter 04/12/2024 4:33 PM EDT BASIC METABOLIC PANEL Lab STAT Hyperkalemia 04/12/2024 4:33 PM EDT Scheduled Procedures Name Priority Associated Diagnoses [...] exists DISCUSS TOBACCO CESSATION (REFER TO SMARTSET #0642) 12/28/2024 12/29/2023, 06/18/2018 (Discussed) O2 ASSESSMENT COMPLETED IN PAST YEAR FOR COPD 01/05/2025 01/06/2024 DXA Scan 02/25/2025 02/25/2023, 050 12/2020, 01/27/2019, Additional history exists TSH 03/30/2025 03/30/2024, 0 05/2023, 05/30/2022, Additional history exists Lipid Panel 12/31/2028 01/01/2024, 12/19, 06/15/2020, Additional history exists Zoster Vaccines Completed 08/18/2020, 05/20, 10/22/1999 Pneumococcal Vaccine: 65+ Years Completed 02/27/2022, 05/04/2021, 12/05/2016, Additional history exists Influenza Vaccine (FLU shot) Completed 03/2023, 07/11/2022, 07/07/2021, Additional history exists VITAMIN D LEVEL ONCE IN A LIFETIME-USE SMARTSET# [id number] Completed 11/29/2023, 08/26/2022, 02/01/2021, Additional history exists GARDASIL-HPV IMMUNIZATION SERIES Aged Out No longer eligible based on patient's age to complete this topic documented as of this encounter Medical Devices Not on filedocumented as of this encounter Visit Diagnoses Diagnosis Malignant neoplasm of middle lobe of lung (HCC) Malignant neoplasm middle lobe, bronchus or lung Atrial fibrillation with RVR (HCC) Atrial fibrillation Permanent atrial fibrillation (HCC) Atrial fibrillation Anticoagulation management encounter Encounter for therapeutic drug monitoring Bilateral pleural effusion Unspecified pleural effusion COPD, group B, by GOLD 2017 classification (HCC) PARRA (dyspnea on exertion) Other dyspnea and respiratory abnormality Hyperkalemia Hyperpotassemia documented in this encounter Advance Directives Documents on File Type Date Recorded Patient Behavior Therapist Expl anation Advance Directives and Living Will 03/11/2022 ADVANCE DIRECTIVE / LIVING WILL Power of Senior Developer 05/05/2021 POWER OF A TTORNEY * Full [...] Power of Attor alisha? No Care Teams Property Staff Accountant Relationship Specialty Start Date End Date Kusum Rutherford DO [address] [place] [address] PCP - General Family Medicine 05/01/12 documented as of this encounter
--- OUTSIDE RECORDS SUMMARY | 2024-05-12 21:33 | External Medical Summary | Summary of Care ---
Author Name Unknown Organization [facility] Address [address] [place] [address] Phone [phone] Care Team Providers Care Investigation Division Sergeant Name Role Phone Kusum Rutherford DO Primary Care Provider Reason for Visit * Reason Comments Dosage Adjustment In Person (Anticoag Cl inic) Encounter Details Date Type Department Care Team (Latest Contact Info) Description 04/16/2024 2:50 PM EDT Anticoagulation Pharmacy, [facility] 200 [facility] [address] [facility]ist1, [facility] 200 [facility] [place] [address] Drug-induced systemic lupus erythematosus, unspecified organ involvement status (HCC)*; Atrial fibrillation with RVR (HCC); Permanent atrial fibrillation (HCC); Anticoagulation management encounter Allergies Active Allergy Reactions Criticality Noted Date Comments Pollen Low 11/24/2015 Nasal congestion, watery eyes Other reaction(s): cough, itchy watery eyes, stuffy nose documented as of this encounter (statuses as of 04/16/2024) Medications Medication Sig Dispensed Refills Start Date [...] as of this encounter (statuses as of 04/16/2024) Active Problems Problem Noted Date Diagnosed Date [...] as of this encounter (statuses as of 04/16/2024) Resolved Problems Problem Noted Date Diagnosed Date [...] as of this encounter (statuses as of 04/16/2024) Immunizations Name Administration Dates Next Due COVID-19 mRNA, LNP-s, No Pre serve, 2-Dose Series ([employer]ik[employer]) 08/01/2021,12/28/2020,11/30/2020 COVID-19, MRNA-LNP, 23-24, P F, 30 MCG/0.3 mL, 12 YRS AND ABOVE, IM (VisuMotion-Comirnaty) 08/26/2023 Covid-19, Mrna, Lnp-s, Pf, B ivalent, [...] Description 04/26/2024 2:50 PM EDT Anticoagulation Pharmacy, [facility] 200 [facility] [place] [address] Pharmacist1, [facility] 200 [facility] [place] [address] 05/12/2024 10:30 AM EDT Office Visit Cardiology, [facility] [address] [place] [address] Deborah Yost CRNP [address] [place] [address] 05/26/2024 1:00 PM EDT PulmDiagnostic Pulmonary Function Lab, [facility] [address] [place] [address] West, Pft 132 [place] [address] 2024 1:00 PM EDT Office Visit Dermatology [facility] 200 [facility] [place] [address] Alex Parrish MD 200 [facility] [place] [address] 06/01/2024 2:30 PM EDT Imaging Radiology [address] [place] [address] 06/07/2024 11:30 AM EDT Office [facility] [address] [place] [address] Jose Zacarias MD [address] [place] [address] 09/07/2024 3:00 PM EST Office Visit Pulmonary Medicine, [facility] 132 [place] [address] Jean Crews MD [address] [place] [address] 11/25/2024 10:20 AM EST Office Visit Rheumatology [place] [address] [facility] [place], [place] [address] Nikunj Kessler MD [facility] [place] [address] Scheduled Procedures Name Priority Associated Diagnoses Date/Ti [...] exists DISCUSS TOBACCO CESSATION (REFER TO SMARTSET #6769) 12/28/2024 12/29/2023, 06/18/2018 (Discussed) O2 ASSESSMENT COMPLETED [...] D LEVEL ONCE IN A LIFETIME-USE SMARTSET# [id number] Completed 11/29/2023, 08/26/2022, 02/01/2021, Additional history exists [...] Fingerstick INR 2.7 INR 2:58 PM EDT [facility] 56-02 Blood 04/16/2024 2:57 PM EDT 04/16/2024 2:58 PM EDT Narrative [facility] 56-02 - 04/16/2024 2:58 PM EDT Therapeutic ranges for non-operative patients: Prophylaxsis/treatment of DVT: (Range:2.0-3.0) Treatment of pulmonary embolism:(Range:2.0-3.0) Prevention of systemic embolism from: -tissue heart valves -acute myocardial infarction -valvular heart disease -atrial fibrillation (Range: 2.0-3.0) Mechanical prosthetic valves: (Range: 2.5-3.5) [facility] POINT OF CARE TE ST DOCKED DEVICE UNSOLICITED RESULTS [facility] 56-[address] [place] [address] documented in this encounter Visit Diagnoses Diagnosis Drug-induced systemic lupus erythematosus, unspecified organ involvement status (HCC)- Primary Atrial fibrillation with RVR (HCC) Atrial fibrillation Permanent atrial fibrillation (HCC) Atrial fibrillation Anticoagulation management encounter Encounter for therapeutic drug monitoring documented in this encounter Advance Directives Documents on File Type Date Recorded Patient Can Repairer Expl anation Advance Directives and Living Will 03/11/2022 ADVANCE DIRECTIVE / LIVING WILL Power of Produce Production Team Member 05/05/2021 POWER OF A TTORNEY * Full [...] patient have Health Care Power of Attor alihsa? No * Full Code Date Activated Date Inactivated Comments 05/02/2021 10:57 AM 05/02/2021 2:05 PM Question Answer Comments Discussion of Advance Directives occurred with: Not Discussed Does the patient have a Living Will? No Does the patient have Health Care Power of Attor alisha? No Care Teams Investigation Division Sergeant Relationship Specialty Start Date End Date Kusum Rutherford DO [address] [place] [address] PCP - General Family Medicine 05/01/12 documented as of this encounter
--- OUTSIDE RECORDS SUMMARY | 2024-05-12 21:33 | External Medical Summary | Summary of Care ---
Author Name Unknown Organization [facility] Address [address] [place] [address] Phone [phone] Care Team Providers Care Network Systems Integrator Name Role Phone KrishKusum DO Primary Care Provider Reason for Visit * Reason Onset Date Comments Advice 04/12/2024 Medication quest ion Encounter Details Date Type Department Care Team (Late st Contact Info) Description 04/12/2024 Telephone Rheumatology [facility] [address] [place] [address] Nikunj Kessler MD [address] [place] [address] Advice (Medication question) Allergies Active Allergy Reactions Criticality Noted Date [...] mRNA, LNP-s, No Pre serve, 2-Dose Series ([employer]) 08/01/2021,12/28/2020,11/30/2020 COVID-19, MRNA-LNP, 23-24, P F, 30 MCG/0.3 mL, 12 YRS AND ABOVE, IM ([employer]-Comirnat) 08/26/2023 Covid-19, Mrna, Lnp-s, Pf, B ivalent, 30 Mcg, IM, 12 yrs and above ([employer]) 08/09/2022 HEP A - Hepatitis A (Adult [...] encounter Miscellaneous Notes * Telephone Encounter - Jean Crews MD - 04/12/2024 5:21 PM EDT Patient requesting PCP for portable oxygen concentrator. Her last testing with us was in 2022 whichwas negative for ambulatory oxygen needs. Later on she had oxygen prescribed by Abraham Velez on discharge. We can proceed with a new 6 minute walk test to reassess her need for home oxygen/portable oxygen concentrator. * Telephone Encounter - Ifeoma Wallace OSA - 04/12/2024 12:[address] ED[address] Patient of Dr Kessler calling in regards to her medication, Hydroxychloroquin. And a medication that was given to her from her Ceo And Co Founder, Digoxin. She wants to know if she should stop the the one from Dr Kessler. Please return her call at [phone]. documented in this encounter Plan of Treatment Upcoming Encounters Date Type Department Care Team (Late st Contact Info) Description 04/16/2024 2:50 PM EDT Anticoagulation Pharmacy, [facility] 200 [facility] [place] [address] Pharmacist1, [facility] 200 [facility] [place] [address] 05/12/2024 10:30 AM EDT Office Visit Cardiology, [facility] 132 [facility] [place] [address] Deborah Yost CRNP [address] [place] [address] 2024 1:00 PM EDT Office Visit Dermatology [facility] [place] 200 [facility] [place] [address] Alex Parrish MD 200 [facility] [place] [address] 06/01/2024 2:30 PM EDT Imaging Radiology [address] 132 [place] [address] 06/07/2024 11:30 AM EDT [facility] [address] [place] [address] Jose Zacarias MD [address] [place] [address] 09/07/2024 3:00 PM EST Office Visit Pulmonary Medicine, [facility] 132 [place] [address] Jean Crews MD [address] [place] [address] 11/25/2024 10:20 AM EST Office Visit Rheumatology [place] [address] [place] [address] Nikunj Kessler MD [facility] [place] [address] Scheduled Orders Name Type Priority Associated Diagnoses Orde r Schedule PULMONARY STRESS TESTING Procedures Routine Chronic respiratory failure with hypoxia (HCC) Expected: 04/13/2024, Expires: 05/12/2025 Scheduled Procedures Name Priority Associated Diagnoses Date/Ti [...] exists DISCUSS TOBACCO CESSATION (REFER TO SMARTSET #1261) 12/28/2024 12/29/2023, 06/18/2018 (Discussed) O2 ASSESSMENT COMPLETED [...] D LEVEL ONCE IN A LIFETIME-USE SMARTSET# [id number] Completed 11/29/2023, 08/26/2022, 02/01/2021, Additional history exists GARDASIL-HPV IMMUNIZATION SERIES Aged Out No longer eligible based on patient's age to complete this topic documented as of this encounter Medical Devices Not on filedocumented as of this encounter Visit Diagnoses Diagnosis Chronic respiratory failure with hypoxia (HCC)- Primary Chronic respiratory failure documented in this encounter Advance Directives Documents on File Type Date Recorded 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 No Care Teams Network Systems Integrator Relationship Specialty Start Date End Date Kusum Rutherford DO [address] [place] [address] PCP - General Family Medicine 05/01/12 documented as of this encounter
--- OUTSIDE RECORDS SUMMARY | 2024-05-12 21:33 | External Medical Summary | Summary of Care ---
Author Name Unknown Organization [facility] Address [address] [place] [address] Phone [phone] Care Team Providers Care Ceramic Tile Installer Name Role Phone KrishKusum DO Primary Care Provider Reason for Visit * Reason Onset Date Comments Order Request 04/14/2024 6mw for conservi ng device Encounter Details Date Type Department Care Team (Late st Contact Info) Description 04/14/2024 Telephone Pulmonary Medicine, [facility] 132 [facility] [place] [address] Jean Crews MD [address] [place], [place] [id number] Order Request (6mw for conserving device) Allergies Active Allergy Reactions Criticality Noted Date Comments Pollen Low 11/24/2015 Nasal congestion, watery eyes Other reaction(s): cough, itchy watery eyes, stuffy nose documented as of this encounter (statuses as of 04/14/2024) Medications Medication Sig Dispensed Refills Start Date [...] as of this encounter (statuses as of 04/14/2024) Active Problems Problem Noted Date Diagnosed Date [...] as of this encounter (statuses as of 04/14/2024) Resolved Problems Problem Noted Date Diagnosed Date [...] as of this encounter (statuses as of 04/14/2024) Immunizations Name Administration Dates Next Due COVID-19 mRNA, LNP-s, No Pre serve, 2-Dose Series ([employer]) 08/01/2021,12/28/2020,11/30/2020 COVID-19, MRNA-LNP, 23-24, P F, 30 MCG/0.3 mL, 12 YRS AND ABOVE, IM (Momspot-Comirnaty) 08/26/2023 Covid-19, Mrna, Lnp-s, Pf, B ivalent, 30 Mcg, IM, 12 yrs and above ([employer]orato) 08/09/2022 HEP A - Hepatitis A (Adult [...] Telephone Encounter - Jean Crews MD - 04/14/2024 8:17 AM EDT New order has been placed. Please confirm correct department description. * Telephone Encounter - Tsering Cohn LPN - 04/14/2024 7:45 AM EDT Please reorder the 6mw for conserving device. Previous order (order under wrong dept) has been cancelled in Epic. documented in this encounter Plan of Treatment Upcoming Encounters Date Type Department Care Team (Late st Contact Info) Description 04/16/2024 2:50 PM EDT Anticoagulation Pharmacy, [facility] 200 [facility] [place] [address] Pharmacist1, [facility] 200 [facility] [place] [address] 05/12/2024 10:30 AM EDT Office Visit Cardiology, [facility] 132 [facility] [place] [address] Deborah Yost CRNP 132 [facility] [place] [address] 05/26/2024 1:00 PM EDT PulmDiagnostic Pulmonary Function Lab, [facility] 132 [facility] [place] [address] West, [address] 132 [facility] [place] [address] 2024 1:00 PM EDT Office Visit Dermatology [facility] 200 [facility] [place] [address] Alex Parrish MD 200 [facility] [place] [address] 06/01/2024 2:30 PM EDT Imaging Radiology [facility]st [facility] 132 [place] [address] 06/07/2024 11:30 AM EDT Office Visit [facility] [address] [place] [address] Jose Zacarias MD [address] [place] [address] 09/07/2024 3:00 PM EST Office Visit Pulmonary Medicine, [facility] 132 [facility] [address] Jean Crews MD [address] [place] [facility] [place] [address] 11/25/2024 10:20 AM EST Office Visit Rheumatology [place] [address] [place] [address] Nikunj Kessler MD [address] [place] [address] Scheduled Orders Name Type Priority Associated Diagnoses Orde r Schedule PULMONARY STRESS TESTING Procedures Routine COPD, group B, by GOLD 2017 classification ([facility]) Expected: 04/15/2024, Expires: 05/14/2025 Scheduled Procedures Name Priority Associated Diagnoses Date/Ti [...] 10/20, 11/01/2019, Additional history exists COVID-19 Vaccine (2022-24 season) 2023 08/26/2023, 08/09/2022, 08/01/2021, Additional history exists DISCUSS TOBACCO CESSATION (REFER TO SMARTSET #5311) 12/28/2024 12/29/2023, 06/18/2018 (Discussed) O2 ASSESSMENT COMPLETED [...] D LEVEL ONCE IN A LIFETIME-USE SMARTSET# [id number] Completed 11/29/2023, 08/26/2022, 02/01/2021, Additional history exists GARDASIL-HPV IMMUNIZATION SERIES Aged Out No longer eligible based on patient's age to complete this topic documented as of this encounter Medical Devices Not on filedocumented as of this encounter Visit Diagnoses Diagnosis COPD, group B, by GOLD 2017 classification (HCC)- Primary documented in this encounter Advance Directives Documents on File Type Date Recorded 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 No Care Teams Ceramic Tile Installer Relationship Specialty Start Date End Date Kusum Rutherford DO [address] [place] [address] PCP - General Family Medicine 05/01/12 documented as of this encounter
--- OUTSIDE RECORDS SUMMARY | 2024-05-12 21:33 | External Medical Summary | Summary of Care ---
Author Name Unknown Organization [facility] Address [address] [place] [address] Phone [phone] Care Team Providers Care Small Animal Caretaker Name Role Phone KrishKusum DO Primary Care Provider Reason for Visit * Reason Onset Date Comments Advice 04/12/2024 Medication quest ion Encounter Details Date Type Department Care Team (Late st Contact Info) Description 04/12/2024 Telephone Rheumatology [facility] [address] [place] [address] Nikunj Kessler MD [address] [place] [address] Advice (Medication question) Allergies Active Allergy [...] mRNA, LNP-s, No Pre serve, 2-Dose Series ([employer]) 08/01/2021,12/28/2020,11/30/2020 COVID-19, MRNA-LNP, 23-24, P F, 30 MCG/0.3 mL, 12 YRS AND ABOVE, IM (ONEPLE-Comirnat) 08/26/2023 Covid-19, Mrna, Lnp-s, Pf, B ivalent, 30 Mcg, IM, 12 yrs and above ([employer]kon[employer]) 08/09/2022 HEP A - Hepatitis A (Adult [...] as of this encounter Miscellaneous Notes * Addendum Note - Tsering Pierre, KEV - 04/14/2024 7:58 AM EDTAddended by: TSERING PIERRE on: 04/14/2024 07:58 AM Modules accepted: Orders * Telephone Encounter - Tsering Pierre LPN - 04/13/2024 3:37 PM EDT Pulmonary note added to new encounter. Disregard in this one. * Telephone Encounter - Jean Crews MD [...] that was given to her from her Sack Cleaning Hand, Digoxin. She wants to know if she should stop the the one from Dr Kessler. Please return her call at [phone]. documented in this encounter Plan of Treatment Upcoming Encounters Date Type Department Care Team (Late st Contact Info) Description 04/16/2024 2:50 PM EDT Anticoagulation Pharmacy, [facility] [place] 200 [facility] [place] [address] Pharmacist1, [facility] [address] [place] [address] 05/12/2024 10:30 AM EDT Office Visit Cardiology, [facility] 132 [facility] [place] [address] Deborah Yost CRNP 132 [facility] [place] [address] 05/26/2024 1:00 PM EDT PulmDiagnostic Pulmonary Function Lab, [facility] 132 [facility] [place] [address] West, [address] 132 [facility] [place] [address] 2024 1:00 PM EDT Office Visit Dermatology [facility] 200 [facility] [place] [address] Alex Parrish MD 200 [facility] [place] [address] 06/01/2024 2:30 PM EDT Imaging Radiology [facility] 1st [facility] 132 [facility] [place] [address] 06/07/2024 11:30 AM EDT Office Visit Thoracic Surg [facility] [place] [address] [place] [address] Jose Zacarias MD [address] [place] [address] 09/07/2024 3:00 PM EST Office Visit Pulmonary Medicine, [facility] 132 [facility] [place] [address] Jean Crews MD [address] [place] [address] 11/25/2024 10:20 AM EST Office Visit Rheumatology [address] [place] [address] Nikunj Kessler MD [address] [place] [address] [place] [address] Scheduled Procedures Name Priority Associated Diagnoses Date/Ti [...] exists DISCUSS TOBACCO CESSATION (REFER TO SMARTSET #8761) 12/28/2024 12/29/2023, 06/18/2018 (Discussed) O2 ASSESSMENT COMPLETED [...] D LEVEL ONCE IN A LIFETIME-USE SMARTSET# [id number] Completed 11/29/2023, 08/26/2022, 02/01/2021, Additional history exists GARDASIL-HPV IMMUNIZATION SERIES Aged Out No longer eligible based on patient's age to complete this topic documented as of this encounter Medical Devices Not on filedocumented as of this encounter Visit Diagnoses Diagnosis Chronic respiratory failure with hypoxia (HCC)- Primary Chronic respiratory failure documented in this encounter Advance Directives Documents on File Type Date Recorded 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 No Care Teams Small Animal Caretaker Relationship Specialty Start Date End Date Kusum Rutherford DO [address] [place], [place] [address] PCP - General Family Medicine 05/01/12 documented as of this encounter
--- OUTSIDE RECORDS SUMMARY | 2024-05-12 21:33 | External Medical Summary | Summary of Care ---
Author Name Unknown Organization [facility] Address [address] [place] [address] Phone [phone] Care Team Providers Care Measurement Supervisor Name Role Phone KrishKusum DO Primary Care Provider Reason for Visit * Reason Onset Date Comments Medication Problem 04/05/2024 Encounter Details Date Type Department Care Team (Late st Contact Info) Description 04/05/2024 Telephone Cardiology, [facility] [address] [facility] [address] Anthony Sawyer MD [address] [facility] [address] Medication Problem Allergies Active Allergy Reactions Criticality Noted Date Comments Pollen Low 11/24/2015 Nasal congestion, watery eyes Other reaction(s): cough, itchy watery eyes, stuffy nose documented as of this encounter (statuses as of 04/15/2024) Medications Medication Sig Dispensed Refills Start Date [...] as of this encounter (statuses as of 04/15/2024) Active Problems Problem Noted Date Diagnosed Date [...] as of this encounter (statuses as of 04/15/2024) Resolved Problems Problem Noted Date Diagnosed Date [...] as of this encounter (statuses as of 04/15/2024) Immunizations Name Administration Dates Next Due COVID-19 mRNA, LNP-s, No Pre serve, 2-Dose Series ([employer]) 08/01/2021,12/28/2020,11/30/2020 COVID-19, MRNA-LNP, 23-24, P F, 30 MCG/0.3 mL, 12 YRS AND ABOVE, IM ([facility] 08/26/2023 Covid-19, Mrna, Lnp-s, Pf, B ivalent, 30 Mcg, IM, 12 yrs and above ([employer]) 08/09/2022 HEP A - Hepatitis A (Adult [...] encounter Miscellaneous Notes * Telephone Encounter - Jon Villa LPN - 04/15/2024 2:25 PM EDT Message given to pharmacist at [facility] * Telephone Encounter - Nikunj Kessler MD [...] - 04/05/2024 3:51 PM EDT Xin from [facility] Pharmacy states that there is an interaction [...] Description 04/16/2024 2:50 PM EDT Anticoagulation Pharmacy, [facility] [address] [facility] [place] [address] Pharmacist1, [facility] 200 [facility] [place] [address] 05/12/2024 10:30 AM EDT Office Visit Cardiology, [facility] 132 [place] [address] Deborah Yost CRNP [address] [place] [address] 05/26/2024 1:00 PM EDT PulmDiagnostic Pulmonary Function Lab, [facility] 132 [facility] [place] [address] [address], [address] 132 [facility] [place] [address] 2024 1:00 PM EDT Office Visit Dermatology [facility] 200 [facility] [place] [address] Alex Parrish MD [address] [facility] [place] [address] 06/01/2024 2:30 PM EDT Imaging Radiology [facility] 1st [facility] 132 [place] [address] 06/07/2024 11:30 AM EDT Office Visit Thoracic Surg [facility] [address] [place] [address] Jose Zacarias MD [address] [place] [address] 09/07/2024 3:00 PM EST Office Visit Pulmonary Medicine, [facility] 132 [facility] [place] [address] Jean Crews MD [address] [place] [address] 11/25/2024 10:20 AM EST Office Visit Rheumatology [address] [place] [address] Nikunj Kessler MD [facility] [place] [address] Scheduled Procedures Name Priority Associated Diagnoses Date/Ti [...] MEDICATION NEEDED FOR OSTEOPOROSIS (REFER TO SMARTSET #9326) 02/28/2022 Depression Screening 11/01/2022 11/01/2021 Colonoscopy 12/08/2022 12/08/2019, 03/2016, 2012 Colorectal Cancer Screening 12/08/2022 Mammogram 02/08/2023 02/08/2022, 10/20, 11/01/2019, Additional history exists COVID-19 Vaccine (2022- season) 2023 08/26/2023, 08/09/2022, 08/01/2021, Additional history exists DISCUSS TOBACCO CESSATION (REFER TO SMARTSET #2003) 12/28/2024 12/29/2023, 06/18/2018 (Discussed) O2 ASSESSMENT COMPLETED [...] D LEVEL ONCE IN A LIFETIME-USE SMARTSET# 33984 Completed 11/29/2023, 08/26/2022, 02/01/2021, Additional history exists GARDASIL-HPV IMMUNIZATION SERIES Aged Out No longer eligible based on patient's age to complete this topic documented as of this encounter Medical Devices Not on filedocumented as of this encounter Advance Directives Documents on File Type Date Recorded Patient Administrative Accountant Expl anation Advance Directives and Living Will 03/11/2022 ADVANCE DIRECTIVE / LIVING WILL Power of Complex Case Manager 05/05/2021 POWER OF A TTORNEY * [...] Power of Attor alisha? No Care Teams Measurement Supervisor Relationship Specialty Start Date End Date Kusum Rutherford DO [address] [place] [address] PCP - General Family Medicine 05/01/12 documented as of this encounter
--- OUTSIDE RECORDS SUMMARY | 2024-05-12 21:33 | External Medical Summary | Summary of Care ---
Author Name Unknown Organization [facility] Address [address] [place] [address] Phone [phone] Care Team Providers Care Textile Machinery Sales Representative Name Role Phone KrishGianni DO Primary Care Provider Reason for Visit * Reason Comments Follow Up Encounter Details Date Type Department Care Team (Late st Contact Info) Description 04/01/2024 10:00 AM EDT Office Visit Cardiology, [facility] [place] [address] Anthony Sawyer MD [address] [place] [facility] [place] [address] Permanent atrial fibrillation (HCC)*; Chronic diastolic congestive heart failure (HCC) Allergies Active Allergy Reactions Criticality Noted Date Comments Pollen Low 11/24/2015 Nasal congestion, watery eyes Other reaction(s): cough, itchy watery eyes, stuffy nose documented as of this encounter (statuses as of 04/01/2024) Medications Medication Sig Dispensed Refills Start Date [...] before bedtime. 14 Tablet 5 05/30/2022 Active Vitamin D 25 MCG (1000 UT) Oral Tablet Active Clobetasol Propionate 0.05 % External Ointment [...] THIN RIBBON DAILY TO TOOTHBRUSH 10/30/2023 Active Trelegy Ellipta 100-62.5-25 MCG/ACT Aerosol Powder Breath Activated (Fluticasone-Umecl idinium-Vilanterol ) Inhale 1 Puff by mouth. Active Furosemide 20 MG Oral Tablet (Lasix) [...] two days. 90 Tablet 3 04/01/2024 Active Spironolactone 25 MG Oral Tablet (Aldactone) Take 0.5 Tablets by mouth in the morning. 30 Tablet 5 01/09/2024 4 Discontinue d(Discharge d) Levothyroxine Sodium 175 MCG Oral Tablet (Levoxyl) Take 1 Tablet by mouth in the morning. (at least 30 min prior to breakfast or other meds). 90 Tablet 03/03/2024 4 Discontinue d(Patient preference/ discontinua tion) documented as of this encounter (statuses as of 04/01/2024) Active Problems Problem Noted Date Diagnosed Date [...] as of this encounter (statuses as of 04/01/2024) Resolved Problems Problem Noted Date Diagnosed Date [...] as of this encounter (statuses as of 04/01/2024) Immunizations Name Administration Dates Next Due COVID-19 mRNA, LNP-s, No Pre serve, 2-Dose Series ([employer]) 08/01/2021,12/28/2020,11/30/2020 COVID-19, MRNA-LNP, 23-24, P F, 30 MCG/0.3 mL, 12 YRS AND ABOVE, IM ([facility]) 08/26/2023 Covid-19, Mrna, Lnp-s, Pf, B ivalent, 30 Mcg, IM, 12 yrs and above (Pfizer) 08/09/2022 HEP A - Hepatitis A (Adult > 18 yrs) 08/16/2014 HIB PRP-T, 4 dose (ActHib) 05/04/2021 HepA Inact/HepB Recomb>=18yrs old 10/22/2010 Hepatitis [...] Date Smoking Tobacco: Every Day Cigarettes 2.5 56.4 Started: 1968 Smokeless Tobacco: Never Comments:2 packs daily 01/05 Alcohol Use Standard Drinks/Week Comments No 0 (1 standard drink = 0.6 oz pur e alcohol) PHQ-2 Answer Date Recorded PHQ Adult Total Score 0 11/01/2021 Sex and Gender Information Value Date Recorded Sex Assigned at Female 01/12/2019 8:55 AM EDT Gender Identity Female 01/12/2019 8:55 AM EDT Sexual Orientation Straight 01/12/2019 8: 55 AM EDT Job Start Date Occupation Industry Not on file Not on file Not on file documented as of this encounter Last Filed Vital Signs Vital Sign Reading Time Taken Comments Blood Pressure 102/72 04/01/2024 10:09 AM EDT Pulse 108 04/01/2024 10:09 AM EDT Temperature - - Respiratory Rate 20 04/01/2024 10:09 AM EDT Oxygen Saturation - - Inhaled Oxygen Concentration - - Weight 70.3 kg (155 lb) 04/01/2024 10:09 AM EDT Height - - Body Mass Index 25.02 01/06/2024 3:46 PM EDT documented in this encounter Functional Status Functional [...] as of this encounter Progress Notes * Anthony Sawyer MD - 04/01/2024 10:00 AM EDT April 01, 2024 Cardiology Follow Up Referring Provider: PCP: [place] [address] [phone] Chief Complaint: Follow-up atrial fibrillation SUBJECTIVE: Maria Alejandra Patel is a 73 year old year old female with ongoing cardiac issues Permanent atrial fibrillation, [id number] score of 3 (age, female, carotid disease), on warfarin Atherosclerotic carotid disease, status post carotid endarterectomy. Carotid duplex less than 50% stenosis bilaterally, per /2021 Moderate to MR/TR. 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 Hypothyroidism- [place] [facility] [place] Status post laparoscopic distal pancreatectomy and splenectomy my Dr. De La Torre [place] [facility] 05/02/2021 Acute respiratory failure December 09, 2023, COPD exacerbation, diastolic heart failure with preserved ejection fraction Patient presents today in close clinical follow-up for atrial fibrillation with increased ventricular response rates. Seen 1 week ago metoprolol succinate increased. Presents today noting some improvement in in heart rates but still running elevated. No chest pains no significant dizziness. Blood pressures per patient records at home are running low. No fevers or chills no significant productive cough. Wearing oxygen sporadically Has not been taking furosemide. A Complete Review of Systems is as stated above or negative. Patient Active Problem List Diagnosis Systemic lupus [...] group B, by GOLD 2017 classification (HCC) Hyperparathyroidism (HCC) Chronic diastolic congestive heart failure (HCC) Review of patient's allergies indicates: Allergen Reactions Pollen Nasal congestion, watery eyes Other reaction(s): cough, itchy watery eyes, stuffy nose Current Outpatient Medications Medication Sig Dispense Refill Multiple Vitamin (MULTI VITAMIN) TABS Take by mouth daily at noon . Pimecrolimus (ELIDEL) 1 % cream Apply topically to affected area 2 times a day. Apply to face and frontal scalp 60 g 11 Acetaminophen 500 MG Oral Tablet (Tylenol) as needed. valACYclovir HCl 1 GM Oral Tablet (Valtrex) Take by mouth 0.5 Tablets in the morning AND 0.5 Tablets before bedtime. 14 Tablet 5 Vitamin D 25 MCG (1000 UT) Oral Tablet ProAir HFA 108 (90 Base) MCG/ACT Inhalation Aerosol Solution Inhale 2 Puffs by mouth every 4 hours as needed for Shortness of Breath or Wheezing. 18 g 3 Warfarin Sodium 5 MG Oral Tablet (Coumadin) Take 1-2 Tablets by mouth every evening. Or as directedby coag 180 Tablet 3 Atorvastatin Calcium 10 MG Oral Tablet (Lipitor) Take 1 Tablet by mouth in the morning. 90 Tablet 3 Hydroxychloroquine Sulfate 200 MG Oral Tablet (Plaquenil) Take 1 Tablet by mouth in the morning. 90Tablet 3 Sodium Fluoride 5000 PPM 1.1 % Dental Paste APPLY THIN RIBBON DAILY TO TOOTHBRUSH Trelegy Ellipta 100-62.5-25 MCG/ACT Aerosol Powder Breath Activated (Pnxeompjacm-Ogbpxztgibyf-Dhcfsxrqtg) Inhale 1 Puff by mouth. Furosemide 20 MG Oral Tablet (Lasix) Take one tab weekly and as directed for weight 36 Tablet 3 Metoprolol Succinate ER 25 MG Oral Tablet Extended Release 24 Hour (toPROL XL) Take 3 Tablets by mouth in the morning and 3 Tablets before bedtime. 360 Tablet 3 Aspirin 81 MG Oral Tablet Delayed Release Take 1 Tablet by mouth in the morning. Levothyroxine Sodium 150 MCG Oral Tablet (Levoxyl) Take 1 Tablet by mouth in the morning. (at least30 min prior to breakfast or other meds). 90 Tablet 3 Digoxin 125 MCG Oral Tablet (Lanoxin) Take 1 Tablet by mouth in the morning. Take 2 tablets the first two days. 90 Tablet 3 Clobetasol Propionate 0.05 % External Ointment (Temovate) Spots of flare hands and face 2 x daily until healed Genital area twice weekly, increase for flares of symptoms to daily if needed 60 g 3 No current facility-administered medications for this visit. OBJECTIVE/PHYSICAL EXAMINATION: BP 102/72 | Pulse 108 | Resp 20 | Wt 70.3 kg (155 lb) | BMI 25.02 kg/m | BSA 1.81 m General: Age appropriate thin female in no acute distress , wearing oxygen Head: normocephalic, no masses, lesions, tenderness or abnormalities, malar lesions of the face Eyes: conjunctiva are pink and non-injected, sclera clear Throat: clear Nares: without discharge Neck: supple, no adenopathy, normal jugular venous pulse, no hepatojugular reflux, no carotid bruits Chest: normal shape and normal respiratory effort Lungs: Diminished breath sounds with few scattered wheezes right chest, rhonchi with cough Cardiac Exam: Irregular irregular, tachycardia no murmur, gallop or rub - normal S-1, normal S-2 Abdomen: abdomen soft, non-tender, no abnormal masses, no hepatosplenomegaly, no abdominal bruit, no femoral bruit Musculoskeletal: no gait disturbance, no joint inflammation, no deforming arthritis Extremities: 2+ tense lower extremity edema, no cyanosis, pulses intact 2+/4 Neuro: grossly normal exam Data: Lexiscan stress nuclear imaging January 14, 2023 Lexiscan nuclear stress test is negative for ischemia or scar. Gated SPECT images reveals normal myocardial thickening and wall motion. The LV ejection fraction is calculated at 62%. ASSESSMENT: 73 year old year old female With 1.Long-term persistent atrial fibrillation on chronic anticoagulation , recent elevation in heart rates in association with acute illness but persisting despite increased medical therapies. Blood pressure is now trending lower 2. Chronic diastolic heart failure recent increase in lower extremity edema 3. Chronic obstructive lung disease with recent exacerbation , O2 dependent PLAN: Patient using furosemide on a p.r.n. basis would increase furosemide to 20 mg weekly with an additional tablet as needed for increasing weight. Encouraged routine use Reduce levothyroxine to 150 mcg p.o. q.day with mild elevation in T4 Stop spironolactone due to elevated potassium BMP 1 week Continue metoprolol succinate 75 mg p.o. q.day Begin digoxin 125 mcg p.o. q.day with patient to take 2 tablets the 1st 2 days Patient to begin wearing oxygen nocturnally Discussed additional options including AV junction ablation with pacemaker DISPOSITION: Return 4 weeks Anthony Sawyer MD Cardiology, [facility] [place] [address] documented in this encounter Nursing Notes * Caryn Rogers LPN - 04/01/2024 10:07 AM EDT Examination Room: 14 Name: Maria Alejandra Patel Date of : 1950 Reason for Visit: Follow up Problems/Concerns: Afib/BP Interim Hosp(s): denies Chest Pain/SOB: denies MyChart Discussed: ALREADY ACTIVE Patient was instructed to not get up on the exam table until directed and assisted by their provider; patient is to remain seated in the chair/ wheelchair/ exam table for fall prevention and safety reasons. Patient is aware staff will assist stepping down off exam table with personnel. documented in this encounter Plan of Treatment Upcoming Encounters Date Type Department Care Team (Late st Contact Info) Description 04/12/2024 2:50 PM EDT Anticoagulation Pharmacy, [facility] 200 [facility] [place] [address] Pharmacist1, [facility] 200 [facility] [place] [address] 04/12/2024 3:00 PM EDT Office Visit Family Practice [facility] 200 [facility] [place] [address] Gianni Rutherford, 200 [facility] [place] [address] 05/12/2024 10:30 AM EDT Office Visit Cardiology, [facility] [place] [address] Deborah Yost CRNP 132 [facility] [place] [address] 2024 1:00 PM EDT Office Visit Dermatology [facility] 200 [facility] [place] [place] [address] Alex Parrish MD [address] [place] [address] 06/01/2024 2:30 PM EDT Imaging Radiology [facility] 1st [facility] [address] [place] [address] 06/07/2024 11:30 AM EDT Office Visit Thoracic Surg [facility] [address] [place] [address] Jose Zacarias MD [address] [place] [address] 09/07/2024 3:00 PM EST Office Visit Pulmonary Medicine, [facility] [address] [place] [address] Jean Crews MD [address] [place] [address] 11/25/2024 10:20 AM EST Office Visit Rheumatology [address] [place] [address] Nikunj Kessler MD [address] [place] [address] [place] [address] Scheduled Procedures Name Priority Associated Diagnoses Date/Ti [...] exists DISCUSS TOBACCO CESSATION (REFER TO SMARTSET #0404) 12/28/2024 12/29/2023, 06/18/2018 (Discussed) O2 ASSESSMENT COMPLETED [...] D LEVEL ONCE IN A LIFETIME-USE SMARTSET# 15978 Completed 11/29/2023, 08/26/2022, 02/01/2021, Additional history exists GARDASIL-HPV IMMUNIZATION SERIES Aged Out No longer eligible based on patient's age to complete this topic documented as of this encounter Medical Devices Not on filedocumented as of this encounter Visit Diagnoses Diagnosis Permanent atrial fibrillation (HCC)- Primary Atrial fibrillation Chronic diastolic congestive heart failure (HCC) Chronic diastolic heart failure documented in this encounter Advance Directives Documents on File Type Date Recorded Patient Hand Lacer Expl anation Advance Directives and Living Will 03/11/2022 ADVANCE DIRECTIVE / LIVING WILL Power of Oil Well Logging Engineer 05/05/2021 POWER OF A TTORNEY * [...] Power of Attor alisha? No Care Teams Textile Machinery Sales Representative Relationship Specialty Start Date End Date Gianni Rutherford DO [address] [place] [address] PCP - General Family Medicine 05/01/12 documented as of this encounter"
--- OUTSIDE RECORDS SUMMARY | 2024-05-12 21:33 | External Medical Summary | Summary of Care ---
Author Name Unknown Organization [facility] Address [address] [place] [address] Phone [phone] Care Team Providers Care Acquisition Editor Name Role Phone KrishKusum DO Primary Care Provider Reason for Visit * Reason Onset Date Comments Order Request 04/14/2024 6mw for conservi ng device Encounter Details Date Type Department Care Team (Late st Contact Info) Description 04/14/2024 Telephone Pulmonary Medicine, [facility] 132 [facility] [place] [address] Jean Crews MD [address] [place], [place] [id number] Order Request (6mw for conserving device) Allergies [...] mRNA, LNP-s, No Pre serve, 2-Dose Series ([employer]) 08/01/2021,12/28/2020,11/30/2020 COVID-19, MRNA-LNP, 23-24, P F, 30 MCG/0.3 mL, 12 YRS AND ABOVE, IM ([employer]) 08/26/2023 Covid-19, Mrna, Lnp-s, Pf, B ivalent, 30 Mcg, IM, 12 yrs and above ([employer]) 08/09/2022 HEP A - Hepatitis A (Adult [...] Description 04/16/2024 2:50 PM EDT Anticoagulation Pharmacy, [facility] [address] [facility] [place] [address] Pharmacist1, [facility] 200 [facility] [place] [address] 05/12/2024 10:30 AM EDT Office Visit Cardiology, [facility] 132 [facility] [address] Deborah Yost CRNP 132 [facility] [place] [address] 05/26/2024 1:00 PM EDT PulmDiagnostic Pulmonary Function Lab, [facility] 132 [facility] [place] [address] [address], Pft 132 [facility] [place] [address] 2024 1:00 PM EDT Office Visit Dermatology [facility] [address] [facility] [place] [address] Alex Parrish MD [address] [facility] [place] [address] 06/01/2024 2:30 PM EDT Imaging Radiology [facility] 1st [facility] 132 [place] [address] 06/07/2024 11:30 AM EDT Office Visit [facility]urg [facility] [address] [place] [address] Jose Zacarias MD [address] [place] [address] 09/07/2024 3:00 PM EST Office Visit Pulmonary Medicine, [facility] 132 [facility] [place] [address] Jean Crews MD [address] [place] [facility] [place] [address] 11/25/2024 10:20 AM EST Office Visit Rheumatology [place] [address] [place] [address] Nikunj Kessler MD [address] [employer] [place] [address] Scheduled Orders Name Type Priority Associated Diagnoses Orde r Schedule PULMONARY STRESS TESTING Procedures Routine COPD, group B, by GOLD 2017 classification ([facility]) Expected: 04/15/2024, Expires: 05/14/2025 Scheduled Procedures Name [...] exists DISCUSS TOBACCO CESSATION (REFER TO SMARTSET #5535) 12/28/2024 12/29/2023, 06/18/2018 (Discussed) O2 ASSESSMENT COMPLETED [...] D LEVEL ONCE IN A LIFETIME-USE SMARTSET# 44690 Completed 11/29/2023, 08/26/2022, 02/01/2021, Additional history exists GARDASIL-HPV IMMUNIZATION SERIES Aged Out No longer eligible based on patient's age to complete this topic documented as of this encounter Medical Devices Not on filedocumented as of this encounter Visit Diagnoses Diagnosis COPD, group B, by GOLD 2017 classification (HCC)- Primary documented in this encounter Advance Directives Documents on File Type Date Recorded Patient Money Counter Expl anation Advance Directives and Living Will 03/11/2022 ADVANCE DIRECTIVE / LIVING WILL Power of Physician Executive 05/05/2021 POWER OF A TTORNEY * Full [...] Power of Attor alisha? No Care Teams Acquisition Editor Relationship Specialty Start Date End Date Kusum Rutherford DO [address] [place] [address] PCP - General Family Medicine 05/01/12 documented as of this encounter
--- OUTSIDE RECORDS SUMMARY | 2024-05-12 21:33 | External Medical Summary ---
Author Name Unknown Address Unknown Organization K09:[facility] [place] [address] Laboratory Report Ordering Provider Test Date Status BRANDY JAUREGUI 04/12/2024 16:33:57 Final Observation Date Value Abnormality Reference (Units ) Status BUN 04/12/2024 16:33:57 20 6-20 (mg/dL) Final Creatinine 04/12/2024 16:33:57 0.6 0.5-1.0 (mg/dL) Final Glomerular filtration rate/1.73 sq M.predicted [Volume Rate/Area] in Serum, Plasma or Blood by Creatinine-based formula (CKD-EPI) 04/12/2024 16:33:57 >90 >=60 (mL/min) Final eGFR is calculated based on the CKD-EPI 2020 equation Sodium 04/12/2024 16:33:57 136 135-146 (m mol/L) Final Potassium 04/12/2024 16:33:57 4.4 3.5-5.1 (m mol/L) Final Cl 04/12/2024 16:33:57 101 98-107 (mm ol/L) Final CO2 04/12/2024 16:33:57 20 Below low normal 22- 32 (mmol/L) Final Anion gap 04/12/2024 16:33:57 15 7-15 (mmol /L) Final Glucose 04/12/2024 16:33:57 103 70-120 (mg /dL) Final Calcium 04/12/2024 16:33:57 9.6 8.4-10.2 ( mg/dL) Final Performing Location [facility] [place] [place] [address]
--- OUTSIDE RECORDS SUMMARY | 2024-05-12 21:33 | External Medical Summary | Summary of Care ---
Author Name Unknown Organization [facility] Address [address] [place] [address] Phone [phone] Care Team Providers Care Distribution Transformer Assembler Name Role Phone KrishKusum DO Primary Care Provider Reason for Visit * Reason Onset Date Comments Order Request 04/14/2024 6mw for conservi ng device Encounter Details Date Type Department Care Team (Late st Contact Info) Description 04/14/2024 Telephone Pulmonary Medicine, [facility] 132 [facility] [place] [address] Jean Crews MD [address] [place], [place] [id number] Order Request (6mw for conserving device) Allergies [...] mRNA, LNP-s, No Pre serve, 2-Dose Series ([employer] 08/01/2021,12/28/2020,11/30/2020 COVID-19, MRNA-LNP, 23-24, P F, 30 MCG/0.3 mL, 12 YRS AND ABOVE, IM (Plandree-Comirnaty) 08/26/2023 Covid-19, Mrna, Lnp-s, Pf, B ivalent, 30 Mcg, IM, 12 yrs and above ([employer] 08/09/2022 HEP A - Hepatitis A (Adult [...] encounter Miscellaneous Notes * Telephone Encounter - Tsering Cohn LPN - 04/14/2024 2:32 PM EDT Order faxed to [employer]. * Telephone Encounter - Jean Crews MD [...] Description 04/16/2024 2:50 PM EDT Anticoagulation Pharmacy, [address] [place] [address] Pharmacist1, [facility] 200 [facility] [address] 05/12/2024 10:30 AM EDT Office Visit Cardiology, [facility] 132 [facility] [place] [address] Deborah Yost CRNP 132 [facility] [place] [address] 05/26/2024 1:00 PM EDT PulmDiagnostic Pulmonary Function Lab, [facility] 132 [facility] [place] [address] [place], P[address] 132 [facility] [place] [address] 2024 1:00 PM EDT Office Visit Dermatology [facility] [address] [place] [address] Alex Parrish MD [address] [place], [place] [address] 06/01/2024 2:30 PM EDT Imaging Radiology [facility] [address] [place] [address] 06/07/2024 11:30 AM EDT [facility] [address] [place] [address] Jose Zacarias MD [address] [place] [address] 09/07/2024 3:00 PM EST Office Visit Pulmonary Medicine, [facility] [address] [place] [address] Jean Crews MD [address] [place] [address] 11/25/2024 10:20 AM EST Office Visit Rheumatology [address] [place] [address] Nikunj Kessler MD [address] [place] [address] Scheduled Orders Name Type Priority Associated Diagnoses Orde r Schedule PULMONARY STRESS TESTING Procedures Routine COPD, group B, by GOLD 2017 classification (HCC) Expected: 04/15/2024, Expires: 05/14/2025 Scheduled Procedures Name [...] exists DISCUSS TOBACCO CESSATION (REFER TO SMARTSET #7200) 12/28/2024 12/29/2023, 06/18/2018 (Discussed) O2 ASSESSMENT COMPLETED [...] D LEVEL ONCE IN A LIFETIME-USE SMARTSET# 05071 Completed 11/29/2023, 08/26/2022, 02/01/2021, Additional history exists GARDASIL-HPV IMMUNIZATION SERIES Aged Out No longer eligible based on patient's age to complete this topic documented as of this encounter Medical Devices Not on filedocumented as of this encounter Visit Diagnoses Diagnosis COPD, group B, by GOLD 2017 classification (HCC)- Primary documented in this encounter Advance Directives Documents on File Type Date Recorded Patient Filtration Supervisor Expl anation Advance Directives and Living Will 03/11/2022 ADVANCE DIRECTIVE / LIVING WILL Power of Lot Porter 05/05/2021 POWER OF A TTORNEY * Full [...] Power of Attor alisha? No Care Teams Distribution Transformer Assembler Relationship Specialty Start Date End Date Kusum Rutherford DO [address] [place] [address] PCP - General Family Medicine 05/01/12 documented as of this encounter
--- OUTSIDE RECORDS SUMMARY | 2024-05-12 21:33 | External Medical Summary | Summary of Care ---
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 Name Role Phone KrishKusum DO Primary Care Provider Reason for Visit * Reason Onset Date Comments Advice 04/12/2024 Medication quest ion Encounter Details Date Type Department Care Team (Late st Contact Info) Description 04/12/2024 Telephone Rheumatology [facility] [address] [place] [address] Nikunj Kessler MD [address] [place] [address] Advice (Medication question) Allergies Active Allergy Reactions Criticality Noted Date Comments Pollen Low 11/24/2015 Nasal congestion, watery eyes Other reaction(s): cough, itchy watery eyes, stuffy nose documented as of this encounter (statuses as of 04/13/2024) Medications Medication Sig Dispensed Refills Start Date [...] as of this encounter (statuses as of 04/13/2024) Active Problems Problem Noted Date Diagnosed Date [...] as of this encounter (statuses as of 04/13/2024) Resolved Problems Problem Noted Date Diagnosed Date [...] as of this encounter (statuses as of 04/13/2024) Immunizations Name Administration Dates Next Due COVID-19 mRNA, LNP-s, No Pre serve, 2-Dose Series ([employer]) 08/01/2021,12/28/2020,11/30/2020 COVID-19, MRNA-LNP, 23-24, P F, 30 MCG/0.3 mL, 12 YRS AND ABOVE, IM ([employer]-Comirnat) 08/26/2023 Covid-19, Mrna, Lnp-s, Pf, B ivalent, 30 Mcg, IM, 12 yrs and above ([employer]) 08/09/2022 HEP A - Hepatitis A (Adult [...] Telephone Encounter - Tsering Cohn LPN - 04/13/2024 3:37 PM EDT Pulmonary note added to new encounter. Disregard in this one. * Telephone Encounter - eJan Crews MD - 04/12/2024 5:21 PM EDT [...] that was given to her from her Mechanic Welder, Digoxin. She wants to know if she should stop the the one from Dr Kessler. Please return her call at [phone]. documented in this encounter Plan of Treatment Upcoming Encounters Date Type Department Care Team (Late st Contact Info) Description 04/16/2024 2:50 PM EDT Anticoagulation Pharmacy, [facility] 200 [facility] [place] [address] Pharmacist1, [facility] 200 [facility] [place] [address] 05/12/2024 10:30 AM EDT Office Visit Cardiology, [facility] [address] [place] [address] Deborah Yost CRNP [address] [place] [address] 05/26/2024 1:00 PM EDT PulmDiagnostic Pulmonary Function Lab, [facility] 132 [facility] [place] [address] West, Pft 132 [facility] [place] [address] 2024 1:00 PM EDT Office Visit Dermatology [facility] 200 [facility] [place] [address] Alex Parrish MD 200 [facility] [place] [address] 06/01/2024 2:30 PM EDT Imaging Radiology [facility] 1st [facility] 132 [facility] [place] [address] 06/07/2024 11:30 AM EDT Office Visit Thoracic Surg [facility] [address] [place] [address] Jose Zacarias MD [address] [place] [address] 09/07/2024 3:00 PM EST Office Visit Pulmonary Medicine, [facility] 132 [facility] [place] [address] Jean Crews MD [address] [place] [address] 11/25/2024 10:20 AM EST Office Visit Rheumatology [address] [place] [address] Nikunj Kessler MD [facility]0 [facility] [place] [address] Scheduled Orders Name Type Priority Associated Diagnoses [...] exists DISCUSS TOBACCO CESSATION (REFER TO SMARTSET #1852) 12/28/2024 12/29/2023, 06/18/2018 (Discussed) O2 ASSESSMENT COMPLETED [...] D LEVEL ONCE IN A LIFETIME-USE SMARTSET# 07307 Completed 11/29/2023, 08/26/2022, 02/01/2021, Additional history exists GARDASIL-HPV IMMUNIZATION SERIES Aged Out No longer eligible based on patient's age to complete this topic documented as of this encounter Medical Devices Not on filedocumented as of this encounter Visit Diagnoses Diagnosis Chronic respiratory failure with hypoxia (HCC)- Primary Chronic respiratory failure documented in this encounter Advance Directives Documents on File Type Date Recorded 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 No Care Teams Post Graduate Internship Relationship Specialty Start Date End Date Kusum Rutherford DO [address] [place] [address] PCP - General Family Medicine 05/01/12 documented as of this encounter
--- OUTSIDE RECORDS SUMMARY | 2024-05-12 21:33 | External Medical Summary ---
Author Name Unknown Address Unknown Organization [id number]:LABORATORY [facility] - [facility] [address] [place] [address] Laboratory Report Ordering Provider Test Date Status SENG TIWARI V 04/12/2024 16:33:57 Final Warfarin Therapy
INR: 2 .0-3.0 conventional anticoagulation
INR: 2.5- 3.5 high intensity anticoagulation Observation Date Value Abnormality Reference (Units ) Status PT 04/12/2024 16:33:57 46.8 Above high normal 11 .6-15.2 (seconds) Final INR 04/12/2024 16:33:57 4.9 Above high normal 0. 8-1.2 Final Performing Location LABORATORY [facility] - [address] [place] [address]
--- OUTSIDE RECORDS SUMMARY | 2024-05-12 21:34 | External Medical Summary ---
Author Name Unknown Address Unknown Organization [id number]:LABORATORY [facility] - [address] [place] [address] Laboratory Report Ordering Provider Test Date Status SAE VARELA 03/30/2024 13:01:43 Final Observation Date Value Abnormality Reference (Units ) Status TSH 03/30/2024 13:01:43 5.60 Above high normal 0. 27-4.20 (uIU/mL) Final Performing Location LABORATORY [facility] - [address] [place] [address]
--- OUTSIDE RECORDS SUMMARY | 2024-05-12 21:34 | External Medical Summary ---
Author Name Unknown Address Unknown Organization K09:[place] [address] Laboratory Report Ordering Provider Test Date Status BRANDY JAUREGUI 03/30/2024 13:01:43 Final Observation Date Value Abnormality Reference (Units ) Status BUN 03/30/2024 13:01:43 20 6-20 (mg/dL) Final Creatinine 03/30/2024 13:01:43 0.7 0.5-1.0 (mg/dL) Final Glomerular filtration rate/1.73 sq M.predicted [Volume Rate/Area] in Serum, Plasma or Blood by Creatinine-based formula (CKD-EPI) 03/30/2024 13:01:43 89 >=60 (mL/min) Final eGFR is calculated based on the CKD-EPI 2020 equation Sodium 03/30/2024 13:01:43 137 135-146 (m mol/L) Final Potassium 03/30/2024 13:01:43 5.3 Above high normal 3. 5-5.1 (mmol/L) Final Cl 03/30/2024 13:01:43 102 98-107 (mm ol/L) Final CO2 03/30/2024 13:01:43 21 Below low normal 22- 32 (mmol/L) Final Anion gap 03/30/2024 13:01:43 14 7-15 (mmol /L) Final Glucose 03/30/2024 13:01:43 103 70-120 (mg /dL) Final Calcium 03/30/2024 13:01:43 9.6 8.4-10.2 ( mg/dL) Final Performing Location [place] [address]
--- OUTSIDE RECORDS SUMMARY | 2024-05-12 21:34 | External Medical Summary ---
Author Name Unknown Address Unknown Organization K09:LABORATORY [place] [address] Laboratory Report Ordering Provider Test Date Status BRANDY JAUREGUI 03/30/2024 13:01:43 Final Observation Date Value Abnormality Reference (Units ) Status Magnesium 03/30/2024 13:01:43 1.5 1.5-2.6 (m g/dL) Final Performing Location [facility]ATORY [place] [address]
--- OUTSIDE RECORDS SUMMARY | 2024-05-12 21:34 | External Medical Summary | Summary of Care ---
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 Name Role Phone Kusum Rutherford DO Primary Care Provider Reason for Visit * Reason Comments Outpatient Testing Encounter Details Date Type Department Care Team (Late st Contact Info) Description 03/30/2024 1:00 PM EDT Laboratory Laboratory [facility] [place] [address] [place] [address] [place], Lab Scenery [address] [place] [address] Encounter for long-term (current) use of medications; Permanent atrial fibrillation (HCC); Dyslipidemia, goal LDL below 70; Asymptomatic bilateral carotid artery stenosis; Chronic diastolic congestive heart failure (HCC); Chronic obstructive pulmonary disease, unspecified COPD type (HCC); Tobacco use; Malignant neoplasm of middle lobe of right lung (HCC); Atrial fibrillation with RVR ([facility]); Hypotension, unspecified hypotension type; Chronic atrial fibrillation (HCC) Allergies Active Allergy Reactions Criticality Noted Date Comments Pollen Low 11/24/2015 Nasal congestion, watery eyes Other reaction(s): cough, itchy watery eyes, stuffy nose documented as of this encounter (statuses as of 03/30/2024) Medications Medication Sig Dispensed Refills Start Date [...] Active Atorvastatin Calcium 10 MG Oral Tablet (Lipitor)Indications :Dyslipidemia, goal LDL below 70,Hypotension, unspecified hypotension type,Chronic [...] Ellipta 100-62.5-25 MCG/ACT Aerosol Powder Breath Activated (Fluticasone-Umeclid inium-Vilanterol) Inhale 1 Puff by mouth. Active Furosemide 20 MG Oral Tablet (Lasix) Take one tab weekly and as directed for weight 36 Tablet 3 01/09/2024 Active Spironolactone 25 MG Oral Tablet (Aldactone) Take 0.5 Tablets by mouth in the morning. 30 Tablet 5 01/09/2024 Active Levothyroxine Sodium 175 MCG Oral Tablet (Levoxyl) Take 1 Tablet by mouth in the morning. (at least 30 min prior to breakfast or other meds). 90 Tablet 03/03/2024 Active Metoprolol Succinate ER 25 MG Oral Tablet Extended Release 24 Hour (toPROL XL)Indications:Perma nent atrial fibrillation (HCC),Dyslipidemia, goal LDL below 70,Asymptomatic bilateral carotid artery stenosis,Atrial fibrillation with RVR (HCC),Hypotension, unspecified hypotension type Take 3 Tablets by mouth in the morning and 3 Tablets before bedtime. 360 Tablet 3 03/23/2024 Active Aspirin 81 MG Oral Tablet Delayed ReleaseIndications:D yslipidemia, goal LDL below 70,Asymptomatic bilateral carotid artery stenosis,Hypotension , unspecified hypotension type,Chronic atrial fibrillation (HCC) Take 1 Tablet by mouth in the morning. 03/23/2024 Active documented as of this encounter (statuses as of 03/30/2024) Active Problems Problem Noted Date Diagnosed Date [...] as of this encounter (statuses as of 03/30/2024) Resolved Problems Problem Noted Date Diagnosed Date [...] as of this encounter (statuses as of 03/30/2024) Immunizations Name Administration Dates Next Due COVID-19 mRNA, LNP-s, No Pre serve, 2-Dose Series ([employer]) 08/01/2021,12/28/2020,11/30/2020 COVID-19, MRNA-LNP, 23-24, P F, 30 MCG/0.3 mL, 12 YRS AND ABOVE, IM ([employer]-Comirnat) 08/26/2023 Covid-19, Mrna, Lnp-s, Pf, B ivalent, 30 Mcg, IM, 12 yrs and above ([employer]) 08/09/2022 HEP A - Hepatitis A (Adult [...] 04/01/2024 10:00 AM EDT Office Visit Cardiology, [facility] 132 [place] [address] Anthony Sawyer MD [address] [place] [address] 04/12/2024 2:50 PM EDT Anticoagulation Pharmacy, [facility] [place] [address] [place] [address] Pharmacist1, [facility] 200 [facility] [place] [address] 04/12/2024 3:00 PM EDT Office Visit Family Practice [facility] 200 [facility] [address] Kusum Rutherford DO 200 [facility] [place] [address] 2024 1:00 PM EDT Office Visit Dermatology [facility] 200 [facility] [place] [address] Alex Parrish MD 200 [facility] [place] [address] 06/01/2024 2:30 PM EDT Imaging Radiology [address] [place] [address] 06/07/2024 11:30 AM EDT Office Visit [facility] [address] [place] [address] Jose Zacarias MD [address] [place] [address] 09/07/2024 3:00 PM EST Office Visit Pulmonary Medicine, [facility] [address] [place] [address] Jean Crews MD [address] [place] [address] 11/25/2024 10:20 AM EST Office Visit Rheumatology [place] [place] [address] Nikunj Kessler MD [facility] [place] [address] Pending Results Name Type Priority Associated Diagnoses Date /Time TSH WITH FREE T4 IF INDICATED Lab Routine Encounter for long-term (current) use of medications 03/30/2024 1:01 PM EDT BASIC METABOLIC PANEL Lab Routine Permanent atrial fibrillation (HCC) Dyslipidemia, goal LDL below 70 Asymptomatic bilateral carotid artery stenosis Chronic diastolic congestive heart failure (HCC) Chronic obstructive pulmonary disease, unspecified COPD type (HCC) Tobacco use Malignant neoplasm of middle lobe of right lung (HCC) Atrial fibrillation with RVR (HCC) Hypotension, unspecified hypotension type Chronic atrial fibrillation (HCC) 03/30/2024 1:01 PM EDT CBC Lab Routine Permanent atrial fibrillation (HCC) Dyslipidemia, goal LDL below 70 Asymptomatic bilateral carotid artery stenosis Chronic diastolic congestive heart failure (HCC) Chronic obstructive pulmonary disease, unspecified COPD type (HCC) Tobacco use Malignant neoplasm of middle lobe of right lung (HCC) Atrial fibrillation with RVR (HCC) Hypotension, unspecified hypotension type Chronic atrial fibrillation (HCC) 03/30/2024 1:01 PM EDT MAGNESIUM Lab Routine Permanent atrial fibrillation (HCC) Dyslipidemia, goal LDL below 70 Asymptomatic bilateral carotid artery stenosis Chronic diastolic congestive heart failure (HCC) Chronic obstructive pulmonary disease, unspecified COPD type (HCC) Tobacco use Malignant neoplasm of middle lobe of right lung (HCC) Atrial fibrillation with RVR (HCC) Hypotension, unspecified hypotension type Chronic atrial fibrillation (HCC) 03/30/2024 1:01 PM EDT Scheduled Procedures Name Priority Associated [...] 2023 08/26/2023, 08/09/2022, 08/01/2021, Additional history exists TSH 12/26/2023 12/25/2022, 05/20, 03/06/2022, Additional history exists DISCUSS TOBACCO CESSATION (REFER TO SMARTSET #5971) 12/28/2024 12/29/2023, 06/18/2018 (Discussed) O2 ASSESSMENT COMPLETED IN PAST YEAR FOR COPD 01/05/2025 01/06/2024 DXA Scan 02/25/2025 02/25/2023, 12/2020, 01/27/2019, Additional history exists Lipid Panel 12/31/2028 01/01/2024, 12/19, 06/15/2020, Additional history exists Zoster Vaccines Completed 08/18/2020, 05/20, 10/22/1999 Pneumococcal Vaccine: 65+ Years Completed 02/27/2022, 05/04/2021, 12/05/2016, Additional history exists Influenza Vaccine (FLU shot) Completed 03/2023, 07/11/2022, 07/07/2021, Additional history exists VITAMIN D LEVEL ONCE IN A LIFETIME-USE SMARTSET# [id number] Completed 11/29/2023, 08/26/2022, 02/01/2021, Additional history exists GARDASIL-HPV IMMUNIZATION SERIES Aged Out No longer eligible based on patient's age to complete this topic documented as of this encounter Medical Devices Not on filedocumented as of this encounter Visit Diagnoses Diagnosis Encounter for long-term (current) use of medications Encounter for long-term (current) use of other medications Permanent atrial fibrillation (HCC) Atrial fibrillation Dyslipidemia, goal LDL below 70 Other and unspecified hyperlipidemia Asymptomatic bilateral carotid artery stenosis Occlusion and stenosis of multiple and bilateral precerebral arteries without mention of cerebral infarction Chronic diastolic congestive heart failure (HCC) Chronic diastolic heart failure Chronic obstructive pulmonary disease, unspecified COPD type (HCC) Tobacco use Tobacco use disorder Malignant neoplasm of middle lobe of right lung (HCC) Atrial fibrillation with RVR (HCC) Atrial fibrillation Hypotension, unspecified hypotension type Chronic atrial fibrillation (HCC) Atrial fibrillation documented in this encounter Advance Directives Documents on File Type Date Recorded 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
--- OUTSIDE RECORDS SUMMARY | 2024-05-12 21:34 | External Medical Summary | Summary of Care ---
Author Name Unknown Organization [facility] Address [address] [place] [address] Phone [phone] Care Team Providers Care Marketing Writer Name Role Phone Kusum Rutherford DO Primary Care Provider Reason for Visit * Reason Comments Follow Up Encounter Details Date Type Department Care Team (Late st Contact Info) Description 03/23/2024 1:30 PM EDT Office Visit Cardiology, [facility] [address] [place] [address] Deborah Yost CRNP [address] [place] [address] Permanent atrial fibrillation (HCC)*; Dyslipidemia, goal LDL below 70; Asymptomatic bilateral carotid artery stenosis; Chronic diastolic congestive heart failure (HCC); Chronic obstructive pulmonary disease, unspecified COPD type (HCC); Tobacco use; Malignant neoplasm of middle lobe of right lung (HCC); Atrial fibrillation with RVR (HCC); Hypotension, unspecified hypotension type; Chronic atrial fibrillation (HCC) Allergies Active Allergy Reactions Criticality Noted Date Comments Pollen Low 11/24/2015 Nasal congestion, watery eyes Other reaction(s): cough, itchy watery eyes, stuffy nose documented as of this encounter (statuses as of 03/23/2024) Medications Medication Sig Dispensed Refills Start Date End Date Status Multiple Vitamin (MULTI VITAMIN) TABS Take by mouth daily at noon . 8 Active Pimecrolimus (ELIDEL) 1 % cream Apply topically to affected area 2 times a day. Apply to face and frontal scalp 60 g 11 0 Active Acetaminophen 500 MG Oral Tablet (Tylenol) as needed. Active valACYclovir HCl 1 GM Oral Tablet (Valtrex) Take by mouth 0.5 Tablets in the morning AND 0.5 Tablets before bedtime. 14 Tablet 5 2 Active Vitamin D 25 MCG (1000 UT) Oral Tablet Active Clobetasol Propionate 0.05 % External Ointment (Temovate) Spots of flare hands and face 2 x daily until healed Genital area twice weekly, increase for flares of symptoms to daily if needed 60 g 3 3 Active ProAir HFA 108 (90 Base) MCG/ACT Inhalation Aerosol Solution Inhale 2 Puffs by mouth every 4 hours as needed for Shortness of Breath or Wheezing. 18 g 3 3 Active Warfarin Sodium 5 MG Oral Tablet (Coumadin) Take 1-2 Tablets by mouth every evening. Or as directed by coag 180 Tablet 3 3 Active Atorvastatin Calcium 10 MG Oral Tablet (Lipitor)Indicati ons:Dyslipidemia, goal LDL below 70,Hypotension, unspecified hypotension type,Chronic atrial fibrillation (HCC),Asymptomati c bilateral carotid artery stenosis Take 1 Tablet by mouth in the morning. 90 Tablet 3 3 Active Hydroxychloroquin e Sulfate 200 MG Oral Tablet (Plaquenil) Take 1 Tablet by mouth in the morning. 90 Tablet 3 4 Active Sodium Fluoride 5000 PPM 1.1 % Dental Paste APPLY THIN RIBBON DAILY TO TOOTHBRUSH 4 Active Trelegy Ellipta 100-62.5-25 MCG/ACT Aerosol Powder Breath Activated (Fluticasone-Umec lidinium-Vilanter ol) Inhale 1 Puff by mouth. Active Furosemide 20 MG Oral Tablet (Lasix) Take one tab weekly and as directed for weight 36 Tablet 3 4 Active Spironolactone 25 MG Oral Tablet (Aldactone) Take 0.5 Tablets by mouth in the morning. 30 Tablet 5 4 Active Levothyroxine Sodium 175 MCG Oral Tablet (Levoxyl) Take 1 Tablet by mouth in the morning. (at least 30 min prior to breakfast or other meds). 90 Tablet 4 Active Metoprolol Succinate ER 25 MG Oral Tablet Extended Release 24 Hour (toPROL XL)Indications:Pe rmanent atrial fibrillation (HCC),Dyslipidemi a, goal LDL below 70,Asymptomatic bilateral carotid artery stenosis,Atrial fibrillation with RVR (HCC),Hypotension , unspecified hypotension type Take 3 Tablets by mouth in the morning and 3 Tablets before bedtime. 360 Tablet 3 4 Active Aspirin 81 MG Oral Tablet Delayed ReleaseIndication s:Dyslipidemia, goal LDL below 70,Asymptomatic bilateral carotid artery stenosis,Hypotens ion, unspecified hypotension type,Chronic atrial fibrillation (HCC) Take 1 Tablet by mouth in the morning. 4 Active Aspirin EC 81 MG Oral Tablet Delayed ReleaseIndication s:Hypotension, unspecified hypotension type,Dyslipidemia , goal LDL below 70,Chronic atrial fibrillation (HCC),Asymptomati c bilateral carotid artery stenosis Take 1 Tablet by mouth daily. 1 03/23/20 24 Discontinued(Ref ill) Dicyclomine HCl 10 MG Oral Capsule (Bentyl) Take by mouth 1 Capsule 2 times a day as needed (abdominla pain). 60 Capsule 2 2 03/23/20 24 Discontinued(Med ication List Clean Up) Nicotine 21 MG/24HR Transdermal Patch 24 Hour (Nicoderm CQ) Place 21 mg topically on the skin daily. 4 03/23/20 24 Discontinued Metoprolol Succinate ER 25 MG Oral Tablet Extended Release 24 Hour (toPROL XL)Indications:Pe rmanent atrial fibrillation (HCC),Atrial fibrillation with RVR (HCC),Dyslipidemi a, goal LDL below 70,Hypotension, unspecified hypotension type,Asymptomatic bilateral carotid artery stenosis Take 2 Tablets by mouth in the morning and 2 Tablets before bedtime. 360 Tablet 3 4 03/23/20 24 Discontinued Azithromycin 250 MG Oral Tablet (Zithromax Z-Harpreet) Please take 500 mg by mouth on day one, followed by 250 mg by mouth for four days. 6 Tablet 4 03/23/20 24 Discontinued(Med ication List Clean Up) methylPREDNISolon e 4 MG Oral Tablet Therapy Pack (Medrol Dosepack) follow package directions 21 Tablet 4 03/23/20 24 Discontinued(Med ication List Clean Up) documented as of this encounter (statuses as of 03/23/2024) Active Problems Problem Noted Date Diagnosed Date [...] as of this encounter (statuses as of 03/23/2024) Resolved Problems Problem Noted Date Diagnosed Date [...] as of this encounter (statuses as of 03/23/2024) Immunizations Name Administration Dates Next Due COVID-19 mRNA, LNP-s, No Pre serve, 2-Dose Series (Nimia) 08/01/2021,12/28/2020,11/30/2020 COVID-19, MRNA-LNP, 23-24, P F, 30 MCG/0.3 mL, 12 YRS AND ABOVE, IM ([employer]Hunt-Comirnat) 08/26/2023 Covid-19, Mrna, Lnp-s, Pf, B ivalent, 30 Mcg, IM, 12 yrs and above (Nimia) 08/09/2022 HEP A - Hepatitis A (Adult [...] 2.5 56.4 Started: 1968 Smokeless Tobacco: Never Tobacco Cessation:Ready to Q uit: Yes; Counseling Given: Yes Comments:2 packs daily 01/06/24 Alcohol Use Standard Drinks/Week Comments No 0 [...] Sign Reading Time Taken Comments Blood Pressure 112/80 03/23/2024 1:33 PM EDT Pulse 142 03/23/2024 1:33 PM EDT Temperature - - Respiratory Rate 20 03/23/2024 1:33 PM EDT Oxygen Saturation - - Inhaled Oxygen Concentration - - Weight 69.1 kg (152 lb 6.4 oz) 03/23/2024 1:33 P M EDT Height - - Body Mass Index 24.6 01/06/2024 3:46 PM EDT documented in this [...] No 03/08/2022 documented as of this encounter Patient Instructions * Patient Instructions* Deborah Yost CRNP - 03/23/2024 1:57 PM EDT Increase metoprolol to 75 mg twice per day (3 tablets in the morning and 3 tablets in the evening) Check blood pressure and heart rate 2 hours after morning medications daily or if feeling poorly. Record these readings and bring to follow up. Call with any concerns: [facility] Cardiology number: (ask to be connected to [facility] cardiology) documented in this encounter Progress Notes * Deborah Yost CRNP - 03/23/2024 1:30 PM EDT Cardiology Outpatient Visit 03/23/[address] Sawyer Past medical history: Permanent atrial fibrillation [id number] score of 3 (age, female, carotid disease), on warfarin Atherosclerotic carotid disease, status post carotid endarterectomy. Chronic diastolic CHF Acute exacerbation 11/2023 with superimposed COPD exacerbation Systemic lupus erythematous, on chronic Plaquenil- follows with Rheumatology COPD with ongoing tobacco use (2-3 ppd) and chronic PARRA Malignant neoplasm of middle lobe of lung, S/p RMLobectomy 03/08/22 Pathological stage IB, follows with heme/onc (did not receive chemo) and thoracic surgery. Hypothyroidism- following with [facility] endocrine Status post laparoscopic distal pancreatectomy and splenectomy my Dr. De La Torre at [facility] [facility], 05/02/2021 HPI Very pleasant 73-year-old female presenting to the cardiology office today in routine follow-up. Was last evaluated by Dr. Sawyer approximately 3 months ago after hospitalization at [facility] in December 09, 2023. Patient hospitalized at that time with acute exacerbation of COPD as well as exacerbation of diastolic heart failure and atrial fibrillation with elevated ventricular response secondary to acute demands. At her last appointment she was feeling generally well but did note an increase in lower extremity edema. Diltiazem was discontinued. Metoprolol succinate was increased to 50 mg daily. Gzbbwytzwikrvb63.5 mg daily was added as well as furosemide 20 mg weekly. Today the patient presents feeling poorly. Notes that since stopping of the diltiazem she has been more fatigued and short of breath. Will occasionally check her blood pressures at home, readings have been in the 110-120 systolic range however heart rates have been elevated when she is doing things, upwards of 120s to 130 beats per minute. Overall she feels tired and run down. Requesting a wheelchair to leave the office today. She denies palpitations. No chest pain. No lightheadedness or dizziness. No orthopnea or PND. Mild lower extremity edema. No fever, chills, cough, hematochezia, melena,or hemoptysis. She states she is compliant with all medications and offers no side effects. Actively cutting backon smoking, down 30%. Thinking about starting Chantix. Working with a smoking cessation counselor. Current Outpatient Medications Medication Sig Dispense Refill Multiple Vitamin (MULTI VITAMIN) TABS Take by mouth daily at noon . Acetaminophen 500 MG Oral Tablet (Tylenol) as needed. valACYclovir HCl 1 GM Oral Tablet (Valtrex) Take by mouth 0.5 Tablets in the morning AND 0.5 Tablets before bedtime. 14 Tablet 5 Vitamin D 25 MCG (1000 UT) Oral Tablet Clobetasol Propionate 0.05 % External Ointment (Temovate) Spots of flare hands and face 2 x daily until healed Genital area twice weekly, increase for flares of symptoms to daily if needed 60 g 3 ProAir HFA 108 (90 Base) MCG/ACT [...] by mouth in the morning. 90Tablet 3 Trelegy Ellipta 100-62.5-25 MCG/ACT Aerosol Powder Breath Activated (Zvldmjzmafg-Nsojkiwsldzh-Xjvespmrps) Inhale 1 Puff by mouth. Furosemide 20 MG Oral Tablet (Lasix) Take one tab weekly and as directed for weight 36 Tablet 3 Spironolactone 25 MG Oral Tablet (Aldactone) Take 0.5 Tablets by mouth in the morning. 30 Tablet 5 Levothyroxine Sodium 175 MCG Oral Tablet (Levoxyl) Take 1 Tablet by mouth in the morning. (at least30 min prior to breakfast or other meds). 90 Tablet 0 Metoprolol Succinate ER 25 MG Oral Tablet Extended Release 24 Hour (toPROL XL) Take 3 Tablets by mouth in the morning and 3 Tablets before bedtime. 360 Tablet 3 Aspirin 81 MG Oral Tablet Delayed Release Take 1 Tablet by mouth in the morning. Pimecrolimus (ELIDEL) 1 % cream Apply topically to affected area 2 times a day. Apply to face and frontal scalp 60 g 11 Sodium Fluoride 5000 PPM 1.1 % Dental Paste APPLY THIN RIBBON DAILY TO TOOTHBRUSH No current facility-administered medications for this visit. Past Medical History: Diagnosis Date Benign neoplasm of colon 2012 Hyperplastic polyp--rpt 3 years Goiter Hypothyroid Lung cancer (HCC) Lupus erythematosus Malignant neoplasm of middle lobe of lung (HCC) 12/15/2018 Malignant neoplasm of other specified sites of female breast 1995 Malignant neoplasm of right breast (HCC) 11/23/2015 Past Surgical History: Procedure Laterality Date COLONOSCOPY THRU STOMA, W/BIOPSY 2012 hyperplastic polyp rpt 3 years COLONOSCOPY, DIAGNOSTIC (RECTUM) 10/25/2015 adenomatous & serrated adenoma polyps, diverticulosis, repeat 3 yrs/[facility] COLONOSCOPY, DIAGNOSTIC (RECTUM) 12/08/2019 serrated adenomatous polyps, diverticulosis, repeat 3 yrs / [facility] EGD, FLEXIBLE,W/ENDOSCOPIC US 06/19/2018 pancreatic cyst, repeat 6 mo/[facility] EGD, FLEXIBLE,W/ENDOSCOPIC US 12/10/2019 mucinous cyst / [facility] EGD, W/ENDOSCOPIC US 07/31/2020 mucinous pancreatic cyst, liver cyst / ESOPHAGOGASTRODUODENOSCOPY (EGD), FLEXIBLE, TRANSORAL, ENDOSCOPIC ULTRASOUND performed by Honorio Bradford DO at [facility] EGD, W/ENDOSCOPIC US 02/12/2021 cyst on left lobe, Hyperechoic material consistent with sludge, normal egd / biopiescytology showedno evidence of a malignancy / ESOPHAGOGASTRODUODENOSCOPY (EGD), FLEXIBLE, TRANSORAL, ENDOSCOPIC ULTRASOUND performed by Honorio Bradford DO at [facility] IR BIOPSY 01/14/2022 LYMPHADENECTOMY VIA THORACOSCOPY Right 03/08/2022 ROBOTIC THORACOSCOPY WITH LYMPHADENECTOMY performed by Jose Zacarias MD at [facility] MISCELLANEOUS ORDER ([facility] ONLY) 1995 right breast lumpectomy MISCELLANEOUS ORDER ([facility] ONLY) 1957 tonsilectomy MISCELLANEOUS ORDER ([facility] ONLY) 1951 patent ductus surgery- heart anomoly as a child PARTIAL REMOVAL OF PANCREAS N/A 05/02/2021 LAPAROSCOPIC PANCREATECTOMY DISTAL SUBTOTAL performed by Viktor De La Torre MD at [facility] THORACOSCOPY W/ WEDGE RESECTION, INITIAL Right 03/08/2022 ROBOTIC THORACOSCOPY W/ WEDGE RESECTION, INITIAL performed by Jose Zacarias MD at [facility] THROMBOENDARECTOMY W/PATCH,NECK INCISION 04/07/2009 right carotid endarterectomy with Bovine patch angioplasty 04/07/09, [facility], Dr. Ramondelli Social History Tobacco Use Smoking status: Every Day Current packs/day: 2.50 Average packs/day: 2.5 packs/day for 56.4 years (141.1 ttl pk-yrs) Types: Cigarettes Start date: 1968 Smokeless tobacco: Never Tobacco comments: 2 packs daily 01/06/24 Vaping Use Vaping status: Never Used Substance Use Topics Alcohol use: No Drug use: No Review of patient's allergies indicates: Allergen Reactions Pollen Nasal congestion, watery eyes Other reaction(s): cough, itchy watery eyes, stuffy nose Review of Systems: See HPI for pertinent positives. All others negative, other than those noted in HPI. Physical Exam BP 112/80 (BP Site: Left Arm, BP Position: Sitting, BP Cuff Size: Regular) | Pulse 142 | Resp 20 | Wt 69.1 kg (152 lb 6.4 oz) | BMI 24.60 kg/m | BSA 1.79 m General: No acute distress. A+Ox3. HEENT: Normocephalic. Atraumatic. Conjunctiva and sclera clear. NECK: No carotid bruits. No JVD. Carotid upstrokes are brisk. Heart: Tachycardic rate, irregular rhythm. S1 and S2 noted without murmur, rubs, gallops. Lungs: Clear to auscultation. No wheezes, rhonchi, rales. Diminished right breath sounds. Abdomen: Normal bowel sounds. Soft. Nontender. No masses or organomegaly. No abdominal bruits. Extremities: +1 bilateral pitting edema. No clubbing or cyanosis. Pulses: radial=2/4, posterior tibial=2/4, dorsalis pedis = 2/4. NEURO: No focal deficits. PSYCH: Normal. Lab data/imaging study review: Echo at [facility] 11/2023 LVEF 55-60% Left atrium moderately dilated Mild MR and Mild TR Estimated systolic pulmonary pressure of 36 mmHg Nuclear stress 12/2022 Lexiscan nuclear stress test is negative for ischemia or scar. Gated SPECT images reveals normal myocardial thickening and wall motion. The LV ejection fraction is calculated at 62% Echo 08/2022 There was atrial fibrillation during the examination. The examination is adequate to evaluate the referral indication. The left ventricular cavity size is normal. The LV wall thickness is mildly increased (concentric). The left ventricular wall motion is normal. The qualitative LV ejection fraction is 60-64% (normal). The left ventricular diastolic function is abnormal by 2-D findings. The left atrium is moderately enlarged (42-48 ml/m^2). Mild aortic valve sclerosis is present. There is mild mitral valve annular calcification with focal calcification of the posterior leaflet.Mitral valve leaflets are moderately thickened. There is moderate to severe mitral insufficiency in a large central jet Moderate tricuspid regurgitation is present Carotid duplex 09/03/2021 Right carotid artery duplex examination indicates evidence of less than 50% stenosis of the internal carotid artery. Left carotid artery duplex examination indicates evidence of less than 50% stenosis of the internalcarotid artery. Echocardiogram 08/28/2021 [facility] LV normal in size Mild concentric LVH No regional wall motion abnormalities EF 50-55% Left atrial moderately dilated Moderate aortic valve sclerosis without stenosis Mild mitral annular calcification Mitral valve leaflets are mildly thickened Mild to moderate MR Moderate size left pleural effusion Holter monitor 03/2019 1. Duration - 24 hours 2. Quality - adequate 3. Dominant rhythm - Atrial fibrillation 4. PACs - none 5. PVCs - 12 isolated PVCs 6. Symptoms - none reported. Summary: atrial fibrillation persisted throughout the entire monitored interval. The minimum ventricular rate was 43 beats per minute, the maximum ventricular rate was 175 beats per minute, the average ventricular rate was 77 beats per minute. The longest R to R interval was 2.[address] at 2:03 a.m. Confirmed by STAN COOK^[id number], ELI ([id number]) on 04/12/2019 4:01:01 PM Impression/Plan: 1. Permanent atrial fibrillation (HCC) [id number] score of 3 (age, female, carotid disease) Tachycardic today in office with rates in the 130s to 140s. Given symptoms, discussed hospital evaluation; patient declined and would prefer to try outpatient therapies. Patient was instructed to increase metoprolol succinate to 75 mg twice daily with agreement for close cardiology follow-up in 1 week. Labs today. Continue Coumadin, INR goal between 2-3, follows with Coumadin clinic. 2. Dyslipidemia, goal LDL below 70 LDL controlled, 38. 1. Continue atorvastatin 10 mg daily 3. Carotid artery stenosis, status post carotid enterectomy Less than 50% stenosis bilaterally per carotid duplex 06/2023 1. Continue ASA 81 mg daily 4. Chronic diastolic CHF NYHA class 3 Mild lower extremity edema , but weight is stable. Continue Lasix 20 mg weekly Continue spironolactone 12.5 mg daily 5. Chronic obstructive pulmonary disease 6. Right middle lobe lung cancer 7. Tobacco use COPD with ongoing tobacco use (2-3 ppd) and chronic PARRA, cutting back, down 30%. Malignant neoplasm of middle lobe of lung, S/p RMLobectomy 03/08/2022 Pathological stage IB, followswith heme/onc (did not receive chemo) and thoracic surgery. 1. Encouraged smoking cessation. The patient agrees to the above plan and will call with additional questions or concerns. ER with all emergencies advised. Follow-up: Return in about 1 week (around 03/30/2024). | Check-out note: Labs today. Needs 1 week follow up, any AP I spent a total of 40 minutes on the date of service in preparation, delivery, and documentation ofthe care provided to Maria Alejandra Patel excluding any time spent in the performance of separately billed services. JOSE ALFREDO Kuo, Department of Cardiology This chart was completed in part utilizing [employer] Speech Voice Recognition Software. Grammatical errors, random word insertions, prounoun errors, and incomplete sentences are an occasional consequence of this system due to software limitations, ambient noise, and hardware issues. Any formal questions or concerns about the content, text, or information contained within the body of this dictation should be directly addressed to the provider for clarification. documented in this encounter Nursing Notes * Stephanie Gonzalez RN - 03/23/2024 1:39 PM EDT Examination Room: 7 Name: Maria Alejandra Patel Date of : (1950). Reason for Visit: Follow up Interim Hospitalization(s): No Problems/Concerns: States noting worsening fatigue for some time. Weight stable, tolerating spironolactone. Noting low bp and elevated heart rates upon awakening in AM. Working on reducing smoking, working with advisor, would like to discuss Chantix. Chest Pain/SOB: See above. [facility] Discussed: Not applicable My [employer] is a way you can talk to your provider online through e-mail. Would you like to sign up? I can activate it for you? ALREADY ACTIVE Patient was instructed to not get up on the exam table until directed and assisted by their provider; patient is to remain seated in the chair/ wheelchair/ exam table for fall prevention and safety reasons. Patient is aware to have assistance to step down off exam table with personnel. Patient voiced full comprehension of instructions. documented in this encounter Plan of Treatment Upcoming Encounters Date Type Department Care Team (Late st Contact Info) Description 04/12/2024 2:50 PM EDT Anticoagulation Pharmacy, [facility] [address] [facility] [place] [id number] Pharmacist1, [facility] [address] [facility] [place] [address] 04/12/2024 3:00 PM EDT Office Visit Family Practice [facility] [address] [facility] [place] [address] Kusum Rutherford, [address] [facility] [place] [id number] 2024 1:00 PM EDT Office Visit Dermatology [facility] [address] [place] [address] Alex Parrish MD [address] [place] [address] 06/01/2024 2:30 PM EDT Imaging Radiology [facility] [address] [facility] [address] 06/07/2024 11:30 AM EDT [facility] [address] [place] [address] Jose Zacarias MD [address] [place] [address] 09/07/2024 3:00 PM EST Office Visit Pulmonary Medicine, [facility] [address] [facility] [place] [address] Jean Crews MD [address] [place] [address] 11/25/2024 10:20 AM EST Office Visit Rheumatology [address] [place] [address] Nikunj Kessler MD [facility] [place] [address] Scheduled Orders Name Type Priority Associated Diagnoses Orde r Schedule EKG COMPLETE (TRACING AND INTERP) EKG Routine Permanent atrial fibrillation (HCC) Dyslipidemia, goal LDL below 70 Asymptomatic bilateral carotid artery stenosis Chronic diastolic congestive heart failure (HCC) Chronic obstructive pulmonary disease, unspecified COPD type (HCC) Tobacco use Malignant neoplasm of middle lobe of right lung (HCC) Ordered: 03/23/2024 BASIC METABOLIC PANEL Lab Routine Permanent atrial fibrillation (HCC) Dyslipidemia, goal LDL below 70 Asymptomatic bilateral carotid artery stenosis Chronic diastolic congestive heart failure (HCC) Chronic obstructive pulmonary disease, unspecified COPD type (HCC) Tobacco use Malignant neoplasm of middle lobe of right lung (HCC) Atrial fibrillation with RVR (HCC) Hypotension, unspecified hypotension type Chronic atrial fibrillation (HCC) Expected: 03/23/2024, Expires: 03/23/2025 CBC Lab Routine Permanent atrial fibrillation (HCC) Dyslipidemia, goal LDL below 70 Asymptomatic bilateral carotid artery stenosis Chronic diastolic congestive heart failure (HCC) Chronic obstructive pulmonary disease, unspecified COPD type (HCC) Tobacco use Malignant neoplasm of middle lobe of right lung (HCC) Atrial fibrillation with RVR (HCC) Hypotension, unspecified hypotension type Chronic atrial fibrillation (HCC) Expected: 03/23/2024, Expires: 03/23/2025 TSH WITH FREE T4 IF INDICATED Lab Routine Permanent atrial fibrillation (HCC) Dyslipidemia, goal LDL below 70 Asymptomatic bilateral carotid artery stenosis Chronic diastolic congestive heart failure (HCC) Chronic obstructive pulmonary disease, unspecified COPD type (HCC) Tobacco use Malignant neoplasm of middle lobe of right lung (HCC) Atrial fibrillation with RVR (HCC) Hypotension, unspecified hypotension type Chronic atrial fibrillation (HCC) Expected: 03/23/2024, Expires: 03/23/2025 MAGNESIUM Lab Routine Permanent atrial fibrillation (HCC) Dyslipidemia, goal LDL below 70 Asymptomatic bilateral carotid artery stenosis Chronic diastolic congestive heart failure (HCC) Chronic obstructive pulmonary disease, unspecified COPD type (HCC) Tobacco use Malignant neoplasm of middle lobe of right lung (HCC) Atrial fibrillation with RVR (HCC) Hypotension, unspecified hypotension type Chronic atrial fibrillation (HCC) Expected: 03/23/2024, Expires: 03/23/2025 Scheduled Procedures Name Priority Associated Diagnoses Date/Ti [...] exists DISCUSS TOBACCO CESSATION (REFER TO SMARTSET #4234) 12/28/2024 12/29/2023, 06/18/2018 (Discussed) O2 ASSESSMENT COMPLETED IN PAST YEAR FOR COPD 01/05/2025 01/06/2024 DXA Scan 02/25/2025 02/25/2023, 05/0 12/2020, 01/27/2019, Additional history exists Lipid Panel 12/31/2028 01/01/2024, 12/19, 06/15/2020, Additional history exists Zoster Vaccines Completed 08/18/2020, 05/20, 10/22/1999 Pneumococcal Vaccine: 65+ Years Completed 02/27/2022, 05/04/2021, 12/05/2016, Additional history exists Influenza Vaccine (FLU shot) Completed 03/2023, 07/11/2022, 07/07/2021, Additional history exists VITAMIN D LEVEL ONCE IN A LIFETIME-USE SMARTSET# 12514 Completed 11/29/2023, 08/26/2022, 02/01/2021, Additional history exists [...] Documents on File Type Date Recorded Patient Graphics Edit Technician Expl anation Advance Directives and Living Will 03/11/2022 ADVANCE DIRECTIVE / LIVING WILL Power of Radiation Monitor 05/05/2021 POWER OF A TTORNEY * Full [...] Power of Attor alisha? No Care Teams Marketing Writer Relationship Specialty Start Date End Date Kusum Rutherford DO [address] [place] [address] PCP - General Family Medicine 05/01/12 documented as of this encounter"
--- OUTSIDE RECORDS SUMMARY | 2024-05-12 21:34 | External Medical Summary | Summary of Care ---
Author Name Unknown Organization [facility] Address [address] [place] [address] Phone [phone] Care Team Providers Care Drapery And Upholstery Measurer Name Role Phone Kusum Rutherford DO Primary Care Provider Reason for Visit * Reason Comments Dosage Adjustment In Person (Anticoag Cl inic) Encounter Details Date Type Department Care Team (Latest Contact Info) Description 03/18/2024 3:40 PM EDT Anticoagulation Pharm[facility], [facility] [address] Pharmacist1, [facility] [place] [address] Atrial fibrillation with RVR (HCC)*; Drug-induced systemic lupus erythematosus, unspecified organ involvement status (HCC); Permanent atrial fibrillation (HCC); Anticoagulation management encounter Allergies Active Allergy Reactions Criticality Noted Date Comments Pollen Low 11/24/2015 Nasal congestion, watery eyes Other reaction(s): cough, itchy watery eyes, stuffy nose documented as of this encounter (statuses as of 03/18/2024) Medications Medication Sig Dispensed Refills Start Date End Date Status Multiple Vitamin (MULTI VITAMIN) TABS Take by mouth daily at noon . 06/18/2018 Active Pimecrolimus (ELIDEL) 1 % cream Apply topically to affected area 2 times a day. Apply to face and frontal scalp 60 g 11 06/09/2020 Active Acetaminophen 500 MG Oral Tablet (Tylenol) as needed. Active Aspirin EC 81 MG Oral Tablet Delayed ReleaseIndications:H ypotension, unspecified hypotension type,Dyslipidemia, goal LDL below 70,Chronic atrial fibrillation (HCC),Asymptomatic bilateral carotid artery stenosis Take 1 Tablet by mouth daily. 09/17/2021 Active Dicyclomine HCl 10 MG Oral Capsule (Bentyl) Take by mouth 1 Capsule 2 times a day as needed (abdominla pain). 60 Capsule 2 02/25/2022 Active valACYclovir HCl 1 GM Oral Tablet [...] THIN RIBBON DAILY TO TOOTHBRUSH 10/30/2023 Active Nicotine 21 MG/24HR Transdermal Patch 24 Hour (Nicoderm CQ) Place 21 mg topically on the skin daily. 12/21/2023 Active Trelegy Ellipta 100-62.5-25 MCG/ACT Aerosol Powder Breath Activated (Fluticasone-Umeclid inium-Vilanterol) Inhale 1 Puff by mouth. Active Metoprolol Succinate ER 25 MG Oral Tablet Extended Release 24 Hour (toPROL XL)Indications:Perma nent atrial fibrillation (HCC),Atrial fibrillation with RVR (HCC),Dyslipidemia, goal LDL below 70,Hypotension, unspecified hypotension type,Asymptomatic bilateral carotid artery stenosis Take 2 Tablets by mouth in the morning and 2 Tablets before bedtime. 360 Tablet 3 01/09/2024 Active Furosemide 20 MG Oral Tablet (Lasix) Take one tab weekly and as directed for weight 36 Tablet 3 01/09/2024 Active Spironolactone 25 MG Oral Tablet (Aldactone) Take 0.5 Tablets by mouth in the morning. 30 Tablet 5 01/09/2024 Active Azithromycin 250 MG Oral Tablet (Zithromax Z-Harpreet) Please take 500 mg by mouth on day one, followed by 250 mg by mouth for four days. 6 Tablet 01/12/2024 Active methylPREDNISolone 4 MG Oral Tablet Therapy Pack (Medrol Dosepack) follow package directions 21 Tablet 01/12/2024 Active Levothyroxine Sodium 175 MCG Oral Tablet (Levoxyl) Take 1 Tablet by mouth in the morning. (at least 30 min prior to breakfast or other meds). 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 IPMN (intraductal papillary mucinous neoplasm) 0 05/20/2021 Lichen sclerosus et atrophicus 11/29/2020 Senile osteoporosis 02/01/2020 Dyslipidemia, goal LDL below 70 02/23/2019 Hyperparathyroidism, primary 01/12/2019 Pure hypercholesterolemia 01/12/2019 Inflammation of sacroiliac joint 12/15/2018 Atrial fibrillation with RVR 12/15/2018 Malignant neoplasm of middle lobe of lung 2018 Cancer Staging:Clinical stage from 03/08/2022:Stage IA2(cT1b, cN0, cM0) - Signed by Jose Zacarias MD on 03/08/2022 Pathologic stage from 03/13/2022:Stage IB(pT2a, pN0, cM0) - Signed by Jose Zacarias MD on 03/13/2022 Encounter for long-term (current) use of medicat ions 07/14/2018 Personal history of breast cancer 06/18/2018 Overview: 1996 Proteinuria 06/18/2018 Tobacco use disorder 01/21/2017 S/P carotid endarterectomy 01/02/2012 Overview: Right High risk for fracture due to osteoporosis by DE XA scan 11/14/2011 Systemic lupus erythematosus 01/24/2004 Overview: This began in 1987 and was manifested by a photosensitive skin rash, alopecia and abnormal serology. She has been on Plaquenil since October of 1999. Hypothyroidism 01/24/2004 documented as of this encounter (statuses as of 03/18/2024) Resolved Problems Problem Noted Date Diagnosed Date Resolved Date Herpes simplex virus (HSV) infection 11/29/2020 03/07/2022 Persistent atrial fibrillation 02/23/2019 06/26/2021 Hospital discharge follow-up 12/15/2018 03/07/2022 COPD, moderate 06/18/2018 10/03/2022 Overview: Per COPD [...] as of this encounter (statuses as of 03/18/2024) Immunizations Name Administration Dates Next Due COVID-19 mRNA, LNP-s, No Pre serve, 2-Dose Series (Rebit) 08/01/2021,12/28/2020,11/30/2020 COVID-19, MRNA-LNP, 23-24, P F, 30 MCG/0.3 mL, 12 YRS AND ABOVE, IM ([employer]-Comirnaty) 08/26/2023 Covid-19, Mrna, Lnp-s, Pf, B ivalent, [...] Progress Notes * Evangelista Burkett RPh - 03/18/2024 3:42 PM EDT Images from the original note were not included. Medication Therapy Disease Management - Anticoagulation Maria Alejandra Patel 1950 Current Warfarin Dose As of 03/18/2024 Warfarin maintenance plan: 2.5 mg (5 mg x 0.5) every Fri, Fri, Fri; 5 mg (5 mg x 1) all other days Patient Findings Positives: Change in health (Her smoking is down about 20%.) Negatives: Signs/symptoms of thrombosis, Signs/symptoms of bleeding, Change in alcohol use, Change in activity, Upcoming invasive procedure, Missed doses, Extra doses, Change in medications, Change in diet/appetite, Bruising INR Result As of 03/18/2024 INR goal: 2.0-3.0 INR used for dosin.6 (03/18/2024) Warfarin Plan As of 03/18/2024 Full warfarin instructions: 2.5 mg every Fri, Fri, Lily; 5 mg all other days Next INR check: 04/12/2024 Repeat PT/INR in 3 week(s) Weekly dose: decreased Evangelista Green RPh, CACP, CDE Clinical Pharmacist [facility] 03/18/2024 3:49 PM documented in this encounter Plan of Treatment Upcoming Encounters Date Type Department Care Team (Late st Contact Info) Description 03/23/2024 1:30 PM EDT Office Visit Cardiology, [facility] [address] [place] [address] Deborah Yost CRNP [address] [place] [address] 04/12/2024 2:50 PM EDT Anticoagulation Pharmacy, [facility] [address] [place] [address] [address] Pharmacist1, [facility] [address] [place] [address] [address] 04/12/2024 3:00 PM EDT Office Visit Family Practice [facility] [address] [place] [address] [address] Kusum Rutherford DO [address] [place] [address] [address] 2024 1:00 PM EDT Office Visit Dermatology [facility] [place] [address] [address] Alex Parrish MD [address] [place] [address] 06/01/2024 2:30 PM EDT Imaging Radiology [facility]st [facility] [address] [place] [address] 06/07/2024 11:30 AM EDT Office Visit [facility] [address] [place] [address] Jose Zacarias MD [address] [place] [address] 09/07/2024 3:00 PM EST Office Visit Pulmonary Medicine, [facility] [address] [place] [address] Jean Crews MD [address] [place] [address] 11/25/2024 10:20 AM EST Office Visit Rheumatology [place] [address] [place] [address] Nikunj Kessler MD [address] [place] [address] Scheduled Procedures Name Priority Associated Diagnoses Date/Ti [...] 10/20, 11/01/2019, Additional history exists COVID-19 Vaccine (24 season) 2023 08/26/2023, 08/09/2022, 08/01/2021, Additional history exists TSH 12/26/2023 12/25/2022, 05/20, 03/06/2022, Additional history exists DISCUSS TOBACCO CESSATION (REFER TO SMARTSET #7251) 12/28/2024 12/29/2023, 06/18/2018 (Discussed) O2 ASSESSMENT COMPLETED [...] D LEVEL ONCE IN A LIFETIME-USE SMARTSET# 28827 Completed 11/29/2023, 08/26/2022, 02/01/2021, Additional history exists GARDASIL-HPV IMMUNIZATION SERIES Aged Out No longer eligible based on patient's age to complete this topic documented as of this encounter Medical Devices Not on filedocumented as of this encounter Procedures Procedure Name Priority Date/Time Associated Diagnosis Comments INR FINGERSTICK, POINT OF CARE STAT 03/18/2024 3:45 PM EDT Atrial fibrillation with RVR (HCC) Permanent atrial fibrillation (HCC) Anticoagulation management encounter documented in this encounter Results * INR FINGERSTICK, POINT OF CARE (03/18/2024 3:45 PM EDT) Fingerstick INR 4.6 INR 4:08 PM EDT [facility] 56-02 Blood 03/18/2024 3:45 PM EDT 03/18/2024 4:08 PM EDT Narrative [facility] 56-02 - 03/18/2024 4:08 PM EDT Therapeutic ranges for non-operative patients: Prophylaxsis/treatment of DVT: (Range:2.0-3.0) Treatment of pulmonary embolism:(Range:2.0-3.0) Prevention of systemic embolism from: -tissue heart valves -acute myocardial infarction -valvular heart disease -atrial fibrillation (Range: 2.0-3.0) Mechanical prosthetic valves: (Range: 2.5-3.5) Evangelista Norma V, [facility] POINT OF CARE TE ST DOCKED DEVICE UNSOLICITED RESULTS [facility] [address] [place], [place] [id number] documented in this encounter Visit Diagnoses Diagnosis Atrial fibrillation with RVR (HCC)- Primary Atrial fibrillation Drug-induced systemic lupus erythematosus, unspecified organ involvement status (HCC) Permanent atrial fibrillation (HCC) Atrial fibrillation Anticoagulation management encounter Encounter for therapeutic drug monitoring documented in this encounter Advance Directives Documents on File Type Date Recorded Patient Technology Resource Teacher Expl anation Advance Directives and Living Will 03/11/2022 ADVANCE DIRECTIVE / LIVING WILL Power of Reinsurance Claim Analyst 05/05/2021 POWER OF A TTORNEY * Full [...] Power of Attor alisha? No Care Teams Drapery And Upholstery Measurer Relationship Specialty Start Date End Date Kusum Rutherford DO [address] [place] [address] PCP - General Family Medicine 05/01/12 documented as of this encounter
--- OUTSIDE RECORDS SUMMARY | 2024-05-12 21:34 | External Medical Summary | Summary of Care ---
Author Name Unknown Organization [facility] Address [address] [place] [address] Phone [phone] Care Team Providers Care Clinical Research Management Associate Name Role Phone ChintanraeganKusum DO Primary Care Provider Encounter Details Date Type Department Care Team (Late st Contact Info) Description 12/16/2023 Result Scan Unspecified Department <No scans attached> Allergies Active Allergy Reactions Criticality Noted Date Comments Pollen Low 11/24/2015 Nasal congestion, watery eyes Other reaction(s): cough, itchy watery eyes, stuffy nose documented as of this encounter (statuses as of 03/24/2024) Medications Medication Sig Dispensed Refills Start Date [...] THIN RIBBON DAILY TO TOOTHBRUSH 10/30/2023 Active documented as of this encounter (statuses as of 03/24/2024) Active Problems Problem Noted Date Diagnosed Date [...] as of this encounter (statuses as of 03/24/2024) Resolved Problems Problem Noted Date Diagnosed Date [...] as of this encounter (statuses as of 03/24/2024) Immunizations Name Administration Dates Next Due COVID-19 mRNA, LNP-s, No Pre serve, 2-Dose Series ([employer]) 08/01/2021,12/28/2020,11/30/2020 COVID-19, MRNA-LNP, 23-24, P F, 30 MCG/0.3 mL, 12 YRS AND ABOVE, IM ([employer]-Comirnaty) 08/26/2023 Covid-19, Mrna, Lnp-s, Pf, B ivalent, [...] Date Smoking Tobacco: Every Day Cigarettes 2.5 55 Smokeless Tobacco: Never Alcohol Use Standard Drinks/Week Comments No 0 [...] 04/01/2024 10:00 AM EDT Office Visit Cardiology, [facility] [address] [address] Anthony Sawyer MD [address] [address] 04/12/2024 2:50 PM EDT Anticoagulation Pharmacy, [facility] [address] Pharmacist1, [facility] 200 [facility] [place], [place] [address] 04/12/2024 3:00 PM EDT Office Visit Family Practice [facility] [address] [place], [place] [address] Kusum Rutherford DO 200 [facility] [place], [place] [address] 2024 1:00 PM EDT Office Visit Dermatology [facility] 200 [facility] [place], [place] [address] Alex Parrish MD 200 [facility] [place], [place] [address] 06/01/2024 2:30 PM EDT Imaging Radiology [facility] 1st [facility] [address] [place] [address] 06/07/2024 11:30 AM EDT Office Visit Thoracic Surg [facility], [place] [address] [place] [address] Jose Zacarias MD [address] [place], [place] [id number] 09/07/2024 3:00 PM EST Office Visit Pulmonary Medicine, [facility] [address] [place] [address] Jean Crews MD [address] [place] [facility] [place] [address] 11/25/2024 10:20 AM EST Office Visit Rheumatology [facility] [address] [place], [place] [address] Nikunj Kessler MD [address] [place], [place] [address] Scheduled Procedures Name Priority Associated Diagnoses Date/Ti [...] exists DISCUSS TOBACCO CESSATION (REFER TO SMARTSET #0197) 12/28/2024 12/29/2023, 06/18/2018 (Discussed) O2 ASSESSMENT COMPLETED [...] D LEVEL ONCE IN A LIFETIME-USE SMARTSET# 00000 Completed 11/29/2023, 08/26/2022, 02/01/2021, Additional history exists GARDASIL-HPV IMMUNIZATION SERIES Aged Out No longer eligible based on patient's age to complete this topic documented as of this encounter Medical Devices Not on filedocumented as of this encounter Procedures Procedure Name Priority Date/Time Associated Diagnosis Comments ECHOCARDIOLOGY SCANNED RESULT 12/16/2023 documented in this encounter Results * ECHOCARDIOLOGY SCANNED RESULT (12/16/2023) 12/16/2023 No Physician Data Unknown ECHOCARDIOLOGY documented in this encounter Advance Directives Documents on File Type Date Recorded Patient Civil Clerk Expl anation Advance Directives and Living Will 03/11/2022 ADVANCE DIRECTIVE / LIVING WILL Power of Installation Technician 05/05/2021 POWER OF A TTORNEY * Full [...] Power of Attor alisha? No Care Teams Clinical Research Management Associate Relationship Specialty Start Date End Date Kusum Rutherford DO [address] [place] [address] PCP - General Family Medicine 05/01/12 documented as of this encounter
--- OUTSIDE RECORDS SUMMARY | 2024-05-12 21:34 | External Medical Summary | Summary of Care ---
Author Name Unknown Organization [facility] Address [address] [place] [address] Phone [phone] Care Team Providers Care Cashier Clerk Name Role Phone Kusum Rutherford DO Primary Care Provider Reason for Visit * Reason Onset Date Comments Appointment 12/22/2023 Encounter Details Date Type Department Care Team (Late st Contact Info) Description 12/22/2023 Telephone Pharmacy, [facility] [place] [address] [facility] [place] [address] Pharmacist1, [facility] 200 [facility] [place] [address] Appointment Allergies Active Allergy Reactions Criticality Noted Date Comments Pollen Low 11/24/2015 Nasal congestion, watery eyes Other reaction(s): cough, itchy watery eyes, stuffy nose documented as of this encounter (statuses as of 03/22/2024) Medications Medication Sig Dispensed Refills Start Date [...] as of this encounter (statuses as of 03/22/2024) Active Problems Problem Noted Date Diagnosed Date [...] as of this encounter (statuses as of 03/22/2024) Resolved Problems Problem Noted Date Diagnosed Date [...] as of this encounter (statuses as of 03/22/2024) Immunizations Name Administration Dates Next Due COVID-19 mRNA, LNP-s, No Pre serve, 2-Dose Series ([employer]) 08/01/2021,12/28/2020,11/30/2020 COVID-19, MRNA-LNP, 23-24, P F, 30 MCG/0.3 mL, 12 YRS AND ABOVE, IM ([employer]-Comirnat[employer]) 08/26/2023 Covid-19, Mrna, Lnp-s, Pf, B ivalent, 30 Mcg, IM, 12 yrs and above ([employer]) 08/09/2022 HEP A - Hepatitis A (Adult [...] encounter Miscellaneous Notes * Telephone Encounter - Evangelista Burkett RPh - 12/22/2023 9:20 AM EST Noted. Evangelista Green RPh, [facility] Clinical Pharmacist [facility] 12/22/2023, 9:20 AM * Telephone Encounter - Nakita Mitchell OSA - 12/22/2023 9:16 AM EST Caller's name: noris Preferred call back number(OFFICE NUMBER FOR ): [phone] Reason for call: pt aware she has to come in this week for inr, but she will c/b after she gets herpcp apt Thank you, Nakita Mitchell Division Plant Engineer [facility] ([facility] (Formerly [facility]) 12/22/2023,9:16 AM documented in this encounter Plan of Treatment Upcoming Encounters Date Type Department Care Team (Late st Contact Info) Description 03/23/2024 1:30 PM EDT Office Visit Cardiology, [facility] [address] [place] [address] Deborah Yost CRNP [address] [place] [address] 04/12/2024 2:50 PM EDT Anticoagulation Pharmacy, [facility] [address] [place] [address] Pharmacist1, [facility] [address] [facility] [place] [address] 04/12/2024 3:00 PM EDT Office Visit Family Practice [facility] [address] [place] [address] Kusum Rutherford, [address] [place] [address] 2024 1:00 PM EDT Office Visit Dermatology [facility] 200 [facility] [place], [place] [address] Alex Parrish MD 200 [facility] [place] [address] 06/01/2024 2:30 PM EDT Imaging Radiology [facility] 1st [facility] [address] [place] [address] 06/07/2024 11:30 AM EDT Office Visit Thoracic Surg [facility] [place] [address] [place] [address] Jose Zacarias MD [address] [place] [address] 09/07/2024 3:00 PM EST Office Visit Pulmonary Medicine, [facility] [address] [place] [address] Jean Crews MD [address] [place] [address] 11/25/2024 10:20 AM EST Office Visit Rheumatology [place] [address] [facility] [place], [place] [address] Nikunj Kessler MD [address] [place] [address] Scheduled Procedures Name Priority Associated Diagnoses Date/Ti [...] exists DISCUSS TOBACCO CESSATION (REFER TO SMARTSET #0835) 12/28/2024 12/29/2023, 06/18/2018 (Discussed) O2 ASSESSMENT COMPLETED [...] D LEVEL ONCE IN A LIFETIME-USE SMARTSET# 61871 Completed 11/29/2023, 08/26/2022, 02/01/2021, Additional history exists GARDASIL-HPV IMMUNIZATION SERIES Aged Out No longer eligible based on patient's age to complete this topic documented as of this encounter Medical Devices Not on filedocumented as of this encounter Advance Directives Documents on File Type Date Recorded Patient Sampler Radioactive Waste Expl anation Advance Directives and Living Will 03/11/2022 ADVANCE DIRECTIVE / LIVING WILL Power of Equipment Washer 05/05/2021 POWER OF A TTORNEY * Full [...] Power of Attor alisha? No Care Teams Cashier Clerk Relationship Specialty Start Date End Date Kusum Rutherford DO [address] [place] [address] PCP - General Family Medicine 05/01/12 documented as of this encounter
--- OUTSIDE RECORDS SUMMARY | 2024-05-12 21:34 | External Medical Summary ---
Author Name Unknown Address Unknown Organization [id number]:[facility] [place] [address] Laboratory Report Ordering Provider Test Date Status SENG TIWARI V 03/18/2024 15:45:27 Final Therapeutic ranges for non-o perative patients:
Prophylaxsis/treatment of DVT: (Range:2.0-3.0)
Treatment of pulmonary embolism:(Range:2.0-3.0)
Prevention of systemic embolism from:
-tissue heart valves
-acute myocardial infarction
-valvular heart disease
-atrial fibrillation
(Range: 2.0-3.0)
Mechanical prosthetic valves: (Range: 2.5-3.5) Observation Date Value Abnormality Reference (Units ) Status INR in Capillary blood by Coagulation assay 03/18/2024 15:45:27 4.6 (INR) Final Performing Location [facility] [place] [address]
--- OUTSIDE RECORDS SUMMARY | 2024-05-12 21:34 | External Medical Summary ---
Author Name Unknown Address Unknown Organization [id number]:[facility] [place] [place] [address] Laboratory Report Ordering Provider Test Date Status BRANDY JAUREGUI 03/30/2024 13:01:43 Final Observation Date Value Abnormality Reference (Units ) Status WBC, Total 03/30/2024 13:01:43 4.91 4.00-10.8 0 (K/uL) Final RBC 03/30/2024 13:01:43 4.98 3.85-5.15 (M/uL) Final Hemoglobin 03/30/2024 13:01:43 11.3 Below low normal 12 .0-15.3 (g/dL) Final HCT 03/30/2024 13:01:43 38.7 36.0-45.2 (%) Final MCV 03/30/2024 13:01:43 77.7 81.5-97.5 (fL) Final MCH 03/30/2024 13:01:43 22.7 27.0-34.0 (pg) Final MCHC 03/30/2024 13:01:43 29.2 32.0-36.0 (g/dL) Final RDW 03/30/2024 13:01:43 25.7 11.5-15.5 (%) Final Platelets 03/30/2024 13:01:43 135 Below low normal 140 -400 (K/uL) Final MPV 03/30/2024 13:01:43 Final No result - abnormal platele t distribution. Performing Location [facility] [place] [place] [address]
--- OUTSIDE RECORDS SUMMARY | 2024-05-12 21:34 | External Medical Summary ---
Author Name Unknown Address Unknown Organization [id number][facility] [place] [address] [place] [address] Laboratory Report Ordering Provider Test Date Status SAE VARELA 03/30/2024 13:01:43 Final Observation Date Value Abnormality Reference (Units ) Status T4, Free 03/30/2024 13:01:43 1.8 Above high normal 0. 9-1.7 (ng/dL) Final Performing Location [facility] - [address] [address]
--- OUTSIDE RECORDS SUMMARY | 2024-05-12 21:35 | External Medical Summary | Summary of Care ---
Author Name Unknown Organization [facility] Address [address] [place] [address] Phone [phone] Care Team Providers Care Web Page Designer Name Role Phone KrishKusum DO Primary Care Provider Reason for Visit * Reason Comments Follow Up Lung Ca Encounter Details Date Type Department Care Team (Latest Contact Info) Description 03/01/2024 2:30 PM EDT Office Visit Thoracic Surg [facility] [address] [place] [address] Jose Zacarias MD [address] [place] [address] Malignant neoplasm of middle lobe of lung (HCC)*; Bilateral pleural effusion; COPD, group B, by GOLD 2017 classification (HCC); PARRA (dyspnea on exertion) Allergies Active Allergy Reactions Criticality Noted Date Comments Pollen Low 11/24/2015 Nasal congestion, watery eyes Other reaction(s): cough, itchy watery eyes, stuffy nose documented as of this encounter (statuses as of 03/01/2024) Medications Medication Sig Dispensed Refills Start Date End Date Status Multiple Vitamin (MULTI VITAMIN) TABS Take by mouth daily at noon . 0 06/18/2018 Active Pimecrolimus (ELIDEL) 1 % cream Apply topically to affected area 2 times a day. Apply to face and frontal scalp 60 g 11 06/09/2020 Active Acetaminophen 500 MG Oral Tablet (Tylenol) as needed. 0 Active Aspirin EC 81 MG Oral Tablet Delayed ReleaseIndications:H ypotension, unspecified hypotension type,Dyslipidemia, goal LDL below 70,Chronic atrial fibrillation (HCC),Asymptomatic bilateral carotid artery stenosis Take 1 Tablet by mouth daily. 0 09/17/2021 Active Dicyclomine HCl 10 MG Oral Capsule (Bentyl) Take by mouth 1 Capsule 2 times a day as needed (abdominla pain). 60 Capsule 2 02/25/2022 Active valACYclovir HCl 1 GM Oral Tablet (Valtrex) Take by mouth 0.5 Tablets in the morning AND 0.5 Tablets before bedtime. 14 Tablet 5 05/30/2022 Active Vitamin D 25 MCG (1000 UT) Oral Tablet 0 Active Clobetasol Propionate 0.05 % External Ointment [...] or Wheezing. 18 g 3 02/25/2023 Active Levothyroxine Sodium 175 MCG Oral Tablet (Levoxyl) Take 1 Tablet by mouth in the morning. (at least 30 min prior to breakfast or other meds). 30 Tablet 11 03/03/2023 Active Warfarin Sodium 5 MG Oral Tablet [...] Paste APPLY THIN RIBBON DAILY TO TOOTHBRUSH 0 10/30/2023 Active Nicotine 21 MG/24HR Transdermal Patch 24 Hour (Nicoderm CQ) Place 21 mg topically on the skin daily. 0 12/21/2023 Active Trelegy Ellipta 100-62.5-25 MCG/ACT Aerosol Powder Breath Activated (Fluticasone-Umeclid inium-Vilanterol) Inhale 1 Puff by mouth. 0 Active Metoprolol Succinate ER 25 MG Oral [...] by mouth for four days. 6 Tablet 0 01/12/2024 Active methylPREDNISolone 4 MG Oral Tablet Therapy Pack (Medrol Dosepack) follow package directions 21 Tablet 0 01/12/2024 Active documented as of this encounter (statuses as of 03/01/2024) Active Problems Problem Noted Date Diagnosed Date [...] as of this encounter (statuses as of 03/01/2024) Resolved Problems Problem Noted Date Diagnosed Date [...] as of this encounter (statuses as of 03/01/2024) Immunizations Name Administration Dates Next Due COVID-19 mRNA, LNP-s, No Pre serve, 2-Dose Series ([employer]) 08/01/2021,12/28/2020,11/30/2020 COVID-19, MRNA-LNP, 23-24, P F, 30 MCG/0.3 mL, 12 YRS AND ABOVE, IM (PFIZER-Comirnaty) 08/26/2023 Covid-19, Mrna, Lnp-s, Pf, B ivalent, [...] as of this encounter Progress Notes * Jose Zacarias MD - 03/01/2024 2:29 PM EDT THORACIC SURGERY LUNG CANCER SURVEILLANCE VISIT 03/01/2024 Last visit = 09/01/2023 After connecting to the patient via telephone, the patient was identified by name and date of . Patient was then informed that this was a telephone call only visit. The patient agreed to participate. Visit Disposition: Routine follow-up (see Assessment and Plan at the bottom of this note). Total call duration was 12 minutes. Since last visit: 1. She was hospitalized Fe into December (2023) at [facility]. -- sounds like heart failure and/or COPD exacerbation -- she says she had lots of edema and was hypoxic -- she's been on increased diuresis -- she's been on home oxygen 2. Denies any other major new changes. 3. Returns for ongoing lung cancer surveillance. Surgery Date: 03/08/2022 Operation: Robotic right middle lobe lung wedge resection (therapeutic) and lymphadenectomy Diagnosis: Early stage squamous cell lung carcinoma Review of patient's allergies indicates: Allergen Reactions [...] 500 MG Oral Tablet (Tylenol) as needed. Aspirin EC 81 MG Oral Tablet Delayed Release Take 1 Tablet by mouth daily. Dicyclomine HCl 10 MG Oral Capsule (Bentyl) Take by mouth 1 Capsule 2 times a day as needed (abdominla pain). 60 Capsule 2 valACYclovir HCl 1 GM Oral Tablet (Valtrex) [...] of Breath or Wheezing. 18 g 3 Levothyroxine Sodium 175 MCG Oral Tablet (Levoxyl) Take 1 Tablet by mouth in the morning. (at least30 min prior to breakfast or other meds). 30 Tablet 11 Warfarin Sodium 5 MG Oral Tablet (Coumadin) [...] Paste APPLY THIN RIBBON DAILY TO TOOTHBRUSH Nicotine 21 MG/24HR Transdermal Patch 24 Hour (Nicoderm CQ) Place 21 mg topically on the skin daily. (Patient not taking: Reported on 01/09/2024) Trelegy Ellipta 100-62.5-25 MCG/ACT Aerosol Powder Breath Activated (Cdigrpntaqx-Blwbnoqkzyqk-Lakyarmhsi) Inhale 1 Puff by mouth. Metoprolol Succinate ER 25 MG Oral Tablet Extended Release 24 Hour (toPROL XL) Take 2 Tablets by mouth in the morning and 2 Tablets before bedtime. 360 Tablet 3 Furosemide 20 MG Oral Tablet (Lasix) Take one tab weekly and as directed for weight 36 Tablet 3 Spironolactone 25 MG Oral Tablet (Aldactone) Take 0.5 Tablets by mouth in the morning. 30 Tablet 5 Azithromycin 250 MG Oral Tablet (Zithromax Z-Harpreet) Please take 500 mg by mouth on day one, followed by 250 mg by mouth for four days. 6 Tablet 0 methylPREDNISolone 4 MG Oral Tablet Therapy Pack (Medrol Dosepack) follow package directions 21 Tablet 0 No current facility-administered medications for this visit. 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 Atrial fibrillation with RVR (HCC) I48.91 Malignant neoplasm of middle lobe of lung (HCC) C34.2 Hyperparathyroidism, primary (HCC) E21.0 Pure hypercholesterolemia E78.00 Dyslipidemia, goal LDL below 70 E78.5 Senile osteoporosis M81.0 Lichen sclerosus et atrophicus L90.0 PARRA (dyspnea on exertion) R06.09 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 IPMN (intraductal papillary mucinous neoplasm) D49.0 Permanent atrial fibrillation (HCC) I48.21 COPD, group B, by GOLD 2017 classification (HCC) J44.9 Hyperparathyroidism (HCC) E21.3 Chronic atrial fibrillation (HCC) I48.20 Bilateral pleural effusion J90 Past Medical History: Diagnosis Date Benign neoplasm [...] & serrated adenoma polyps, diverticulosis, repeat 3 yrs/[facility] COLONOSCOPY, DIAGNOSTIC (RECTUM) 12/08/2019 serrated adenomatous polyps, diverticulosis, repeat 3 yrs / [facility] EGD, FLEXIBLE,W/ENDOSCOPIC US 06/19/2018 pancreatic cyst, repeat 6 mo/[facility] EGD, FLEXIBLE,W/ENDOSCOPIC US 12/10/2019 mucinous cyst / [facility] EGD, W/ENDOSCOPIC US 07/31/2020 mucinous pancreatic cyst, liver cyst / ESOPHAGOGASTRODUODENOSCOPY (EGD), FLEXIBLE, TRANSORAL, ENDOSCOPIC ULTRASOUND performed by Honorio Bradford DO at [facility] EGD, W/ENDOSCOPIC US 02/12/2021 cyst on left lobe, Hyperechoic material consistent with sludge, normal egd / biopiescytology showedno evidence of a malignancy / ESOPHAGOGASTRODUODENOSCOPY (EGD), FLEXIBLE, TRANSORAL, ENDOSCOPIC ULTRASOUND performed by Honorio Bradford DO at [facility] IR BIOPSY 01/14/2022 LYMPHADENECTOMY VIA THORACOSCOPY Right 03/08/2022 ROBOTIC THORACOSCOPY WITH LYMPHADENECTOMY performed by Jose Zacarias MD at [facility] MISCELLANEOUS ORDER ([facility] ONLY) 1995 right breast lumpectomy MISCELLANEOUS ORDER ([facility] ONLY) 1957 tonsilectomy MISCELLANEOUS ORDER ([facility] ONLY) 1951 patent ductus surgery- heart anomoly as a child PARTIAL REMOVAL OF PANCREAS N/A 05/02/2021 LAPAROSCOPIC PANCREATECTOMY DISTAL SUBTOTAL performed by Vikotr De La Torre MD at [facility] THORACOSCOPY W/ WEDGE RESECTION, INITIAL Right 03/08/2022 ROBOTIC THORACOSCOPY W/ WEDGE RESECTION, INITIAL performed by Jose Zacarias MD at [facility] THROMBOENDARECTOMY W/PATCH,NECK INCISION 04/07/2009 right carotid endarterectomy with Bovine patch angioplasty 04/07/09, [facility], Dr. nAaya Social History Socioeconomic History Marital status: Single Spouse name: Not on file Number of children: 0 Years of education: Not on file Highest education level: Not on file Occupational History Occupation: retired Employer: [email or web address] Tobacco Use Smoking status: Every Day Current packs/day: 2.50 Average packs/day: 2.5 packs/day for 56.4 years (140.9 ttl pk-yrs) Types: Cigarettes Start date: 1967 Smokeless tobacco: Never Tobacco comments: 2 packs daily 01/06/24 Vaping Use Vaping Use: Never used Substance and Sexual Activity Alcohol use: No Drug use: No Sexual activity: Not on file Other Topics Concern Not on file Social History Narrative No pets. No mold. Social Determinants of Health Financial Resource Strain: Not on file Food Insecurity: Not on file Transportation Needs: Not on file Physical Activity: Not on file Stress: Not on file Social Connections: Not on file Intimate Partner Violence: Not on file Housing Stability: Not on file Family History Problem Relation Age of Onset Ear Problems Mother Thyroid Disorder Mother graves Allergies Father Arthritis Father Hypertension Father Heart Disorder Father valve replacement Colon cancer Sister Cancer Grandfather (Maternal) breast REVIEW OF SYSTEMS: Any pertinent positives are noted in the HPI; all others are negative. PHYSICAL EXAM: There were no vitals filed for this visit. There is no height or weight on file to calculate BMI. Exam deferred -- telephonic and/or telemedicine encounter during COVID- pandemic. IMAGIN02/23/2024 CT Chest: -- enlarging right pleural effusion -- small left pleural effusion -- no new lung nodules or adenopathy 08/25/2023 CT Chest: -- CR (no evidence of disease) 03/04/2023 CT Chest: -- CR (no evidence of disease) 07/09/2022 PET/CT: -- CR (no evidence of disease) -- new diffuse dilatation of fluid-filled small bowel ASSESSMENT / PLAN: 1. Overall doing reasonably well following 03/08/2022 robotic right middle lobe therapeutic lung wedge resection and franco dissection. Cancer Staging Malignant neoplasm of middle lobe of lung (HCC) Staging form: Lung, AJCC 8th Edition - Clinical stage from 03/08/2022: Stage IA2 (cT1b, cN0, cM0) - Signed by Jose Zacarias MD on 03/08/2022 - Pathologic stage from 03/13/2022: Stage IB (pT2a, pN0, cM0) - Signed by Jose Zacarias MD on 03/13/2022 2. Lung cancer disease status: No Evidence of Disease (CR). -- following R0 surgical resection -- following ongoing CT imaging surveillance -- enlarging pleural effusions are noted -- these may be explained by heart failure -- recommend short interval repeat imaging 3. Follow-up and/or surveillance plan: -- maintain follow-up with cardiology and pulmonology -- repeat CT chest in 3 months given the pleural effusions 4. All questions answered to apparent satisfaction. Jose Zacarias MD FACS System Chief, Thoracic Surgery [facility] [place] [address] [place] [phone] documented in this encounter Plan of Treatment Upcoming Encounters Date Type Department Care Team (Late st Contact Info) Description 03/16/2024 2:50 PM EDT Anticoagulation Pharmacy, [facility] [address] [facility] [place] [address] Pharmacist1, [facility] [address] [facility] [place] [address] 03/23/2024 1:30 PM EDT Office Visit Cardiology, [facility] [address] [place] [address] Deborah Yost CRNP [address] [place] [address] 04/12/2024 3:00 PM EDT Office Visit Family Practice [facility] [address] [facility] [place] [address] Kusum Rutherford, [address] [place] [address] 2024 1:00 PM EDT Office Visit Dermatology [facility] [address] [place] [address] Alex Parrish MD [address] [place] [address] 09/07/2024 3:00 PM EST Office Visit Pulmonary Medicine, [facility] [address] [facility] [place] [address] Jean Crews MD [address] [place] [address] 11/25/2024 10:20 AM EST Office Visit Rheumatology [facility] [address] [place] [address] Nikunj Kessler MD [address] [place], [place] [address] Scheduled Procedures Name Priority Associated Diagnoses Date/Ti [...] 02/08/2023 02/08/2022, 10/20, 11/01/2019, Additional history exists TSH 12/26/2023 12/25/2022, 05/20, [...] Completed 03/2023, 07/11/2022, 07/07/2021, Additional history exists COVID-19 Vaccine Completed 08/26/2023, , 08/01/2021, Additional history exists VITAMIN D LEVEL ONCE IN A LIFETIME-USE SMARTSET# [id number] Completed 11/29/2023, 08/26/2022, 02/01/2021, Additional history exists GARDASIL-HPV IMMUNIZATION SERIES Aged Out No longer eligible based on patient's age to complete this topic documented as of this encounter Medical Devices Not on filedocumented as of this encounter Visit Diagnoses Diagnosis Malignant neoplasm of middle lobe of lung (HCC)- Primary Malignant neoplasm middle lobe, bronchus or lung Bilateral pleural effusion Unspecified pleural effusion COPD, group B, by GOLD 2017 classification (HCC) PARRA (dyspnea on exertion) Other dyspnea and respiratory abnormality documented in this encounter Advance Directives Documents on File Type Date Recorded Patient Tick Eradicator Expl anation Advance Directives and Living Will 03/11/2022 ADVANCE DIRECTIVE / LIVING WILL Power of Protein Specialist 05/05/2021 POWER OF A TTORNEY Latest Code Status on File Code Status Date Activated Date Inactivated Comments Full Code 03/08/2022 10:35 AM 03/11/2022 6:03 PM This order reflects the patients wishes and were consensually agreed upon. Code Status History Code Status Date Activated Date Inactivated Comments Full Code 05/02/2021 2:05 PM 05/04/2021 7:49 PM Question Answer Comments Discussion of Advance Direct lupe occurred with: Not Discussed Does the patient have a Living Will? No Does the patient have Health Care Power of Protein Specialist? No Full Code 05/02/2021 10:57 AM 05/02/2021 2:05 PM Question Answer Comments Discussion of Advance Direct lupe occurred with: Not Discussed Does the patient have a Living Will? No Does the patient have Health Care Power of Protein Specialist? No Care Teams Web Page Designer Relationship Specialty Start Date End Date Kusum Rutherford DO [address] [place] [address] PCP - General Family Medicine 05/01/12 documented as of this encounter
--- OUTSIDE RECORDS SUMMARY | 2024-05-12 21:35 | External Medical Summary | Summary of Care ---
Author Name Unknown Organization [facility] Address [address] [place] [address] Phone [phone] Care Team Providers Care Inspector Scales Name Role Phone Gianni Rutherford DO Primary Care Provider Reason for Visit * Reason Onset Date Comments Medication Refill 03/02/2024 Encounter Details Date Type Department Care Team (Late st Contact Info) Description 03/02/2024 Refill Family Practice [facility] [address] [facility] [place] [address] Gianni [facility] [id number] Encounter for long-term (current) use of medications* Allergies Active Allergy Reactions Criticality Noted Date Comments Pollen Low 11/24/2015 Nasal congestion, watery eyes Other reaction(s): cough, itchy watery eyes, stuffy nose documented as of this encounter (statuses as of 03/12/2024) Medications Medication Sig Dispensed Refills Start Date [...] Aspirin EC 81 MG Oral Tablet Delayed ReleaseIndications :Hypotension, unspecified hypotension type,Dyslipidemia, goal LDL below 70,Chronic [...] ) Inhale 1 Puff by mouth. Active Metoprolol Succinate ER 25 MG Oral Tablet Extended Release 24 Hour (toPROL XL)Indications:Per manent atrial fibrillation (HCC),Atrial fibrillation with RVR (HCC),Dyslipidemia , goal LDL below 70,Hypotension, unspecified hypotension type,Asymptomatic [...] or other meds). 90 Tablet 03/03/2024 Active Levothyroxine Sodium 175 MCG Oral Tablet (Levoxyl) Take 1 Tablet by mouth in the morning. (at least 30 min prior to breakfast or other meds). 30 Tablet 11 03/03/2023 4 Discontinue d(Refill) documented as of this encounter (statuses as of 03/12/2024) Active Problems Problem Noted Date Diagnosed Date [...] 03/08/2022:Stage IA2(cT1b, cN0, cM0) - Signed by Facktor, Jose A, MD on 03/08/2022 Pathologic stage from 03/13/2022:Stage [...] as of this encounter (statuses as of 03/12/2024) Resolved Problems Problem Noted Date Diagnosed Date [...] as of this encounter (statuses as of 03/12/2024) Immunizations Name Administration Dates Next Due COVID-19 mRNA, LNP-s, No Pre serve, 2-Dose Series ([employer]) 08/01/2021,12/28/2020,11/30/2020 COVID-19, MRNA-LNP, 23-24, P F, 30 MCG/0.3 mL, 12 YRS AND ABOVE, IM ([facility] 08/26/2023 Covid-19, Mrna, Lnp-s, Pf, B [...] encounter Miscellaneous Notes * Telephone Encounter - Mei Blanco CPhT - 03/12/2024 3:43 PM EDT Received message from [facility] regarding patient needing labs. Call Placed, Unable to reach pt, as therewas no answer and no VM available to leave message. Sent the patient a MyG message to advise. Thank you, Mei Blanco [facility] Disk Operator III [facility] ([facility]) 03/12/2024,3:43 PM * Telephone Encounter - Nichole Nieto [facility] - 03/03/2024 1:17 PM EDTSigned Prescriptions: Disp Refills Levothyroxine Sodium 175 MCG Oral Tablet (*90 Tab*0 Sig: Take 1 Tablet by mouth in the morning. (at least 30 min prior to breakfast or other meds). Authorizing Provider: GIANNI RUTHERFORD User: NICHOLE NIETO Electronically signed by Nichole Nieto [facility] at 03/03/2024 1:17 PM EDT * Telephone Encounter - Nichole Nieto [facility] - 03/03/2024 1:16 PM EDT Provided 90 days supply with 0 refill(s) until upcoming appointment. Per refill protocol patient should have tsh/t4 on file within past year. Reviewed AMP report, Care Gaps/Health Maintenance, medications list, and for any routine labs typically ordered for this patient. Lab orders placed. Please contact patient to advise of labs ordered for blood draw. Fasting is not required. Advise toobtain labs before her scheduled office visit 04/12/2024. Thanks, Nichole Nieto, PharmD Clinical Pharmacist [facility] ([facility] - [facility]) [phone] 03/03/2024 1:16 PM Electronically signed by Nichole Nieto [facility] at 03/03/2024 1:17 PM EDT documented in this encounter Plan of Treatment Upcoming Encounters Date Type Department Care Team (Late st Contact Info) Description 03/16/2024 2:50 PM EDT Anticoagulation Pharmacy, [facility] [address] [place] [address] Pharmacist1, [facility] [address] [place] [address] 03/23/2024 1:30 PM EDT Office Visit Cardiology, [facility] [address] [place] [address] Deborah Yost CRNP [address] [place] [address] 04/12/2024 3:00 PM EDT Office Visit Family Practice [facility] [address] [place] [address] Gianni Rutherford DO 200 [facility] [place] [address] 2024 1:00 PM EDT Office Visit Dermatology [facility] [address] [place] [address] Alex Parrish MD 200 [facility] [place], [place] [address] 06/01/2024 2:30 PM EDT Imaging Radiology [facility] [facility] [address] [place] [address] 06/07/2024 11:30 AM EDT [facility] [address] [place] [address] Jose Zacarias MD [address] [place] [address] 09/07/2024 3:00 PM EST Office Visit Pulmonary Medicine, [facility] [address] [place] [address] Jean Crews MD [address] [facility] [place] [address] 11/25/2024 10:20 AM EST Office Visit Rheumatology [facility] [address] [facility] [place] [address] Nikunj Kessler MD [address] [place] [address] Scheduled Orders Name Type Priority Associated Diagnoses Orde r Schedule TSH WITH FREE T4 IF INDICATED Lab Routine Encounter for long-term (current) use of medications Expected: 03/03/2024 (Approximate), Expires: 03/03/2025 Scheduled Procedures Name Priority Associated Diagnoses Date/Ti [...] D LEVEL ONCE IN A LIFETIME-USE SMARTSET# [id number] Completed 11/29/2023, 08/26/2022, 02/01/2021, Additional history exists GARDASIL-HPV IMMUNIZATION SERIES Aged Out No longer eligible based on patient's age to complete this topic documented as of this encounter Medical Devices Not on filedocumented as of this encounter Visit Diagnoses Diagnosis Encounter for long-term (current) use of medications- Primary Encounter for long-term (current) use of other medications documented in this encounter Advance Directives Documents on File Type Date Recorded Patient Packaging Sales Consultant Expl anation Advance Directives and Living Will 03/11/2022 ADVANCE DIRECTIVE / LIVING WILL Power of Internet Marketing Coordinator 05/05/2021 POWER OF A TTORNEY * Full [...] Power of Attor alisha? No Care Teams Inspector Scales Relationship Specialty Start Date End Date Gianni Rutherford DO [address] [place], [place] [phone] PCP - General Family Medicine 05/01/12 documented as of this encounter
--- OUTSIDE RECORDS SUMMARY | 2024-05-12 21:35 | External Medical Summary | Summary of Care ---
Author Name Unknown Organization [facility] Address [address] [place] [address] Phone [phone] Care Team Providers Care Olive Grower Name Role Phone Kusum Rutherford DO Primary Care Provider Reason for Visit * Reason Comments Dosage Adjustment In Person (Anticoag Cl inic) Encounter Details Date Type Department Care Team (Latest Contact Info) Description 02/16/2024 3:00 PM EDT Anticoagulation Pharmacy, [facility] [address] [facility] [address] Pharmacist1, [facility] [address] [facility] [place] [address] Atrial fibrillation with RVR (HCC)*; Drug-induced systemic lupus erythematosus, unspecified organ involvement status (HCC); Permanent atrial fibrillation (HCC); Anticoagulation management encounter Allergies Active Allergy Reactions Criticality Noted Date Comments Pollen Low 11/24/2015 Nasal congestion, watery eyes Other reaction(s): cough, itchy watery eyes, stuffy nose documented as of this encounter (statuses as of 02/16/2024) Medications Medication Sig Dispensed Refills Start Date [...] as of this encounter (statuses as of 02/16/2024) Active Problems Problem Noted Date Diagnosed Date Chronic atrial fibrillation 12/29/2023 Hyperparathyroidism 12/23/2022 COPD, [...] as of this encounter (statuses as of 02/16/2024) Resolved Problems Problem Noted Date Diagnosed Date [...] as of this encounter (statuses as of 02/16/2024) Immunizations Name Administration Dates Next Due COVID-19 mRNA, LNP-s, No Pre serve, 2-Dose Series ([employer]) 08/01/2021,12/28/2020,11/30/2020 COVID-19, MRNA-LNP, 23-24, P F, 30 MCG/0.3 mL, 12 YRS AND ABOVE, IM (Miira-Comirnaty) 08/26/2023 Covid-19, Mrna, Lnp-s, Pf, B ivalent, [...] Date Smoking Tobacco: Every Day Cigarettes 2.5 56.3 Started: 1968 Smokeless Tobacco: Never Comments:2 packs [...] Progress Notes * Evangelista Burkett RPh - 02/16/2024 3:01 PM EDT Images from the original note were not included. Medication Therapy Disease Management - Anticoagulation Maria Alejandra Patel 1950 Current Warfarin Dose As of 02/16/2024 Warfarin maintenance plan: 5 mg (5 mg x 1) every day Patient Findings Positives: Change in activity (She has been less active since hospital stay.), Change in diet/appetite (she is eating less greens.) Negatives: Signs/symptoms of thrombosis, Signs/symptoms of bleeding, Change in health, Change in alcohol use, Upcoming invasive procedure, Missed doses, Extra doses, Change in medications, Bruising INR Result As of 02/16/2024 INR goal: 2.0-3.0 INR used for dosin.8 (02/16/2024) Warfarin Plan As of 02/16/2024 Full warfarin instructions: 02/15: Hold; 02/16: Hold; 02/17: Hold; Otherwise 5 mg every day Next INR check: 03/16/2024 Repeat PT/INR in 4 week(s) Weekly dose: not changed Evangelista Green RPh, CACP, CDE Clinical Pharmacist Medication Therapy Management [facility] 02/16/2024 3:09 PM documented in this encounter Plan of Treatment Upcoming Encounters Date Type Department Care Team (Late st Contact Info) Description 02/23/2024 1:00 PM EDT Imaging Radiology [facility] 1st [facility] [address] [place] [address] 03/01/2024 2:30 PM EDT Office Visit [facility] [address] [place] [address] Jose Zacarias MD [address] [place] [address] 03/16/2024 2:50 PM EDT Anticoagulation Pharmacy, [facility] 200 [facility] [place] [address] Pharmacist1, [facility] [address] [facility] [place] [address] 03/23/2024 1:30 PM EDT Office Visit Cardiology, [facility] [address] [place] [address] Deborah Yost CRNP [address] [place] [address] 04/12/2024 3:00 PM EDT Office Visit Family Practice [facility] 200 [facility] [place] [address] Kusum Rutherford DO [address] [place] [address] 2024 1:00 PM EDT Office Visit Dermatology [facility] 200 [place] [address] Alex Parrish MD 200 [facility] [place], [place] [address] 09/07/2024 3:00 PM EST Office Visit Pulmonary Medicine, [facility] 132 [facility] [place] [address] Jean Crews MD [address] [facility] [place] [address] 11/25/2024 10:20 AM EST Office Visit Rheumatology [facility] [address] [place] [address] Nikunj Kessler MD [address] [employer] [place] [address] Scheduled Procedures Name Priority Associated Diagnoses Date/Ti [...] exists DISCUSS TOBACCO CESSATION (REFER TO SMARTSET #3071) 12/28/2024 12/29/2023, 06/18/2018 (Discussed) O2 ASSESSMENT COMPLETED [...] D LEVEL ONCE IN A LIFETIME-USE SMARTSET# 25122 Completed 11/29/2023, 08/26/2022, 02/01/2021, Additional history exists GARDASIL-HPV IMMUNIZATION SERIES Aged Out No longer eligible based on patient's age to complete this topic documented as of this encounter Medical Devices Not on filedocumented as of this encounter Procedures Procedure Name Priority Date/Time Associated Diagnosis Comments INR FINGERSTICK, POINT OF CARE STAT 02/16/2024 3:04 PM EDT Atrial fibrillation with RVR (HCC) Permanent atrial fibrillation (HCC) Anticoagulation management encounter documented in this encounter Results * INR FINGERSTICK, POINT OF CARE (02/16/2024 3:04 PM EDT) Fingerstick INR 5.8 INR 3:25 PM EDT [facility]-02 Blood 02/16/2024 3:04 PM EDT 02/16/2024 3:25 PM EDT Narrative [facility]-02 - 02/16/2024 3:25 PM EDT Therapeutic ranges for non-operative patients: Prophylaxsis/treatment of DVT: (Range:2.0-3.0) Treatment of pulmonary embolism:(Range:2.0-3.0) Prevention of systemic embolism from: -tissue heart valves -acute myocardial infarction -valvular heart disease -atrial fibrillation (Range: 2.0-3.0) Mechanical prosthetic valves: (Range: 2.5-3.5) Evangelista Green V, [facility] POINT OF CARE TE ST DOCKED DEVICE UNSOLICITED RESULTS [facility] [address] [place] [id number] documented in this encounter Visit Diagnoses Diagnosis Atrial fibrillation with RVR (HCC)- Primary Atrial fibrillation Drug-induced systemic lupus erythematosus, unspecified organ involvement status (HCC) Permanent atrial fibrillation (HCC) Atrial fibrillation Anticoagulation management encounter Encounter for therapeutic drug monitoring documented in this encounter Advance Directives Documents on File Type Date Recorded 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 No Full Code 05/02/2021 10:57 AM 05/02/2021 2:05 PM Question Answer Comments Discussion of Advance Direct lupe occurred with: Not Discussed Does the patient have a Living Will? No Does the patient have Health Care Power of Wastewater Operator? No Care Teams Olive Grower Relationship Specialty Start Date End Date Kusum Rutherford DO [address] [place] [address] PCP - General Family Medicine 05/01/12 documented as of this encounter
--- OUTSIDE RECORDS SUMMARY | 2024-05-12 21:35 | External Medical Summary | Summary of Care ---
Author Name Unknown Organization [facility] Address [address] [place] [address] Phone [phone] Care Team Providers Care Bull Ladle Tender Name Role Phone Kusum Rutherford Primary Care Provider Reason for Referral * Precert (Within 10 days (routine)) - Pending Review Specialty Diagnoses / Procedures Referred By Contac t Referred To Contact Radiology Diagnoses Malignant neoplasm of middle lobe of lung (HCC) Bilateral pleural effusion COPD, group B, by GOLD 2017 classification (HCC) PARRA (dyspnea on exertion) Procedures CT CHEST W CONTRAST Jose Zacarias MD [address] [place] [address] Referral ID Status Reason Start Date Expiration Date V isits Requested Visits Authorized [id number] Pending Review 06/01/2024 999 999 Reason for Visit * Reason Comments Follow Up Lung Ca Encounter Details Date Type Department Care Team (Latest Contact Info) Description 03/01/2024 2:30 PM EDT Office Visit Thoracic Surg [facility] [address] [place] [address] Jose Zacarias MD [address] [place] [address] Malignant neoplasm of middle lobe [...] mRNA, LNP-s, No Pre serve, 2-Dose Series ([employer]) 08/01/2021,12/28/2020,11/30/2020 COVID-19, MRNA-LNP, 23-24, P F, 30 MCG/0.3 mL, 12 YRS AND ABOVE, IM (Mobov[employer]-ComirCliqset) 08/26/2023 Covid-19, Mrna, Lnp-s, Pf, B ivalent, 30 Mcg, IM, 12 yrs and above ([employer]) 08/09/2022 HEP A - Hepatitis A (Adult [...] shopping? (15 years old or older) No 05/20/20 22 Cognitive Status Response Date of Assessm ent [...] was hospitalized Fe into December (2023) at [facility] [place]. -- sounds like heart failure and/or COPD [...] Ellipta 100-62.5-25 MCG/ACT Aerosol Powder Breath Activated (Ktpfhcatrub-Bfhatuwfwyzk-Ozqnxhxcqu) Inhale 1 Puff by mouth. Metoprolol Succinate [...] of other specified sites of female breast 1996 Malignant neoplasm of right breast (HCC) 11/23/2015 Past Surgical History: Procedure Laterality Date COLONOSCOPY THRU STOMA, W/BIOPSY 2012 hyperplastic polyp rpt 3 years COLONOSCOPY, DIAGNOSTIC (RECTUM) 10/25/2015 adenomatous & serrated adenoma polyps, diverticulosis, repeat 3 yrs/[facility] [place] COLONOSCOPY, DIAGNOSTIC (RECTUM) 12/08/2019 serrated adenomatous polyps, diverticulosis, repeat 3 yrs / [facility] [place] EGD, FLEXIBLE,W/ENDOSCOPIC US 06/19/2018 pancreatic cyst, repeat 6 mo/[facility] [place] EGD, FLEXIBLE,W/ENDOSCOPIC US 12/10/2019 mucinous cyst / [facility] [place] EGD, W/ENDOSCOPIC US 07/31/2020 mucinous pancreatic cyst, liver cyst / ESOPHAGOGASTRODUODENOSCOPY (EGD), FLEXIBLE, TRANSORAL, ENDOSCOPIC ULTRASOUND performed by Honorio Bradford DO at ENDOSCOPY [facility] EGD, W/ENDOSCOPIC US 02/12/2021 cyst on left lobe, Hyperechoic material consistent with sludge, normal egd / biopiescytology showedno evidence of a malignancy / ESOPHAGOGASTRODUODENOSCOPY (EGD), FLEXIBLE, TRANSORAL, ENDOSCOPIC ULTRASOUND performed by Honorio Bradford DO at ENDOSCOPY [facility] IR BIOPSY 01/14/2022 LYMPHADENECTOMY VIA THORACOSCOPY Right 03/08/2022 ROBOTIC THORACOSCOPY WITH LYMPHADENECTOMY performed by Jose Zacarias MD at [facility] MISCELLANEOUS ORDER ([facility] ONLY) 1995 right breast lumpectomy MISCELLANEOUS ORDER ([facility] ONLY) 1957 tonsilectomy MISCELLANEOUS ORDER ([facility] ONLY) 1951 patent ductus surgery- heart anomoly as a child PARTIAL REMOVAL OF PANCREAS N/A 05/02/2021 LAPAROSCOPIC PANCREATECTOMY DISTAL SUBTOTAL performed by Viktor De La Torre MD at [facility] THORACOSCOPY W/ WEDGE RESECTION, INITIAL Right 03/08/2022 ROBOTIC THORACOSCOPY W/ WEDGE RESECTION, INITIAL performed by Jose Zacarias MD at [facility] THROMBOENDARECTOMY W/PATCH,NECK INCISION 04/07/2009 right carotid endarterectomy with Bovine patch angioplasty 04/07/09, [facility] [place], Dr. Anaya Social History Socioeconomic History Marital status: Single Spouse name: Not on file Number of children: 0 Years of education: Not on file Highest education level: Not on file Occupational History Occupation: retired Employer: [employer] Tobacco Use Smoking status: Every Day Current [...] deferred -- telephonic and/or telemedicine encounter during COVID-19 pandemic. IMAGIN02/23/2024 CT Chest: -- enlarging right [...] Zacarias MD FACS System Chief, Thoracic Surgery [facility] [place] [address] [place] [phone] documented in this encounter Miscellaneous Notes * Addendum Note - Jayla Bangura RN - 03/01/2024 4:38 PM EDTAddended by: JAYLA BANGURA on: 03/01/2024 04:38 PM Modules accepted: Orders documented in this encounter Plan of Treatment Upcoming Encounters Date Type Department Care Team (Late st Contact Info) Description 03/16/2024 2:50 PM EDT Anticoagulation Pharmacy, [facility] [address] [facility] [place] [address] Pharmacist1, [facility] [address] [facility] [place] [address] [address] 03/23/2024 1:30 PM EDT Office Visit Cardiology, [facility] [place] [address] Deborah Yost CRNP 132 [facility] [place] [address] 04/12/2024 3:00 PM EDT Office Visit Family Practice [facility] [address] [facility] [place] [address] Kusum Rutherford DO [address] [facility] [place] [address] 2024 1:00 PM EDT Office Visit Dermatology [facility] [address] [facility] [place] [address] Alex Parrish MD [address] [facility] [place] [address] 06/07/2024 11:30 AM EDT [facility] [address] [place] [address] Jose Zacarias MD [address] [place] [address] 09/07/2024 3:00 PM EST Office Visit Pulmonary Medicine, [facility] 132 [facility] [place] [address] Jean Crews MD [address] [place] [address] 11/25/2024 10:20 AM EST Office Visit Rheumatology [facility] [address] [place] [address] Nikunj Kessler MD [address] [place], [place] [address] Scheduled Orders Name Type Priority Associated Diagnoses Orde r Schedule CT CHEST W CONTRAST Medical Imaging Routine Malignant neoplasm of middle lobe of lung (HCC) Bilateral pleural effusion COPD, group B, by GOLD 2017 classification (HCC) PARRA (dyspnea on exertion) Expected: 06/01/2024, Expires: 04/01/2025 CREATININE Lab Routine Malignant neoplasm of middle lobe of lung (HCC) Bilateral pleural effusion COPD, group B, by GOLD 2017 classification (HCC) PARRA (dyspnea on exertion) Expected: 06/01/2024, Expires: 03/01/2025 Scheduled Procedures Name Priority Associated Diagnoses Date/Ti [...] D LEVEL ONCE IN A LIFETIME-USE SMARTSET# [id number] Completed 11/29/2023, 08/26/2022, 02/01/2021, Additional history exists [...] Documents on File Type Date Recorded 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 No Full Code 05/02/2021 10:57 AM 05/02/2021 2:05 PM Question Answer Comments Discussion of Advance Direct lupe occurred with: Not Discussed Does the patient have a Living Will? No Does the patient have Health Care Power of Conference Reservationist? No Care Teams Bull Ladle Tender Relationship Specialty Start Date End Date Kusum Rutherford DO [address] [place] [address] PCP - General Family Medicine 05/01/12 documented as of this encounter
--- OUTSIDE RECORDS SUMMARY | 2024-05-12 21:35 | External Medical Summary | Summary of Care ---
Author Name Unknown Organization [facility] Address [address] [place] [address] Phone [phone] Care Team Providers Care Value Advisor Name Role Phone Gianni Rutherford DO Primary Care Provider Reason for Visit * Reason Onset Date Comments Medication Refill 03/02/2024 Encounter Details Date Type Department Care Team (Late st Contact Info) Description 03/02/2024 Refill Family Practice [facility] [place] [address] Gianni [facility] [id number] Encounter for long-term (current) use of medications* Allergies Active Allergy Reactions Criticality Noted Date Comments Pollen Low 11/24/2015 Nasal congestion, watery eyes Other reaction(s): cough, itchy watery eyes, stuffy nose documented as of this encounter (statuses as of 03/16/2024) Medications Medication Sig Dispensed Refills Start Date [...] as of this encounter (statuses as of 03/16/2024) Active Problems Problem Noted Date Diagnosed Date [...] as of this encounter (statuses as of 03/16/2024) Resolved Problems Problem Noted Date Diagnosed Date [...] as of this encounter (statuses as of 03/16/2024) Immunizations Name Administration Dates Next Due COVID-19 mRNA, LNP-s, No Pre serve, 2-Dose Series ([employer]) 08/01/2021,12/28/2020,11/30/2020 COVID-19, MRNA-LNP, 23-24, P F, 30 MCG/0.3 mL, 12 YRS AND ABOVE, IM ([employer]) 08/26/2023 Covid-19, Mrna, Lnp-s, Pf, B ivalent, [...] encounter Miscellaneous Notes * Telephone Encounter - Laila Maat rn spine - 03/16/2024 8:53 AM EDT Pt returning call. Advised of needed labs. Pt will schedule labs. Thank you, Laila Mata Java Security Engineer I [facility] (Former[facility]) 03/16/2024,8:54 AM * Telephone Encounter - Mei Blanco CPhT - 03/12/2024 3:43 PM EDT Received message from [facility] regarding patient needing labs. Call Placed, Unable to reach pt, as therewas no answer and no VM available to leave message. Sent the patient a Crusader VaporG message to advise. Thank you, Mei Blanco [facility] Mellowing Machine Operator III [facility] 03/12/2024,3:43 PM * Telephone Encounter - Nichole Nieto [facility] - 03/03/2024 1:17 PM EDTSigned Prescriptions: Disp Refills Levothyroxine Sodium 175 MCG Oral Tablet (*90 Tab*0 Sig: Take 1 Tablet by mouth in the morning. (at least 30 min prior to breakfast or other meds). Authorizing Provider: GIANNI RUTHERFORD Ordering User: NICHOLE NIETO * Telephone Encounter - Nichole Nieto [facility] - 03/03/2024 1:16 PM EDT Provided 90 [...] Clinical Pharmacy Services ([facility] - [facility]) [phone] 03/03/2024 1:16 PM documented in this encounter Plan of Treatment Upcoming Encounters Date Type Department Care Team (Late st Contact Info) Description 03/18/2024 3:40 PM EDT Anticoagulation Pharmacy, [facility] [address] [facility] [place] [address] Pharmacist1, [facility] 200 [facility] [place] [address] 03/23/2024 1:30 PM EDT Office Visit Cardiology, [facility] 132 [facility] [place] [address] Deborah [facility]ost CRNP 132 [facility] [place] [address] 04/12/2024 3:00 PM EDT Office Visit Family Practice [facility] [address] [facility] [place] [address] Gianni Rutherford DO 200 [facility] [place] [address] 2024 1:00 PM EDT Office Visit Dermatology [facility] [place] [address] Alex Parrish MD [address] [facility] [place] [address] 06/01/2024 2:30 PM EDT Imaging Radiology [facility] 1st [facility] 132 [facility] [place] [address] 06/07/2024 11:30 AM EDT Office Visit [facility]acic [facility]urg [facility] [address] [facility] [place] [address] Jose Zacarias MD [address] [place] [facility] [place] [address] 09/07/2024 3:00 PM EST Office Visit Pulmonary Medicine, 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 No Care Teams Value Advisor Relationship Specialty Start Date End Date Gianni Rutherford DO [address] [place] [address] PCP - General Family Medicine 05/01/12 documented as of this encounter
--- OUTSIDE RECORDS SUMMARY | 2024-05-12 21:35 | External Medical Summary ---
Author Name Unknown Address Unknown Organization K09:[facility] [place] [address] Laboratory Report Ordering Provider Test Date Status SENG TIWARI V 01/15/2024 13:24:07 Final Therapeutic ranges for non-o perative patients:
Prophylaxsis/treatment of DVT: (Range:2.0-3.0)
Treatment of pulmonary embolism:(Range:2.0-3.0)
Prevention of systemic embolism from:
-tissue heart valves
-acute myocardial infarction
-valvular heart disease
-atrial fibrillation
(Range: 2.0-3.0)
Mechanical prosthetic valves: (Range: 2.5-3.5) Observation Date Value Abnormality Reference (Units ) Status INR in Capillary blood by Coagulation assay 01/15/2024 13:24:07 1.4 (INR) Final Performing Location [facility] [place] [address]
--- OUTSIDE RECORDS SUMMARY | 2024-05-12 21:35 | External Medical Summary | Summary of Care ---
Author Name Unknown Organization [facility] Address [address] [place] [address] Phone [phone] Care Team Providers Care Accredited Farm Manager Name Role Phone Kusum Rutherford DO Primary Care Provider Reason for Visit * Reason Comments Outpatient Testing Encounter Details Date Type Department Care Team (Late st Contact Info) Description 01/15/2024 1:30 PM EDT Laboratory Laboratory [facility] [place] [address] [place] [address] [place], Lab Scenery [address] [place] [address] Permanent atrial fibrillation (HCC); Atrial fibrillation with RVR (HCC); Dyslipidemia, goal LDL below 70; Hypotension, unspecified hypotension type; Asymptomatic bilateral carotid artery stenosis Allergies Active Allergy Reactions Criticality Noted Date Comments Pollen Low 11/24/2015 Nasal congestion, watery eyes Other reaction(s): cough, itchy watery eyes, stuffy nose documented as of this encounter (statuses as of 01/15/2024) Medications Medication Sig Dispensed Refills Start Date [...] as of this encounter (statuses as of 01/15/2024) Active Problems Problem Noted Date Diagnosed Date [...] as of this encounter (statuses as of 01/15/2024) Resolved Problems Problem Noted Date Diagnosed Date [...] as of this encounter (statuses as of 01/15/2024) Immunizations Name Administration Dates Next Due COVID-19 mRNA, LNP-s, No Pre serve, 2-Dose Series ([employer] 08/01/2021,12/28/2020,11/30/2020 COVID-19, MRNA-LNP, 23-24, P F, 30 MCG/0.3 mL, 12 YRS AND ABOVE, IM ([employer]Comirnaty) 08/26/2023 Covid-19, Mrna, Lnp-s, Pf, B ivalent, [...] Date Smoking Tobacco: Every Day Cigarettes 2.5 56.2 Started: 1968 Smokeless Tobacco: Never Comments:2 packs [...] Care Team (Late st Contact Info) Description 02/12/2024 1:10 PM EDT Anticoagulation Pharmacy, [facility] [place] [address] [place] [address] Pharmacist1, [facility] [address] [facility] [place] [address] 02/23/2024 1:00 PM EDT Imaging Radiology [facility], [place] 132 [facility] [place] [address] 03/01/2024 2:30 PM EDT Office Visit Thoracic Surg [facility] [address] [place] [address] Jose Zacarias MD [address] [place] [address] 03/23/2024 1:30 PM EDT Office Visit Cardiology, [facility] [place] [address] Deborah Yost CRNP 132 [place] [address] 04/12/2024 3:00 PM EDT Office Visit Family Practice [facility] 200 [facility] [place] [address] Kusum Rutherford DO 200 [facility] [place] [address] 2024 1:00 PM EDT Office Visit Dermatology [facility] 200 [facility] [place] [address] Alex Parrish MD 200 [facility] [place] [address] 09/07/2024 3:00 PM EST Office Visit Pulmonary Medicine, [facility] 132 [facility] [place] [address] Jean Crews MD [address] [place] [address] 11/25/2024 10:20 AM EST Office Visit Rheumatology [place] [address] [facility] [place] [address] Nikunj Kessler MD [facility] [place] [address] Pending Results Name Type Priority Associated Diagnoses Date /Time BASIC METABOLIC PANEL Lab Routine Permanent atrial fibrillation (HCC) Atrial fibrillation with RVR (HCC) Dyslipidemia, goal LDL below 70 Hypotension, unspecified hypotension type Asymptomatic bilateral carotid artery stenosis 01/15/2024 1:34 PM EDT Scheduled Procedures Name Priority Associated Diagnoses Date/Ti me COLONOSCOPY FLEXIBLE PROXIMAL DIAGNOSTIC Recall History of colon polyps Health Maintenance Due Date Last Done Comments Alpha-1 Antitrypsin 1968 Hepatitis B (3 of 3 - 19+ [...] SMARTSET #1146) 02/28/2022 Depression Screening 11/01/2022 11/01/2021 COLONOSCOPY-EVERY 3 YRS AGES 18-100 12/08/2022 12/08/2019, 10/25/2015, 2012 Mammogram 02/08/2023 02/08/2022, 10/20, 11/01/2019, Additional history exists TSH 12/26/2023 12/25/2022, 05/20, 03/06/2022, Additional history exists DISCUSS TOBACCO CESSATION (REFER TO SMARTSET #8831) 12/28/2024 12/29/2023, 06/18/2018 (Discussed) O2 ASSESSMENT COMPLETED [...] D LEVEL ONCE IN A LIFETIME-USE SMARTSET# 03539 Completed 11/29/2023, 08/26/2022, 02/01/2021, Additional history exists GARDASIL-HPV IMMUNIZATION SERIES Aged Out No longer eligible based on patient's age to complete this topic documented as of this encounter Medical Devices Not on filedocumented as of this encounter Visit Diagnoses Diagnosis Permanent atrial fibrillation (HCC) Atrial fibrillation Atrial fibrillation with RVR (HCC) Atrial fibrillation Dyslipidemia, goal LDL below 70 Other and unspecified hyperlipidemia Hypotension, unspecified hypotension type Asymptomatic bilateral carotid artery stenosis 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 No Full Code 05/02/2021 10:57 AM 05/02/2021 2:05 PM Question Answer Comments Discussion of Advance Direct lupe occurred with: Not Discussed Does the patient have a Living Will? No Does the patient have Health Care Power of Us Marketing Director? No Care Teams Accredited Farm Manager Relationship Specialty Start Date End Date Kusum Rutherford [place] [place] [address] PCP - General Family Medicine 05/01/12 documented as of this encounter
--- OUTSIDE RECORDS SUMMARY | 2024-05-12 21:35 | External Medical Summary ---
Author Name Unknown Address Unknown Organization K[facility] [place] [address] Laboratory Report Ordering Provider Test Date Status SENG TIWARI V 02/16/2024 15:04:16 Final Therapeutic ranges for non-o perative patients:
Prophylaxsis/treatment of DVT: (Range:2.0-3.0)
Treatment of pulmonary embolism:(Range:2.0-3.0)
Prevention of systemic embolism from:
-tissue heart valves
-acute myocardial infarction
-valvular heart disease
-atrial fibrillation
(Range: 2.0-3.0)
Mechanical prosthetic valves: (Range: 2.5-3.5) Observation Date Value Abnormality Reference (Units ) Status INR in Capillary blood by Coagulation assay 02/16/2024 15:04:16 5.8 (INR) Final Performing Location [facility] [place] [address]
--- OUTSIDE RECORDS SUMMARY | 2024-05-12 21:35 | External Medical Summary | Summary of Care ---
Author Name Unknown Organization [facility] Address [address] [place] [address] Phone [phone] Care Team Providers Care High School Biology Teacher Name Role Phone Kusum Rutherford DO Primary Care Provider Reason for Visit * Reason Comments Dosage Adjustment In Person (Anticoag Cl inic) Encounter Details Date Type Department Care Team (Latest Contact Info) Description 01/15/2024 1:20 PM EDT [facility], [facility] [address] Pharmacist1, [facility] 200 [facility] [place] [address] Atrial fibrillation with RVR (HCC)*; Drug-induced systemic lupus erythematosus, unspecified organ involvement status (HCC); Anticoagulation management encounter; terminal gauger current use of anticoagulant therapy Allergies Active Allergy Reactions Criticality Noted Date [...] mRNA, LNP-s, No Pre serve, 2-Dose Series ([employer]) 08/01/2021,12/28/2020,11/30/2020 COVID-19, MRNA-LNP, 23-24, P F, 30 MCG/0.3 mL, 12 YRS AND ABOVE, IM ([employer]-Comirnat) 08/26/2023 Covid-19, Mrna, Lnp-s, Pf, B ivalent, [...] Progress Notes * Evangelista Burkett RPh - 01/15/2024 1:21 PM EDT Images from the original note were not included. 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 She is going to doa gradual decrease in smoking. We will need to watch INR as it will rise as she decreases her smoking amount. Patient Findings Positives: Missed doses (She missed her dose Friday and Friday this week) Negatives: Signs/symptoms of thrombosis, Signs/symptoms of bleeding, Change in health, Change in alcohol use, Change in activity, Upcoming invasive procedure, Extra doses, Change in medications, Change in diet/appetite, Bruising INR Result As of 01/15/2024 INR goal: 2.0-3.0 INR used for dosin.4 (01/15/2024) Warfarin Plan As of 01/15/2024 Full warfarin instructions: 01/14: 10 mg; 01/15: 10 mg; Otherwise 5 mg every day Next INR check: 02/12/2024 Repeat PT/INR in 4 week(s) Weekly dose: not changed Evangelista Green RPh, CACP, CDE Clinical Pharmacist Medication Therapy [facility] 01/15/2024 1:28 PM documented in this encounter Plan of Treatment Upcoming Encounters Date Type Department Care Team (Late st Contact Info) Description 02/12/2024 1:10 PM EDT Anticoagulation Pharmacy, [facility] 200 [facility] [place] [address] Pharmacist1, [facility] 200 [facility] [place] [address] 02/23/2024 1:00 PM EDT Imaging Radiology [address] 132 [facility] [address] 03/01/2024 2:30 PM EDT Office Visit [facility] [address] [place] [address] Jose Zacarias MD [address] [place] [address] 03/23/2024 1:30 PM EDT Office Visit Cardiology, [facility] 132 [facility] [place] [address] Deborah Yost CRNP 132 [facility] [place] [address] 04/12/2024 3:00 PM EDT Office Visit Family Practice [facility] [address] [place] [address] Kusum Rutherford DO 200 [place] [address] 2024 1:00 PM EDT Office Visit Dermatology [facility] 200 [facility] [place], [place] [address] Alex Parrish MD 200 [place] [address] 09/07/2024 3:00 PM EST Office Visit Pulmonary Medicine, [facility] 132 [facility] [place] [address] Jean Crews MD [address] [place] [address] 11/25/2024 10:20 AM EST Office Visit Rheumatology [place] [address] [place] [place] [address] Nikunj Kessler MD [address] [employer] [place] [address] Scheduled Procedures Name Priority Associated Diagnoses Date/Ti [...] exists DISCUSS TOBACCO CESSATION (REFER TO SMARTSET #5481) 12/28/2024 12/29/2023, 06/18/2018 (Discussed) O2 ASSESSMENT COMPLETED IN PAST YEAR FOR COPD 01/05/2025 01/06/2024 DXA Scan 02/25/2025 02/25/2023, 0512/2020, 01/27/2019, Additional history exists Lipid Panel 12/31/2028 01/01/2024, 12/19, 06/15/2020, Additional history exists Zoster Vaccines Completed 08/18/2020, 05/20, 10/22/1999 Pneumococcal Vaccine: 65+ Years Completed 02/27/2022, 05/04/2021, 12/05/2016, Additional history exists Influenza Vaccine (FLU shot) Completed 03/2023, 07/11/2022, 07/07/2021, Additional history exists COVID-19 Vaccine Completed 08/26/2023, , 08/01/2021, Additional history exists VITAMIN D LEVEL ONCE IN A LIFETIME-USE SMARTSET# 17670 Completed 11/29/2023, 08/26/2022, 02/01/2021, Additional history exists GARDASIL-HPV IMMUNIZATION SERIES Aged Out No longer eligible based on patient's age to complete this topic documented as of this encounter Medical Devices Not on filedocumented as of this encounter Procedures Procedure Name Priority Date/Time Associated Diagnosis Comments INR FINGERSTICK, POINT OF CARE STAT 01/15/2024 1:24 PM EDT Atrial fibrillation with RVR (HCC) Drug-induced systemic lupus erythematosus, unspecified organ involvement status (HCC) Anticoagulation management encounter terminal gauger current use of anticoagulant therapy documented in this encounter Results * INR FINGERSTICK, POINT OF CARE (01/15/2024 1:24 PM EDT) Fingerstick INR 1.4 INR 1:25 PM EDT [facility] 56-02 Blood 01/15/2024 1:24 PM EDT 01/15/2024 1:25 PM EDT Narrative [facility] 56-02 - 01/15/2024 1:25 PM EDT Therapeutic ranges for non-operative patients: Prophylaxsis/treatment of DVT: (Range:2.0-3.0) Treatment of pulmonary embolism:(Range:2.0-3.0) Prevention of systemic embolism from: -tissue heart valves -acute myocardial infarction -valvular heart disease -atrial fibrillation (Range: 2.0-3.0) Mechanical prosthetic valves: (Range: 2.5-3.5) Evangelista Green V, [facility] POINT OF CARE TE ST DOCKED DEVICE UNSOLICITED RESULTS [facility] [address] [place] [address] documented in this encounter Visit Diagnoses Diagnosis Atrial fibrillation with RVR (HCC)- Primary Atrial fibrillation Drug-induced systemic lupus erythematosus, unspecified organ involvement status (HCC) Anticoagulation management encounter Encounter for therapeutic drug monitoring terminal gauger current use of anticoagulant therapy documented in this encounter Advance Directives Documents on File Type Date Recorded Patient Payroll Lead Expl anation Advance Directives and Living Will 03/11/2022 ADVANCE DIRECTIVE / LIVING WILL Power of Wood Boat Builder Supervisor 05/05/2021 POWER OF A TTORNEY Latest Code [...] the patient have Health Care Power of Wood Boat Builder Supervisor? No Full Code 05/02/2021 10:57 AM 05/02/2021 2:05 PM Question Answer Comments Discussion of Advance Direct lupe occurred with: Not Discussed Does the patient have a Living Will? No Does the patient have Health Care Power of Wood Boat Builder Supervisor? No Care Teams High School Biology Teacher Relationship Specialty Start Date End Date Kusum Rutherford DO [address] [place] [address] PCP - General Family Medicine 05/01/12 documented as of this encounter
--- OUTSIDE RECORDS SUMMARY | 2024-05-12 21:35 | External Medical Summary | Summary of Care ---
Author Name Unknown Organization [facility] Address [address] [place] [address] Phone [phone] Care Team Providers Care Flight Communications Officer Name Role Phone Kusum Rutherford DO Primary Care Provider Reason for Visit * Reason Onset Date Comments Order Request 11/13/2023 Encounter Details Date Type Department Care Team (Late st Contact Info) Description 11/13/2023 Telephone Family Practice [facility] 200 [facility] [place] [address] Kusum Rutherford DO 200 [facility] [address] Order Request Allergies Active Allergy Reactions Criticality Noted Date Comments Pollen Low 11/24/2015 Nasal congestion, watery eyes Other reaction(s): cough, itchy watery eyes, stuffy nose documented as of this encounter (statuses as of 02/12/2024) Medications Medication Sig Dispensed Refills Start Date [...] the morning. 90 Tablet 3 11/13/2023 Active documented as of this encounter (statuses as of 02/12/2024) Active Problems Problem Noted Date Diagnosed Date [...] as of this encounter (statuses as of 02/12/2024) Resolved Problems Problem Noted Date Diagnosed Date [...] as of this encounter (statuses as of 02/12/2024) Immunizations Name Administration Dates Next Due COVID-19 mRNA, LNP-s, No Pre serve, 2-Dose Series ([employer]) 08/01/2021,12/28/2020,11/30/2020 COVID-19, MRNA-LNP, 23-24, P F, 30 MCG/0.3 mL, 12 YRS AND ABOVE, IM ([employer]) 08/26/2023 Covid-19, Mrna, Lnp-s, Pf, B ivalent, 30 Mcg, IM, 12 yrs and above ([employer]) 08/09/2022 HEP A - Hepatitis A (Adult [...] encounter Miscellaneous Notes * Telephone Encounter - Remberto Villasenor OSA - 11/13/2023 2:31 PM EST An order was requested for this patient. Name of Requesting Provider: patient Order Requested: mammogram screening Diagnosis/Reason for Request: pt due If order request is for Mammogram: Is the patient having any breast symptoms? No Is there a chance of ? No Has the patient had any breast problems in the past? Yes past history of Breast CA What location AND department does the patient wish to have their order completed at? [facility] at [facility] Fax Number, if applicable: Call Back Number: [phone] If the caller is not a current patient, please advise the patient to call their current PCP to havethe order's prior to being seen in our office. The patient was informed that our providers would not order anything (medication, labs, etc.) prior to being seen. documented in this encounter Plan of Treatment Upcoming Encounters Date Type Department Care Team (Late st Contact Info) Description 02/23/2024 1:00 PM EDT Imaging Radiology [address] [facility] [place] [address] 03/01/2024 2:30 PM EDT [facility] [address] [place] [address] Jose Zacarias MD [address] [place] [address] 03/23/2024 1:30 PM EDT Office Visit Cardiology, [facility] 132 [facility] [place] [address] Deborah Yost CRNP 132 [facility] [place] [address] 04/12/2024 3:00 PM EDT Office Visit [facility] 200 [facility] [place] [address] Kusum Rutherford, 200 [facility] [place], [place] [address] 2024 1:00 PM EDT Office Visit Dermatology [facility] 200 [facility] [place] [address] Alex Parrish MD 200 [facility] [place] [address] 09/07/2024 3:00 PM EST Office Visit Pulmonary Medicine, [facility] [address] [place] [address] Jean Crews MD [address] [place] [address] 11/25/2024 10:20 AM EST Office Visit Rheumatology [facility] [address] [place] [address] Nikunj Kessler MD [address] [place] [address] Scheduled Orders Name Type Priority Associated Diagnoses Orde r Schedule MAMMOGRAM SCREENING YARA BILATERAL Medical Imaging Routine Encounter for screening mammogram for breast cancer Expected: 11/14/2023, Expires: 12/15/2024 Scheduled Procedures Name Priority Associated Diagnoses Date/Ti [...] exists DISCUSS TOBACCO CESSATION (REFER TO SMARTSET #5201) 12/28/2024 12/29/2023, 06/18/2018 (Discussed) O2 ASSESSMENT COMPLETED [...] D LEVEL ONCE IN A LIFETIME-USE SMARTSET# [id number] Completed 11/29/2023, 08/26/2022, 02/01/2021, Additional history exists GARDASIL-HPV IMMUNIZATION SERIES Aged Out No longer eligible based on patient's age to complete this topic documented as of this encounter Medical Devices Not on filedocumented as of this encounter Visit Diagnoses Diagnosis Encounter for screening mammogram for breast cancer- Primary documented in this encounter Advance Directives Documents on File Type Date Recorded Patient Research Assistant Expl anation Advance Directives and Living Will 03/11/2022 ADVANCE DIRECTIVE / LIVING WILL Power of Tubing Drier 05/05/2021 POWER OF A TTORNEY Latest Code [...] the patient have Health Care Power of Tubing Drier? No Full Code 05/02/2021 10:57 AM 05/02/2021 2:05 PM Question Answer Comments Discussion of Advance Direct lupe occurred with: Not Discussed Does the patient have a Living Will? No Does the patient have Health Care Power of Tubing Drier? No Care Teams Flight Communications Officer Relationship Specialty Start Date End Date Kusum Rutherford DO [address] [place] [address] PCP - General Family Medicine 05/01/12 documented as of this encounter
--- OUTSIDE RECORDS SUMMARY | 2024-05-12 21:35 | External Medical Summary ---
Author Name Unknown Address Unknown Organization [facility] [place] [address] Laboratory Report Ordering Provider Test Date Status TRANG JENNINGS 01/15/2024 13:34:53 Final Observation Date Value Abnormality Reference (Units ) Status BUN 01/15/2024 13:34:53 17 6-20 (mg/dL) Final Creatinine 01/15/2024 13:34:53 0.6 0.5-1.0 (mg/dL) Final Glomerular filtration rate/1.73 sq M.predicted [Volume Rate/Area] in Serum, Plasma or Blood by Creatinine-based formula (CKD-EPI) 01/15/2024 13:34:53 >90 >=60 (mL/min) Final eGFR is calculated based on the CKD-EPI 2020 equation Sodium 01/15/2024 13:34:53 139 135-146 (m mol/L) Final Potassium 01/15/2024 13:34:53 5.0 3.5-5.1 (m mol/L) Final Cl 01/15/2024 13:34:53 101 98-107 (mm ol/L) Final CO2 01/15/2024 13:34:53 27 22-32 (mmo l/L) Final Anion gap 01/15/2024 13:34:53 11 7-15 (mmol /L) Final Glucose 01/15/2024 13:34:53 124 Above high normal 70 -120 (mg/dL) Final Calcium 01/15/2024 13:34:53 9.8 8.4-10.2 ( mg/dL) Final Performing Location [facility] [place] [address]
--- OUTSIDE RECORDS SUMMARY | 2024-05-12 21:35 | External Medical Summary | Summary of Care ---
Author Name Unknown Organization [facility] Address [address] [place] [address] Phone [phone] Care Team Providers Care Drum Dyeing Machine Operator Name Role Phone KrishKusum DO Primary Care Provider Reason for Visit * Reason Onset Date Comments Med Request 01/14/2024 Encounter Details Date Type Department Care Team (Late st Contact Info) Description 01/14/2024 Telephone Cardiology, [facility] [address] [place] [address] Anthony Saywer MD [address] [facility] [place] [address] Med Request Allergies Active Allergy Reactions Criticality Noted [...] mRNA, LNP-s, No Pre serve, 2-Dose Series (Counsyl) 08/01/2021,12/28/2020,11/30/2020 COVID-19, MRNA-LNP, 23-24, P F, 30 MCG/0.3 mL, 12 YRS AND ABOVE, IM ([facility] 08/26/2023 Covid-19, Mrna, Lnp-s, Pf, B ivalent, [...] encounter Miscellaneous Notes * Telephone Encounter - Caryn Rogers LPN - 01/15/2024 11:36 AM EDT Returned call to pharmacy, clarified directions per office visit note. * Telephone Encounter - Joanie Blair OSA - 01/14/2024 10:32 AM EDT Person calling: Argenis Relationship to patient: [facility] Number to return call: [phone] Reason for call: 1 tab weekly is correct for furosemide 20 mg oral tablet Pharmacy: [facility] Provider Name: Silverio documented in this encounter Plan of Treatment Upcoming Encounters Date Type Department Care Team (Late st Contact Info) Description 01/15/2024 1:20 PM EDT Anticoagulation Pharmacy, [facility] [address] [place] [address] Pharmacist1, [facility] [address] [facility] [place] [address] 02/23/2024 1:00 PM EDT Imaging [facility] [address] 03/01/2024 2:30 PM EDT [facility] [address] [place] [address] Jose Zacarias MD [address] [place] [address] 03/23/2024 1:30 PM EDT Office Visit Cardiology, [facility] [address] [facility] [place] [address] Deborah Yost CRNP [address] [facility] [place] [address] 04/12/2024 3:00 PM EDT Office Visit Family Practice [facility] [address] [place] [place] [address] Kusum Rutherford DO [address] [facility] [place] [address] 2024 1:00 PM EDT Office Visit Dermatology [facility] [place] [address] [place] [address] Alex Parrish MD [address] [place] [address] 09/07/2024 3:00 PM EST Office Visit Pulmonary Medicine, [facility] [address] [place] [address] Jean Crews MD [address] [place] [address] 11/25/2024 10:20 AM EST Office Visit Rheumatology [facility] [address] [place] [address] Nikunj Kessler MD [address] [place] [address] Scheduled Procedures Name Priority Associated Diagnoses Date/Ti [...] exists DISCUSS TOBACCO CESSATION (REFER TO SMARTSET #9171) 12/28/2024 12/29/2023, 06/18/2018 (Discussed) O2 ASSESSMENT COMPLETED [...] D LEVEL ONCE IN A LIFETIME-USE SMARTSET# 34421 Completed 11/29/2023, 08/26/2022, 02/01/2021, Additional history exists GARDASIL-HPV IMMUNIZATION SERIES Aged Out No longer eligible based on patient's age to complete this topic documented as of this encounter Medical Devices Not on filedocumented as of this encounter Advance Directives Documents on File Type Date Recorded Patient Leather Drier Expl anation Advance Directives and Living Will 03/11/2022 ADVANCE DIRECTIVE / LIVING WILL Power of Educational Recruiter 05/05/2021 POWER OF A TTORNEY Latest Code [...] the patient have Health Care Power of Educational Recruiter? No Full Code 05/02/2021 10:57 AM 05/02/2021 2:05 PM Question Answer Comments Discussion of Advance Direct lupe occurred with: Not Discussed Does the patient have a Living Will? No Does the patient have Health Care Power of Educational Recruiter? No Care Teams Drum Dyeing Machine Operator Relationship Specialty Start Date End Date Kusum Rutherford DO [address] [place] [address] PCP - General Family Medicine 05/01/12 documented as of this encounter
--- OUTSIDE RECORDS SUMMARY | 2024-05-12 21:35 | External Medical Summary | Summary of Care ---
Author Name Unknown Organization [facility] Address [address] [place] [address] Phone [phone] Care Team Providers Care Construction Crew Member Name Role Phone Kusum Rutherford Primary Care [...] W CONTRAST Jose Zacarias MD [address] [place] [address] Referral ID Status Reason Start Date Expiration Date V isits Requested Visits Authorized [id number] Pending Review 06/01/2024 999 999 Reason for Visit * Reason Comments Follow Up Lung Ca Encounter Details Date Type Department Care Team (Latest Contact Info) Description 03/01/2024 2:30 PM EDT Office Visit Thoracic Surg [facility] [address] [place] [address] Jose Zacarias MD [address] [place] [address] Malignant neoplasm of middle lobe [...] mRNA, LNP-s, No Pre serve, 2-Dose Series ([place] [place]) 08/01/2021,12/28/2020,11/30/2020 COVID-19, MRNA-LNP, 23-24, P F, 30 MCG/0.3 mL, 12 YRS AND ABOVE, IM (Xamarin-ComirRoojoom) 08/26/2023 Covid-19, Mrna, Lnp-s, Pf, B ivalent, 30 Mcg, IM, 12 yrs and above ([place] [place]) 08/09/2022 HEP A - Hepatitis A (Adult [...] was hospitalized Fe into December (2023) at [facility]. -- sounds like heart failure and/or COPD [...] Ellipta 100-62.5-25 MCG/ACT Aerosol Powder Breath Activated (Kcdemntteoa-Fhpoqzvkmsnj-Iijqzcvcau) Inhale 1 Puff by mouth. Metoprolol Succinate [...] & serrated adenoma polyps, diverticulosis, repeat 3 yrs/[facility] COLONOSCOPY, DIAGNOSTIC (RECTUM) 12/08/2019 serrated adenomatous polyps, diverticulosis, repeat 3 yrs / [facility] EGD, FLEXIBLE,W/ENDOSCOPIC US 06/19/2018 pancreatic cyst, repeat 6 mo/[facility] EGD, FLEXIBLE,W/ENDOSCOPIC US 12/10/2019 mucinous cyst / [facility] EGD, W/ENDOSCOPIC US 07/31/2020 mucinous pancreatic cyst, liver cyst / ESOPHAGOGASTRODUODENOSCOPY (EGD), FLEXIBLE, TRANSORAL, ENDOSCOPIC ULTRASOUND performed by Honorio Bradford DO at ENDOSCOPY [facility] EGD, W/ENDOSCOPIC US 02/12/2021 cyst on left lobe, Hyperechoic material consistent with sludge, normal egd / biopiescytology showedno evidence of a malignancy / ESOPHAGOGASTRODUODENOSCOPY (EGD), FLEXIBLE, TRANSORAL, ENDOSCOPIC ULTRASOUND performed by Honorio Bradford DO at ENDOSCOPY [facility] IR BIOPSY 01/14/2022 LYMPHADENECTOMY VIA THORACOSCOPY Right 03/08/2022 ROBOTIC THORACOSCOPY WITH LYMPHADENECTOMY performed by Jose Zacarias MD at [facility] MISCELLANEOUS ORDER ([facility] ONLY) 1995 right breast lumpectomy MISCELLANEOUS ORDER ([facility] ONLY) 1957 tonsilectomy MISCELLANEOUS ORDER ([facility] ONLY) 1951 patent ductus surgery- heart anomoly as a child PARTIAL REMOVAL OF PANCREAS N/A 05/02/2021 LAPAROSCOPIC PANCREATECTOMY DISTAL SUBTOTAL performed by Viktor De La Torre MD at OR [facility] THORACOSCOPY W/ WEDGE RESECTION, INITIAL Right 03/08/2022 ROBOTIC THORACOSCOPY W/ WEDGE RESECTION, INITIAL performed by Jose Zacarias MD at [facility] THROMBOENDARECTOMY W/PATCH,NECK INCISION 04/07/2009 right carotid endarterectomy with Bovine patch angioplasty 04/07/09, [facility], Dr. Anaya Social History Socioeconomic History Marital status: Single Spouse name: Not on file Number of children: 0 Years of education: Not on file Highest education level: Not on file Occupational History Occupation: retired Employer: [employer] Tobacco Use Smoking status: Every Day Current [...] IA2 (cT1b, cN0, cM0) - Signed by Joes Zacarias MD on 03/08/2022 - Pathologic stage [...] Zacarias MD FACS System Chief, Thoracic Surgery [facility] [place] [address] [place] [phone] documented in this encounter Miscellaneous Notes * Addendum Note - Jayla Bangura RN - 03/01/2024 4:38 PM EDTAddended by: JAYLA BANGURA on: 03/01/2024 04:38 PM Modules accepted: Orders documented in this encounter Plan of Treatment Upcoming Encounters Date Type Department Care Team (Late st Contact Info) Description 03/16/2024 2:50 PM EDT Anticoagulation Pharmacy, [facility] 200 [facility] [place] [address] Pharmacist1, [facility] [address] [facility] [place] [address] 03/23/2024 1:30 PM EDT Office Visit Cardiology, [facility] [address] Deborah Yost CRNP 132 [facility] [place] [address] 04/12/2024 3:00 PM EDT Office Visit Family Practice [facility] 200 [facility] [place] [address] Kusum Rutherford DO 200 [facility] [place] [address] 2024 1:00 PM EDT Office Visit Dermatology [facility] [address] [facility] [place] [address] Alex Parrish MD 200 [facility] [place] [address] 06/07/2024 11:30 AM EDT [facility] [address] [place] [address] Jose Zacarias MD [address] [place] [address] 09/07/2024 3:00 PM EST Office Visit Pulmonary Medicine, 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 No Full Code 05/02/2021 10:57 AM 05/02/2021 2:05 PM Question Answer Comments Discussion of Advance Direct lupe occurred with: Not Discussed Does the patient have a Living Will? No Does the patient have Health Care Power of Paratransit Operator? No Care Teams Construction Crew Member Relationship Specialty Start Date End Date Kusum Rutherford DO [address] [place] [address] PCP - General Family Medicine 05/01/12 documented as of this encounter
--- OUTSIDE RECORDS SUMMARY | 2024-05-12 21:36 | External Medical Summary | Summary of Care ---
Author Name Unknown Organization [facility] Address [address] [place] [address] Phone [phone] Care Team Providers Care Sap Hana Developer Name Role Phone ChintanraeganGianni DO Primary Care Provider Reason for Visit * Reason Comments Follow Up Encounter Details Date Type Department Care Team (Latest Contact Info) Description 01/09/2024 1:00 PM EDT Office Visit Cardiology, [facility] [address] [place] [address] Anthony Sawyer MD [address] [facility] [place] [address] Atrial fibrillation with RVR (HCC)*; Permanent atrial fibrillation (HCC); Dyslipidemia, goal LDL below 70; Hypotension, unspecified hypotension type; Asymptomatic bilateral carotid artery stenosis; COPD, group B, by GOLD 2017 classification ([facility]); Chronic diastolic congestive heart failure ([facility]) Allergies Active Allergy Reactions Criticality Noted Date Comments Pollen Low 11/24/2015 Nasal congestion, watery eyes Other reaction(s): cough, itchy watery eyes, stuffy nose documented as of this encounter (statuses as of 01/09/2024) Medications Medication Sig Dispensed Refills Start Date End Date Status Multiple Vitamin (MULTI VITAMIN) TABS Take by mouth daily at noon . 0 8 Active Pimecrolimus (ELIDEL) 1 % cream Apply topically to affected area 2 times a day. Apply to face and frontal scalp 60 g 11 0 Active Acetaminophen 500 MG Oral Tablet (Tylenol) as needed. 0 Active Aspirin EC 81 MG Oral Tablet Delayed ReleaseIndicatio ns:Hypotension, unspecified hypotension type,Dyslipidemi a, goal LDL below 70,Chronic atrial fibrillation (HCC),Asymptomat ic bilateral carotid artery stenosis Take 1 Tablet by mouth daily. 0 1 Active Dicyclomine HCl 10 MG Oral Capsule (Bentyl) Take by mouth 1 Capsule 2 times a day as needed (abdominla pain). 60 Capsule 2 2 Active valACYclovir HCl 1 GM Oral Tablet [...] or Wheezing. 18 g 3 3 Active Levothyroxine Sodium 175 MCG Oral Tablet (Levoxyl) Take 1 Tablet by mouth in the morning. (at least 30 min prior to breakfast or other meds). 30 Tablet 11 3 Active Warfarin Sodium 5 MG Oral Tablet (Coumadin) Take 1-2 Tablets by mouth every evening. Or as directed by coag 180 Tablet 3 3 Active Atorvastatin Calcium 10 MG Oral Tablet (Lipitor)Indicat ions:Dyslipidemi a, goal LDL below 70,Hypotension, unspecified hypotension type,Chronic atrial fibrillation (HCC),Asymptomat ic bilateral carotid artery stenosis Take 1 Tablet by mouth in the morning. 90 Tablet 3 3 Active Hydroxychloroqui ne Sulfate 200 MG Oral Tablet (Plaquenil) Take 1 Tablet by mouth in the morning. 90 Tablet 3 4 Active Sodium Fluoride 5000 PPM 1.1 % Dental Paste APPLY THIN RIBBON DAILY TO TOOTHBRUSH 0 4 Active Ketoconazole 2 % External Shampoo (Nizoral)Indicat ions:Seborrheic dermatitis Lather into scalp three times per week. Leave in for 5 minutes then rinse 120 mL 11 4 Active Additional Information Patient not taking.Reported on 01/09/2024 Nicotine 21 MG/24HR Transdermal Patch 24 Hour (Nicoderm CQ) Place 21 mg topically on the skin daily. 0 4 Active Trelegy Ellipta 100-62.5-25 MCG/ACT Aerosol Powder Breath Activated (Fluticasone-Ume clidinium-Vilant chey) Inhale 1 Puff by mouth. 0 Active Metoprolol Succinate ER 25 MG Oral Tablet Extended Release 24 Hour (toPROL XL)Indications:P ermanent atrial fibrillation (HCC),Atrial fibrillation with RVR (HCC),Dyslipidem ia, goal LDL below 70,Hypotension, unspecified hypotension type,Asymptomati c bilateral carotid artery stenosis Take 2 Tablets by mouth in the morning and 2 Tablets before bedtime. 360 Tablet 3 4 Active Furosemide 20 MG Oral Tablet (Lasix) Take one tab weekly and as directed for weight 36 Tablet 3 4 Active Spironolactone 25 MG Oral Tablet (Aldactone) Take 0.5 Tablets by mouth in the morning. 30 Tablet 5 4 Active dilTIAZem HCl ER Coated Beads 180 MG Oral Capsule Extended Release 24 Hour (Cardizem CD)Indications:P ermanent atrial fibrillation (HCC),HTN, goal below 140/90 Take 1 Capsule by mouth in the morning. 90 Capsule 3 3 01/09/20 24 Discontinued(Med ication/Dose Changed) Metoprolol Succinate ER 25 MG Oral Tablet Extended Release 24 Hour (toPROL XL)Indications:P ermanent atrial fibrillation (HCC),Atrial fibrillation with RVR (HCC),Dyslipidem ia, goal LDL below 70,Hypotension, unspecified hypotension type,Chronic atrial fibrillation (HCC),Asymptomat ic bilateral carotid artery stenosis Take 1.5 Tablets by mouth in the morning and 1.5 Tablets before bedtime. 360 Tablet 3 3 01/09/20 24 Discontinued Furosemide 20 MG Oral Tablet (Lasix) Take 1 Tablet by mouth daily as needed (edema). 0 4 01/09/20 24 Discontinued Azithromycin 250 MG Oral Tablet (Zithromax Z-Harpreet) Please take 500 mg by mouth on day one, followed by 250 mg by mouth for four days. 6 Tablet 0 4 01/09/20 24 Discontinued methylPREDNISolo ne 4 MG Oral Tablet Therapy Pack (Medrol Dosepack) follow package directions 21 Tablet 0 4 01/09/20 24 Discontinued documented as of this encounter (statuses as of 01/09/2024) Active Problems Problem Noted Date Diagnosed Date [...] as of this encounter (statuses as of 01/09/2024) Resolved Problems Problem Noted Date Diagnosed Date [...] as of this encounter (statuses as of 01/09/2024) Immunizations Name Administration Dates Next Due COVID-19 mRNA, LNP-s, No Pre serve, 2-Dose Series (GreenLight) 08/01/2021,12/28/2020,11/30/2020 COVID-19, MRNA-LNP, 23-24, P F, 30 MCG/0.3 mL, 12 YRS AND ABOVE, IM ([employer]-Comirnat) 08/26/2023 Covid-19, Mrna, Lnp-s, Pf, B ivalent, 30 Mcg, IM, 12 yrs and above (GreenLight) 08/09/2022 HEP A - Hepatitis A (Adult [...] 2.5 56.2 Started: 1968 Smokeless Tobacco: Never Tobacco Cessation:Ready to Q uit: Not Asked; Counseling Given: Not Answered Comments:2 packs daily 01/06/24 Alcohol Use Standard [...] Sign Reading Time Taken Comments Blood Pressure 128/76 01/09/2024 1:05 PM EDT Pulse 88 01/09/2024 1:05 PM EDT Temperature - - Respiratory Rate - - Oxygen Saturation - - Inhaled Oxygen Concentration - - Weight 70.3 kg (155 lb) 01/09/2024 1:05 PM EDT Height - - Body Mass Index [...] Progress Notes * Anthony Sawyer MD - 01/09/2024 1:00 PM EDT January 09, 2024 Cardiology Follow Up Referring Provider: PCP: GIANNI RUTHERFORD [address] [place] [address], [place] [address] [phone] Chief Complaint: Follow-up atrial fibrillation SUBJECTIVE: Maria Alejandra Patel is a 73 year old year old female with ongoing cardiac issues Permanent atrial fibrillation, [id number] score of 3 (age, female, carotid disease), on warfarin Atherosclerotic carotid disease, status post carotid endarterectomy. Carotid duplex less than 50% stenosis bilaterally, per mypcwo64/2021 Moderate to MR/TR. 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 Hypothyroidism- following with [facility] endocrine Status post laparoscopic distal pancreatectomy and splenectomy my Dr. De La Torre at [facility] [place], 05/02/2021 Acute respiratory failure December 09, 2023, COPD exacerbation, diastolic heart failure with preserved ejection fraction Inpatient and outpatient records reviewed Patient presents today in follow-up after acute hospitalization on December 09, 2023. Patient hospitalized at that time with acute exacerbation of COPD as well as exacerbation of diastolic heart failure and atrial fibrillation with elevated ventricular response secondary to acute demands. Patient has been slowly improving on returned to home. Has been aware of some increase in lower extremity edema intermittently. She has been taking furosemide as needed for increase in weight Weight up currently. No dizziness or lightheaded. Chronic dyspnea present still smoking but with plans for cessation. No chest pains No sense of tachy palpitations though heart rate elevated at times. A Complete Review of Systems is as stated above or negative. Patient Active Problem List Diagnosis Code Systemic [...] J44.9 Hyperparathyroidism (HCC) E21.3 Chronic atrial fibrillation ([facility]) I48.20 Review of patient's allergies indicates: Allergen Reactions [...] Ellipta 100-62.5-25 MCG/ACT Aerosol Powder Breath Activated (Ypauczucbuf-Hixmkvznainr-Ktcgpxilhu) Inhale 1 Puff by mouth. Metoprolol Succinate [...] mouth in the morning. 30 Tablet 5 Ketoconazole 2 % External Shampoo (Nizoral) Lather into scalp three times per week. Leave in for 5 minutes then rinse (Patient not taking: Reported on 01/09/2024) 120 mL 11 Nicotine 21 MG/24HR Transdermal Patch 24 Hour (Nicoderm CQ) Place 21 mg topically on the skin daily. (Patient not taking: Reported on 01/09/2024) No current facility-administered medications for this visit. OBJECTIVE/PHYSICAL EXAMINATION: BP 128/76 | Pulse 88 | Wt 70.3 kg (155 lb) | BMI 25.02 kg/m | BSA 1.81 m General: Age appropriate in no acute distress , wearing oxygen Head: normocephalic, no masses, lesions, tenderness or abnormalities, malar lesions of the face Eyes: conjunctiva are pink and non-injected, sclera clear Throat: clear Nares: without discharge Neck: supple, no adenopathy, normal jugular venous pulse, no hepatojugular reflux, no carotid bruits Chest: normal shape and normal respiratory effort Lungs: Diminished breath sounds with few scattered wheezes right chest Cardiac Exam: Irregular irregular, no murmur, gallop or rub - normal S-1, normal S-2 Abdomen: abdomen soft, non-tender, no abnormal masses, no hepatosplenomegaly, no abdominal bruit, no femoral bruit Musculoskeletal: no gait disturbance, no joint inflammation, no deforming arthritis Extremities: 1 to 2+ lower extremity edema, no cyanosis, pulses intact 2+/4 Neuro: grossly normal exam Data: Lexiscan stress nuclear imaging January 14, 2023 Lexiscan nuclear stress test is negative for ischemia or scar. Gated SPECT images reveals normal myocardial thickening and wall motion. The LV ejection fraction is calculated at 62%. Lipid Panel Results: Results for orders placed or performed in visit on 12/08/15 LIPID PANEL Result Value Ref Range HOURS FASTING 12 hours Triglycerides 83 <200 mg/dL Cholesterol 143 <200 mg/dL HDL Cholesterol 36 (L) >39 mg/dL Cholesterol-HDL Ratio 4.0 LDL Cholesterol 90 0 - 129 mg/dL Results for orders placed or performed in visit on 01/10/22 LIPID PANEL WITH DIRECT LDL IF TG IS HIGH Result Value Ref Range Triglycerides 44 <=174 mg/dL Cholesterol 96 <200 mg/dL HDL Cholesterol 33 (L) >49 mg/dL Non-HDL Cholesterol 63 <=159 mg/dL LDL Cholesterol 54 <=129 mg/dL ASSESSMENT: 73 year old year old female With 1.Long-term persistent atrial fibrillation on chronic anticoagulation , recent elevation in heart rates in association with acute illness 2. Chronic diastolic heart failure recent increase in lower extremity edema 3. Chronic obstructive lung disease with recent exacerbation , O2 dependent PLAN: Patient using furosemide on a p.r.n. basis would increase furosemide to 20 mg weekly with an additional tablet as needed for increasing weight. Add spironolactone 12.5 mg daily. BMP 1 week Will discontinue diltiazem given diastolic heart failure/edema Increase metoprolol succinate to 50 mg twice per day for further heart rate control Strongly urged tobacco cessation DISPOSITION: Return 6 weeks Anthony Sawyer MD Cardiology, [address] [address] documented in this encounter Procedure Notes * Jamir Abel DO - 01/09/2024 1:12 PM EDTAssociated Order(s): EKG REASON FOR STUDY: a fib;a fib CONCLUSIONS: Atrial fibrillation Left axis deviation Incomplete right bundle branch block Possible Anteroseptal infarct , age undetermined Abnormal ECG When compared with ECG of 01-Jan-2023 15:08, Nonspecific T wave abnormality no longer evident in Lateral leads Ventricular Rate: 98 Atrial Rate: 102 QRS Duration: 92 QT/QTc: 364/464 ms P-R-T Seymour: 0 : -63 : 14 degrees documented in this encounter Nursing Notes * Crystal Mooney CMA - 01/09/2024 1:01 PM EDT Examination Room: 13 Name: Maria Alejandra Patel Date of : (1950) Reason for Visit: hosp f/u Interim Hospitalization(s): [facility] 12/15-12/20 Problems/Concerns: low BP in the mornings Chest Pain/SOB: mild chest pain, dull achy chest pain that moves to her back. Happens with exertion. My [facility] is a way you can talk to [...] Description 01/15/2024 1:20 PM EDT Anticoagulation Pharmacy, [facility] [address] [facility] [place] [address] Pharmacist1, [facility] [address] [facility] [place] [address] 02/23/2024 1:00 PM EDT Imaging Radiology [address] [place] [address] 03/01/2024 2:30 PM EDT [facility] [address] [place] [address] Jose Zacarias MD [address] [place] [address] 03/23/2024 1:30 PM EDT Office Visit Cardiology, [facility] [address] [place] [address] Deborah Yost CRNP [address] [place] [address] 04/12/2024 3:00 PM EDT Office Visit Family Practice [facility] [address] [facility] [place] [address] Gianni Rutherford DO [address] [place] [address] 2024 1:00 PM EDT Office Visit Dermatology [facility] [address] [place] [address] Alex Parrish MD [address] [facility] [place] [address] 09/07/2024 3:00 PM EST Office Visit Pulmonary Medicine, [facility] [address] [facility] [place] [address] Jean Crews MD [address] [facility] [place] [address] 11/25/2024 10:20 AM EST Office Visit Rheumatology [facility] [address] [address] Nikunj Kessler MD [address] [place] [address] Scheduled Orders Name Type Priority Associated Diagnoses Orde r Schedule BASIC METABOLIC PANEL Lab Routine Permanent atrial fibrillation (HCC) Atrial fibrillation with RVR (HCC) Dyslipidemia, goal LDL below 70 Hypotension, unspecified hypotension type Asymptomatic bilateral carotid artery stenosis Expected: 01/16/2024, Expires: 01/08/2025 Scheduled Procedures Name Priority Associated Diagnoses Date/Ti [...] exists DISCUSS TOBACCO CESSATION (REFER TO SMARTSET #[id number]) 12/28/2024 12/29/2023, 06/18/2018 (Discussed) O2 ASSESSMENT COMPLETED [...] D LEVEL ONCE IN A LIFETIME-USE SMARTSET# [id number] Completed 11/29/2023, 08/26/2022, 02/01/2021, Additional history exists GARDASIL-HPV IMMUNIZATION SERIES Aged Out No longer eligible based on patient's age to complete this topic documented as of this encounter Medical Devices Not on filedocumented as of this encounter Procedures Procedure Name Priority Date/Time Associated Diagnosis Comments HI ECG ROUTINE ECG W/LEAST 12 LDS W/I&R Routine 01/09/2024 1:12 PM EDT Permanent atrial fibrillation (HCC) documented in this encounter Results * EKG (01/09/2024 1:12 PM EDT) 01/09/2024 1:12 PM EDT Narrative Procedure Note Jamir Abel, - 01/09/2024 1:12 PM EDT REASON FOR STUDY: a fib;a fib CONCLUSIONS: Atrial fibrillation Left axis deviation Incomplete right bundle branch block Possible Anteroseptal infarct , age undetermined Abnormal ECG When compared with ECG of 01-Jan-2023 15:08, Nonspecific T wave abnormality no longer evident in Lateral leads Ventricular Rate: 98 Atrial Rate: 102 QRS Duration: 92 QT/QTc: 364/464 ms P-R-T Seymour: 0 : -63 : 14 degrees Anthony Sawyer MD EKG [facility] CARDIOLOGY documented in this encounter Visit Diagnoses Diagnosis Atrial fibrillation with RVR (HCC)- Primary Atrial fibrillation Permanent atrial fibrillation (HCC) Atrial fibrillation Dyslipidemia, goal LDL below 70 Other and unspecified hyperlipidemia Hypotension, unspecified hypotension type Asymptomatic bilateral carotid artery stenosis Occlusion and stenosis of multiple and bilateral precerebral arteries without mention of cerebral infarction COPD, group B, by GOLD 2017 classification (HCC) Chronic diastolic congestive heart failure (HCC) Chronic diastolic heart failure documented in this encounter Advance Directives Documents on File Type Date 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 No Full Code 05/02/2021 10:57 AM 05/02/2021 2:05 PM Question Answer Comments Discussion of Advance Direct lupe occurred with: Not Discussed Does the patient have a Living Will? No Does the patient have Health Care Power of Tin Pot Operator? No Care Teams Sap Hana Developer Relationship Specialty Start Date End Date Gianni Rutherford DO [address] [place] [address] PCP - General Family Medicine 05/01/12 documented as of this encounter"
--- OUTSIDE RECORDS SUMMARY | 2024-05-12 21:36 | External Medical Summary | Summary of Care ---
Author Name Unknown Organization [facility] Address [address] [place] [address] Phone [phone] Care Team Providers Care Linux Systems Administrator Name Role Phone Kusum Rutherford DO Primary Care Provider Reason for Visit * Reason Onset Date Comments Hospital Follow-Up 12/22/2023 ARMANDO Encounter Details Date Type Department Care Team (Late st Contact Info) Description 12/22/2023 Telephone Family Practice [facility] [address] [facility] [address] Lise Chung, RN Hospital Follow-Up (ARMANDO) Allergies Active Allergy Reactions Criticality Noted Date Comments Pollen Low 11/24/2015 Nasal congestion, watery eyes Other reaction(s): cough, itchy watery eyes, stuffy nose documented as of this encounter (statuses as of 12/22/2023) Medications Medication Sig Dispensed Refills Start Date [...] if needed 60 g 3 11/11/2022 Active dilTIAZem HCl ER Coated Beads 180 MG Oral Capsule Extended Release 24 Hour (Cardizem CD)Indications:Perma nent atrial fibrillation (HCC),HTN, goal below 140/90 Take 1 Capsule by mouth in the morning. 90 Capsule 3 11/18/2022 Active Metoprolol Succinate ER 25 MG Oral Tablet Extended Release 24 Hour (toPROL XL)Indications:Perma nent atrial fibrillation (HCC),Atrial fibrillation with RVR (HCC),Dyslipidemia, goal LDL below 70,Hypotension, unspecified hypotension type,Chronic atrial fibrillation (HCC),Asymptomatic bilateral carotid artery stenosis Take 1.5 Tablets by mouth in the morning and 1.5 Tablets before bedtime. 360 Tablet 3 01/01/2023 Active ProAir HFA 108 (90 Base) MCG/ACT [...] RIBBON DAILY TO TOOTHBRUSH 0 10/30/2023 Active Ketoconazole 2 % External Shampoo (Nizoral)Indications :Seborrheic dermatitis Lather into scalp three times per week. Leave in for 5 minutes then rinse 120 mL 11 11/17/2023 Active Furosemide 20 MG Oral Tablet (Lasix) Take 1 Tablet by mouth daily as needed (edema). 0 12/21/2023 Active predniSONE 20 MG Oral Tablet (Deltasone) Take 1 Tablet by mouth in the morning. 0 12/21/2023 Active Nicotine 21 MG/24HR Transdermal Patch 24 Hour (Nicoderm CQ) Place 21 mg topically on the skin daily. 0 12/21/2023 Active documented as of this encounter (statuses as of 12/22/2023) Active Problems Problem Noted Date Diagnosed Date Hyperparathyroidism 12/23/2022 COPD, group B, by GOLD [...] as of this encounter (statuses as of 12/22/2023) Resolved Problems Problem Noted Date Diagnosed Date [...] as of this encounter (statuses as of 12/22/2023) Immunizations Name Administration Dates Next Due COVID-19 mRNA, LNP-s, No Pre serve, 2-Dose Series (Two Tap) 08/01/2021,12/28/2020,11/30/2020 COVID-19, MRNA-LNP, 23-24, P F, 30 MCG/0.3 mL, 12 YRS AND ABOVE, IM ([employer]Comirnat[employer]) 08/26/2023 Covid-19, Mrna, Lnp-s, Pf, B ivalent, 30 Mcg, IM, 12 yrs and above (Two Tap) 08/09/2022 HEP A - Hepatitis A (Adult [...] encounter Miscellaneous Notes * Telephone Encounter - Lise Chung RN - 12/22/2023 2:23 PM EST Transitions of Care Note Reason for Referral:Recent Admission Phone visit for follow up: ARMANDO Admitted to: [facility], Date: 12/15/2023 Discharged to: Home, Date: 12/21/2023 Diagnosis driving hospitalization: Acute hypoxic respiratory failure, Acute on chronic heart failure with preserved EF/COPD exacerbation Source/Contact: Patient SUBJECTIVE Consent: Verbal consent for review of hospital discharge: Yes REVIEW OF SYSTEMS Patient/Other Reports: Current patient/caregiver problems or concerns: still feeling weak and tired CV: Denies problems Pulmonary: Oxygen- 2 L with activity Inhaler -has not needed to use rescue inhaler since home Chills/Sweats/Fever:Denies chills/sweats Denies fever Appetite:No recent increase in diuretic Having some loose stools Current diet: heart healthy low sodium Bowel: loose stools Bladder: denies problems Wound (If applicable): N/A Pain:Denies Sleep:Denies problems FUNCTIONAL STATUS: ADL'S: Needs Assistance With:N/A as pt is independent IADL'S: Needs Assistance With:N/A as pt is independent Cognitive and Mental Health: denies problems, alert and oriented x 3, and able to communicate, understand instructions, process information. MEDICATION RECONCILIATION Medications: Discharge med list reviewed with patient or caregiver Reviewed and updated all prescription and OTC medications in Epic New medication(s) filled since hospitalization- Mucinex, prednisone, nicotine patch, furosemide Reports all medications taken as prescribed. Denies side effects ASSESSMENT Medication Risk Assessment: INR below therapeutic ranges Did patient fail outpatient treatment? No Discharge instructions available for review? Yes PLAN Symptom Monitoring Interventions:Member/caregiver education - signs and symptoms to contact PrimaryCare (DO NOT DELETE-Three al symptoms patient is to report to PCP) 1. Weight gain of more than 2-3 pounds in 1-2 days 2. SOB 3. Swelling of hands, feet or legs Auto PolisherSenior Librarian of Care interventions/Action Plan: Medication reconciliation and 5 - 7 day follow-up with PCP in place - Date: 12/29/2023 Educated on role of ARMANDO completed with patient/caregiver. Educated patient/caregiver on patient right to have input on ARMANDO plan of care. Verification of Home Health/DME if indicated: YES Oxygen from [facility] to be delivered tomorrow. Patient currently has a small portable tank Identified Care Gaps: Yes Care Gaps closed this call: Appointment made or confirmed, Medication adherence, Medication optimization, Plan of care optimization, and Post discharge appointment Re-evaluation of Plan of Care and progress towards goals achievement: Patient education this visit: Verbal, see above Plan to follow-up as previously scheduled, instructed to call Primary Care Provider with change in symptoms or as needed before next follow-up, discharge needs met, verbalizes understanding and agrees with plan. Lise Chung RN * Telephone Encounter - Lise Chung RN - 12/22/2023 2:03 PM EST Transitions of Care Note Reason for Referral:Recent Admission Phone visit for follow up: ARMANDO Admitted to: [facility], Date: 12/15/2023 Discharged to: Home, Date: 12/21/2023 Diagnosis driving hospitalization: Acute hypoxic resp. Failure Acute on chronic heart failure with preserved EF/COPD exacerbation Attempted to reach patient for ARMANDO call. Message left with reason for call and call back number. Will attempt to call again tomorrow or completed call when/if patient returns call. Lise Chung, RN documented in this encounter Plan of Treatment Upcoming Encounters Date Type Department Care Team (Latest Contact Info) Description 12/22/2023 5:50 PM EST Anticoagulation Pharmacy, [facility] 200 [facility] [place] [address] Pharmacist1, [facility] 200 [facility] [place] [address] Atrial fibrillation with RVR (HCC)*; Drug-induced systemic lupus erythematosus, unspecified organ involvement status (HCC) 12/25/2023 2:10 PM EST Anticoagulation Pharmacy, [facility] 200 [facility] [place] [address] Pharmacist1, [facility] 200 [facility] [place] [address] 12/29/2023 11:20 AM EDT Office Visit Family Practice [facility] 200 [facility] [place] [address] Kusum Rutherford, [address] [place] [address] 01/09/2024 1:00 PM EDT Office Visit Cardiology, [facility] [address] [place] [address] Anthony Sawyer MD [address] [place] [address] 02/23/2024 1:00 PM EDT Imaging Radiology [address] [place] [address] 03/01/2024 2:30 PM EDT Office Visit Thoracic Surg [facility], [place] [address] [place] [address] Jose Zacarias MD [address] [place] [address] 03/23/2024 1:30 PM EDT Office Visit Cardiology, [facility] [address] [place] [address] Deborah Yost CRNP [address] [place] [address] 2024 1:00 PM EDT Office Visit Dermatology [facility] [address] [place] [address] Alex Parrish MD [address] [place] [address] 11/25/2024 10:20 AM EST Office Visit Rheumatology [place] [address] [place] [address] Nikunj Kessler MD [facility] [place] [address] Scheduled Procedures Name Priority Associated Diagnoses Date/Ti me COLONOSCOPY FLEXIBLE PROXIMAL DIAGNOSTIC Recall History of colon polyps Health Maintenance Due Date Last Done Comments Alpha-1 Antitrypsin 1968 Hepatitis B (3 of 3 - 19+ 3-dose series) 10/11/2014 08/16/2014, 10/22/2010 DISCUSS TOBACCO CESSATION (REFER TO SMARTSET #3291) 06/18/2019 06/18/2018 (Discussed) DTaP,Tdap,and Td Vaccines (2 - Td or [...] 12/26/2023 12/25/2022, 05/20, 03/06/2022, Additional history exists O2 ASSESSMENT COMPLETED IN PAST YEAR FOR COPD 02/28/2024 02/27/2023 DXA Scan 02/25/2025 02/25/2023, 0512/2020, 01/27/2019, Additional history exists Lipid Panel 01/10/2027 01/10/2022, 05/21, 01/12/2019, Additional history exists Zoster Vaccines Completed 08/18/2020, 05/20, 10/22/1999 Pneumococcal Vaccine: 65+ Years Completed 02/27/2022, 05/04/2021, 12/05/2016, Additional history exists Influenza Vaccine (FLU shot) Completed 03/2023, 07/11/2022, 07/07/2021, Additional history exists COVID-19 Vaccine Completed 08/26/2023, , 08/01/2021, Additional history exists VITAMIN D LEVEL ONCE IN A LIFETIME-USE SMARTSET# 47456 Completed 11/29/2023, 08/26/2022, 02/01/2021, Additional history exists GARDASIL-HPV IMMUNIZATION SERIES Aged Out No longer eligible based on patient's age to complete this topic documented as of this encounter Medical Devices Not on filedocumented as of this encounter Advance Directives Documents on File Type Date Recorded Patient Director Teen Post Expl anation Advance Directives and Living Will 03/11/2022 ADVANCE DIRECTIVE / LIVING WILL Power of Reducing Machine Operator 05/05/2021 POWER OF A TTORNEY Latest [...] the patient have Health Care Power of Reducing Machine Operator? No Full Code 05/02/2021 10:57 AM 05/02/2021 2:05 PM Question Answer Comments Discussion of Advance Direct lupe occurred with: Not Discussed Does the patient have a Living Will? No Does the patient have Health Care Power of Reducing Machine Operator? No Care Teams Linux Systems Administrator Relationship Specialty Start Date End Date Kusum Rutherford DO [address] [place] [address] PCP - General Family Medicine 05/01/12 documented as of this encounter
--- OUTSIDE RECORDS SUMMARY | 2024-05-12 21:36 | External Medical Summary ---
Author Name Unknown Address Unknown Organization K01:[facility] [address] [facility] [address] Laboratory Report Ordering Provider Test Date Status MARYSOL ARCHERITER 01/01/2024 11:18:42 Final Observation Date Value Abnormality Reference (Units ) Status Triglyceride 01/01/2024 11:18:42 66 <=174 ( mg/dL) Final Triglyceride Reference Range s (mg/dL):
<150 Acceptable
150-174 Borderline high
175-499 High
>=500 Very high Cholesterol 01/01/2024 11:18:42 82 <200 (mg /dL) Final Total Cholesterol Reference Ranges (mg/dL):
<200 Desirable
200-239 Borderline high
>=240 High HDL 01/01/2024 11:18:42 31 Below low normal >49 (mg/dL) Final HDL Cholesterol Reference Ra nges (mg/dL):
>=60 High (Desirable)
<50 Low (Undesirable) For Females
<40 Low (Undesirable) For Males NON-HDL CHOLESTEROL 01/01/2024 11:18:42 51 <=159 (mg/dL) Final Non-HDL Cholesterol Referenc e Range (mg/dL):
<100 Target level for high risk ASCVD patient
<130 Optimal for general population
130-159 Near optimal for general population
160-189 Borderline High
190-219 High
>=220 Very High LDL, (calculated) 01/01/2024 11:18:42 38 <= 129 (mg/dL) Final LDL Cholesterol Reference Ra nges (mg/dL):
<70 Target level for high risk ASCVD patient
<100 Optimal for general population
100-129 Near optimal for general population
130-159 Borderline high
160-189 High
>=190 Very high Performing Location [facility] [address] [facility] [address]
--- OUTSIDE RECORDS SUMMARY | 2024-05-12 21:36 | External Medical Summary | Summary of Care ---
Author Name Unknown Organization [facility] Address [address] [place] [address] Phone [phone] Care Team Providers Care Instructional Assistant Name Role Phone Kusum Rutherford DO Primary Care Provider Reason for Visit * Reason Comments Dosage Adjustment In Person (Anticoag Cl inic) Encounter Details Date Type Department Care Team (Latest Contact Info) Description 12/25/2023 2:10 PM EST [facility], [facility] [address] [facility]ist1, [facility] 200 [facility] [address] Atrial fibrillation with RVR (HCC)*; Drug-induced systemic lupus erythematosus, unspecified organ involvement status (HCC); Anticoagulation management encounter; 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 current use of anticoagulant therapy Allergies Active Allergy Reactions Criticality Noted Date Comments Pollen Low 11/24/2015 Nasal congestion, watery eyes Other reaction(s): cough, itchy watery eyes, stuffy nose documented as of this encounter (statuses as of 12/25/2023) Medications Medication Sig Dispensed Refills Start Date [...] as of this encounter (statuses as of 12/25/2023) Active Problems Problem Noted Date Diagnosed Date [...] as of this encounter (statuses as of 12/25/2023) Resolved Problems Problem Noted Date Diagnosed Date [...] as of this encounter (statuses as of 12/25/2023) Immunizations Name Administration Dates Next Due COVID-19 mRNA, LNP-s, No Pre serve, 2-Dose Series ([employer]) 08/01/2021,12/28/2020,11/30/2020 COVID-19, MRNA-LNP, 23-24, P F, 30 MCG/0.3 mL, 12 YRS AND ABOVE, IM ([facility]) 08/26/2023 Covid-19, Mrna, Lnp-s, Pf, B [...] this encounter Progress Notes * Evangelista Burkett [facility] - 12/25/2023 2:10 PM EST Medication Therapy Disease Management - Anticoagulation Maria Alejandra Patel 1950 Patient Findings Negatives: Signs/symptoms of thrombosis, Signs/symptoms of bleeding, Change in health, Change in alcohol use, Change in activity, Upcoming invasive procedure, Missed doses, Extra doses, Change in medications, Change in diet/appetite, Bruising Comments: 12/24: Still smoking 2 PPD. Will make a decision soon quitting. INR Result As of 12/25/2023 INR goal: 2.0-3.0 INR used for dosin.4 (12/25/2023) Warfarin Plan As of 12/25/2023 Full warfarin instructions: 5 mg every day No change documented: Evangelista Burkett RPh Next INR check: 01/15/2024 Repeat PT/INR in 3 week(s) Weekly dose: not changed Evangelista Green RPh, CACP, CDE Clinical Pharmacist Medication Therapy Management [facility] 12/25/2023 2:18 PM documented in this encounter Plan of Treatment Upcoming Encounters Date Type Department Care Team (Late st Contact Info) Description 12/29/2023 11:20 AM EDT Office Visit Family Practice [facility] 200 [facility] [place] [address] Kusum Rutherford DO 200 [facility] [place] [address] 01/06/2024 3:40 PM EDT Office Visit Pulmonary Medicine, [facility] 132 [facility] [place] [address] Jean Crews MD [address] [facility] [address] 01/09/2024 1:00 PM EDT Office Visit Cardiology, [facility] [address] [place] [address] Anthony Sawyer MD 132 [facility] [place] [address] 01/15/2024 1:20 PM EDT Anticoagulation Pharmacy, [facility] [address] [place] [address] Pharmacist1, [facility] [address] [place] [address] [address] 02/23/2024 1:00 PM EDT Imaging Radiology [facility] [facility] [address] [facility] [place] [address] 03/01/2024 2:30 PM EDT Office [facility] [address] [place] [address] Jose Zacarias MD [address] [place] [address] 03/23/2024 1:30 PM EDT Office Visit Cardiology, [facility] [address] [place] [address] Deborah Yost CRNP [address] [place] [address] 2024 1:00 PM EDT Office Visit Dermatology [facility] 200 [facility] [place] [address] Alex Parrish MD [address] [facility] [place] [address] 11/25/2024 10:20 AM EST Office Visit Rheumatology [facility] [address] [place] [address] Nikunj Kessler MD [facility] [place] [address] Scheduled Procedures Name Priority Associated Diagnoses Date/Ti [...] D LEVEL ONCE IN A LIFETIME-USE SMARTSET# [id number] Completed 11/29/2023, 08/26/2022, 02/01/2021, Additional history exists GARDASIL-HPV IMMUNIZATION SERIES Aged Out No longer eligible based on patient's age to complete this topic documented as of this encounter Medical Devices Not on filedocumented as of this encounter Procedures Procedure Name Priority Date/Time Associated Diagnosis Comments INR FINGERSTICK, POINT OF CARE STAT 12/25/2023 2:13 PM EST Atrial fibrillation with RVR (HCC) Drug-induced systemic lupus erythematosus, unspecified organ involvement status (HCC) Anticoagulation management encounter detention current use of anticoagulant therapy documented in this encounter Results * INR FINGERSTICK, POINT OF CARE (12/25/2023 2:13 PM EST) Fingerstick INR 2.4 INR 2:21 PM EST [facility] 56-02 Blood 12/25/2023 2:13 PM EST 12/25/2023 2:21 PM EST Narrative [facility] 56-02 - 12/25/2023 2:21 PM EST Therapeutic ranges for non-operative patients: Prophylaxsis/treatment of DVT: (Range:2.0-3.0) Treatment of pulmonary embolism:(Range:2.0-3.0) Prevention of systemic embolism from: -tissue heart valves -acute myocardial infarction -valvular heart disease -atrial fibrillation (Range: 2.0-3.0) Mechanical prosthetic valves: (Range: 2.5-3.5) Evangelista Norma V, [facility] LAB POINT OF CARE TE ST DOCKED DEVICE UNSOLICITED RESULTS [facility] [address] [place] [address] documented in this encounter Visit Diagnoses Diagnosis Atrial fibrillation with RVR (HCC)- Primary Atrial fibrillation Drug-induced systemic lupus erythematosus, unspecified organ involvement status (HCC) Anticoagulation management encounter Encounter for therapeutic drug monitoring 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 current use of anticoagulant therapy documented in this encounter Advance Directives Documents on File Type Date Recorded Patient Cafe Worker Expl anation Advance Directives and Living Will 03/11/2022 ADVANCE DIRECTIVE / LIVING WILL Power of Maintenance Helper 05/05/2021 POWER OF A TTORNEY Latest Code [...] the patient have Health Care Power of Maintenance Helper? No Full Code 05/02/2021 10:57 AM 05/02/2021 2:05 PM Question Answer Comments Discussion of Advance Direct lupe occurred with: Not Discussed Does the patient have a Living Will? No Does the patient have Health Care Power of Maintenance Helper? No Care Teams Instructional Assistant Relationship Specialty Start Date End Date Kusum Rutherford DO [address] [place] [address] PCP - General Family Medicine 05/01/12 documented as of this encounter
--- OUTSIDE RECORDS SUMMARY | 2024-05-12 21:36 | External Medical Summary | Summary of Care ---
Author Name Unknown Organization [facility] Address [address] [place] [address] Phone [phone] Care Team Providers Care Lock Assembler Name Role Phone Kusum Rutherford DO Primary Care Provider Reason for Referral * Social Care (Within 30 days (routine)) - Pending Review Specialty Diagnoses / Procedures Referred By Conrado funes Referred To Contact Order Entry Clerk Diagnoses Tobacco use disorder History of lung cancer Kusum Rutherford DO [address] [place] [address] Referral ID Status Reason Start Date Expiration Date Visits Requested Visits Authorized [id number] Pending Review Specialty Services Required 12/29/[phone] Question Answer Referral Priority Within 30 days (routine) Where should this appointment be scheduled? [facility] Role Health Engineering Group Manager Health Engineering Group Manager Referral Reason Tobacco Cessation Comments Is patient being transitioned from [facility] to Complex Case Management? No Reason for Visit * Reason Onset Date Comments Hospital Follow-Up Hospital Follow-Up 12/29/2023 Encounter Details Date Type Department Care Team (Late st Contact Info) Description 12/29/2023 11:20 AM EDT Office Visit Family Practice [facility] [place] [address] [place] [address] [address] Kusum Rutherford DO [address] [place] [address] [address] Hospital discharge follow-up*; Permanent atrial fibrillation (HCC); Atrial fibrillation with RVR (HCC); COPD, severe (HCC); Acute respiratory failure due to COVID-19 (HCC); Hyperparathyroidism (HCC); Drug-induced systemic lupus erythematosus, unspecified organ involvement status (HCC); Dyslipidemia, goal LDL below 70; IPMN (intraductal papillary mucinous neoplasm); History of lung cancer; Personal history of breast cancer; S/P carotid endarterectomy; S/P laparoscopic splenectomy; Pure hypercholesterolemia; Tobacco use disorder; Hypoxemia; Hypokalemia; Hypomagnesemia; Screening for lipoid disorders Allergies Active Allergy Reactions Criticality Noted Date Comments Pollen Low 11/24/2015 Nasal congestion, watery eyes Other reaction(s): cough, itchy watery eyes, stuffy nose documented as of this encounter (statuses as of 01/07/2024) Medications Medication Sig Dispensed Refills Start Date [...] Oral Capsule Extended Release 24 Hour (Cardizem CD)Indications:Per manent atrial fibrillation (HCC),HTN, goal below 140/90 Take 1 Capsule by mouth in the morning. 90 Capsule 3 11/18/2022 Active Metoprolol Succinate ER 25 MG Oral Tablet Extended Release 24 Hour (toPROL XL)Indications:Per manent atrial fibrillation (HCC),Atrial fibrillation with RVR (HCC),Dyslipidemia , goal LDL below 70,Hypotension, unspecified hypotension type,Chronic [...] 10/30/2023 Active Ketoconazole 2 % External Shampoo (Nizoral)Indicatio ns:Seborrheic dermatitis Lather into scalp three times per week. Leave in for 5 minutes then rinse 120 mL 11 11/17/2023 Active Furosemide 20 MG Oral Tablet (Lasix) Take 1 Tablet by mouth daily as needed (edema). 0 12/21/2023 Active Nicotine 21 MG/24HR Transdermal Patch 24 Hour (Nicoderm CQ) Place 21 mg topically on the skin daily. 0 12/21/2023 Active predniSONE 20 MG Oral Tablet (Deltasone) Take 1 Tablet by mouth in the morning. 0 12/21/2023 4 Discontinue d(Medicatio n List Clean Up) documented as of this encounter (statuses as of 01/07/2024) Active Problems Problem Noted Date Diagnosed Date [...] as of this encounter (statuses as of 01/07/2024) Resolved Problems Problem Noted Date Diagnosed Date [...] as of this encounter (statuses as of 01/07/2024) Immunizations Name Administration Dates Next Due COVID-19 mRNA, LNP-s, No Pre serve, 2-Dose Series (2heuresavant) 08/01/2021,12/28/2020,11/30/2020 COVID-19, MRNA-LNP, 23-24, P F, 30 MCG/0.3 mL, 12 YRS AND ABOVE, IM ([employer]-Comirnat) 08/26/2023 Covid-19, Mrna, Lnp-s, Pf, B ivalent, 30 Mcg, IM, 12 yrs and above (2heuresavant) 08/09/2022 HEP A - Hepatitis A (Adult [...] Day Cigarettes 2.5 55 Smokeless Tobacco: Never Tobacco Cessation:Ready to Q uit: Not Asked; Counseling Given: Not Answered Alcohol Use Standard Drinks/Week Comments No 0 [...] Sign Reading Time Taken Comments Blood Pressure 134/82 12/29/2023 11:31 AM EDT Pulse 80 12/29/2023 11:31 AM EDT Temperature 35.9 C (96.6 F) 12/29/2023 11:31 AM E DT Respiratory Rate 18 12/29/2023 11:31 AM EDT Oxygen Saturation 94% 12/29/2023 11:31 AM EDT room air Inhaled Oxygen Concentration - - Weight 68.9 kg (152 lb) 12/29/2023 11:31 AM EDT Height - - Body Mass Index 24.23 02/27/2023 2:12 PM EDT documented in this encounter Functional [...] this encounter Patient Instructions * Patient Instructions* Kusum Rutherford, - 12/29/2023 11:54 AM EDT Coping with Your Diagnosis of a Chronic Health Condition If you have a chronic health condition, you have a problem that may not go away over time. Heart disease, asthma, arthritis, and diabetes are just a few of the chronic conditions that exist. Right now, these conditions have no known cure. But you can take an active role in managing your health. Coping with Your Diagnosis If you've just learned about your health condition, you may be angry, depressed, or afraid. Or you might feel relieved just to know what's wrong. Even if you've known about your health problem for a while, adjusting to it can be hard. But learning about your condition can help you cope. Look for books at your local library. If you have access to a computer, check the Internet. Or contact a group that focuses on your specific problem. Accepting Change Change is hard for most people. Yet right now you may be facing many changes. What you eat or the way you work may change. Your moods, and even your symptoms, might vary from day to day. Although it isn't easy, learning to accept change can help you feel more in control. Taking Control Feeling you have control can make living with your condition easier. Discuss treatment options withyour health care provider. The more you know, the more active you can be in your care. Moving Forward You may wonder whether you will be able to do the things you've always done. That depends on your age, the condition you have, and your goals. To make the most of each day, try to build caring relationships, be active, and eat right. Also, do your best to keep a sense of humor. 7291-2777 [facility], [address] [place] [address]. All rights reserved. This information is not intended as a substitute for professional medical care. Always follow your healthcare professional's instructions. Taking an Active Role in Your Medicines Take the time to learn about your medicine. For instance, why are you taking it? What does it do? Work with your doctor or other health care providers to get the answers you need. Talk to your pharmacist about how to take each medicine, and ask for a fact sheet on each one. Ask Questions About Your Medicine What is the name of the medicine? Why do I need to take it? When should I take it? How should I take it: with water? with food? on an empty stomach? How much do I take? What do I do if I miss a dose? What side effects could it cause and which ones should I call the doctor about? Are there any foods or medicines I should avoid while taking this medicine? Keeping track of your medications? Name of medicine: Taken for: Dose: Time(s) to take it: Take an Active Role Fill all your prescriptions at the same pharmacy. This keeps your medicine history in one place. Talk to the pharmacist. Make sure you understand how to take each medicine. Ask for a fact sheet about each one. Tell your doctor and pharmacist about all the prescription and ggcw-wlb-pzvftfu medicines you take.This includes vitamins and herbal remedies. Tell your doctor and pharmacist if you have any medical conditions or allergies to any medicine or food, or if you are or . Keep a list of all your medicines. Use the sample to the right as a guide for the type of information needed. [id number] [facility], [address] [place] [address], [place] [address]. All rights reserved. This information is not intended as a substitute for professional medical care. Always follow your healthcare professional's instructions. documented in this encounter Progress Notes * Kusum Rutherford DO - 12/29/2023 11:46 AM EDT Images from the original note were not included. Subjective: Maria Alejandra Patel is a 73 year old female. Chief Complaint Patient presents with Hospital Follow-Up Hospital Follow-Up HPI: Maria Alejandra Patel presents for hospital follow up. Medications & HM reviewed. Hospital records, labs, studies, and discharge instructions reviewed with patient Admitted to [facility] 12/15/23-12/21/23 with Acute on Chronic respiratory failure due to COPD exacerbation and CHF. PHM: Patient Active Problem List Diagnosis Code Systemic [...] COPD, group B, by GOLD 2017 classification ([facility]) J44.9 Hyperparathyroidism ([facility]) E21.3 Chronic atrial fibrillation ([facility]) I48.20 Outpatient Medications Prior to Visit Medication Sig Dispense Refill Furosemide 20 MG Oral Tablet (Lasix) Take 1 Tablet by mouth daily as needed (edema). Nicotine 21 MG/24HR Transdermal Patch 24 Hour (Nicoderm CQ) Place 21 mg topically on the skin daily. [DISCONTINUED] predniSONE 20 MG Oral Tablet (Deltasone) Take 1 Tablet by mouth in the morning. Ketoconazole 2 % External Shampoo (Nizoral) Lather into scalp three times per week. Leave in for 5 minutes then rinse 120 mL 11 Sodium Fluoride 5000 PPM 1.1 % Dental Paste APPLY THIN RIBBON DAILY TO TOOTHBRUSH Hydroxychloroquine Sulfate 200 MG Oral Tablet (Plaquenil) Take 1 Tablet by mouth in the morning. 90Tablet 3 Atorvastatin Calcium 10 MG Oral Tablet (Lipitor) Take 1 Tablet by mouth in the morning. 90 Tablet 3 Levothyroxine Sodium 175 MCG Oral Tablet [...] of Breath or Wheezing. 18 g 3 Metoprolol Succinate ER 25 MG Oral Tablet Extended Release 24 Hour (toPROL XL) Take 1.5 Tablets by mouth in the morning and 1.5 Tablets before bedtime. 360 Tablet 3 dilTIAZem HCl ER Coated Beads 180 MG Oral Capsule Extended Release 24 Hour (Cardizem CD) Take 1 Capsule by mouth in the morning. 90 Capsule 3 Clobetasol Propionate 0.05 % External Ointment (Temovate) Spots of flare hands and face 2 x daily until healed Genital area twice weekly, increase for flares of symptoms to daily if needed 60 g 3 Vitamin D 25 MCG (1000 UT) Oral Tablet valACYclovir HCl 1 GM Oral Tablet (Valtrex) Take by mouth 0.5 Tablets in the morning AND 0.5 Tablets before bedtime. 14 Tablet 5 Dicyclomine HCl 10 MG Oral Capsule (Bentyl) Take by mouth 1 Capsule 2 times a day as needed (abdominla pain). 60 Capsule 2 Aspirin EC 81 MG Oral Tablet Delayed Release Take 1 Tablet by mouth daily. Acetaminophen 500 MG Oral Tablet (Tylenol) as needed. Pimecrolimus (ELIDEL) 1 % cream Apply topically to affected area 2 times a day. Apply to face and frontal scalp 60 g 11 Multiple Vitamin (MULTI VITAMIN) TABS Take by mouth daily at noon . No facility-administered medications prior to visit. Last reviewed on 12/29/2023 11:30 AM by Hermelinda Mcmahon LPN Review of patient's allergies indicates: Allergen Reactions Pollen Nasal congestion, watery eyes Other reaction(s): cough, itchy watery eyes, stuffy nose Objective: BP 134/82 | Pulse 80 | Temp 35.9 C (96.6 F) (Tympanic) | Resp 18 | Wt 68.9 kg (152 lb) | SpO2 94% Comment: room air | BMI 24.23 kg/m | BSA 1.8 m Physical Exam: General: alert, healthy, and no distress Head: Normocephalic, No masses, lesions, tenderness or abnormalities Neck: supple, no adenopathy, no bruits, thyroid normal size, non-tender, without nodularity Heart: regular rate & rhythm, no murmur, and no gallops Lungs:chest symmetric with normal AP diameter, decreased and coarse breath sounds throughout, slight crackle at bases Pulses: carotid=2/4 w/o bruits Extremities: less than 2 second capillary refill, no joint deformities, effusion, or inflammation ASSESSMENT/PLAN: Patient is serious about quitting smoking for good, congratulated, discussed and referred for smoking cessation support Hospital records, labs, studies, and discharge instructions reviewed with patient Breathing is back to baseline. Follow up pulmonary, continue inhalers, finish pred taper Follow up cardiology, continue fluid and salt restriction, diuretic. BP and HR okay Recheck [facility] Hospital discharge follow-up (Primary) Permanent atrial fibrillation (HCC) Atrial fibrillation with RVR ([facility]) Diltiazem, metoprolol, coumadin, lasix COPD, severe (HCC) Acute respiratory failure due to COVID-19 ([facility]) - DISCH MED RECON CUR MED LIS Prednisone, home oxygen to keep pO2>92-94% Hyperparathyroidism ([facility]) Drug-induced systemic lupus erythematosus, unspecified organ involvement status (HCC) Plaquenil Dyslipidemia, goal LDL below 70 IPMN (intraductal papillary mucinous neoplasm) History of lung cancer - POPULATION HEALTH REFERRAL OP - TOBACCO CESSATION SPECIAL PROCEDURES TECH 3-10 MIN Personal history of breast cancer S/P carotid endarterectomy S/P laparoscopic splenectomy Pure hypercholesterolemia Tobacco use disorder - POPULATION HEALTH REFERRAL OP - TOBACCO CESSATION SPECIAL PROCEDURES TECH 3-10 MIN Hypoxemia Hypokalemia - BASIC METABOLIC PANEL; Future; Expected date: 12/29/2023 Hypomagnesemia Screening for lipoid disorders - LIPID PANEL WITH DIRECT LDL IF TG IS HIGH; Future; Expected date: 12/29/2023 Follow Up: Return in 3 months (on 03/30/2024), or if symptoms worsen or fail to improve, for Labs Today. | For: Labs Today | Check-out note: See orders 30 min spent with patient, reviewing history, performing physical exam, reviewing labs, studies, specialist OVNs, and reports, educating and coordinating care, discussing treatment and completing note Kusum Rutherford DO documented in this encounter Nursing Notes * Hermelinda Mcmahon LPN - 12/29/2023 11:23 AM EDT Maria Alejandra Patel presents for hospital follow up. Medications & HM reviewed. documented in this encounter Plan of Treatment Upcoming Encounters Date Type Department Care Team (Late st Contact Info) Description 01/09/2024 1:00 PM EDT Office Visit Cardiology, [facility] [address] [address] Anthony Sawyer MD [address] [address] 01/15/2024 1:20 PM EDT Anticoagulation Pharmacy, [facility] [place] [address] [place] [address] Pharmacist1, [facility] [address] [place] [address] [address] 02/23/2024 1:00 PM EDT Imaging Radiology [facility] [address] [place] [address] 03/01/2024 2:30 PM EDT Office Visit [facility] [address] [place] [address] Jose Zacarias MD [address] [place] [address] 03/23/2024 1:30 PM EDT Office Visit Cardiology, [facility] [address] [place] [address] Deborah Yost CRNP [address] [facility] [place] [address] 04/12/2024 3:00 PM EDT Office Visit Family Practice [facility] [address] [place] [address] Kusum Rutherford DO [address] [place] [address] 2024 1:00 PM EDT Office Visit Dermatology [facility] [address] [place] [address] Alex Parrish MD [address] [place] [address] 09/07/2024 3:00 PM EST Office Visit Pulmonary Medicine, [facility] [address] [place] [address] Jean Crews MD [address] [address] 11/25/2024 10:20 AM EST Office Visit Rheumatology [place] [id number] [facility] [place] [address] Nikunj Kessler MD [address] [place] [address] [place] [address] Scheduled Procedures Name Priority Associated Diagnoses Date/Ti me COLONOSCOPY FLEXIBLE PROXIMAL DIAGNOSTIC Recall History of colon polyps Scheduled Referrals Name Type Priority Associated Diagnoses Orde r Schedule POPULATION HEALTH REFERRAL OP Referral Within 30 days (routine) Tobacco use disorder History of lung cancer Ordered: 12/29/2023 Health Maintenance Due Date Last Done Comments [...] exists DISCUSS TOBACCO CESSATION (REFER TO SMARTSET #1265) 12/28/2024 12/29/2023, 06/18/2018 (Discussed) O2 ASSESSMENT COMPLETED IN PAST YEAR FOR COPD 01/05/2025 01/06/2024 DXA Scan 02/25/2025 02/25/2023, 05/12/2020, 01/27/2019, Additional history exists Lipid Panel 12/31/2028 01/01/2024, 12/19, 06/15/2020, Additional history exists Zoster Vaccines Completed 08/18/2020, 05/20, 10/22/1999 Pneumococcal Vaccine: 65+ Years Completed 02/27/2022, 05/04/2021, 12/05/2016, Additional history exists Influenza Vaccine (FLU shot) Completed 03/2023, 07/11/2022, 07/07/2021, Additional history exists COVID-19 Vaccine Completed 08/26/2023, , 08/01/2021, Additional history exists VITAMIN D LEVEL ONCE IN A LIFETIME-USE SMARTSET# [id number] Completed 11/29/2023, 08/26/2022, 02/01/2021, Additional history exists GARDASIL-HPV IMMUNIZATION SERIES Aged Out No longer eligible based on patient's age to complete this topic documented as of this encounter Medical Devices Not on filedocumented as of this encounter Results * (ABNORMAL) LIPID PANEL WITH DIRECT LDL IF TG IS HIGH (01/01/2024 11:18 AM EDT) Triglycerides 66 <=174 mg/dL 01/01/2024 9:11 PM EDT [facility] [place] Comment: Triglyceride Reference Ranges (mg/dL): <150 Acceptable 150-174 Borderline high 175-499 High >=500 Very high Cholesterol 82 <200 mg/dL 01/01/2024 9:11 PM EDT [facility] [place] Comment: Total Cholesterol Reference Ranges (mg/dL): <200 Desirable 200-239 Borderline high >=240 High HDL Cholesterol 31(L) >49 mg/dL 9:11 PM EDT [facility] [place] Comment: HDL Cholesterol Reference Ranges (mg/dL): >=60 High (Desirable) <50 Low (Undesirable) For Females <40 Low (Undesirable) For Males Non-HDL Cholesterol 51 <=159 mg/dL 01/01/2024 9:11 PM EDT [facility] [place] Comment: Non-HDL Cholesterol Reference Range (mg/dL): <100 Target level for high risk ASCVD patient <130 Optimal for general population 130-159 Near optimal for general population 160-189 Borderline High 190-219 High >=220 Very High LDL Cholesterol 38 <=129 mg/dL 01/01/2024 9:11 PM EDT [facility] [place] Comment: LDL Cholesterol Reference Ranges (mg/dL): <70 Target level for high risk ASCVD patient <100 Optimal for general population 100-129 Near optimal for general population 130-159 Borderline high 160-189 High >=190 Very high Blood Venous blood specimen / Unknown Venipuncture / Unknown 01/01/2024 11:18 AM EDT 01/01/2024 11:19 AM EDT Kusum Cruzramon Rutherford DO LAB BLOOD ORDER [facility] [place] [address] [place] [address] * BASIC METABOLIC PANEL (01/01/2024 11:18 AM EDT) BUN 13 6 - 20 mg/dL 01/01/2024 12:[address]T [address] Creatinine 0.5 0.5 - 1.0 mg/dL 01/01/2024 12:36 PM EDT [place] [address] Estimated Glomerular Filtration Rate >90 >=60 mL/min 01/01/2024 12:36 PM EDT [facility] Comment:eGFR is calculated b ased on the CKD-EPI 2020 equation Sodium 143 135 - 146 mmol/L 01/01/2024 12:36 PM EDT [facility] 56 Potassium 4.0 3.5 - 5.1 mmol/L 01/01/2024 12:36 PM EDT [facility] 56 Chloride 104 98 - 107 mmol/L 01/01/2024 12:36 PM EDT [facility] 56 CO2 25 22 - 32 mmol/L 01/01/2024 12:36 PM EDT [facility] 56 Anion Gap 14 7 - 15 mmol/L 01/01/2024 12:36 PM EDT [facility] 56 Glucose 118 70 - 120 mg/dL 01/01/2024 12:36 PM EDT [facility] 56- Calcium 9.7 8.4 - 10.2 mg/dL 01/01/2024 12:36 PM EDT [facility] 56- Blood Venous blood specimen / Unknown Venipuncture / Unknown 01/01/2024 11:18 AM EDT 01/01/2024 11:19 AM EDT Kusum Rutherford DO LAB BLOOD ORDER [facility] [place] [address] [place] [address] documented in this encounter Visit Diagnoses Diagnosis Hospital discharge follow-up- Primary Other follow-up examination Permanent atrial fibrillation (HCC) Atrial fibrillation Atrial fibrillation with RVR (HCC) Atrial fibrillation COPD, severe (HCC) Chronic airway obstruction, not elsewhere classified Acute respiratory failure due to COVID-19 (HCC) Hyperparathyroidism (HCC) Hyperparathyroidism, unspecified Drug-induced systemic lupus erythematosus, unspecified organ involvement status (HCC) Dyslipidemia, goal LDL below 70 Other and unspecified hyperlipidemia IPMN (intraductal papillary mucinous neoplasm) Neoplasm of unspecified nature of digestive system History of lung cancer Personal history of malignant neoplasm of bronchus and lung Personal history of breast cancer Personal history of malignant neoplasm of breast S/P carotid endarterectomy Other postprocedural status S/P laparoscopic splenectomy Other acquired absence of organ Pure hypercholesterolemia Tobacco use disorder Hypoxemia Hypokalemia Hypopotassemia Hypomagnesemia Disorders of magnesium metabolism Screening for lipoid disorders documented in this encounter Advance Directives Documents on File Type Date Recorded Patient Leave Manager Expl anation Advance Directives and Living Will 03/11/2022 ADVANCE DIRECTIVE / LIVING WILL Power of New Accounts Clerk 05/05/2021 POWER OF A TTORNEY Latest Code [...] the patient have Health Care Power of New Accounts Clerk? No Full Code 05/02/2021 10:57 AM 05/02/2021 2:05 PM Question Answer Comments Discussion of Advance Direct lupe occurred with: Not Discussed Does the patient have a Living Will? No Does the patient have Health Care Power of New Accounts Clerk? No Care Teams Lock Assembler Relationship Specialty Start Date End Date Kusum Rutherford DO [address] [place] [address] PCP - General Family Medicine 05/01/12 documented as of this encounter"
--- OUTSIDE RECORDS SUMMARY | 2024-05-12 21:36 | External Medical Summary | Summary of Care ---
Author Name Unknown Organization [facility] Address [address] [place] [address] Phone [phone] Care Team Providers Care Campus Recruiter Name Role Phone Kusum Rutherford DO Primary Care Provider Encounter Details Date Type Department Care Team (Late st Contact Info) Description 01/01/2024 Orders Only PATIENT PORTAL DO NOT DELETE THIS DEPT USED BY MARCIA ARMAS [id number] Allergies Active Allergy Reactions Criticality Noted Date Comments Pollen Low 11/24/2015 Nasal congestion, watery eyes Other reaction(s): cough, itchy watery eyes, stuffy nose documented as of this encounter (statuses as of 01/01/2024) Medications Medication Sig Dispensed Refills Start Date [...] as of this encounter (statuses as of 01/01/2024) Active Problems Problem Noted Date Diagnosed Date [...] as of this encounter (statuses as of 01/01/2024) Resolved Problems Problem Noted Date Diagnosed Date [...] as of this encounter (statuses as of 01/01/2024) Immunizations Name Administration Dates Next Due COVID-19 mRNA, LNP-s, No Pre serve, 2-Dose Series (SciAps) 08/01/2021,12/28/2020,11/30/2020 COVID-19, MRNA-LNP, 23-24, P F, 30 MCG/0.3 mL, 12 YRS AND ABOVE, IM (Markado-Comirnaty) 08/26/2023 Covid-19, Mrna, Lnp-s, Pf, B ivalent, 30 Mcg, IM, 12 yrs and above (SciAps) 08/09/2022 HEP A - Hepatitis A (Adult [...] Care Team (Late st Contact Info) Description 01/06/2024 3:40 PM EDT Office Visit Pulmonary Medicine, [facility] [address] [address] [facility] Crews MD [address] [facility] [place] [address] 01/09/2024 1:00 PM EDT Office Visit Cardiology, [facility] [address] [address] Anthony Sawyer MD [address] [address] 01/15/2024 1:20 PM EDT Anticoagulation Pharmacy, [facility] [address] [place] [address] Pharmacist1, [facility] 200 [facility] [place] [address] 02/23/2024 1:00 PM EDT Imaging Radiology [facility] [address] 03/01/2024 2:30 PM EDT Office Visit [facility] [address] [place] [address] Jose Zacarias MD [address] [place] [address] 03/23/2024 1:30 PM EDT Office Visit [facility], [facility] [address] Deborah [facility]ost [facility] [address] [facility] [address] 04/12/2024 3:00 PM EDT Office Visit Family Practice [facility] [address] [place] [address] Kusum Rutherford, [address] [place] [address] 2024 1:00 PM EDT Office Visit Dermatology [facility] [address] [place] [address] Alex Parrish MD [address] [place] [address] 11/25/2024 10:20 AM EST Office Visit Rheumatology [place] [address] [place] [address] Nikunj Kessler MD [facility] [place] [address] Scheduled Procedures Name Priority Associated Diagnoses Date/Ti [...] exists DISCUSS TOBACCO CESSATION (REFER TO SMARTSET #6165) 12/28/2024 12/29/2023, 06/18/2018 (Discussed) O2 ASSESSMENT COMPLETED IN PAST YEAR FOR COPD 12/28/2024 12/29/2023 DXA Scan 02/25/2025 02/25/2023, 05/0 12/2020, 01/27/2019, Additional history exists Lipid Panel 01/10/2027 01/10/2022, 05/21, 01/12/2019, Additional history exists Zoster Vaccines Completed 08/18/2020, 05/20, 10/22/1999 Pneumococcal Vaccine: 65+ Years Completed 02/27/2022, 05/04/2021, 12/05/2016, Additional history exists Influenza Vaccine (FLU shot) Completed 03/2023, 07/11/2022, 07/07/2021, Additional history exists COVID-19 Vaccine Completed 08/26/2023, , 08/01/2021, Additional history exists VITAMIN D LEVEL ONCE IN A LIFETIME-USE SMARTSET# [id number] Completed 11/29/2023, 08/26/2022, 02/01/2021, Additional history exists GARDASIL-HPV IMMUNIZATION SERIES Aged Out No longer eligible based on patient's age to complete this topic documented as of this encounter Medical Devices Not on filedocumented as of this encounter Advance Directives Documents on File Type Date 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 No Full Code 05/02/2021 10:57 AM 05/02/2021 2:05 PM Question Answer Comments Discussion of Advance Direct lupe occurred with: Not Discussed Does the patient have a Living Will? No Does the patient have Health Care Power of Wood Heel Cementer? No Care Teams Campus Recruiter Relationship Specialty Start Date End Date Kusum Rutherford DO [address] [place] [address] PCP - General Family Medicine 05/01/12 documented as of this encounter
--- OUTSIDE RECORDS SUMMARY | 2024-05-12 21:36 | External Medical Summary | Summary of Care ---
Author Name Unknown Organization [facility] Address [address] [place] [address] Phone [phone] Care Team Providers Care Child Specialist Name Role Phone Kusum Rutherford DO Primary Care Provider Reason for Visit * Reason Comments Outpatient Testing Encounter Details Date Type Department Care Team (Late st Contact Info) Description 01/01/2024 11:20 AM EDT [facility] [address] [place] [id number] [place], [address] [place] [address] Hypokalemia; Screening for lipoid disorders Allergies Active Allergy [...] mRNA, LNP-s, No Pre serve, 2-Dose Series (AntCor) 08/01/2021,12/28/2020,11/30/2020 COVID-19, MRNA-LNP, 23-24, P F, 30 MCG/0.3 mL, 12 YRS AND ABOVE, IM (Precognate-Comirnaty) 08/26/2023 Covid-19, Mrna, Lnp-s, Pf, B ivalent, 30 Mcg, IM, 12 yrs and above (AntCor) 08/09/2022 HEP A - Hepatitis A (Adult [...] 3:40 PM EDT Office Visit Pulmonary Medicine, [facility] [address] [address] Jean Crews MD [address] [address] 01/09/2024 1:00 PM EDT Office Visit Cardiology, [facility] [address] [address] Anthony Sawyer MD [address] [place] [address] 01/15/2024 1:20 PM EDT Anticoagulation Pharmacy, [facility] [address] [place] [address] Pharmacist1, [facility] [address] [facility] [place] [address] 02/23/2024 1:00 PM EDT Imaging Radiology [facility] 1st [facility] [address] [place] [address] 03/01/2024 2:30 PM EDT Office Visit [facility] [address] [place] [address] Jose Zacarias MD [address] [place] [address] 03/23/2024 1:30 PM EDT Office Visit Cardiology, [facility] [address] [place] [address] Deborah Yost CRNP [address] [place] [address] 04/12/2024 3:00 PM EDT Office Visit Family Practice [facility] 200 [facility] [place] [address] Kusum Rutherford DO 200 [facility] [place] [address] 2024 1:00 PM EDT Office Visit Dermatology [facility] [place] [address] [facility] [place] [address] Alex Parrish MD [address] [facility] [place] [address] 11/25/2024 10:20 AM EST Office Visit Rheumatology [place] [id number] [facility] [place] [address] Nikunj Kessler MD [address] [place] [address] Pending Results Name Type Priority Associated Diagnoses Date /Time BASIC METABOLIC PANEL Lab Routine Hypokalemia 01/01/2024 11:18 AM EDT LIPID PANEL WITH DIRECT LDL IF TG IS HIGH Lab Routine Screening for lipoid disorders 01/01/2024 11:18 AM EDT Scheduled Procedures Name Priority Associated [...] exists DISCUSS TOBACCO CESSATION (REFER TO SMARTSET #1061) 12/28/2024 12/29/2023, 06/18/2018 (Discussed) O2 ASSESSMENT COMPLETED IN PAST YEAR FOR COPD 12/28/2024 12/29/2023 DXA Scan 02/25/2025 02/25/2023, 05/12/2020, 01/27/2019, Additional history exists Lipid Panel 01/10/2027 01/10/2022, 05/21, 01/12/2019, Additional history exists Zoster Vaccines Completed 08/18/2020, 05/20, 10/22/1999 Pneumococcal Vaccine: 65+ Years Completed 02/27/2022, 05/04/2021, 12/05/2016, Additional history exists Influenza Vaccine (FLU shot) Completed 03/2023, 07/11/2022, 07/07/2021, Additional history exists COVID-19 Vaccine Completed 08/26/2023, , 08/01/2021, Additional history exists VITAMIN D LEVEL ONCE IN A LIFETIME-USE SMARTSET# [id number] Completed 11/29/2023, 08/26/2022, 02/01/2021, Additional history exists GARDASIL-HPV IMMUNIZATION SERIES Aged Out No longer eligible based on patient's age to complete this topic documented as of this encounter Medical Devices Not on filedocumented as of this encounter Visit Diagnoses Diagnosis Hypokalemia Hypopotassemia Screening for lipoid disorders documented in this encounter Advance Directives Documents on File Type Date 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 No Full Code 05/02/2021 10:57 AM 05/02/2021 2:05 PM Question Answer Comments Discussion of Advance Direct lupe occurred with: Not Discussed Does the patient have a Living Will? No Does the patient have Health Care Power of Flight Data Technician? No Care Teams Child Specialist Relationship Specialty Start Date End Date Kusum Rutherford DO [address] [place], [place] [address] PCP - General Family Medicine 05/01/12 documented as of this encounter
--- OUTSIDE RECORDS SUMMARY | 2024-05-12 21:36 | External Medical Summary ---
Author Name Unknown Address Unknown Organization K[facility] [place] [address] Laboratory Report Ordering Provider Test Date Status CORINA ARCHER 01/01/2024 11:18:42 Final Observation Date Value Abnormality Reference (Units ) Status BUN 01/01/2024 11:18:42 13 6-20 (mg/dL) Final Creatinine 01/01/2024 11:18:42 0.5 0.5-1.0 (mg/dL) Final Glomerular filtration rate/1.73 sq M.predicted [Volume Rate/Area] in Serum, Plasma or Blood by Creatinine-based formula (CKD-EPI) 01/01/2024 11:18:42 >90 >=60 (mL/min) Final eGFR is calculated based on the CKD-EPI 2020 equation SODIUM 01/01/2024 11:18:42 143 135-146 (m mol/L) Final Potassium 01/01/2024 11:18:42 4.0 3.5-5.1 (m mol/L) Final Cl 01/01/2024 11:18:42 104 98-107 (mm ol/L) Final CO2 01/01/2024 11:18:42 25 22-32 (mmo l/L) Final Anion gap 01/01/2024 11:18:42 14 7-15 (mmol /L) Final Glucose 01/01/2024 11:18:42 118 70-120 (mg /dL) Final Calcium 01/01/2024 11:18:42 9.7 8.4-10.2 ( mg/dL) Final Performing Location [facility] [place] [address]
--- OUTSIDE RECORDS SUMMARY | 2024-05-12 21:36 | External Medical Summary | Summary of Care ---
Author Name Unknown Organization [facility] Address [address] [place] [address] Phone [phone] Care Team Providers Care College Instructor Name Role Phone ChintanraeganKusum DO Primary Care Provider Reason for Visit * Reason Comments Follow Up Here for hospital fo llow up. Acute hypoxic respiratory failure. Encounter Details Date Type Department Care Team (Late st Contact Info) Description 01/06/2024 3:40 PM EDT Office Visit Pulmonary Medicine, [facility] 132 [facility] [place] [id number] Jean Crews [facility] [address] [facility] [address] COPD, severe (HCC)* Allergies Active Allergy Reactions Criticality Noted Date Comments Pollen Low 11/24/2015 Nasal congestion, watery eyes Other reaction(s): cough, itchy watery eyes, stuffy nose documented as of this encounter (statuses as of 01/06/2024) Medications Medication Sig Dispensed Refills Start Date [...] on the skin daily. 0 12/21/2023 Active Azithromycin 250 MG Oral Tablet (Zithromax Z-Harpreet) Please take 500 mg by mouth on day one, followed by 250 mg by mouth for four days. 6 Tablet 0 01/06/2024 Active methylPREDNISolone 4 MG Oral Tablet Therapy Pack (Medrol Dosepack) follow package directions 21 Tablet 0 01/06/2024 Active documented as of this encounter (statuses as of 01/06/2024) Active Problems Problem Noted Date Diagnosed Date [...] as of this encounter (statuses as of 01/06/2024) Resolved Problems Problem Noted Date Diagnosed Date [...] as of this encounter (statuses as of 01/06/2024) Immunizations Name Administration Dates Next Due COVID-19 mRNA, LNP-s, No Pre serve, 2-Dose Series ([employer]uli) 08/01/2021,12/28/2020,11/30/2020 COVID-19, MRNA-LNP, 23-24, P F, 30 MCG/0.3 mL, 12 YRS AND ABOVE, IM ([facility] 08/26/2023 Covid-19, Mrna, Lnp-s, Pf, B [...] Sign Reading Time Taken Comments Blood Pressure 120/80 01/06/2024 3:46 PM EDT Pulse 84 01/06/2024 3:46 PM EDT Temperature 35.3 C (95.5 F) 01/06/2024 3:46 PM ED T Respiratory Rate 16 01/06/2024 3:46 PM EDT Oxygen Saturation 91% 01/06/2024 3:47 PM EDT ra-amb Inhaled Oxygen Concentration - - Weight 68.9 kg (152 lb) 01/06/2024 3:46 PM EDT Height 167.6 cm (5' 6") 01/06/2024 3:46 PM EDT Body Mass Index 24.53 01/06/2024 3:46 PM EDT documented in this [...] (15 years old or older) No 03/08/20 22 Cognitive Status Response Date of Assessm ent Because of a physical, menta l, or emotional condition, do you have serious difficulty concentrating, remembering, or making decisions? 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 Patient reports recent hospitalization at [facility], discharge 3 weeks ago on home oxygen, prednisone taper antibiotic therapy. Describes gradual improvement in respiratory status with decreasing cough wheezing and improving exercise tolerance. Compliant with home oxygen during ac tivity. Also on Trelegy and rescue albuterol inhaler. Smoking cessation counseling was provided. Patient is agreeable to continuing Efforts regarding smoking cessation. Physical examination shows class 1 throat, scattered coarse wheezing without dullness, regular cardiac rhythm, soft, nontender abdomen and no evidence of volume overload. Malar rash noted. PFT 2022 showed very severe gold stage 4 COPD. Chest x-ray October 2022 shows hyperinflated lung fuentes with post RML resection changes. PET scan June 2022 and February 2023 was reviewed. Scattered emphysematous changes along with post RML lobectomy status. Patient is scheduled for repeat CT scan March 04 followed by Cardiothoracic surgery follow-up evaluation at [place]. We will continue with current bronchodilator therapy including Trelegy and rescue albuterol. Standby prescription for rescue pack including azithromycin and prednisone Medrol Dosepak was also ordered. Patient was advised to continue using oxygen as prescribed. Importance of maintaining physical activity status was discussed. Pulmonary clinic follow-up in Six months to reassess symptoms status and discuss further managementplan. Assessment COPD, severe (HCC) (Primary) - continue with Trelegy, rescue albuterol. Rescue pack provided Pulmonary clinic follow-up in 6 months Severe GOLD-4 COPD RML Ca, s/p RML Resection 2021 AFIb, on Coumadin S/p Partial Pancreatic Resection 2020 2 PPD Smoker, active Recent Hospitalization for AECB at [facility] Hx of Cutaneous Lupus Current bronchodilator regimen: Trelegy +rescue albuterol Follow-up: Return in about 8 months (around 09/07/2024). | Check-out note: Severe GOLD-4 COPD RML Ca, s/p RML Resection 2021 AFIb, on Coumadin S/p Partial Pancreatic Resection 2020 2 PPD Smoker, active Recent Hospitalization for AECB at [facility] Completed Abx + Prednisone Taper Hx of Cutaneous Lupus Current BD Rx: Trelegy + rescue Albuterol Plan: C/w Trelegy + Rescue Albuterol Rescue Z pack + Medrol Dose pack ordered F/u 8 months, eval for repeat 6 MWT Jean Crews MD Subjective CC: Chief Complaint Patient presents with Follow Up Here for hospital follow up. Acute hypoxic respiratory failure. HPI: Nursing Notes: Allyson Doyle LPN 01/06/24 1550 Signed Chief Complaint Patient presents with Follow Up Here for hospital follow up. Acute hypoxic respiratory failure. Interm History/Respiratory Symptoms Cough: yes. Hemoptysis: no Sinus Symptoms: no Hospitalizations: yes-acute hypoxic resp failure ED Trips: yes Triggers: tickle Nocturnal: head on pillow CPAP/BiPAP/O2: no Flu Vaccine: 2022 Pneumovax: 2021 Prevnar: 2020 COVID 19: x5. Mmrc Cat Question 01/06/2024 3:45 PM EDT - Filed by Patient When do you become breathless? (4) I am too breathless to leave the house or I am breathless when dressing How frequently do you cough? (2) Do you have phlegm in your chest? (0) - I have no phlegm (mucus) in my chest Is your chest tight? (0) - My chest does not feel tight at all How breathless do you become when walking up a hill or steps? (5) - When I walk up a hill or one flight of stairs I am very breathless How limited are you doing activities at home? (3) How confident are you leaving home with your lung condition? (0) - I am confident leaving my home despite my condition How soundly do you sleep? (0) - I sleep soundly How much energy do you have? (2) Total MMRC Score (range: 0 - 4) 4 Total CAT Score (range: 0 - 40) 12 Objective Filed Vitals: 01/06/24 1546 01/06/24 1547 BP: 120/80 Pulse: 84 Resp: 16 Temp: 35.3 C (95.5 F) TempSrc: Tympanic SpO2: 85% 91% Weight: 68.9 kg (152 lb) Height: 1.676 m (5' 6") Exam: Const: No signs of acute distress present. Head/Face: Normal on inspection. Eyes: Conjunctivae clear. Pupils equal round and reactive to light. ENMT: Oropharynx: No erythema, exudate or masses. Posterior pharynx is normal. Neck: Supple and symmetric. Resp: Respiratory examination as outlined above CV: Rate is regular. Rhythm is regular. No heart murmur appreciated. Extremities: No edema of the lower limbs bilaterally. Skin: Skin is warm and dry. Neuro: Coordination normal. No involuntary movement. Psych: Patient's attitude is cooperative. Mood is normal. Affect is normal. Tests reviewed with the patient: CT CHEST W CONTRAST Result Date: 08/27/2023 IMPRESSION Stable postsurgical changes post right middle lobectomy with no regrowth of tumor or metastatic disease appreciated. Severe pulmonary emphysema. Unchanged small right pleural effusion. Unchanged mild mediastinal lymphadenopathy. Cardiomegaly. Other stable chronic and incidental findings as above. Available Radiologic data was reviewed by me in PACS. The images were shown to the patient and findings were discussed with the patient. HOME MEDICATIONS: Azithromycin 250 MG Oral Tablet (Zithromax Z-Harpreet) methylPREDNISolone 4 MG Oral Tablet Therapy Pack (Medrol Dosepack) Furosemide 20 MG Oral Tablet (Lasix) Nicotine 21 MG/24HR Transdermal Patch 24 Hour (Nicoderm CQ) Ketoconazole 2 % External Shampoo (Nizoral) Sodium Fluoride 5000 PPM 1.1 % Dental Paste Hydroxychloroquine Sulfate 200 MG Oral Tablet (Plaquenil) Atorvastatin Calcium 10 MG Oral Tablet (Lipitor) Levothyroxine Sodium 175 MCG Oral Tablet (Levoxyl) Warfarin Sodium 5 MG Oral Tablet (Coumadin) ProAir HFA 108 (90 Base) MCG/ACT Inhalation Aerosol Solution Metoprolol Succinate ER 25 MG Oral Tablet Extended Release 24 Hour (toPROL XL) dilTIAZem HCl ER Coated Beads 180 MG Oral Capsule Extended Release 24 Hour (Cardizem CD) Clobetasol Propionate 0.05 % External Ointment (Temovate) Vitamin D 25 MCG (1000 UT) Oral Tablet valACYclovir HCl 1 GM Oral Tablet (Valtrex) Dicyclomine HCl 10 MG Oral Capsule (Bentyl) Aspirin EC 81 MG Oral Tablet Delayed Release Acetaminophen 500 MG Oral Tablet (Tylenol) Pimecrolimus (ELIDEL) 1 % cream Multiple Vitamin (MULTI VITAMIN) TABS ROS: No reported history of Hemoptysis, Hematemesis, Melena No reported history of Dysuria, Hematuria, Flank Pain No reported history of chronic headache, seizures No reported history of Fall or trauma . No reported history of recent change in weight or appetite. Past Medical History: Diagnosis Date Benign neoplasm [...] & serrated adenoma polyps, diverticulosis, repeat 3 yrs/[facility] COLONOSCOPY, DIAGNOSTIC (RECTUM) 12/08/2019 serrated adenomatous polyps, diverticulosis, repeat 3 yrs / [facility] EGD, FLEXIBLE,W/ENDOSCOPIC US 06/19/2018 pancreatic cyst, repeat 6 mo/[facility] EGD, FLEXIBLE,W/ENDOSCOPIC US 12/10/2019 mucinous cyst / [facility] EGD, W/ENDOSCOPIC US 07/31/2020 mucinous pancreatic cyst, liver cyst / ESOPHAGOGASTRODUODENOSCOPY (EGD), FLEXIBLE, TRANSORAL, ENDOSCOPIC ULTRASOUND performed by Honorio Bradford DO at [facility] EGD, W/ENDOSCOPIC US 02/12/2021 cyst on left lobe, Hyperechoic material consistent with sludge, normal egd / biopiescytology showedno evidence of a malignancy / ESOPHAGOGASTRODUODENOSCOPY (EGD), FLEXIBLE, TRANSORAL, ENDOSCOPIC ULTRASOUND performed by Honorio Bradford DO at [facility] IR BIOPSY 01/14/2022 LYMPHADENECTOMY VIA THORACOSCOPY Right 03/08/2022 ROBOTIC THORACOSCOPY WITH LYMPHADENECTOMY performed by Jose Zacarias MD at [facility] MISCELLANEOUS ORDER ([facility] ONLY) 1995 right breast lumpectomy MISCELLANEOUS ORDER ([facility] ONLY) 1957 tonsilectomy MISCELLANEOUS ORDER ([facility] ONLY) 1951 patent ductus surgery- 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 Anaya Social History Socioeconomic History Marital status: Single Number of children: 0 Occupational History Occupation: retired Employer: [employer] [place] [address] Tobacco Use Smoking status: Every Day Current packs/day: 2.50 Average packs/day: 2.5 packs/day for 55.0 years (137.5 ttl pk-yrs) Types: Cigarettes Smokeless tobacco: Never Tobacco comments: 2 packs daily 01/06/24 Vaping Use Vaping Use: Never used Substance and Sexual Activity Alcohol use: No Drug use: No Social History Narrative No pets. No mold. Family History Problem Relation Age of Onset Ear Problems Mother Thyroid Disorder Mother graves Allergies Father Arthritis Father Hypertension Father Heart Disorder Father valve replacement Colon cancer Sister Cancer Grandfather (Maternal) breast Review of patient's allergies indicates: Allergen Reactions Pollen Nasal congestion, watery eyes Other reaction(s): cough, itchy watery eyes, stuffy nose documented in this encounter Nursing Notes * Allyson Doyle LPN - 01/06/2024 3:48 PM EDT Chief Complaint Patient presents with Follow Up Here for hospital follow up. Acute hypoxic respiratory failure. Interm History/Respiratory Symptoms Cough: yes. Hemoptysis: no Sinus Symptoms: no Hospitalizations: yes-acute hypoxic resp failure ED Trips: yes Triggers: tickle Nocturnal: head on pillow CPAP/BiPAP/O2: no Flu Vaccine: 2022 Pneumovax: 2021 Prevnar: 2020 COVID 19: x5. Mmrc Cat Question 01/06/2024 3:45 PM EDT - Filed by Patient When do you become breathless? (4) I am too breathless to leave the house or I am breathless when dressing How frequently do you cough? (2) Do you have phlegm in your chest? (0) - I have no phlegm (mucus) in my chest Is your chest tight? (0) - My chest does not feel tight at all How breathless do you become when walking up a hill or steps? (5) - When I walk up a hill or one flight of stairs I am very breathless How limited are you doing activities at home? (3) How confident are you leaving home with your lung condition? (0) - I am confident leaving my home despite my condition How soundly do you sleep? (0) - I sleep soundly How much energy do you have? (2) Total MMRC Score (range: 0 - 4) 4 Total CAT Score (range: 0 - 40) 12 documented in this encounter Plan of Treatment Upcoming Encounters Date Type Department Care Team (Late st Contact Info) Description 01/09/2024 1:00 PM EDT Office Visit Cardiology, [facility] [address] [place] [address] Anthony Sawyer MD [address] [place] [address] 01/15/2024 1:20 PM EDT Anticoagulation Pharmacy, [facility] [address] [place] [address] Pharmacist1, [facility] [address] [place] [address] 02/23/2024 1:00 PM EDT Imaging Radiology [facility] 1st [facility] 132 [place] [address] 03/01/2024 2:30 PM EDT Office Visit [facility] [address] [place] [address] Jose Zacarias MD [address] [place] [address] 03/23/2024 1:30 PM EDT Office Visit Cardiology, [facility] [address] [place] [address] Deborah Yost CRNP [address] [place] [address] 04/12/2024 3:00 PM EDT Office Visit Family Practice [facility] [address] [place] [address] Kusum Rutherford DO 200 [facility] ZAC, [place] [address] 2024 1:00 PM EDT Office Visit Dermatology [facility] [address] [place] [address] [address] Alxe Parrish MD 200 [facility] [place] [address] 09/07/2024 3:00 PM EST Office Visit Pulmonary Medicine, [facility] 132 [place] [address] Jean Crews MD [address] [facility] [place] [address] 11/25/2024 10:20 AM EST Office Visit Rheumatology [facility] [address] [place] [address] Nikunj Kessler MD [address] [address] Scheduled Procedures Name Priority Associated Diagnoses Date/Ti [...] exists DISCUSS TOBACCO CESSATION (REFER TO SMARTSET #8361) 12/28/2024 12/29/2023, 06/18/2018 (Discussed) O2 ASSESSMENT COMPLETED [...] D LEVEL ONCE IN A LIFETIME-USE SMARTSET# 83949 Completed 11/29/2023, 08/26/2022, 02/01/2021, Additional history exists GARDASIL-HPV IMMUNIZATION SERIES Aged Out No longer eligible based on patient's age to complete this topic documented as of this encounter Medical Devices Not on filedocumented as of this encounter Visit Diagnoses Diagnosis COPD, severe (HCC)- Primary Chronic airway obstruction, not elsewhere classified documented in this encounter Advance Directives Documents on File Type Date Recorded Patient Senior Courtroom Clerk Expl anation Advance Directives and Living Will 03/11/2022 ADVANCE DIRECTIVE / LIVING WILL Power of Lock Maintenance Supervisor 05/05/2021 POWER OF A TTORNEY Latest [...] the patient have Health Care Power of Lock Maintenance Supervisor? No Full Code 05/02/2021 10:57 AM 05/02/2021 2:05 PM Question Answer Comments Discussion of Advance Direct lupe occurred with: Not Discussed Does the patient have a Living Will? No Does the patient have Health Care Power of Lock Maintenance Supervisor? No Care Teams College Instructor Relationship Specialty Start Date End Date Kusum Rutherford DO [address] [place] [address] PCP - General Family Medicine 7/13/12 documented as of this encounter
--- OUTSIDE RECORDS SUMMARY | 2024-05-12 21:36 | External Medical Summary | Summary of Care ---
Author Name Unknown Organization [facility] Address [address] [place] [address] Phone [phone] Care Team Providers Care Drain Cleaner Plumber Name Role Phone Kusum Rutherford DO Primary Care Provider Encounter Details Date Type Department Care Team (Late st Contact Info) Description 12/29/2023 Referral Triage Health Services [address], [place] [phone] Sonia Chen, Health Grocery Associate [address], [place] [phone] Allergies Active Allergy Reactions Criticality Noted Date Comments Pollen Low 11/24/2015 Nasal congestion, watery eyes Other reaction(s): cough, itchy watery eyes, stuffy nose documented as of this encounter (statuses as of 12/29/2023) Medications Medication Sig Dispensed Refills Start Date [...] as of this encounter (statuses as of 12/29/2023) Active Problems Problem Noted Date Diagnosed Date [...] as of this encounter (statuses as of 12/29/2023) Resolved Problems Problem Noted Date Diagnosed Date [...] as of this encounter (statuses as of 12/29/2023) Immunizations Name Administration Dates Next Due COVID-19 mRNA, LNP-s, No Pre serve, 2-Dose Series ([employer]) 08/01/2021,12/28/2020,11/30/2020 COVID-19, MRNA-LNP, 23-24, P F, 30 MCG/0.3 mL, 12 YRS AND ABOVE, IM ([facility] 08/26/2023 Covid-19, Mrna, Lnp-s, Pf, B ivalent, 30 Mcg, IM, 12 yrs and above ([employer]) 08/09/2022 HEP A - Hepatitis A (Adult [...] 3:40 PM EDT Office Visit Pulmonary Medicine, [facility] [address] [place] [address] Jean Crews MD [address] [facility] [address] 01/09/2024 1:00 PM EDT Office Visit Cardiology, [facility] [address] [place] [address] Anthony Sawyer MD [address] [place] [address] 01/15/2024 1:20 PM EDT Anticoagulation Pharmacy, [facility] [address] [facility] [address] Pharmacist1, [facility] Sp [address] [place] [address] 02/23/2024 1:00 PM EDT Imaging Radiology [facility] 1st [facility] [address] [place] [address] 03/01/2024 2:30 PM EDT Office Visit Thoracic Surg [facility] [address] [place] [address] Jose Zacarias MD [address] [place] [address] 03/23/2024 1:30 PM EDT Office Visit Cardiology, [facility] [address] [place] [address] Deborah Yost CRNP [address] [place] [address] 04/12/2024 3:00 PM EDT Office Visit Family Practice [facility] 200 [facility] [place] [address] Kusum Rutherford DO 200 [facility] [place] [address] 2024 1:00 PM EDT Office Visit Dermatology [facility] 200 [facility] [place] [address] Alex Parrish MD 200 [facility] [place] [address] 11/25/2024 10:20 AM EST Office Visit Rheumatology [place] [id number] [facility] [place] [address] Nikunj Kessler MD [facility] [place], [place] [address] Scheduled Procedures Name Priority Associated Diagnoses Date/Ti [...] exists DISCUSS TOBACCO CESSATION (REFER TO SMARTSET #1731) 12/28/2024 12/29/2023, 06/18/2018 (Discussed) O2 ASSESSMENT COMPLETED [...] D LEVEL ONCE IN A LIFETIME-USE SMARTSET# [id number] Completed 11/29/2023, 08/26/2022, 02/01/2021, Additional history exists GARDASIL-HPV IMMUNIZATION SERIES Aged Out No longer eligible based on patient's age to complete this topic documented as of this encounter Medical Devices Not on filedocumented as of this encounter Advance Directives Documents on File Type Date Recorded 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 No Full Code 05/02/2021 10:57 AM 05/02/2021 2:05 PM Question Answer Comments Discussion of Advance Direct lupe occurred with: Not Discussed Does the patient have a Living Will? No Does the patient have Health Care Power of Dextrine Mixer? No Care Teams Drain Cleaner Plumber Relationship Specialty Start Date End Date Kusum Rutherford DO [address] [place] [address] PCP - General Family Medicine 05/01/12 documented as of this encounter
--- OUTSIDE RECORDS SUMMARY | 2024-05-12 21:36 | External Medical Summary ---
Author Name Unknown Address Unknown Organization K09:[facility] [place] [address] Laboratory Report Ordering Provider Test Date Status SENG TIWARI V 12/25/2023 14:13:40 Final Therapeutic ranges for non-o perative patients:
Prophylaxsis/treatment of DVT: (Range:2.0-3.0)
Treatment of pulmonary embolism:(Range:2.0-3.0)
Prevention of systemic embolism from:
-tissue heart valves
-acute myocardial infarction
-valvular heart disease
-atrial fibrillation
(Range: 2.0-3.0)
Mechanical prosthetic valves: (Range: 2.5-3.5) Observation Date Value Abnormality Reference (Units ) Status INR in Capillary blood by Coagulation assay 12/25/2023 14:13:40 2.4 (INR) Final Performing Location [facility] [address]
--- OUTSIDE RECORDS SUMMARY | 2024-05-12 21:36 | External Medical Summary | Summary of Care ---
Author Name Unknown Organization [facility] Address [address] [place] [address] Phone [phone] Care Team Providers Care Medical Science Liaison Name Role Phone Krish Noesalma Nayak Primary Care Provider Reason for Visit * Reason Onset Date Comments Advice 01/12/2024 Encounter Details Date Type Department Care Team (Late st Contact Info) Description 01/12/2024 Telephone Pulmonary Medicine, [facility] [address] [facility] [place] [address] Jean Crews MD [address] [place] [address] Advice Allergies Active Allergy Reactions Criticality Noted Date Comments Pollen Low 11/24/2015 Nasal congestion, watery eyes Other reaction(s): cough, itchy watery eyes, stuffy nose documented as of this encounter (statuses as of 01/12/2024) Medications Medication Sig Dispensed Refills Start Date [...] idinium-Vilanterol ) Inhale 1 Puff by mouth. 0 Active [...] package directions 21 Tablet 0 01/12/2024 Active Ketoconazole 2 % External Shampoo (Nizoral)Indicatio ns:Seborrheic dermatitis Lather into scalp three times per week. Leave in for 5 minutes then rinse 120 mL 11 11/17/2023 4 Discontinue d(Medicatio n List Clean Up) documented as of this encounter (statuses as of 01/12/2024) Active Problems Problem Noted Date Diagnosed Date [...] as of this encounter (statuses as of 01/12/2024) Resolved Problems Problem Noted Date Diagnosed Date [...] as of this encounter (statuses as of 01/12/2024) Immunizations Name Administration Dates Next Due COVID-19 mRNA, LNP-s, No Pre serve, 2-Dose Series ([employer]) 08/01/2021,12/28/2020,11/30/2020 COVID-19, MRNA-LNP, 23-24, P F, 30 MCG/0.3 mL, 12 YRS AND ABOVE, IM ([employer]) 08/26/2023 Covid-19, Mrna, Lnp-s, Pf, B [...] Telephone Encounter - Jean Crews MD - 01/12/2024 5:00 PM EDT Z-Harpreet and Medrol Dosepak prescriptions were sent to [facility]. * Telephone Encounter - Ifeoma Fish LPN - 01/12/2024 8:33 AM EDT Pt called in asking about her rescue kit. Pt states she would be willing to stop her Chloraquin in order to use the rescue kit of zithromax and pred. Asking if the zpak and pred could be sent to her pharmacy to have on hand when she needs it. Pt uses the [facility] documented in this encounter Plan of Treatment Upcoming Encounters Date Type Department Care Team (Late st Contact Info) Description 01/15/2024 1:20 PM EDT Anticoagulation Pharmacy, [facility] 200 [facility] [place] [address] Pharmacist1, [facility] 200 [facility] [place] [address] 02/23/2024 1:00 PM EDT Imaging Radiology [address] 132 [place] [address] 03/01/2024 2:30 PM EDT Office [facility] [address] [place] [address] Jose Zacarias MD [address] [place] [address] 03/23/2024 1:30 PM EDT Office Visit Cardiology, [facility] 132 [place] [address] Deborah Yost CRNP 132 [facility] [place] [address] 04/12/2024 3:00 PM EDT Office Visit Family Practice [facility] 200 [facility] [place] [address] Kusum Rutherford DO [address] [place] [address] 2024 1:00 PM EDT Office Visit Dermatology [facility] [address] [place] [address] Alex Parrish MD [address] [place] [address] 09/07/2024 3:00 PM EST Office Visit Pulmonary Medicine, [facility] 132 [facility] [place] [address] Jean Crews MD [address] [facility] [place] [address] 11/25/2024 10:20 AM EST Office Visit Rheumatology 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 No Full Code 05/02/2021 10:57 AM 05/02/2021 2:05 PM Question Answer Comments Discussion of Advance Direct lupe occurred with: Not Discussed Does the patient have a Living Will? No Does the patient have Health Care Power of Director Of Diversity And Inclusion? No Care Teams Medical Science Liaison Relationship Specialty Start Date End Date Kusum Rutherford DO [address] [place] [address] PCP - General Family Medicine 05/01/12 documented as of this encounter
--- OUTSIDE RECORDS SUMMARY | 2024-05-12 21:36 | External Medical Summary | Summary of Care ---
Author Name Unknown Organization [facility] Address [address] [place] [address] Phone [phone] Care Team Providers Care Firer Low Pressure Name Role Phone Krish Noe Malini DO Primary Care Provider Reason for Visit * Reason Onset Date Comments Medication Problem 01/09/2024 Possible drug interaction Encounter Details Date Type Department Care Team (Late st Contact Info) Description 01/09/2024 Telephone Pulmonary Medicine, [facility] [address] [facility] [place] [address] Jean Crews MD [address] [facility] [id number] Medication Problem (Possible drug interact... Allergies Active Allergy Reactions Criticality Noted Date Comments Pollen Low 11/24/2015 Nasal congestion, watery eyes Other reaction(s): cough, itchy watery eyes, stuffy nose documented as of this encounter (statuses as of 01/11/2024) Medications Medication Sig Dispensed Refills Start Date [...] Aspirin EC 81 MG Oral Tablet Delayed ReleaseIndications: Hypotension, unspecified hypotension type,Dyslipidemia, goal LDL below 70,Chronic [...] 10/30/2023 Active Ketoconazole 2 % External Shampoo (Nizoral)Indication s:Seborrheic dermatitis Lather into scalp three times per week. Leave in for 5 minutes then rinse 120 mL 11 11/17/2023 Active Additional Information Patient not taking.Reported on 01/09/2024 Nicotine 21 MG/24HR Transdermal Patch 24 Hour (Nicoderm CQ) Place 21 mg topically on the skin daily. 0 12/21/2023 Active Trelegy Ellipta 100-62.5-25 MCG/ACT Aerosol Powder Breath Activated (Fluticasone-Umecli dinium-Vilanterol) Inhale 1 Puff by mouth. 0 Active Metoprolol Succinate ER 25 MG Oral Tablet Extended Release 24 Hour (toPROL XL)Indications:Perm anent atrial fibrillation (HCC),Atrial fibrillation with RVR (HCC),Dyslipidemia, [...] the morning. 30 Tablet 5 01/09/2024 Active documented as of this encounter (statuses as of 01/11/2024) Active Problems Problem Noted Date Diagnosed Date [...] as of this encounter (statuses as of 01/11/2024) Resolved Problems Problem Noted Date Diagnosed Date [...] as of this encounter (statuses as of 01/11/2024) Immunizations Name Administration Dates Next Due COVID-19 mRNA, LNP-s, No Pre serve, 2-Dose Series ([employer]) 08/01/2021,12/28/2020,11/30/2020 COVID-19, MRNA-LNP, 23-24, P F, 30 MCG/0.3 mL, 12 YRS AND ABOVE, IM ([employer]) 08/26/2023 Covid-19, Mrna, Lnp-s, Pf, B ivalent, [...] Telephone Encounter - Jean Crews MD - 01/11/2024 9:28 PM EDT We would recommend withholding hydroxychloroquine for 5 days while completing Z- Harpreet therapy. Patient had reported that she had taken azithromycin in the past without difficulty. * Telephone Encounter - Tsering Cohn LPN - 01/09/2024 9:56 AM EDT [facility] called to report the Azithromycin ordered on 01/06/24 has a possible drug interaction with the Hydroxychloroquine she is taking. There is a possibility of prolonged QT interval. She is holding the rx until she hears back from this office. She understands Dr Crews will be back in the office on Friday. documented in this encounter Plan of Treatment Upcoming Encounters Date Type Department Care Team (Late st Contact Info) Description 01/15/2024 1:20 PM EDT Anticoagulation Pharmacy, [facility] [address] [place] [address] Pharmacist1, [facility] [address] [place] [address] 02/23/2024 1:00 PM EDT Imaging Radiology [facility] 132 [facility] [place] [address] 03/01/2024 2:30 PM EDT Office Visit [facility]acic [facility] [address] [place] [address] Jose Zacarias MD [address] [place] [address] 03/23/2024 1:30 PM EDT Office Visit Cardiology, [facility] 132 [facility] [place] [address] Deborah Yost CRNP 132 [facility] [place] [address] 04/12/2024 3:00 PM EDT Office Visit Family Practice [facility] [address] [place] [address] [address] Kusum Rutherford DO [address] [address] 2024 1:00 PM EDT Office Visit Dermatology [facility] [address] [place] [address] Alex Parrish MD [address] [place] [address] 09/07/2024 3:00 PM EST Office Visit Pulmonary Medicine, [facility] [address] [place] [address] Jean Crews MD [address] [facility] [address] 11/25/2024 10:20 AM EST Office Visit Rheumatology [facility] [address] [place] [address] Nikunj Kessler MD [address] [place] [address] Scheduled Procedures Name Priority Associated Diagnoses Date/Ti [...] D LEVEL ONCE IN A LIFETIME-USE SMARTSET# [id number] Completed 11/29/2023, 08/26/2022, 02/01/2021, Additional history exists GARDASIL-HPV IMMUNIZATION SERIES Aged Out No longer eligible based on patient's age to complete this topic documented as of this encounter Medical Devices Not on filedocumented as of this encounter Advance Directives Documents on File Type Date Recorded 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 No Full Code 05/02/2021 10:57 AM 05/02/2021 2:05 PM Question Answer Comments Discussion of Advance Direct lupe occurred with: Not Discussed Does the patient have a Living Will? No Does the patient have Health Care Power of [place] Operator? No Care Teams Firer Low Pressure Relationship Specialty Start Date End Date Kusum Rutherford DO [address] [place] [address] PCP - General Family Medicine 05/01/12 documented as of this encounter
--- OUTSIDE RECORDS SUMMARY | 2024-05-12 21:36 | External Medical Summary | Summary of Care ---
Author Name Unknown Organization [facility] Address [address] [place] [address] Phone [phone] Care Team Providers Care Speech Language Pathologist Travel Name Role Phone Krish Noesalma Nayak Primary Care Provider Reason for Visit * Reason Onset Date Comments Advice 01/12/2024 Encounter Details Date Type Department Care Team (Late st Contact Info) Description 01/12/2024 Telephone Pulmonary Medicine, [facility] [address] [facility] [address] Jean Crews MD [address] [place] [address] Advice Allergies Active Allergy Reactions [...] mRNA, LNP-s, No Pre serve, 2-Dose Series ([employer]) 08/01/2021,12/28/2020,11/30/2020 COVID-19, MRNA-LNP, 23-24, P F, 30 MCG/0.3 mL, 12 YRS AND ABOVE, IM ([employer]) 08/26/2023 Covid-19, Mrna, Lnp-s, Pf, B [...] and Medrol Dosepak prescriptions were sent to [facility]. * Telephone Encounter - Ifeoma Fish [...] when she needs it. Pt uses the [facility] documented in this encounter Plan of Treatment Upcoming Encounters Date Type Department Care Team (Late st Contact Info) Description 01/15/2024 1:20 PM EDT Anticoagulation Pharmacy, [facility] 200 [facility] [place] [address] Pharmacist1, [facility] 200 [facility] [place] [address] 02/23/2024 1:00 PM EDT Imaging Radiology [address] 132 [place] [address] 03/01/2024 2:30 PM EDT Office Visit [facility] [address] [place] [address] Jose Zacarias MD [address] [place] [address] 03/23/2024 1:30 PM EDT Office Visit Cardiology, [facility] 132 [facility] [place] [address] Deborah Yost CRNP 132 [facility] [place] [address] 04/12/2024 3:00 PM EDT Office Visit Family Practice [facility] 200 [facility] [place] [address] Kusum Rutherford DO [address] [place] [address] 2024 1:00 PM EDT Office Visit Dermatology [facility] [address] [place] [address] Alex Parrish MD [address] [place] [address] 09/07/2024 3:00 PM EST Office Visit Pulmonary Medicine, [facility] 132 [facility] [place] [address] Jean Crews MD [address] [facility] [place] [address] 11/25/2024 10:20 AM EST Office Visit Rheumatology [facility] [address] [place], [place] [address] Nikunj Kessler MD [address] [place] [address] Scheduled Procedures Name Priority Associated Diagnoses Date/Ti [...] D LEVEL ONCE IN A LIFETIME-USE SMARTSET# [id number] Completed 11/29/2023, 08/26/2022, 02/01/2021, Additional history exists GARDASIL-HPV IMMUNIZATION SERIES Aged Out No longer eligible based on patient's age to complete this topic documented as of this encounter Medical Devices Not on filedocumented as of this encounter Advance Directives Documents on File Type Date Recorded 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 No Full Code 05/02/2021 10:57 AM 05/02/2021 2:05 PM Question Answer Comments Discussion of Advance Direct lupe occurred with: Not Discussed Does the patient have a Living Will? No Does the patient have Health Care Power of Typewriter Assembly And Parts Inspector? No Care Teams Speech Language Pathologist Travel Relationship Specialty Start Date End Date Kusum Rutherford DO [address] [place] [address] PCP - General Family Medicine 05/01/12 documented as of this encounter
--- OUTSIDE RECORDS SUMMARY | 2024-05-12 21:37 | External Medical Summary | Summary of Care ---
Author Name Unknown Organization [facility] Address [address] [place] [address] Phone [phone] Care Team Providers Care Surgeon Assistant Name Role Phone Kusum Rutherford DO Primary Care Provider Reason for Visit * Reason Comments Dosage Adjustment Via Phone (anticoag Cl inic) Encounter Details Date Type Department Care Team (Latest Contact Info) Description 12/16/2023 5:10 PM EST Anticoagulation Pharmacy, [facility] [address] Pharmacist1, [facility] [address] [facility] [address] Atrial fibrillation with RVR (HCC)*; Drug-induced systemic lupus erythematosus, unspecified organ involvement status (HCC) Allergies Active Allergy Reactions Criticality Noted Date Comments Pollen Low 11/24/2015 Nasal congestion, watery eyes Other reaction(s): cough, itchy watery eyes, stuffy nose documented as of this encounter (statuses as of 12/16/2023) Medications Medication Sig Dispensed Refills Start Date [...] then rinse 120 mL 11 11/17/2023 Active documented as of this encounter (statuses as of 12/16/2023) Active Problems Problem Noted Date Diagnosed Date [...] as of this encounter (statuses as of 12/16/2023) Resolved Problems Problem Noted Date Diagnosed Date [...] as of this encounter (statuses as of 12/16/2023) Immunizations Name Administration Dates Next Due COVID-19 mRNA, LNP-s, No Pre serve, 2-Dose Series ([employer]) 08/01/2021,12/28/2020,11/30/2020 COVID-19, MRNA-LNP, 23-24, P F, 30 MCG/0.3 mL, 12 YRS AND ABOVE, IM ([employer]Comir[employer]) 08/26/2023 Covid-19, Mrna, Lnp-s, Pf, B ivalent, 30 Mcg, IM, 12 yrs and above ([employer]) 08/09/2022 HEP A - Hepatitis A (Adult [...] Progress Notes * Evangelista Burkett RPh - 12/16/2023 7:58 AM EST Images from the original note were not included. Patient Phone Numbers Admitted to PCU 12/15. Awaiting info on discharge. Patient is not being discharged today. (3:48 PM) Evangelista Green RPh, [facility] Clinical Pharmacist [facility] 12/16/2023, 7:59 AM documented in this encounter Plan of Treatment Upcoming Encounters Date Type Department Care Team (Late st Contact Info) Description 12/18/2023 5:40 PM EST Anticoagulation Pharmacy, [facility] [address] [place] [address] Pharmacist1, [facility] [address] [place] [address] [address] [address] 02/23/2024 1:00 PM EDT Imaging Radiology [facility] [address] [place] [address] 03/01/2024 2:30 PM EDT Office Visit [facility] [address] [place] [address] Jose Zacarias MD [address] [place] [address] 03/23/2024 1:30 PM EDT Office Visit Cardiology, [facility] [address] [place] [address] Deborah Yost CRNP [address] [place] [address] 2024 1:00 PM EDT Office Visit Dermatology [facility] [address] [place] [address] Alex Parrish MD [address] [place] [address] 11/25/2024 10:20 AM EST Office Visit Rheumatology [place] [address] [place] [address] Nikunj Kessler MD [facility] [place] [address] Scheduled Procedures Name Priority Associated Diagnoses Date/Ti me COLONOSCOPY FLEXIBLE PROXIMAL DIAGNOSTIC Recall History of colon polyps Health Maintenance Due Date Last Done Comments Alpha-1 Antitrypsin 1968 Hepatitis B (3 of 3 - 19+ 3-dose series) 10/11/2014 08/16/2014, 10/22/2010 DISCUSS TOBACCO CESSATION (REFER TO SMARTSET #4861) 06/18/2019 06/18/2018 (Discussed) DTaP,Tdap,and Td Vaccines (2 [...] D LEVEL ONCE IN A LIFETIME-USE SMARTSET# [id number] Completed 11/29/2023, 08/26/2022, 02/01/2021, Additional history exists GARDASIL-HPV IMMUNIZATION SERIES Aged Out No longer eligible based on patient's age to complete this topic documented as of this encounter Medical Devices Not on filedocumented as of this encounter Visit Diagnoses Diagnosis Atrial fibrillation with RVR (HCC)- Primary Atrial fibrillation Drug-induced systemic lupus erythematosus, unspecified organ involvement status (HCC) documented in this encounter Advance Directives Documents on File Type Date Recorded 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 No Full Code 05/02/2021 10:57 AM 05/02/2021 2:05 PM Question Answer Comments Discussion of Advance Direct lupe occurred with: Not Discussed Does the patient have a Living Will? No Does the patient have Health Care Power of Office Support Associate? No Care Teams Surgeon Assistant Relationship Specialty Start Date End Date Kusum Rutherford DO [address] [place] [address] PCP - General Family Medicine 05/01/12 documented as of this encounter
--- OUTSIDE RECORDS SUMMARY | 2024-05-12 21:37 | External Medical Summary | Summary of Care ---
Author Name Unknown Organization [facility] Address [address] [place] [address] Phone [phone] Care Team Providers Care Liquid Floor And Wall Applier Name Role Phone Kusum Rutherford DO Primary Care Provider Reason for Visit * Reason Comments Dosage Adjustment Via Phone (anticoag Cl inic) Encounter Details Date Type Department Care Team (Latest Contact Info) Description 12/18/2023 5:40 PM EST [facility]ticoagulation Pharm[facility], [facility] [address] [facility]1, [facility] [address] Atrial fibrillation with RVR (HCC)*; Drug-induced systemic lupus erythematosus, unspecified organ involvement status (HCC) Allergies Active Allergy Reactions Criticality Noted Date Comments Pollen Low 11/24/2015 Nasal congestion, watery eyes Other reaction(s): cough, itchy watery eyes, stuffy nose documented as of this encounter (statuses as of 12/18/2023) Medications Medication Sig Dispensed Refills Start Date [...] as of this encounter (statuses as of 12/18/2023) Active Problems Problem Noted Date Diagnosed Date [...] as of this encounter (statuses as of 12/18/2023) Resolved Problems Problem Noted Date Diagnosed Date [...] as of this encounter (statuses as of 12/18/2023) Immunizations Name Administration Dates Next Due COVID-19 mRNA, LNP-s, No Pre serve, 2-Dose Series ([employer]) 08/01/2021,12/28/2020,11/30/2020 COVID-19, MRNA-LNP, 23-24, P F, 30 MCG/0.3 mL, 12 YRS AND ABOVE, IM ([employer]-Comirnaty) 08/26/2023 Covid-19, Mrna, Lnp-s, Pf, B ivalent, 30 Mcg, IM, 12 yrs and above ([employer]) 08/09/2022 HEP A - Hepatitis A (Adult [...] Progress Notes * Evangelista Burkett RPh - 12/18/2023 2:51 PM EST Patient Phone Numbers Maria Alejandra is still admitted to [facility]. Check for discharge 12/21. Evangelista Green RPh, [facility] Clinical Pharmacist [facility] 12/18/2023, 2:52 PM documented in this encounter Plan of Treatment Upcoming Encounters Date Type Department Care Team (Late st Contact Info) Description 12/22/2023 5:50 PM EST Anticoagulation Pharmacy, [facility] [place] [address] [place] [address] [address] Pharmacist1, [facility] [address] [place] [address] [address] 02/23/2024 1:00 PM EDT Imaging Radiology [facility] 1st [facility], [place] [address] [facility] [place] [address] 03/01/2024 2:30 PM EDT Office Visit Thoracic Surg [facility], [place] [address] [place] [address] Jose Zacarias MD [address] [place] [address] 03/23/2024 1:30 PM EDT Office Visit Cardiology, [facility] [address] [facility], [place]) [place] [address] Deborah Yost CRNP 132 [place] [address] 2024 1:00 PM EDT Office Visit Dermatology [facility] 200 [facility] [place] [address] Alex Parrish MD 200 [facility] [place] [address] 11/25/2024 10:20 AM EST Office Visit Rheumatology [facility] [address] [place] [address] Nikunj Kessler MD [address] [place] [address] Scheduled Procedures Name Priority Associated Diagnoses Date/Ti me COLONOSCOPY FLEXIBLE PROXIMAL DIAGNOSTIC Recall History of colon polyps Health Maintenance Due Date Last Done Comments Alpha-1 Antitrypsin 1967 Hepatitis B (3 of 3 - 19+ 3-dose series) 10/11/2014 08/16/2014, 10/22/2010 DISCUSS TOBACCO CESSATION (REFER TO SMARTSET #9208) 06/18/2019 06/18/2018 (Discussed) DTaP,Tdap,and Td Vaccines (2 [...] D LEVEL ONCE IN A LIFETIME-USE SMARTSET# 89212 Completed 11/29/2023, 08/26/2022, 02/01/2021, Additional history exists [...] Documents on File Type Date Recorded Patient Log Tumbler Expl anation Advance Directives and Living Will 03/11/2022 ADVANCE DIRECTIVE / LIVING WILL Power of Simplex Operator 05/05/2021 POWER OF A TTORNEY Latest [...] the patient have Health Care Power of Simplex Operator? No Full Code 05/02/2021 10:57 AM 05/02/2021 2:05 PM Question Answer Comments Discussion of Advance Direct lupe occurred with: Not Discussed Does the patient have a Living Will? No Does the patient have Health Care Power of Simplex Operator? No Care Teams Liquid Floor And Wall Applier Relationship Specialty Start Date End Date Kusum Rutherford DO [address] [place] [address] PCP - General Family Medicine 05/01/12 documented as of this encounter
--- OUTSIDE RECORDS SUMMARY | 2024-05-12 21:37 | External Medical Summary | Summary of Care ---
Author Name Unknown Organization [facility] Address [address] [place] [address] Phone [phone] Care Team Providers Care Wireless Communications Engineer Name Role Phone Kusum Rutherford DO Primary Care Provider Reason for Visit * Reason Comments Hospital Follow-Up Dosage Adjustment Via Phone (anticoag Cl inic) Encounter Details Date Type Department Care Team (Latest Contact Info) Description 12/22/2023 5:50 PM EST [facility]ticoagulation Pharmacy, [facility] [address] Pharmacist1, [facility] [address] [facility] [address] Atrial fibrillation with RVR (HCC)*; Drug-induced systemic [...] mRNA, LNP-s, No Pre serve, 2-Dose Series ([employer]) 08/01/2021,12/28/2020,11/30/2020 COVID-19, MRNA-LNP, 23-24, P F, 30 MCG/0.3 mL, 12 YRS AND ABOVE, IM ([employer]-Comirnaty) 08/26/2023 Covid-19, Mrna, Lnp-s, Pf, B ivalent, 30 Mcg, IM, 12 yrs and above ([employer]) 08/09/2022 HEP A - Hepatitis A (Adult > 18 yrs) 08/16/2014 HIB PRP-T, 4 dose (ActHib) 05/04/2021 HepA Inact/HepB Recomb>=18yrs old 10/22/2010 Hepatitis B, 20+ yrs 08/16/2014 IPV - Polio Virus Vaccine (Inact) 10/22/2010 MMR - Measles/Mumps/Rubella Vaccine 11/10/2010 Meningococcal B, 2/3-Dose Se lsia (TRUMENBA) 01/23/2022(Deferred: Patient Refused),05/04/2021 Meningococcal MCV4O Conjugat [...] Progress Notes * Evangelista Burkett RPh - 12/22/2023 7:58 AM EST Images from the original note were not included. Patient Phone Numbers Left message for patient 12/22/2023 at 8:21 AM to call and schedule an INR this week. Patient was discharged from [facility] 12/20 following admission 12/15 for Acute hypoxic respirartory failure, acute on chronic heart failure with preserved EF / COPD exacerbation. INR at admission was 2.9. Coumadin doses starting 12/16 were: 5mg/1mg/Held/Held/2mg. INR day of discharge was 1.4. Patient discharged on Coumadin 5mg daily. INR needs scheduled this week. Evangelista Green RPh, CACP Clinical Pharmacist [facility] 12/22/2023, 7:58 AM documented in this encounter Plan of Treatment Upcoming Encounters Date Type Department Care Team (Late st Contact Info) Description 01/09/2024 1:00 PM EDT Office Visit Cardiology, [facility] 132 [facility] [place] [address] Anthony Sawyer MD 132 [facility] [place] [address] 02/23/2024 1:00 PM EDT Imaging [facility] 132 [facility] [place] [address] 03/01/2024 2:30 PM EDT Office [facility] [address] [place] [address] Jose Zacarias MD [address] [place] [address] 03/23/2024 1:30 PM EDT Office Visit Cardiology, [facility] [address] [facility] [address] Deborah Yost CRNP 132 [place] [address] 2024 1:00 PM EDT Office Visit Dermatology [facility] [address] [facility] [place] [address] Alex Parrish MD 200 [facility] [place] [address] 11/25/2024 10:20 AM EST Office Visit Rheumatology [place] [address] [address] [place] [address] Nikunj Kessler MD [facility]0 [address] [facility] [place] [address] Scheduled Procedures Name Priority Associated Diagnoses Date/Ti me COLONOSCOPY FLEXIBLE PROXIMAL DIAGNOSTIC Recall History of colon polyps Health Maintenance Due Date Last Done Comments Alpha-1 Antitrypsin 1968 Hepatitis B (3 of 3 - 19+ 3-dose series) 10/11/2014 08/16/2014, 10/22/2010 DISCUSS TOBACCO CESSATION (REFER TO SMARTSET #6161) 06/18/2019 06/18/2018 (Discussed) DTaP,Tdap,and Td Vaccines (2 [...] COPD 02/28/2024 02/27/2023 DXA Scan 02/25/2025 02/25/2023, 05/12/2020, 01/27/2019, Additional history exists Lipid Panel 01/10/2027 01/10/2022, 05/21, 01/12/2019, Additional history exists Zoster Vaccines Completed 08/18/2020, 05/20, 10/22/1999 Pneumococcal Vaccine: 65+ Years Completed 02/27/2022, 05/04/2021, 12/05/2016, Additional history exists Influenza Vaccine (FLU shot) Completed 03/2023, 07/11/2022, 07/07/2021, Additional history exists COVID-19 Vaccine Completed 08/26/2023, , 08/01/2021, Additional history exists VITAMIN D LEVEL ONCE IN A LIFETIME-USE SMARTSET# [id number] Completed 11/29/2023, 08/26/2022, 02/01/2021, Additional history exists [...] Documents on File Type Date Recorded Patient Therapist Radiation Expl anation Advance Directives and Living Will 03/11/2022 ADVANCE DIRECTIVE / LIVING WILL Power of Accounts Payable Assistant 05/05/2021 POWER OF A TTORNEY Latest Code [...] the patient have Health Care Power of Accounts Payable Assistant? No Full Code 05/02/2021 10:57 AM 05/02/2021 2:05 PM Question Answer Comments Discussion of Advance Direct lupe occurred with: Not Discussed Does the patient have a Living Will? No Does the patient have Health Care Power of Accounts Payable Assistant? No Care Teams Wireless Communications Engineer Relationship Specialty Start Date End Date Kusum Rutherford DO [address] [place] [address] PCP - General Family Medicine 05/01/12 documented as of this encounter
--- OUTSIDE RECORDS SUMMARY | 2024-05-12 21:37 | External Medical Summary | Summary of Care ---
Author Name Unknown Organization [facility] Address [address] [place] [address] Phone [phone] Care Team Providers Care Extrusion Die Template Maker Name Role Phone Kusum Rutherford DO Primary Care Provider Encounter Details Date Type Department Care Team (Late st Contact Info) Description 12/20/2023 Telephone Cardiology, [facility] [address] [facility] [place] [address] Wendi Larsen DO [address] [facility] [place] [address] Allergies Active Allergy Reactions Criticality Noted Date [...] mRNA, LNP-s, No Pre serve, 2-Dose Series ([employer]) 08/01/2021,12/28/2020,11/30/2020 COVID-19, MRNA-LNP, 23-24, P F, 30 MCG/0.3 mL, 12 YRS AND ABOVE, IM ([employer]-Comirnat) 08/26/2023 Covid-19, Mrna, Lnp-s, Pf, B ivalent, 30 Mcg, IM, 12 yrs and above ([employer]) 08/09/2022 HEP A - Hepatitis A (Adult [...] encounter Miscellaneous Notes * Telephone Encounter - Vilma Cordova OSA - 12/22/2023 7:37 AM EST Scheduled HD for January 08 at 1:[address] Sawyer. * Telephone Encounter - Wendi Larsen DO - 12/20/2023 4:19 PM EST Pt admitted to [facility] due to CHF and COPD; She needs a cardiology discharge follow up within the next 1-2 weeks Please help arrange Thank you Wendi Larsen DO Department of Cardiology [facility] Cardiology [place] [address] documented in this encounter Plan of Treatment Upcoming Encounters Date Type Department Care Team (Late st Contact Info) Description 12/22/2023 5:50 PM EST Anticoagulation Pharmacy, [facility] [address] [place] [address] Pharmacist1, [facility] [address] [address] 01/09/2024 1:00 PM EDT Office Visit Cardiology, [facility] 132 [place] [address] Anthony Sawyer MD 132 [place] [address] 02/23/2024 1:00 PM EDT Imaging Radiology [facility] 1st [facility] [address] [place] [address] 03/01/2024 2:30 PM EDT Office Visit [facility] [address] [place] [address] Jose Zacarias MD [address] [place] [address] 03/23/2024 1:30 PM EDT Office Visit Cardiology, [facility] [address] [place] [address] Deborah Yost CRNP [address] [place] [address] 2024 1:00 PM EDT Office Visit Dermatology [facility] 200 [facility] [place] [address] Alex Parrish MD 200 [facility] [place] [address] 11/25/2024 10:20 AM EST Office Visit Rheumatology [place] [address] [address] [place] [address] Nikunj Kessler MD [facility] [address] [facility] [place] [address] Scheduled Procedures Name Priority Associated Diagnoses Date/Ti me COLONOSCOPY FLEXIBLE PROXIMAL DIAGNOSTIC Recall History of colon polyps Health Maintenance Due Date Last Done Comments Alpha-1 Antitrypsin 1967 Hepatitis B (3 of 3 - 19+ 3-dose series) 10/11/2014 08/16/2014, 10/22/2010 DISCUSS TOBACCO CESSATION (REFER TO SMARTSET #4691) 06/18/2019 06/18/2018 (Discussed) DTaP,Tdap,and Td Vaccines (2 [...] D LEVEL ONCE IN A LIFETIME-USE SMARTSET# [id number] Completed 11/29/2023, 08/26/2022, 02/01/2021, Additional history exists GARDASIL-HPV IMMUNIZATION SERIES Aged Out No longer eligible based on patient's age to complete this topic documented as of this encounter Medical Devices Not on filedocumented as of this encounter Advance Directives Documents on File Type Date Recorded Patient Interdisciplinary Professor Expl anation Advance Directives and Living Will 03/11/2022 ADVANCE DIRECTIVE / LIVING WILL Power of Milk Bottler 05/05/2021 POWER OF A TTORNEY Latest Code [...] the patient have Health Care Power of Milk Bottler? No Full Code 05/02/2021 10:57 AM 05/02/2021 2:05 PM Question Answer Comments Discussion of Advance Direct lupe occurred with: Not Discussed Does the patient have a Living Will? No Does the patient have Health Care Power of Milk Bottler? No Care Teams Extrusion Die Template Maker Relationship Specialty Start Date End Date Kusum Rutherford DO [address] [place] [address] PCP - General Family Medicine 05/01/12 documented as of this encounter
--- OUTSIDE RECORDS SUMMARY | 2024-05-13 05:12 | External Medical Summary | Summary of Care ---
Author Name Unknown Organization [facility] Address [address] [place] [address] Phone [phone] Care Team Providers Care Event Host Name Role Phone ChintanraeganKusum DO Primary Care Provider Reason for Visit * Reason Comments Follow Up 6 week follow up. Lo sing energy. Palpitations. Edema throughout LE and buttocks and weight is up. Over the last couple of days has had lightheadedness. Productive cough ongoing. Overall doesn't feel well. Encounter Details Date Type Department Care Team (Late st Contact Info) Description 05/12/2024 10:30 AM EDT Office Visit Cardiology, [facility] [address] [place] [address] Deborah Yost CRNP [address] [address] Permanent atrial fibrillation (HCC)*; Dyslipidemia, goal LDL below 70; S/P carotid endarterectomy; Chronic diastolic congestive heart failure (HCC); Chronic obstructive pulmonary disease, unspecified COPD type (HCC); Malignant neoplasm of middle lobe of right lung (HCC); Tobacco use Allergies Active Allergy Reactions Criticality [...] mRNA, LNP-s, No Pre serve, 2-Dose Series (Cool Containers) 08/01/2021,12/28/2020,11/30/2020 COVID-19, MRNA-LNP, 23-24, P F, 30 MCG/0.3 mL, 12 YRS AND ABOVE, IM (Collision Hub-Comirnaty) 08/26/2023 Covid-19, Mrna, Lnp-s, Pf, B ivalent, [...] 2.5 56.6 Started: 1968 Smokeless Tobacco: Never Tobacco Cessation:Ready to Q uit: Not Asked; Counseling Given: Not Answered Comments:1 pack daily. Alcohol Use Standard Drinks/Week [...] Sign Reading Time Taken Comments Blood Pressure 118/68 05/12/2024 10:27 AM EDT Pulse 96 05/12/2024 10:27 AM EDT Temperature - - Respiratory Rate 18 05/12/2024 10:27 AM EDT Oxygen Saturation - - Inhaled Oxygen Concentration - - Weight 73.7 kg (162 lb 8 oz) 05/12/2024 10:27 AM EDT Height - - Body Mass Index 26.23 01/06/2024 3:46 PM EDT documented in this [...] as of this encounter Progress Notes * Deborah Yost CRNP - 05/12/2024 10:30 AM EDT Cardiology Outpatient Visit 05/12/[address] Sawyer Past medical history: Permanent atrial fibrillation [id number] score of 5 (age 1, female, carotid disease, CHF), on warfarin Atherosclerotic carotid disease, status post [...] chemo) and thoracic surgery. Hypothyroidism- [place] [facility] Status post laparoscopic distal pancreatectomy and splenectomy my Dr. De La Torre at [facility], 05/02/2021 HPI Very pleasant 73-year-old female presenting to the cardiology office today in close follow-up. Was last evaluated by Dr. Sawyer approximately 1 month ago. Previously seen by the undersigned at the beginning of March following a hospitalization. Heart rates were tachycardic in persistent AFIB and patient was feeling poorly. Metoprolol was increased to 75mg twice daily (from 50 mg BID). At her follow up on 04/01 patient was feeling better but rates remained tachycardic. The following med changes were made: Metoprolol was continued at 75 mg BID Digoxin was added at 125 mcg daily. Aldactone was stopped due to elevated potassium Lasix continued at 20 mg weekly with an additional 20 mg as needed for weight gain Levothyroxine as reduced to 150 mg daily due to elevated T4. Today the patient presents feeling poorly. Arrived in a wheelchair, normally able to walk into the office. Notes that she has had progressive shortness of breath and fluid retention over the last week or so. Swelling extends up to her abdomen and buttocks She is up at minimum 10-15 lb. Unable to weigh herself at home as she can not stand for even short periods of time. Notes significant orthopneaand PND. Woke up multiple times in the middle of the night through the week with shortness of breath and thought to call an ambulance but held off. She is having palpitations. She feels very weak andlightheaded at times. She has a congested cough. Has not increased her oxygen requirements. Patientappears pale. She states she is compliant with all medications and offers no side effects. Took Lasix Friday and Friday without improvement in symptoms. Current Outpatient Medications Medication Sig Dispense Refill Pimecrolimus (ELIDEL) 1 % cream Apply topically to affected area 2 times a day. Apply to face and frontal scalp 60 g 11 Clobetasol Propionate 0.05 % External Ointment (Temovate) [...] Paste APPLY THIN RIBBON DAILY TO TOOTHBRUSH Furosemide 20 MG Oral Tablet (Lasix) Take [...] the first two days. 90 Tablet 3 Trelegy Ellipta 100-62.5-25 MCG/ACT Aerosol Powder Breath Activated (Givjwhqkhmy-Nxsiwmiqfvpq-Dygxyankip) Inhale 1 Puff by mouth in the morning. 60 Blister Dosing Unit 5 Multiple Vitamin (MULTI VITAMIN) TABS Take by mouth daily at noon . Acetaminophen 500 MG Oral Tablet (Tylenol) as needed. valACYclovir HCl 1 GM Oral Tablet (Valtrex) Take by mouth 0.5 Tablets in the morning AND 0.5 Tablets before bedtime. 14 Tablet 5 No current facility-administered medications for this visit. [...] & serrated adenoma polyps, diverticulosis, repeat 3 yrs/[facility] COLONOSCOPY, DIAGNOSTIC (RECTUM) 12/08/2019 serrated adenomatous polyps, diverticulosis, repeat 3 yrs / [facility] EGD, FLEXIBLE,W/ENDOSCOPIC US 06/19/2018 pancreatic cyst, repeat 6 mo/[facility] EGD, FLEXIBLE,W/ENDOSCOPIC US 12/10/2019 mucinous cyst / [facility] EGD, W/ENDOSCOPIC US 07/31/2020 mucinous pancreatic cyst, liver cyst / ESOPHAGOGASTRODUODENOSCOPY (EGD), FLEXIBLE, TRANSORAL, ENDOSCOPIC ULTRASOUND performed by Honorio Bradford DO at ENDOSCOPY [facility] EGD, W/ENDOSCOPIC US 02/12/2021 cyst on left lobe, Hyperechoic material consistent with sludge, normal egd / biopiescytology showedno evidence of a malignancy / ESOPHAGOGASTRODUODENOSCOPY (EGD), FLEXIBLE, TRANSORAL, ENDOSCOPIC ULTRASOUND performed by Honorio Bradford DO at ENDOSCOPY [facility] IR BIOPSY 01/14/2022 LYMPHADENECTOMY VIA THORACOSCOPY Right 03/08/2022 ROBOTIC THORACOSCOPY WITH LYMPHADENECTOMY performed by Jose Zacarias MD at [facility] MISCELLANEOUS ORDER ([facility] ONLY) 1995 right breast lumpectomy MISCELLANEOUS ORDER ([facility] ONLY) 1957 tonsilectomy MISCELLANEOUS ORDER ([facility] ONLY) 1951 patent ductus surgery- heart anomoly as a child PARTIAL REMOVAL OF PANCREAS N/A 05/02/2021 LAPAROSCOPIC PANCREATECTOMY DISTAL SUBTOTAL performed by Viktor De La Torre MD at OR [facility] THORACOSCOPY W/ WEDGE RESECTION, INITIAL Right 03/08/2022 ROBOTIC THORACOSCOPY W/ WEDGE RESECTION, INITIAL performed by Jose Zacarias MD at [facility] THROMBOENDARECTOMY W/PATCH,NECK INCISION 04/07/2009 right carotid endarterectomy with Bovine patch angioplasty 04/07/09, [facility], Dr. Anaya Social History Tobacco Use Smoking status: Every Day Current packs/day: 2.50 Average packs/day: 2.5 packs/day for 56.6 years (141.4 ttl pk-yrs) Types: Cigarettes Start date: 1968 Smokeless tobacco: Never Tobacco comments: 1 pack daily. Vaping Use Vaping status: Never Used Substance Use Topics Alcohol use: No Drug use: No Review of patient's allergies indicates: Allergen Reactions Pollen Nasal congestion, watery eyes Other reaction(s): cough, itchy watery eyes, stuffy nose Review of Systems: See HPI for pertinent positives. All others negative, other than those noted in HPI. Physical Exam BP 118/68 | Pulse 96 | Resp 18 | Wt 73.7 kg (162 lb 8 oz) | BMI 26.23 kg/m | BSA 1.85 m General: No acute distress. A+Ox3. HEENT: Normocephalic. Atraumatic. Conjunctiva and sclera clear. NECK: No carotid bruits. No JVD. Carotid upstrokes are brisk. Heart: Tachycardic rate, irregular rhythm. S1 and S2 noted without murmur, rubs, gallops. Lungs: Coarse lung sounds. Rhonchi and rales noted. + cough Abdomen: Normal bowel sounds. Soft. Nontender. No masses or organomegaly. No abdominal bruits. Extremities: +3-4 BL pitting edema extending from feet to abdomen/buttocks. Pulses: radial=2/4, posterior tibial=2/4, dorsalis pedis = 2/4. NEURO: No focal deficits. PSYCH: Normal. Lab data/imaging study review: Echo at [facility] 11/2023 LVEF 55-60% Left atrium moderately dilated [...] stenosis of the internalcarotid artery. Echocardiogram 08/28/2021 [facility] LV normal in size Mild concentric LVH [...] place at 2:03 a.m. Confirmed by STAN COOK^[id number] ([id number]) on 04/12/2019 4:01:01 PM Impression/Plan: Medically complex 73-year-old female with history of permanent atrial fibrillation with recent poorly controlled rates. Patient has failed outpatient management over the last month or so. Patient appears extremely hypervolemic on exam with acute on chronic diastolic CHF. Given symptoms recommend proceeding to the emergency department for admission for CHF and AFib. Anticipate need for IV diuresis. AFib RVR likely contributing to CHF exacerbation. Consider EP evaluation for possible AV junction ablation and pacemaker. 1. Permanent atrial fibrillation (HCC) [id number] score of 5 (age 1, female, carotid disease, CHF) Ventricular rates remain tachycardic. Patient feeling poorly with generalized fatigue, palpitations and fluid retention. Continue metoprolol succinate 75 mg twice daily Continue digoxin 125 mcg daily (started Friday due to pharmacy issues), Levothyroxine adjusted 03/2024 Continue Coumadin, INR goal between 2-3, follows with Coumadin clinic. Consider EP for possible AV junction ablation with pacemaker 2. Dyslipidemia, goal LDL below 70 LDL controlled, 38. 1. Continue atorvastatin 10 mg daily 3. Carotid artery stenosis, status post carotid enterectomy Less than 50% stenosis bilaterally per carotid duplex 06/2023 1. Continue ASA 81 mg daily 4. Chronic diastolic CHF NYHA class 3 Extensive lower extremity edema extending up to the abdomen and buttocks. Spironolactone previously held for hyperkalemia Currently on Lasix 20 mg weekly, patient does not take routinely. Last dose was Friday and Friday. 5. Chronic obstructive pulmonary disease 6. Right [...] or concerns. ER with all emergencies advised. I spent a total of 40 minutes on the date of service in preparation, delivery, and documentation ofthe care provided to Maria Alejandra Patel excluding any time spent in the performance of separately billed services. JOSE ALFREDO Kuo, Department of Cardiology This chart was completed in part utilizing [employer] Speech Voice Recognition Software. Grammatical errors, random [...] documented in this encounter Nursing Notes * Corey Tinoco LPN - 05/12/2024 10:27 AM EDT Patient identified by full name and date of Chief Complaint Patient presents with Follow Up 6 week follow up. Losing energy. Palpitations. Edema throughout LE and buttocks and weight is up. Over the last couple of days has had lightheadedness. Productive cough ongoing. Overall doesn't feel well. Examination Room: 7 Name: Maria Alejandra Patel Date of : (1950). Reason for Visit: Follow up Interim Hospitalization(s): Denies Problems/Concerns: See chief complaint Chest Pain/SOB: See chief complaint [facility] Discussed: Not applicable [facility] a way you can [...] Care Team (Late st Contact Info) Description 05/13/2024 7:00 AM EDT Anticoagulation Pharmacy, [facility] [place] [address] [place] [address] Pharmacist1, [facility] [address] [place] [address] 05/26/2024 1:00 PM EDT PulmDiagnostic Pulmonary Function Lab, [facility] [address] [facility] [place] [address] [place], t [address] [facility] [place] [address] 2024 1:00 PM EDT Office Visit Dermatology [facility] [address] [facility] [place] [address] Alex Parrish MD [address] [facility] [place] [address] 06/01/2024 2:30 PM EDT Imaging Radiology [facility] [address] [facility] [place] [address] 06/07/2024 11:30 AM EDT Office Visit Thoracic Surg [facility] [address] [place] [address] Jose Zacarias MD [address] [place] [address] 09/07/2024 3:00 PM EST Office Visit Pulmonary Medicine, [facility] [address] [facility] [place] [address] Jean Crews MD [address] [place] [address] 11/25/2024 10:20 AM EST Office Visit Rheumatology [address] [place] [address] Nikunj Kessler MD [address] [place] [address] [place] [address] Scheduled Orders Name Type Priority Associated Diagnoses Orde r Schedule DIGOXIN LEVEL Lab Routine Permanent atrial fibrillation (HCC) Expected: 05/12/2024, Expires: 05/12/2025 TSH WITH FREE T4 IF INDICATED Lab Routine Permanent atrial fibrillation (HCC) Dyslipidemia, goal LDL below 70 S/P carotid endarterectomy Chronic diastolic congestive heart failure (HCC) Chronic obstructive pulmonary disease, unspecified COPD type (HCC) Malignant neoplasm of middle lobe of right lung (HCC) Tobacco use Expected: 05/12/2024, Expires: 05/12/2025 Scheduled Procedures Name Priority Associated [...] exists DISCUSS TOBACCO CESSATION (REFER TO SMARTSET #8081) 12/28/2024 12/29/2023, 06/18/2018 (Discussed) O2 ASSESSMENT COMPLETED IN PAST YEAR FOR COPD 01/05/2025 01/06/2024 DXA Scan 02/25/2025 02/25/2023, 05/0 12/2020, 01/27/2019, Additional history exists TSH 03/30/2025 03/30/2024, /0 05/2023, 05/30/2022, Additional history exists Lipid Panel 12/31/2028 01/01/2024, 12/19, 06/15/2020, Additional history exists Zoster Vaccines Completed 08/18/2020, 05/20, 10/22/1999 Pneumococcal Vaccine: 65+ Years Completed 02/27/2022, 05/04/2021, 12/05/2016, Additional history exists VITAMIN D LEVEL ONCE IN A LIFETIME-USE SMARTSET# [id number] Completed 11/29/2023, 08/26/2022, 02/01/2021, Additional history exists [...] lung (HCC) Tobacco use Tobacco use disorder documented in this encounter Advance Directives Documents on File Type Date Recorded Patient Lead Atg Developer Expl anation Advance Directives and Living Will 03/11/2022 ADVANCE DIRECTIVE / LIVING WILL Power of Mold Insert Changer 05/05/2021 POWER OF A TTORNEY * Full [...] Power of Attor alisha? No Care Teams Event Host Relationship Specialty Start Date End Date Kusum Rutherford DO [address] [place] [address] PCP - General Family Medicine 05/01/12 documented as of this encounter"
[2024-05-13] MEDS: LEVOTHYROXINE SODIUM 150 MCG TABLET PO SCH (05:45)
[2024-05-13 06:36] LABS: Hemoglobin 11.8 g/dl (12.0-16.0); Mean Corpuscular Hemoglobin 23.6 pg (25.0-34.0); Mean Corpuscular Hgb Conc 29.5 g/dL (32.0-36.0); Mean Corpuscular Volume 79.8 fL (80.0-100.0); Nucleated RBC # (auto) 0.36 K/uL (0.00-0.12); Nucleated RBC % (auto) 13.9 %; Platelet Count 113 K/uL (130-400); RDW Coefficient of Variation 26.6 % (11.5-14.5); RDW Standard Deviation 71.3 fL (36.4-46.3); Red Blood Count 5.01 M/uL (4.20-5.40); White Blood Count 2.59 K/ul (4.8-10.8)
[2024-05-13 06:44] LABS: BUN Creatinine Ratio 32.9 (10-20); Calcium 9.7 mg/dl (8.6-10.3); Creatinine Clr Calc Pharmacy 63.2 ml/min; Est GFR (African American) 85.5 ml/min; Est GFR (Non-African American) 73.7 ml/min; Magnesium 1.7 mg/dl (1.7-2.4); Potassium 4.5 mmol/L (3.5-5.1)
[2024-05-13 06:49] LABS: INR 1.6 (0.9-1.1); Prothrombin Time 16.3 Seconds (9.0-12.0)
[2024-05-13 06:58] LABS: Anisocytosis Present; Basophils # (auto) 0.01 K/uL (0.00-0.20); Basophils % (auto) 0.4 %; Giant Platelets 2+; Howell-Jolly Bodies 1+; Immature Granulocytes # (auto) 0.01 K/uL (0.01-0.20); Immature Granulocytes % (auto) 0.4 %; Lymphocytes # (auto) 0.21 K/uL (1.20-3.40); Lymphocytes % (auto) 8.1 %; Macrocytosis Present; Monocytes # (auto) 0.15 K/uL (0.11-0.59); Monocytes % (auto) 5.8 %; Neutrophils # (auto) 2.21 K/uL (1.40-6.50); Neutrophils % (auto) 85.3 %; Spherocytes 1+; Target Cells 2+
[2024-05-13] MEDS: NICOTINE 21 MG/24 HR TDSY TD SCH (08:18)
[2024-05-13] MEDS: POTASSIUM CHLORIDE CRTAB 20 MEQ TABCR PO SCH (08:22)
[2024-05-13] MEDS: DIGOXIN 0.125 MG TAB PO SCH (08:22)
--- NOTE | 2024-05-13 09:40 | Hospitalist Progress Note ---
Date of Service May 13, 2024 Assessment & Plan (1) Acute diastolic CHF (congestive heart failure): Plan Patient is a 73-year-old female with past medical history of COPD, history of lung cancer status post RM Lobectomy 03/08/22 , A-fib on Coumadin, carotid stenosis s/p R CEA, SLE, tobacco use disorder (2-3 ppd), hypothyroidism, hyperparathyroidism, dyslipidemia, h/o IPMN s/p distal pancreatectomy and splenectomy was referred to the ED from cardiology clinic due to volume ove rload. Acute on chronic diastolic heart failure Pleural Effusion History of recent admission in with CHF exacerbation. Was discharged on Lasix 20 mg as needed daily. Was not taking diuretics Presented with bilateral lower extremity 4+ pitting edema going up to upper thigh and lower back. Last echocardiogram in November 2023 showed EF of 55 to 60%; LA moderately dilated. Repeat Echo noting mod dilated LA, severely dilated RA, mod aortic sclerosis w/o stenosis, mild to moderate mitral regurg, mod tricuspid regurg and a moderate L pleural effusion BNP- 964 on admission, 419 in November Continue diuresis with IV Lasix 40 mg twice daily Strict input output monitoring Daily weights cardiology consulted, appreciate recs -Cont IV lasix, hold as needed for BP Atrial fibrillation with RVR On metoprolol and digoxin with coumadin for anticoagulation Cardiology consulted, appreciate recs -metoprolol increased to 100mg BID -continue digoxin Follow INR while on coumadin Elevated trop Demand ischemia Trop elevated at 29.5 t 32.3 EKG with noted atrial fibrillation, anterior fascicular block Likely demand ischemia in setting of above Hypotension Likely in setting of IV diuresis above Also on met succ 100mg BID with parameters Continue to monitor Hold lasix doses and metoprolol as needed Pancytopenia Microcytic anemia Pt with noted pancytopenia AM peripheral smear Consider heme consult AM Anemia panel to rule out iron def with noted microcytosis pt on chronic anticoagulation Continue to monitor with AM labs COPD Not in acute exacerbation Continue DuoNeb as needed Will need follow-up with pulmonology as outpatient Hypertensioncontinue on metoprolol, dose increased to 100mg bid Hypothyroidismcontinue levothyroxine Hyperlipidemiacontinue on Lipitor SLEcontinue on Plaquenil Diet: HH/low sodium DVT prophylaxis Coumadin Dispo: PT/OT ordered for further recs Admission and Anticipated Discharge Date Admission Date: May 12, 2024 Physical Exam Physical Exam: General: Alert, oriented. No acute distress Psych: Appropriate mood and affect Neuro: No gross deficits while laying in bed HEENT: NC/AT CV:Irregular Resp: Breath sounds coarse bilaterally, no increased effort of breathing. Crackles at bases Abdomen: Soft, nontender Extremities: edema in lower extremities bilaterally. Results & Data Results & Data Vital Signs (Past 12 Hours) Vital Signs Temp Pulse Pulse Pulse Resp BP BP 05/13/24 08:00 36.3 C L 92 H 17 96/63 L 05/13/24 07:28 96 H 05/13/24 03:11 36.6 C 92 H 16 98/62 L 05/12/24 23:41 36.6 C 94 H 16 100/63 05/12/24 22:50 84 Pulse Ox O2 Del Method O2 Flow Rate 05/13/24 08:00 90 Nasal Cannula 2 05/13/24 07:28 05/13/24 03:11 90 Nasal Cannula 3 05/12/24 23:41 94 Room Air 05/12/24 22:50 Diagnostic Findings Chest X-Ray 05/12/24 11:36 XR chest 1V portable HISTORY: Dyspnea COMPARISON: Chest 12/20/2023. FINDINGS: No pneumothorax. Mild emphysema again noted. Cardiomegaly with diffuse interstitial thickening which has progressed. This suggests mild interstitial pulmonary edema. Small bilateral pleural effusions and bibasilar densities have also increased. No acute fractures. IMPRESSION: 1. Cardiomegaly with interval progression of the mild pulmonary edema and small bilateral pleural effusions. 2. Emphysema. 3. Bibasilar densities have progressed. These are nonspecific but may represent atelectasis from the pleural effusions. ACT 112: Negative or not required by law. Electronically signed by: Owne Campuzano M.D. 05/12/2024 12:25 PM
--- NOTE | 2024-05-13 10:28 | Cardiology Progress Note ---
Date of Service May 13, 2024 Assessment & Plan (1) Acute heart failure with preserved ejection fraction: (2) Acute respiratory failure with hypoxia: (3) Permanent atrial fibrillation: Plan 05/12/24 Patient admitted with worsening SOB, volume overload, hypoxia consistent with a cute on chronic HFpEF. Symptoms have been persistent over the last few weeks. BNP elevated. Start IV lasix - 40 mg IV BID. She received one dose IV lasix this morning. 2nd dose later this afternoon. Magnesium is low - Supplement 2 gm now. Potassium level pending. Recent hyperkalemia and spironolactone stopped as outpatient. Monitor I+O's Afib RVR - Continue digoxin. Increase metoprolol to 100 mg BID INR pending continue coumadin. Continue supplemental O2. 05/13/24: Patient with good urine outputs over the last 24 hours. 4 L output. Weight down on standing scale. BP lower, borderline hypotensive. She already received morning 40 mg IV lasix. If BP remains low, may need to hold PM dose. Stable renal function, potassium. Magnesium remains low - Additional 2 gms ordered today Monitor I+O's Afib - Rates improved Continue digoxin Metoprolol increased to 100 mg BID (morning dose held due to low BP) Will monitor. Continue coumadin. INR subtherapeutic today at 1.6. Give higher dose 5 mg today. Case discussed with Dr. Vitale I spent a total of 35 minutes on the date of service in preparation, delivery, and documentation of the care provided to this patient, excluding any time spent in the performance of separately billed services. Violette Bryson PA-C Department of Cardiology, [facility] This chart was completed in part utilizing Speech Voice Recognition Software. Grammatical errors, random word insertions, pronoun errors, and incomplete sentences are an occasional consequence of this system due to software limitations, ambient noise, and hardware issues. Any formal questions or concerns about the content, text, or information contained within the body of this dictation should be directly addressed to the provider for clarification. Admission and Anticipated Discharge Date Admission Date: May 12, 2024 Supervising Physician Co-Signing Physician Notes Attending attestation. I have personally performed a history and physical examination on the patient. I have reviewed the advance practitioner's documentation, and I agree with, and take responsibility for the plan of care. 73-year-old female admitted with acute decompensated heart failure and atrial fibrillation with rapid ventricular response. Fluid balance -3L. Stable renal function. Continue IV diuresis and beta-radha therapy. Increase dose of warfarin. Will continue to follow during hospitalization. I spent a total of 35 minutes on the date of service in preparation, delivery, and documentation of the care provided to this patient, excluding any time spent in the performance of separately billed services. Juanito Vitale DO, [facility] Subjective Patient resting in bed comfortably. reports feeling better compared to admission. SOB improving. Less conversational dyspnea today. No chest pain. HR's improved compared to yesterday. Review of Systems Review of Systems: All systems reviewed & are unremarkable except as noted in HPI & below Physical Exam Constitutional: + ill appearing and + thin; no acute dis tress Respiratory: able to speak in complete sentences; no labored breathing Auscultation: + diminished lung sounds and + rales Cardiovascular: Rate/Rhythm: + irregularly irregular Heart Sounds: + murmur (II/ systolic murmur) Vessels: + JVD Extremities: + edema (2-3+ edema to hips) Gastrointestinal (Abdomen): normal bowel sounds, soft, nontender, no hepatosplenomegaly Skin: + pallor Neurologic: PERRL, EOMI, accommodation nl, no face palsy, no dysarthria Psychiatric: A+Ox3, euthymic affect Results & Data Vital Signs (Past 12 Hours) Vital Signs Temp Pulse Pulse Pulse Resp BP BP 05/13/24 08:00 05/13/24 08:00 36.3 C L 92 H 17 96/63 L 05/13/24 07:28 96 H 05/13/24 03:11 36.6 C 92 H 16 98/62 L 05/12/24 23:41 36.6 C 94 H 16 100/63 05/12/24 22:50 84 Pulse Ox O2 Del Method O2 Flow Rate 05/13/24 08:00 Nasal Cannula 2 05/13/24 08:00 90 Nasal Cannula 2 05/13/24 07:28 05/13/24 03:11 90 Nasal Cannula 3 05/12/24 23:41 94 Room Air 05/12/24 22:50 Laboratory Results Cardiac Enzymes 05/12/24 05/12/24 05/12/24 Range/Units 11:30 12:16 12:22 AST TNP TNP Troponin I High Sens 29.5 H (0-14) pg/ml B-Natriuretic Peptide 964 H (0-100) pg/ml 05/12/24 Range/Units 14:12 AST 56 H Troponin I High Sens 32.3 H (0-14) pg/ml B-Natriuretic Peptide (0-100) pg/ml Coagulation 05/12/24 05/12/24 05/12/24 Range/Units 11:30 12:16 12:22 PT Cancelled Cancelled APTT Cancelled Cancelled B-Natriuretic Peptide 964 H (0-100) pg/ml 05/12/24 05/13/24 Range/Units 14:12 05:51 PT 20.4 H 16.3 H APTT 34 H B-Natriuretic Peptide (0-100) pg/ml CBC 05/12/24 05/13/24 Range/Units 11:30 05:51 WBC 3.11 L 2.59 L (4.8-10.8) K/ul RBC 5.29 5.01 (4.20-5.40) M/uL Hgb 12.4 11.8 L (12.0-16.0) g/dl Hct 42.4 40.0 (37.0-47.0) % Plt Count 102 L 113 L (130-400) K/uL Neut # (Auto) 2.34 2.21 (1.40-6.50) K/uL Lymph # (Auto) 0.32 L 0.21 L (1.20-3.40) K/uL [place] # (Auto) 0.39 0.15 (0.11-0.59) K/uL Eos # (Auto) 0.03 0.00 (0.00-0.50) K/uL Baso # (Auto) 0.02 0.01 (0.00-0.20) K/uL Comprehensive Metabolic Panel 05/12/24 05/12/24 05/12/24 Range/Units 11:30 12:22 14:12 Sodium 138 (136-145) mmol/L Potassium TNP TNP 3.9 Chloride 106 (98-107) mmol/L Carbon Dioxide 26 (21-32) mmol/L BUN 24 H (6-23) mg/dl Creatinine 0.64 (0.6-1.2) mg/dl Glucose 74 (70-99(Fasting)) mg/dl Calcium 10.1 (8.6-10.3) mg/dl AST TNP TNP 56 H ALT 41 (7-52) U/L Alkaline Phosphatase 141 H (34-104) U/L Total Protein 7.7 (6.0-8.3) gm/dl Albumin 3.4 (3.4-5.0) gm/dl 05/13/24 Range/Units 05:51 Sodium 140 (136-145) mmol/L Potassium 4.5 Chloride 104 (98-107) mmol/L Carbon Dioxide 30 (21-32) mmol/L BUN 26 H (6-23) mg/dl Creatinine 0.79 (0.6-1.2) mg/dl Glucose 116 H (70-99(Fasting)) mg/dl Calcium 9.7 (8.6-10.3) mg/dl AST ALT (7-52) U/L Alkaline Phosphatase (34-104) U/L Total Protein (6.0-8.3) gm/dl Albumin (3.4-5.0) gm/dl Intake and Output 05/12/24 05/13/24 05/13/24 22:59 06:59 14:59 Intake Total 380.833 / 620.833 240 / 620.833 Output Total 1950 / 4050 1200 / 4050 450 / 450 Balance -1569.167 / -3429.167 -960 / -3429.167 -450 / -450 Intake: IV 180.833 / 180.833 Magnesium Sulfate / D5w 1 gm In 180.833 / 180.833 100 ml @ 50 mls/hr IV Q2H [facility] Rx#:[id number] Oral 200 / 440 240 / 440 Output: Urine 650 / 2750 1200 / 2750 450 / 450 Other 1300 / 1300 Other: # Unmeasured Voids 2 Weight 72.8 kg 71.3 kg Weight Measurement Method Built in Bedscale Standing Scale Diagnostic Findings Telemetry reviewed: Afib, improved rates ranging 80-90's bmp EKG reviewed from 05/13/24: Afib with controlled rate at 87 bmp LAD Low voltage QRS Possible old anterior infarct Echocardiogram completed - results pending Medications Administered Current Inpatient Medications Acetaminophen (Acetaminophen 325 Mg Tab) 650 mg PO Q4H PRN PRN Reason: Pain or Fever Stop: 06/11/24 16:50 Al Hydrox/Mg Hydrox/Simethicone (Aluminum/Magnesium Susp 30 Ml Udc) 15 ml PO Q4H PRN PRN Reason: Dyspepsia Stop: 06/11/24 16:50 Aspirin (Aspirin 81 Mg Ectab) 81 mg PO QPM [facility] Stop: 06/11/24 20:59 Last Admin: 05/12/24 20:18 Dose: 81 mg Atorvastatin Calcium (Atorvastatin 10 Mg Tab) 10 mg PO QPM [facility] Stop: 06/11/24 20:59 Last Admin: 05/12/24 20:17 Dose: 10 mg Digoxin (Digoxin 0.125 Mg Tab) 0.125 mg PO QAM [facility] Stop: 06/12/24 08:59 Last Admin: 05/13/24 08:22 Dose: 0.125 mg Furosemide (Furosemide 40 Mg/4 Ml Vial) 40 mg IV [id number] [facility] Stop: 06/11/24 16:59 Last Admin: 05/13/24 08:23 Dose: 40 mg Hydroxychloroquine Sulfate (Hydroxychloroquine Sulfate 200 Mg Tab) 200 mg PO QPM [facility] Stop: 06/11/24 20:59 Last Admin: 05/12/24 20:17 Dose: 200 mg Levalbuterol HCl (Levalbuterol 1.25 Mg/3 Ml Neb) 1.25 mg NEB Q4H PRN PRN Reason: Shortness Of Breath Or Wheezing Stop: 06/11/24 16:50 Levothyroxine Sodium (Levothyroxine Sodium 150 Mcg Tablet) 150 mcg PO DAILYBB [facility] Stop: 06/12/24 06:29 Last Admin: 05/13/24 05:45 Dose: 150 mcg Metoprolol Succinate (Metoprolol Succ 50mg Ext Rel Tab) 100 mg PO BID [facility] Stop: 06/11/24 20:59 Last Admin: 05/13/24 08:21 Dose: Not Given Miscellaneous (Remove Nicoderm Patch) 1 each N/A DAILY@0859 [facility] Stop: 06/12/24 08:58 Last Admin: 05/13/24 07:25 Dose: Not Given Nicotine (Nicotine 21 Mg/24 Hr Tdsy) 1 patch TD QAM [facility] Stop: 06/12/24 08:59 Last Admin: 05/13/24 08:18 Dose: Not Given Ondansetron HCl (Ondansetron Inj 2 Mg/Ml 2 Ml Vial) 4 mg IV Q6H PRN PRN Reason: Nausea Stop: 06/11/24 16:50 Polyethylene Glycol (Polyethylene (Miralax) 17 Gm Pack) 17 gm PO DAILY PRN PRN Reason: Constipation Stop: 06/11/24 16:50 Potassium Chloride (Potassium Chloride Crtab 20 Meq Tabcr) [facility]: 06/12/24 08:59 Last Admin: 05/13/24 08:22 Dose: 20 meq Warfarin Sodium (Warfarin Sod 2.5 Mg Tab) 2.5 mg PO SuTuWeThSa@1600 [facility] Stop: 06/11/24 16:59 Last Admin: 05/12/24 18:39 Dose: 2.5 mg Warfarin Sodium (Warfarin Sod 5 Mg Tab) 5 mg PO MoFr@1600 [facility] Stop: 06/13/24 15:59
[2024-05-13] MEDS: MAGNESIUM SULFATE / D5W 1 GM/100 ML BAG IV SCH (11:03)
[2024-05-13] MEDS: WARFARIN SOD 5 MG TAB PO ONE (11:09)
--- NOTE | 2024-05-13 11:43 | Electrocardiogram Report ---
Test Reason : Blood Pressure : / mmHG Vent. Rate : 087 BPM Atrial Rate : 288 BPM P-R Int : 000 ms QRS Dur : 098 ms QT Int : 346 ms P-R-T Axes : 000 -68 217 degrees QTc Int : 416 ms Atrial fibrillation Left anterior fascicular block Low voltage QRS Poor R wave progression, consider anterior KS vs. lead placement vs. LVH Abnormal ECG When compared with ECG of 12-MAY-2024 11:49, Incomplete right bundle branch block is no longer Present Confirmed by Orion Hernandez ([id number]) on 05/13/2024 11:43:39 AM Referred By: REFERRED SELF Confirmed By:Orion Hernandez
[2024-05-13] MEDS: POLYETHYLENE (MIRALAX) 17 GM PACK PO PRN (20:38)
[2024-05-13] MEDS: ACETAMINOPHEN 325 MG TAB PO PRN (23:44)
[2024-05-14] MEDS: LEVALBUTEROL 1.25 MG/3 ML NEB NEB PRN (03:35)
[2024-05-14 07:02] LABS: Albumin Globulin Ratio 0.9 (0.9-2); BUN Creatinine Ratio 33.8 (10-20); Bilirubin,Total 0.8 mg/dl (0.2-1.0); Calcium 9.6 mg/dl (8.6-10.3); Creatinine Clr Calc Pharmacy 62.4 ml/min; Est GFR (African American) 84.2 ml/min; Est GFR (Non-African American) 72.6 ml/min; Globulin 3.3 gm/dl (2.5-4.0); Magnesium 1.8 mg/dl (1.7-2.4); Phosphorus 3.3 mg/dl (2.5-4.9); Potassium 4.1 mmol/L (3.5-5.1); Total Protein 6.3 gm/dl (6.0-8.3)
[2024-05-14 07:07] LABS: Troponin I High Sensitivity 33.8 pg/ml (0-14)
[2024-05-14 07:09] LABS: Basophils # (auto) 0.01 K/uL (0.00-0.20); Basophils % (auto) 0.2 %; Hematocrit (blood only) 33.7 % (37.0-47.0); Hemoglobin 10.3 g/dl (12.0-16.0); Immature Granulocytes # (auto) 0.03 K/uL (0.01-0.20); Immature Granulocytes % (auto) 0.5 %; Lymphocytes # (auto) 0.42 K/uL (1.20-3.40); Lymphocytes % (auto) 7.4 %; Mean Corpuscular Hemoglobin 24.1 pg (25.0-34.0); Mean Corpuscular Hgb Conc 30.6 g/dL (32.0-36.0); Mean Corpuscular Volume 78.7 fL (80.0-100.0); Monocytes # (auto) 0.76 K/uL (0.11-0.59); Monocytes % (auto) 13.4 %; Neutrophils # (auto) 4.45 K/uL (1.40-6.50); Neutrophils % (auto) 78.5 %; Nucleated RBC # (auto) 0.32 K/uL (0.00-0.12); Nucleated RBC % (auto) 5.6 %; Platelet Count 113 K/uL (130-400); Prothrombin Time 20.3 Seconds (9.0-12.0); RDW Standard Deviation 68.3 fL (36.4-46.3); Red Blood Count 4.28 M/uL (4.20-5.40); White Blood Count 5.67 K/ul (4.8-10.8)
[2024-05-14 07:21] LABS: Ferritin 34.9 ng/ml (8-388)
[2024-05-14 07:24] LABS: Anisocytosis Present; Giant Platelets 1+; Howell-Jolly Bodies Occasional; Spherocytes Occasional; Target Cells 2+
[2024-05-14 07:26] LABS: Folate (Folic Acid),Ser orPlas 8.28 ng/ml (>5.38)
[2024-05-14] MEDS: IRON SUCROSE 200 MG in 0.9 % SODIUM CHLORIDE 100 ML IV ONE (09:42)
[2024-05-14] MEDS: MAGNESIUM OXIDE 400 MG TAB PO SCH (09:47)
--- NOTE | 2024-05-14 11:34 | Cardiology Progress Note ---
Date of Service May 14, 2024 Assessment & Plan (1) Acute heart failure with preserved ejection fraction: (2) Acute respiratory failure with hypoxia: (3) Permanent atrial fibrillation: Plan 05/12/24 Patient admitted with worsening SOB, volume overload, hypoxia consistent with a cute on chronic HFpEF. Symptoms have been persistent over the last few weeks. BNP elevated. Start IV lasix - 40 mg IV BID. She received one dose IV lasix this morning. 2nd dose later this afternoon. Magnesium is low - Supplement 2 gm now. Potassium level pending. Recent hyperkalemia and spironolactone stopped as outpatient. Monitor I+O's Afib RVR - Continue digoxin. Increase metoprolol to 100 mg BID INR pending continue coumadin. Continue supplemental O2. 05/13/24: Patient with good urine outputs over the last 24 hours. 4 L output. Weight down on standing scale. BP lower, borderline hypotensive. She already received morning 40 mg IV lasix. If BP remains low, may need to hold PM dose. Stable renal function, potassium. Magnesium remains low - Additional 2 gms ordered today Monitor I+O's Afib - Rates improved Continue digoxin Metoprolol increased to 100 mg BID (morning dose held due to low BP) Will monitor. Continue Coumadin. INR subtherapeutic today at 1.6. Give higher dose 5 mg today. 05/14/25: Ongoing diuresis noted over the last 24 hours. 4 L yesterday, nearly 2 L thus far today. Daily weight with standing scale. Stable renal function, electrolytes Continue furosemide 40 mg IV BID today. Dose limited due to borderline hypotension. Supplement oral magnesium and oral potassium. due to worsening cough. ? Aspiration - repeat chest xray this morning Afib - rates controlled. Continue digoxin, metoprolol and coumadin. INR 2.0. DVT proph - coumadin. Case discussed with Dr. Vitale I spent a total of 35 minutes on the date of service in preparation, delivery, and documentation of the care provided to this patient, excluding any time spent in the performance of separately billed services. Violette Bryson PA-C Department of Cardiology, [facility] This chart was completed in part utilizing Speech Voice Recognition Software. Grammatical errors, random word insertions, pronoun errors, and incomplete sentences are an occasional consequence of this system due to software limitations, ambient noise, and hardware issues. Any formal questions or concerns about the content, text, or information contained within the body of this dictation should be directly addressed to the provider for clarification. Admission and Anticipated Discharge Date Admission Date: May 12, 2024 Supervising Physician Co-Signing Physician Notes Attending attestation. I have personally performed a history and physical examination on the patient. I have reviewed the advance practitioner's documentation, and I agree with, and take responsibility for the plan of care. 73-year-old female admitted with acute decompensated heart failure and atrial fibrillation with rapid ventricular response. Fluid balance -1.7L. Stable renal function. Continue IV diuresis and beta-radha therapy. INR therapeutic today. Continue current dose of warfarin. I spent a total of 25 minutes on the date of service in preparation, delivery, and documentation of the care provided to this patient, excluding any time spent in the performance of separately billed services. Juanito Vitale DO, [facility] Subjective Patient resting in chair feeling better. SOB improving. She has persistent cough this morning. Possibly choked food this morning. Edema improving but persists. No dizziness with borderline low BP. Review of Systems Review of Systems: All systems reviewed & are unremarkable except as noted in HPI & below Physical Exam Constitutional: + ill appearing and + thin; no acute dis tress Respiratory: able to speak in complete sentences; no labored breathing Auscultation: + diminished lung sounds and + rales Cardiovascular: Rate/Rhythm: + irregularly irregular Heart Sounds: + murmur (II/ systolic murmur) Vessels: + JVD Extremities: + edema (2-3+ edema to hips) Gastrointestinal (Abdomen): normal bowel sounds, soft, nontender, no hepatosplenomegaly Skin: + pallor Neurologic: PERRL, EOMI, accommodation nl, no face palsy, no dysarthria Psychiatric: A+Ox3, euthymic affect Results & Data Vital Signs (Past 12 Hours) Vital Signs Temp Pulse Pulse Resp BP Pulse Ox Pulse Ox 05/14/24 11:10 36.4 C L 86 19 120/81 96 05/14/24 09:52 95/58 L 05/14/24 09:47 86 05/14/24 07:56 76 05/14/24 07:55 36.3 C L 88 19 105/71 89 L 05/14/24 03:37 84 22 91 07/26/24 02:45 36.4 C L 86 18 89/54 L 92 05/14/24 01:07 96 O2 Del Method O2 Del Method O2 Flow Rate O2 Flow Rate 05/14/24 11:10 Nasal Cannula 2 05/14/24 09:52 05/14/24 09:47 05/14/24 07:56 05/14/24 07:55 Nasal Cannula 2.0 05/14/24 03:37 Nasal Cannula 2 05/14/24 02:45 Nasal Cannula 2.0 05/14/24 01:07 Nasal Cannula 2 Laboratory Results Cardiac Enzymes 05/14/24 Range/Units 05:48 AST 40 H (13-39) U/L Troponin I High Sens 33.8 H (0-14) pg/ml Coagulation 05/14/24 Range/Units 05:48 PT 20.3 H (9.0-12.0) Seconds CBC 05/14/24 Range/Units 05:48 WBC 5.67 (4.8-10.8) K/ul RBC 4.28 (4.20-5.40) M/uL Hgb 10.3 L (12.0-16.0) g/dl Hct 33.7 L (37.0-47.0) % Plt Count 113 L (130-400) K/uL Neut # (Auto) 4.45 (1.40-6.50) K/uL Lymph # (Auto) 0.42 L (1.20-3.40) K/uL [place] # (Auto) 0.76 H (0.11-0.59) K/uL Eos # (Auto) 0.00 (0.00-0.50) K/uL Baso # (Auto) 0.01 (0.00-0.20) K/uL Comprehensive Metabolic Panel 05/14/24 Range/Units 05:48 Sodium 139 (136-145) mmol/L Potassium 4.1 (3.5-5.1) mmol/L Chloride 103 (98-107) mmol/L Carbon Dioxide 31 (21-32) mmol/L BUN 27 H (6-23) mg/dl Creatinine 0.80 (0.6-1.2) mg/dl Glucose 94 (70-99(Fasting)) mg/dl Calcium 9.6 (8.6-10.3) mg/dl AST 40 H (13-39) U/L ALT 33 (7-52) U/L Alkaline Phosphatase 111 H (34-104) U/L Total Protein 6.3 (6.0-8.3) gm/dl Albumin 3.0 L (3.4-5.0) gm/dl Intake and Output 05/13/24 05/14/24 05/14/24 22:59 06:59 14:59 Intake Total 340 / 796.667 120 / 796.667 110 / 110 Output Total 800 / 1900 300 / 1900 Balance -460 / -1103.333 -180 / -1103.333 110 / 110 Intake: IV 100 / 196.667 110 / 110 Iron Sucrose 200 mg In 0.9 % 110 / 110 Sodium Chloride 100 ml @ 220 mls/hr IV ONE ONE Rx#:[id number] Magnesium Sulfate / D5w 1 gm In 100 / 196.667 100 ml @ 50 mls/hr IV Q2H [facility] Rx#:[id number] Oral 240 / 600 120 / 600 Output: Urine 800 / 1900 300 / 1900 Other: Weight 71.3 kg Weight Measurement Method Built in [facility] Diagnostic Findings Telemetry reviewed: Afib, controlled rates in the -s Medications Administered Current Inpatient Medications Acetaminophen (Acetaminophen 325 Mg Tab) 650 mg PO Q4H PRN PRN Reason: Pain or Fever Stop: 06/11/24 16:50 Last Admin: 05/13/24 23:44 Dose: 650 mg Al Hydrox/Mg Hydrox/Simethicone (Aluminum/Magnesium Susp 30 Ml Udc) 15 ml PO Q4H PRN PRN Reason: Dyspepsia Stop: 06/11/24 16:50 Aspirin (Aspirin 81 Mg Ectab) 81 mg PO QPM [facility] Stop: 06/11/24 20:59 Last Admin: 05/13/24 20:32 Dose: 81 mg Atorvastatin Calcium (Atorvastatin 10 Mg Tab) 10 mg PO QPM [facility] Stop: 06/11/24 20:59 Last Admin: 05/13/24 20:32 Dose: 10 mg Digoxin (Digoxin 0.125 Mg Tab) 0.125 mg PO QAM [facility] Stop: 06/12/24 08:59 Last Admin: 05/14/24 09:47 Dose: 0.125 mg Furosemide (Furosemide 40 Mg/4 Ml Vial) 40 mg IV [id number] [facility] Stop: 06/11/24 16:59 Last Admin: 05/14/24 09:48 Dose: 40 mg Hydroxychloroquine Sulfate (Hydroxychloroquine Sulfate 200 Mg Tab) 200 mg PO QPM [facility] Stop: 06/11/24 20:59 Last Admin: 05/13/24 20:33 Dose: 200 mg Levalbuterol HCl (Levalbuterol 1.25 Mg/3 Ml Neb) 1.25 mg NEB Q4H PRN PRN Reason: Shortness Of Breath Or Wheezing Stop: 06/11/24 16:50 Last Admin: 05/14/24 03:35 Dose: 1.25 mg Levothyroxine Sodium (Levothyroxine Sodium 150 Mcg Tablet) 150 mcg PO DAILYBB [facility] Stop: 06/12/24 06:29 Last Admin: 05/14/24 05:56 Dose: 150 mcg Magnesium Oxide (Magnesium Oxide 400 Mg Tab) 400 mg PO QAM [facility] Stop: 06/13/24 08:59 Last Admin: 05/14/24 09:47 Dose: 400 mg Metoprolol Succinate (Metoprolol Succ 50mg Ext Rel Tab) 100 mg PO BID [facility] Stop: 06/11/24 20:59 Last Admin: 05/14/24 09:46 Dose: 100 mg Miscellaneous (Remove Nicoderm Patch) 1 each N/A DAILY@0859 [facility] Stop: 06/12/24 08:58 Last Admin: 05/14/24 09:43 Dose: 1 each Nicotine (Nicotine 21 Mg/24 Hr Tdsy) 1 patch TD QAM [facility] Stop: 06/12/24 08:59 Last Admin: 05/14/24 09:47 Dose: Not Given Ondansetron HCl (Ondansetron Inj 2 Mg/Ml 2 Ml Vial) 4 mg IV Q6H PRN PRN Reason: Nausea Stop: 06/11/24 16:50 Polyethylene Glycol (Polyethylene (Miralax) 17 Gm Pack) 17 gm PO DAILY PRN PRN Reason: Constipation Stop: 06/11/24 16:50 Last Admin: 05/14/24 09:57 Dose: 17 gm Potassium Chloride (Potassium Chloride Crtab 20 Meq Tabcr) 20 meq PO QAM [facility] Stop: 06/12/24 08:59 Last Admin: 05/14/24 09:48 Dose: 20 meq Warfarin Sodium (Warfarin Sod 2.5 Mg Tab) 2.5 mg PO [id number]@1600 [facility] Stop: 06/11/24 16:59 Last Admin: 05/12/24 18:39 Dose: 2.5 mg Warfarin Sodium (Warfarin Sod 5 Mg Tab) 5 mg PO [id number]@1600 [facility] Stop: 06/13/24 15:59
--- NOTE | 2024-05-14 12:36 | XRay Report ---
XR chest 1V portable HISTORY: 73 years-old Female increased cough; possible aspiration this morning chronic cough COMPARISON: 05/12/2024 TECHNIQUE: AP view of the chest FINDINGS: Heart is enlarged. Emphysema with chronic interstitial coarsening. Right axillary surgical clips. Pul monary vascular congestion. Layering pleural effusions with bibasilar consolidation redemonstrated. IMPRESSION: 1. Cardiomegaly without significant change of the interstitial and alveolar pulmonary edema. 2. Stable layering pleural effusions with bibasilar consolidation. 3. Emphysema. ACT 112: Negative or not required by law. The above report was generated using voice recognition software. It may contain grammatical, syntax o r spelling errors. Electronically signed by: Lee Kumar M.D. 05/14/2024 12:34 PM
[2024-05-14] MEDS: valACYclovir HCL 500 MG TABLET PO SCH (13:19)
--- NOTE | 2024-05-14 16:22 | Hospitalist Progress Note ---
Date of Service May 14, 2024 Assessment & Plan (1) Acute diastolic CHF (congestive heart failure): Plan Patient is a 73-year-old female with past medical history of COPD, history of lung cancer status post RM Lobectomy 03/08/22 , A-fib on Coumadin, carotid stenosis s/p R CEA, SLE, tobacco use disorder (2-3 ppd), hypothyroidism, hyperparathyroidism, dyslipidemia, h/o IPMN s/p distal pancreatectomy and splenectomy was referred to the ED from cardiology clinic due to volume ove rload. Acute on chronic diastolic heart failure Pleural Effusion History of recent admission in with CHF exacerbation. Was discharged on Lasix 20 mg as needed daily. Was not taking diuretics Presented with bilateral lower extremity 4+ pitting edema going up to upper thigh and lower back. Last echocardiogram in November 2023 showed EF of 55 to 60%; LA moderately dilated. Repeat Echo noting mod dilated LA, severely dilated RA, mod aortic sclerosis w/o stenosis, mild to moderate mitral regurg, mod tricuspid regurg and a moderate L pleural effusion BNP- 964 on admission, 419 in November Continue diuresis with IV Lasix 40 mg twice daily Strict input output monitoring Daily weights cardiology consulted, appreciate recs -Cont IV lasix, hold as needed for BP Atrial fibrillation with RVR On metoprolol and digoxin with coumadin for anticoagulation Cardiology consulted, appreciate recs -metoprolol increased to 100mg BID -continue digoxin Follow INR while on coumadin Elevated trop Demand ischemia Trop elevated at 29.5 t 32.3 EKG with noted atrial fibrillation, anterior fascicular block Likely demand ischemia in setting of above Hypotension Likely in setting of IV diuresis above Also on met succ 100mg BID with parameters Continue to monitor Hold lasix doses and metoprolol as needed Continue to monitor Pancytopenia Iron Deficiency anemia Pt with noted pancytopenia peripheral smear reviewed Consider heme consult Anemia panel noting iron deficiency pt on chronic anticoagulation s/p IV venofer 1 bag 200mg on 05/14 Continue to monitor with AM labs Rash Shingles Pt with vesicular rash on an erythematous base in a dermatomal pattern Started on Valtrex 1000mg q8h x 7 days Contact and airborne precautions Continue to monitor COPD Not in acute exacerbation Continue DuoNeb as needed Will need follow-up with pulmonology as outpatient Hypertensioncontinue on metoprolol, dose increased to 100mg bid Hypothyroidismcontinue levothyroxine Hyperlipidemiacontinue on Lipitor SLEcontinue on Plaquenil Diet: HH/low sodium DVT prophylaxis Coumadin Dispo: PT/OT ordered for further recs Admission and Anticipated Discharge Date Admission Date: May 12, 2024 Subjective pt notes she had an aspiration event earlier in the AM. Notes Hx of chronic dysphagia. Also states she has a new painful rash in her left armpit area that wraps around to the left shoulder. Review of Systems Review of Systems: All systems reviewed & are unremarkable except as noted in Subjective Physical Exam Physical Exam: General: Alert, oriented. No acute distress Skin: Noted vesicular rash on an erythematosus base in left armpit wrapping around to left back Psych: Appropriate mood and affect Neuro: No gross deficits while laying in bed HEENT: NC/AT CV:Irregular Resp: Breath sounds coarse bilaterally, no increased effort of breathing. Crackles at bases Abdomen: Soft, nontender Extremities: edema in lower extremities bilaterally. Results & Data Results & Data Vital Signs (Past 12 Hours) Vital Signs Temp Pulse Pulse Resp BP Pulse Ox Pulse Ox 05/14/24 15:35 78 05/14/24 11:18 94 05/14/24 11:10 36.4 C L 86 19 120/81 96 05/14/24 09:52 95/58 L 05/14/24 09:48 05/14/24 09:47 86 05/14/24 07:56 76 05/14/24 07:55 36.3 C L 88 19 105/71 89 L Pulse Ox O2 Del Method O2 Flow Rate O2 Flow Rate O2 Flow Rate 05/14/24 15:35 05/14/24 11:18 88 L 3 3 05/14/24 11:10 Nasal Cannula 2 05/14/24 09:52 05/14/24 09:48 Nasal Cannula 2 05/14/24 09:47 05/14/24 07:56 05/14/24 07:55 Nasal Cannula 2.0
[2024-05-14] MEDS: WARFARIN SOD 5 MG TAB PO SCH (17:34)
[2024-05-15 07:49] LABS: INR 2.7 (0.9-1.1); Prothrombin Time 26.4 Seconds (9.0-12.0)
[2024-05-15 07:53] LABS: Albumin Globulin Ratio 0.9 (0.9-2); Albumin Level 2.8 gm/dl (3.4-5.0); BUN Creatinine Ratio 31.9 (10-20); Bilirubin,Total 0.8 mg/dl (0.2-1.0); Calcium 9.5 mg/dl (8.6-10.3); Est GFR (African American) 99.4 ml/min; Est GFR (Non-African American) 85.8 ml/min; Globulin 3.2 gm/dl (2.5-4.0); Magnesium 1.6 mg/dl (1.7-2.4); Phosphorus 3.1 mg/dl (2.5-4.9)
[2024-05-15 08:05] LABS: Hematocrit (blood only) 36.2 % (37.0-47.0); Hemoglobin 10.7 g/dl (12.0-16.0); Mean Corpuscular Hemoglobin 23.6 pg (25.0-34.0); Mean Corpuscular Hgb Conc 29.6 g/dL (32.0-36.0); Mean Corpuscular Volume 79.9 fL (80.0-100.0); Nucleated RBC # (auto) 0.39 K/uL (0.00-0.12); Nucleated RBC % (auto) 11.3 %; Platelet Count 102 K/uL (130-400); RDW Coefficient of Variation 25.9 % (11.5-14.5); RDW Standard Deviation 70.2 fL (36.4-46.3); Red Blood Count 4.53 M/uL (4.20-5.40); White Blood Count 3.45 K/ul (4.8-10.8)
[2024-05-15 08:06] LABS: Anisocytosis Present; Basophils # (auto) 0.02 K/uL (0.00-0.20); Basophils % (auto) 0.6 %; Eosinophils # (auto) 0.04 K/uL (0.00-0.50); Eosinophils % (auto) 1.2 %; Giant Platelets 1+; Howell-Jolly Bodies Occasional; Immature Granulocytes # (auto) 0.02 K/uL (0.01-0.20); Immature Granulocytes % (auto) 0.6 %; Lymphocytes # (auto) 0.44 K/uL (1.20-3.40); Lymphocytes % (auto) 12.8 %; Monocytes # (auto) 0.56 K/uL (0.11-0.59); Monocytes % (auto) 16.2 %; Neutrophils # (auto) 2.37 K/uL (1.40-6.50); Neutrophils % (auto) 68.6 %; Spherocytes Occasional; Target Cells 2+
--- NOTE | 2024-05-15 14:22 | Hospitalist Progress Note ---
Date of Service May 15, 2024 Assessment & Plan (1) Acute diastolic CHF (congestive heart failure): Plan Patient is a 73-year-old female with past medical history of COPD, history of lung cancer status post RM Lobectomy 03/08/22 , A-fib on Coumadin, carotid stenosis s/p R CEA, SLE, tobacco use disorder (2-3 ppd), hypothyroidism, hyperparathyroidism, dyslipidemia, h/o IPMN s/p distal pancreatectomy and splenectomy was referred to the ED from cardiology clinic due to volume ove rload. Acute on chronic diastolic heart failure Pleural Effusion History of recent admission in with CHF exacerbation. Was discharged on Lasix 20 mg as needed daily. Was not taking diuretics Presented with bilateral lower extremity 4+ pitting edema going up to upper thigh and lower back. Last echocardiogram in November 2023 showed EF of 55 to 60%; LA moderately dilated. Repeat Echo noting mod dilated LA, severely dilated RA, mod aortic sclerosis w/o stenosis, mild to moderate mitral regurg, mod tricuspid regurg and a moderate L pleural effusion BNP- 964 on admission, 419 in November Continue diuresis with IV Lasix 40 mg twice daily Strict input output monitoring Daily weights cardiology consulted, appreciate recs -Cont IV lasix, hold as needed for BP Atrial fibrillation with RVR On metoprolol and digoxin with coumadin for anticoagulation Cardiology consulted, appreciate recs -metoprolol increased to 100mg BID -continue digoxin Follow INR while on coumadin Elevated trop Demand ischemia Trop elevated at 29.5 t 32.3 EKG with noted atrial fibrillation, anterior fascicular block Likely demand ischemia in setting of above Hypotension Likely in setting of IV diuresis above Also on met succ 100mg BID with parameters Continue to monitor Hold lasix doses and metoprolol as needed Continue to monitor Pancytopenia Iron Deficiency anemia Pt with noted pancytopenia peripheral smear reviewed Consider heme consult Anemia panel noting iron deficiency pt on chronic anticoagulation s/p IV venofer 1 bag 200mg on 05/14 Continue to monitor with AM labs Rash Shingles Pt with vesicular rash on an erythematous base in a dermatomal pattern Started on Valtrex 1000mg q8h x 7 days Contact and airborne precautions Continue to monitor Aspiration Event Dysphagia On 05/14. Chest xray reviewed, unchanged from last. Speech consulted, video swallow to be scheduled on 05/17 COPD Not in acute exacerbation Continue DuoNeb as needed Will need follow-up with pulmonology as outpatient Hypertensioncontinue on metoprolol, dose increased to 100mg bid Hypothyroidismcontinue levothyroxine Hyperlipidemiacontinue on Lipitor SLEcontinue on Plaquenil Diet: HH/low sodium DVT prophylaxis Coumadin Dispo: PT/OT ordered for further recs Admission and Anticipated Discharge Date Admission Date: May 12, 2024 Subjective Pt seen laying in bed. States still having painful rash Denies chest pain, SOB or palps Review of Systems Review of Systems: All systems reviewed & are unremarkable except as noted in Subjective Physical Exam Physical Exam: General: Alert, oriented. No acute distress Skin: Noted vesicular rash on an erythematosus base in left armpit wrapping around to left back Psych: Appropriate mood and affect Neuro: No gross deficits while laying in bed HEENT: NC/AT CV:Irregular Resp: Breath sounds coarse bilaterally, no increased effort of breathing. Crackles at bases Abdomen: Soft, nontender Extremities: edema in lower extremities bilaterally. Results & Data Results & Data Vital Signs (Past 12 Hours) Vital Signs Temp Pulse Pulse Resp BP BP Pulse Ox 05/15/24 13:00 78 05/15/24 11:22 36.2 C L 74 18 95/59 L 93 05/15/24 08:34 36.7 C 05/15/24 08:10 05/15/24 08:02 81 05/15/24 07:58 81 18 106/71 91 05/15/24 06:30 61 O2 Del Method O2 Flow Rate 05/15/24 13:00 05/15/24 11:22 Nasal Cannula 3 05/15/24 08:34 05/15/24 08:10 Nasal Cannula 3.5 05/15/24 08:02 05/15/24 07:58 Nasal Cannula 3.5 05/15/24 06:30
--- NOTE | 2024-05-15 14:36 | Cardiology Progress Note ---
Date of Service May 15, 2024 Assessment & Plan (1) Acute heart failure with preserved ejection fraction: (2) Acute respiratory failure with hypoxia: (3) Permanent atrial fibrillation: Plan 05/12/24 Patient admitted with worsening SOB, volume overload, hypoxia consistent with a cute on chronic HFpEF. Symptoms have been persistent over the last few weeks. BNP elevated. Start IV lasix - 40 mg IV BID. She received one dose IV lasix this morning. 2nd dose later this afternoon. Magnesium is low - Supplement 2 gm now. Potassium level pending. Recent hyperkalemia and spironolactone stopped as outpatient. Monitor I+O's Afib RVR - Continue digoxin. Increase metoprolol to 100 mg BID INR pending continue coumadin. Continue supplemental O2. 05/13/24: Patient with good urine outputs over the last 24 hours. 4 L output. Weight down on standing scale. BP lower, borderline hypotensive. She already received morning 40 mg IV lasix. If BP remains low, may need to hold PM dose. Stable renal function, potassium. Magnesium remains low - Additional 2 gms ordered today Monitor I+O's Afib - Rates improved Continue digoxin Metoprolol increased to 100 mg BID (morning dose held due to low BP) Will monitor. Continue Coumadin. INR subtherapeutic today at 1.6. Give higher dose 5 mg today. 05/14/25: Ongoing diuresis noted over the last 24 hours. 4 L yesterday, nearly 2 L thus far today. Daily weight with standing scale. Stable renal function, electrolytes Continue furosemide 40 mg IV BID today. Dose limited due to borderline hypotension. Supplement oral magnesium and oral potassium. due to worsening cough. ? Aspiration - repeat chest xray this morning Afib - rates controlled. Continue digoxin, metoprolol and coumadin. INR 2.0. DVT proph - coumadin. 05/15/2024: Significant urine output yesterday at 3.5 L. Weight continues to trend downward. Recommend daily weight with standing scale. Stable renal function and potassium. Continue furosemide 40 mg IV twice daily. Magnesium level is low. Supplement 2 g. Chronic A-fib, rates improved. Continue digoxin, metoprolol. INR 2.7. Continue Coumadin. Case discussed with Dr. Mcdowell I spent a total of 30 minutes on the date of service in preparation, delivery, and documentation of the care provided to this patient, excluding any time spent in the performance of separately billed services. Violette Bryson PA-C Department of Cardiology, [facility] This chart was completed in part utilizing Speech Voice Recognition Software. Grammatical errors, random word insertions, pronoun errors, and incomplete sentences are an occasional consequence of this system due to software limitations, ambient noise, and hardware issues. Any formal questions or concerns about the content, text, or information contained within the body of this dictation should be directly addressed to the provider for clarification. Admission and Anticipated Discharge Date Admission Date: May 12, 2024 Supervising Physician Co-Signing Physician Notes Attending attestation. I have personally performed a history and physical examination on the patient. I have reviewed the advance practitioner's documentation, and I agree with, and take responsibility for the plan of care. 73-year-old female admitted with acute decompensated heart failure and atrial fibrillation with rapid ventricular response. . Continue IV diuresis and beta- radha therapy. Continue current dose of warfarin. I spent a total of 10minutes on the date of service in preparation, delivery, and documentation of the care provided to this patient, excluding any time spent in the performance of separately billed services. Subjective Patient diagnosed with shingles yesterday under left axilla. Started on valacyclovir. No Significant pain. She reports feeling better from a cardiovascular standpoint. Shortness of breath continues to improve. Lower extremity edema also continues to improve. She is tolerating diuretics. Review of Systems Review of Systems: All systems reviewed & are unremarkable except as noted in HPI & below Physical Exam Constitutional: + ill appearing and + thin; no acute dis tress Respiratory: able to speak in complete sentences; no labored breathing Auscultation: + diminished lung sounds and + rales Cardiovascular: Rate/Rhythm: + irregularly irregular Heart Sounds: + murmur (II/ systolic murmur) Vessels: + JVD Extremities: + edema (2+ edema to Knees) Gastrointestinal (Abdomen): normal bowel sounds, soft, nontender, no hepatospl enomegaly Skin: + pallor Neurologic: PERRL, EOMI, accommodation nl, no face palsy, no dysarthria Psychiatric: A+Ox3, euthymic affect Results & Data Vital Signs (Past 12 Hours) Vital Signs Temp Pulse Pulse Resp BP BP Pulse Ox 05/15/24 13:00 78 05/15/24 11:22 36.2 C L 74 18 95/59 L 93 05/15/24 08:34 36.7 C 05/15/24 08:10 05/15/24 08:02 81 05/15/24 07:58 81 18 106/71 91 05/15/24 06:30 61 O2 Del Method O2 Flow Rate 05/15/24 13:00 05/15/24 11:22 Nasal Cannula 3 05/15/24 08:34 05/15/24 08:10 Nasal Cannula 3.5 05/15/24 08:02 05/15/24 07:58 Nasal Cannula 3.5 05/15/24 06:30 Laboratory Results Cardiac Enzymes 05/15/24 Range/Units 06:52 AST 38 (13-39) U/L Coagulation 05/15/24 Range/Units 06:52 PT 26.4 H (9.0-12.0) Seconds CBC 05/15/24 Range/Units 06:52 WBC 3.45 L (4.8-10.8) K/ul RBC 4.53 (4.20-5.40) M/uL Hgb 10.7 L (12.0-16.0) g/dl Hct 36.2 L (37.0-47.0) % Plt Count 102 L (130-400) K/uL Neut # (Auto) 2.37 (1.40-6.50) K/uL Lymph # (Auto) 0.44 L (1.20-3.40) K/uL Christian # (Auto) 0.56 (0.11-0.59) K/uL Eos # (Auto) 0.04 (0.00-0.50) K/uL Baso # (Auto) 0.02 (0.00-0.20) K/uL Comprehensive Metabolic Panel 05/15/24 Range/Units 06:52 Sodium 138 (136-145) mmol/L Potassium 4.0 (3.5-5.1) mmol/L Chloride 98 (98-107) mmol/L Carbon Dioxide 37 H (21-32) mmol/L BUN 22 (6-23) mg/dl Creatinine 0.69 (0.6-1.2) mg/dl Glucose 70 (70-99(Fasting)) mg/dl Calcium 9.5 (8.6-10.3) mg/dl AST 38 (13-39) U/L ALT 32 (7-52) U/L Alkaline Phosphatase 102 (34-104) U/L Total Protein 6.0 (6.0-8.3) gm/dl Albumin 2.8 L (3.4-5.0) gm/dl Intake and Output 05/14/24 05/15/24 05/15/24 22:59 06:59 14:59 Intake Total 400 / 635 125 / 635 600 / 600 Output Total 2201 / 3501 200 / 3501 802 / 802 Balance -1801 / -2866 -75 / -2866 - / -202 Intake: Oral 400 / 525 125 / 525 600 / 600 Output: Urine 2200 / 3500 200 / 3500 800 / 800 # Bowel Movements 2 Other: Weight 68.7 kg Weight Measurement Method Built in [facility] Diagnostic Findings Telemetry reviewed: Atrial flutter with controlled ventricular rates ranging 70 to 80 bpm. Chest x-ray reviewed from 05/14/2024: IMPRESSION: 1. Cardiomegaly without significant change of the interstitial and alveolar pulmonary edema. 2. Stable layering pleural effusions with bibasilar consolidation. 3. Emphysema Medications Administered Current Inpatient Medications Acetaminophen (Acetaminophen 325 Mg Tab) 650 mg PO Q4H PRN PRN Reason: Pain or Fever Stop: 06/11/24 16:50 Last Admin: 05/15/24 02:10 Dose: 650 mg Al Hydrox/Mg Hydrox/Simethicone (Aluminum/Magnesium Susp 30 Ml Udc) 15 ml PO Q4H PRN PRN Reason: Dyspepsia Stop: 06/11/24 16:50 Aspirin (Aspirin 81 Mg Ectab) 81 mg PO QPM MARY Stop: 06/11/24 20:59 Last Admin: 05/14/24 19:54 Dose: 81 mg Atorvastatin Calcium (Atorvastatin 10 Mg Tab) 10 mg PO QPM MARY Stop: 06/11/24 20:59 Last Admin: 05/14/24 19:54 Dose: 10 mg Digoxin (Digoxin 0.125 Mg Tab) 0.125 mg PO QAM MARY Stop: 06/12/24 08:59 Last Admin: 05/15/24 08:02 Dose: 0.125 mg Furosemide (Furosemide 40 Mg/4 Ml Vial) 40 mg IV BID17 [facility] Stop: 06/11/24 16:59 Last Admin: 05/15/24 07:49 Dose: 40 mg Hydroxychloroquine Sulfate (Hydroxychloroquine Sulfate 200 Mg Tab) 200 mg PO QPM MARY Stop: 06/11/24 20:59 Last Admin: 05/14/24 19:54 Dose: 200 mg Levalbuterol HCl (Levalbuterol 1.25 Mg/3 Ml Neb) 1.25 mg NEB Q4H PRN PRN Reason: Shortness Of Breath Or Wheezing Stop: 06/11/24 16:50 Last Admin: 05/14/24 03:35 Dose: 1.25 mg Levothyroxine Sodium (Levothyroxine Sodium 150 Mcg Tablet) 150 mcg PO DAILYBB [facility] Stop: 06/12/24 06:29 Last Admin: 05/15/24 06:18 Dose: 150 mcg Magnesium Oxide (Magnesium Oxide 400 Mg Tab) 400 mg PO QAM [facility] Stop: 06/13/24 08:59 Last Admin: 05/15/24 07:50 Dose: 400 mg Metoprolol Succinate (Metoprolol Succ 50mg Ext Rel Tab) 100 mg PO BID [facility] Stop: 06/11/24 20:59 Last Admin: 05/15/24 07:48 Dose: 100 mg Miscellaneous (Remove Nicoderm Patch) 1 each N/A DAILY@0859 [facility] Stop: 06/12/24 08:58 Last Admin: 05/15/24 07:48 Dose: 1 each Nicotine (Nicotine 21 Mg/24 Hr Tdsy) 1 patch TD QAM [facility] Stop: 06/12/24 08:59 Last Admin: 05/15/24 07:48 Dose: 1 patch Ondansetron HCl (Ondansetron Inj 2 Mg/Ml 2 Ml Vial) 4 mg IV Q6H PRN PRN Reason: Nausea Stop: 06/11/24 16:50 Polyethylene Glycol (Polyethylene (Miralax) 17 Gm Pack) 17 gm PO DAILY PRN PRN Reason: Constipation Stop: 06/11/24 16:50 Last Admin: 05/14/24 09:57 Dose: 17 gm Potassium Chloride (Potassium Chloride Crtab 20 Meq Tabcr) 20 meq PO QAM [facility] Stop: 06/12/24 08:59 Last Admin: 05/15/24 07:50 Dose: 20 meq Valacyclovir HCl (Valacyclovir Hcl 500 Mg Tablet) 1,000 mg PO TID [facility] Stop: 05/21/24 13:59 Last Admin: 05/15/24 13:12 Dose: 1,000 mg Warfarin Sodium (Warfarin Sod 2.5 Mg Tab) 2.5 mg PO [id number]@1600 [facility] Stop: 06/11/24 16:59 Last Admin: 05/12/24 18:39 Dose: 2.5 mg Warfarin Sodium (Warfarin Sod 5 Mg Tab) 5 mg PO [id number]@1600 [facility] Stop: 06/13/24 15:59 Last Admin: 05/14/24 17:34 Dose: 5 mg
[2024-05-15] MEDS: MAGNESIUM SULFATE / D5W 1 GM/100 ML BAG IV SCH (15:15)
[2024-05-16 07:17] LABS: Basophils # (auto) 0.04 K/uL (0.00-0.20); Basophils % (auto) 1.1 %; Eosinophils # (auto) 0.06 K/uL (0.00-0.50); Eosinophils % (auto) 1.7 %; Hematocrit (blood only) 35.1 % (37.0-47.0); Hemoglobin 10.6 g/dl (12.0-16.0); Immature Granulocytes # (auto) 0.01 K/uL (0.01-0.20); Immature Granulocytes % (auto) 0.3 %; Lymphocytes # (auto) 0.37 K/uL (1.20-3.40); Lymphocytes % (auto) 10.2 %; Mean Corpuscular Hemoglobin 23.9 pg (25.0-34.0); Mean Corpuscular Hgb Conc 30.2 g/dL (32.0-36.0); Mean Corpuscular Volume 79.1 fL (80.0-100.0); Monocytes # (auto) 0.62 K/uL (0.11-0.59); Monocytes % (auto) 17.2 %; Neutrophils # (auto) 2.51 K/uL (1.40-6.50); Neutrophils % (auto) 69.5 %; Nucleated RBC # (auto) 0.52 K/uL (0.00-0.12); Nucleated RBC % (auto) 14.4 %; Platelet Count 104 K/uL (130-400); RDW Coefficient of Variation 25.4 % (11.5-14.5); RDW Standard Deviation 67.4 fL (36.4-46.3); Red Blood Count 4.44 M/uL (4.20-5.40); White Blood Count 3.61 K/ul (4.8-10.8)
[2024-05-16 07:18] LABS: Albumin Globulin Ratio 0.9 (0.9-2); Albumin Level 2.7 gm/dl (3.4-5.0); BUN Creatinine Ratio 32.3 (10-20); Bilirubin,Total 0.7 mg/dl (0.2-1.0); Calcium 9.6 mg/dl (8.6-10.3); Creatinine Clr Calc Pharmacy 71.1 ml/min; Est GFR (African American) 101.4 ml/min; Est GFR (Non-African American) 87.5 ml/min; Magnesium 1.7 mg/dl (1.7-2.4); Phosphorus 3.3 mg/dl (2.5-4.9); Potassium 3.8 mmol/L (3.5-5.1); Total Protein 5.7 gm/dl (6.0-8.3)
[2024-05-16 07:23] LABS: INR 3.2 (0.9-1.1); Prothrombin Time 31.3 Seconds (9.0-12.0)
--- NOTE | 2024-05-16 14:22 | Hospitalist Progress Note ---
Date of Service May 16, 2024 Assessment & Plan (1) Acute diastolic CHF (congestive heart failure): Plan Patient is a 73-year-old female with past medical history of COPD, history of lung cancer status post RM Lobectomy 03/08/22 , A-fib on Coumadin, carotid stenosis s/p R CEA, SLE, tobacco use disorder (2-3 ppd), hypothyroidism, hyperparathyroidism, dyslipidemia, h/o IPMN s/p distal pancreatectomy and splenectomy was referred to the ED from cardiology clinic due to volume ove rload. Acute on chronic diastolic heart failure Pleural Effusion History of recent admission in with CHF exacerbation. Was discharged on Lasix 20 mg as needed daily. Was not taking diuretics Presented with bilateral lower extremity 4+ pitting edema going up to upper thigh and lower back. Last echocardiogram in November 2023 showed EF of 55 to 60%; LA moderately dilated. Repeat Echo noting mod dilated LA, severely dilated RA, mod aortic sclerosis w/o stenosis, mild to moderate mitral regurg, mod tricuspid regurg and a moderate L pleural effusion BNP- 964 on admission, 419 in November Continue diuresis with IV Lasix 40 mg twice daily- on hold Strict input output monitoring Daily weights cardiology consulted, appreciate recs -IV lasix 40mg BID on hold today Atrial fibrillation with RVR On metoprolol and digoxin with coumadin for anticoagulation Cardiology consulted, appreciate recs -metoprolol increased to 100mg BID -continue digoxin Follow INR while on coumadin, goal 2-3 Elevated trop Demand ischemia Trop elevated at 29.5 to 32.3 to 33.8 EKG with noted atrial fibrillation, anterior fascicular block Likely demand ischemia in setting of above Hypotension Likely in setting of IV diuresis above Also on met succ 100mg BID with parameters Continue to monitor Hold lasix doses and metoprolol as needed Continue to monitor Pancytopenia Iron Deficiency anemia Pt with noted pancytopenia peripheral smear reviewed Consider heme consult Anemia panel noting iron deficiency pt on chronic anticoagulation s/p IV venofer 1 bag 200mg on 05/14 Continue to monitor with AM labs Rash Shingles Pt with vesicular rash on an erythematous base in a dermatomal pattern Started on Valtrex 1000mg q8h x 7 days Contact and airborne precautions Continue to monitor Aspiration Event Dysphagia On 05/14. Chest xray reviewed, unchanged from last. Speech consulted, video swallow to be scheduled on mon 07/29 COPD Not in acute exacerbation Continue DuoNeb as needed Will need follow-up with pulmonology as outpatient Hypertensioncontinue on metoprolol, dose increased to 100mg bid Hypothyroidismcontinue levothyroxine Hyperlipidemiacontinue on Lipitor SLEcontinue on Plaquenil Diet: HH/low sodium DVT prophylaxis Coumadin, follow INR Dispo: PT/OT recommending rehab Admission and Anticipated Discharge Date Admission Date: May 12, 2024 Subjective Pt seen laying in bed. States still having painful rash Denies chest pain, SOB or palps Notes she had a herpetic rash on her bottom in the past. Review of Systems Review of Systems: All systems reviewed & are unremarkable except as noted in Subjective Physical Exam Physical Exam: General: Alert, oriented. No acute distress Skin: Noted vesicular rash on an erythematosus base in left armpit wrapping around to left back Psych: Appropriate mood and affect Neuro: No gross deficits while laying in bed HEENT: NC/AT CV:Irregular Resp: Breath sounds coarse bilaterally, no increased effort of breathing. Crackles at bases Abdomen: Soft, nontender Extremities: edema in lower extremities bilaterally. Results & Data Results & Data Vital Signs (Past 12 Hours) Vital Signs Temp Pulse Pulse Resp BP Pulse Ox O2 Del Method 05/16/24 14:00 81 05/16/24 11:23 36.6 C 70 18 86/57 L 95 Nasal Cannula 05/16/24 08:59 65 05/16/24 07:31 36.4 C L 65 18 90/59 L 93 Nasal Cannula 05/16/24 07:09 Nasal Cannula 05/16/24 07:00 62 05/16/24 03:42 36.5 C 72 18 99/64 L 93 Nasal Cannula O2 Flow Rate 05/16/24 14:00 05/16/24 11:23 2.0 05/16/24 08:59 05/16/24 07:31 3.0 05/16/24 07:09 3 05/16/24 07:00 05/16/24 03:42 3
--- NOTE | 2024-05-16 14:44 | Cardiology Progress Note ---
Date of Service May 16, 2024 Assessment & Plan (1) Acute heart failure with preserved ejection fraction: (2) Acute respiratory failure with hypoxia: (3) Permanent atrial fibrillation: Plan 05/12/24 Patient admitted with worsening SOB, volume overload, hypoxia consistent with a cute on chronic HFpEF. Symptoms have been persistent over the last few weeks. BNP elevated. Start IV lasix - 40 mg IV BID. She received one dose IV lasix this morning. 2nd dose later this afternoon. Magnesium is low - Supplement 2 gm now. Potassium level pending. Recent hyperkalemia and spironolactone stopped as outpatient. Monitor I+O's Afib RVR - Continue digoxin. Increase metoprolol to 100 mg BID INR pending continue coumadin. Continue supplemental O2. 05/13/24: Patient with good urine outputs over the last 24 hours. 4 L output. Weight down on standing scale. BP lower, borderline hypotensive. She already received morning 40 mg IV lasix. If BP remains low, may need to hold PM dose. Stable renal function, potassium. Magnesium remains low - Additional 2 gms ordered today Monitor I+O's Afib - Rates improved Continue digoxin Metoprolol increased to 100 mg BID (morning dose held due to low BP) Will monitor. Continue Coumadin. INR subtherapeutic today at 1.6. Give higher dose 5 mg today. 05/14/25: Ongoing diuresis noted over the last 24 hours. 4 L yesterday, nearly 2 L thus far today. Daily weight with standing scale. Stable renal function, electrolytes Continue furosemide 40 mg IV BID today. Dose limited due to borderline hypotension. Supplement oral magnesium and oral potassium. due to worsening cough. ? Aspiration - repeat chest xray this morning Afib - rates controlled. Continue digoxin, metoprolol and coumadin. INR 2.0. DVT proph - coumadin. 05/15/2024: Significant urine output yesterday at 3.5 L. Weight continues to trend downward. Recommend daily weight with standing scale. Stable renal function and potassium. Continue furosemide 40 mg IV twice daily. Magnesium level is low. Supplement 2 g. Chronic A-fib, rates improved. Continue digoxin, metoprolol. INR 2.7. Continue Coumadin. 05/16/24: BP slightly hypotensive today. Hold additional IV diuretics today/tomorrow. lower extremity cramping reported. Supplement magnesium 2 gm IV Give additional 20 meq of potassium now. Likely transition to oral diuretic tomorrow. Patient reports significant side effects with oral furosemide at home (causing weakness). Does not wish to take when returning home. Would consider torsemide with potassium and magnesium supplement. recheck digoxin level tomorrow AM Continue metoprolol and digoxin. Chronic afib and rates improved INR 3.2 today. Hold coumadin tonight. Case discussed with Dr. Mcdowell I spent a total of 30 minutes on the date of service in preparation, delivery, and documentation of the care provided to this patient, excluding any time spent in the performance of separately billed services. Violette Bryson PA-C Department of Cardiology, [facility] This chart was completed in part utilizing Speech Voice Recognition Software. Grammatical errors, random word insertions, pronoun errors, and incomplete sentences are an occasional consequence of this system due to software limitations, ambient noise, and hardware issues. Any formal questions or concerns about the content, text, or information contained within the body of this dictation should be directly addressed to the provider for clarification. Admission and Anticipated Discharge Date Admission Date: May 12, 2024 Supervising Physician Co-Signing Physician Notes Attending attestation. I have personally performed a history and physical examination on the patient. I have reviewed the advance practitioner's documentation, and I agree with, and take responsibility for the plan of care. 73-year-old female admitted with acute decompensated heart failure and atrial fibrillation with rapid ventricular response. Patient is euvolemic her blood pressure is low so IV Lasix has been held start p.o. torsemide 20 mg from tomorrow. Please call with questions Follow-up with cardiology as outpatient in 1 to 2 weeks I spent a total of 10minutes on the date of service in preparation, delivery, and documentation of the care provided to this patient, excluding any time spent in the performance of separately billed services. Subjective Patient resting in bed. Feels nearly back at baseline. Great improvement in LE edema since discharge. SOB at baseline. No dizziness or lightheadedness. Having intermittent LE cramps. Potassium remains low normal. potassium acceptable Review of Systems Review of Systems: All systems reviewed & are unremarkable except as noted in HPI & below Physical Exam Constitutional: + thin; no acute distress Respiratory: able to speak in complete sentences; no labored breathing Auscultation: + diminished lung sounds; no rales Cardiovascular: Rate/Rhythm: + irregularly irregular Heart Sounds: + murmur (II/ systolic murmur) Vessels: + JVD Extremities: + edema (1+ pretibial edema) Gastrointestinal (Abdomen): normal bowel sounds, soft, nontender, no hepatosplenomegaly Skin: + pallor Neurologic: PERRL, EOMI, accommodation nl, no face palsy, no dysarthria Psychiatric: A+Ox3, euthymic affect Results & Data Vital Signs (Past 12 Hours) Vital Signs Temp Pulse Pulse Resp BP Pulse Ox O2 Del Method 05/16/24 14:00 81 05/16/24 11:23 36.6 C 70 18 86/57 L 95 Nasal Cannula 05/16/24 08:59 65 05/16/24 07:31 36.4 C L 65 18 90/59 L 93 Nasal Cannula 05/16/24 07:09 Nasal Cannula 05/16/24 07:00 62 05/16/24 03:42 36.5 C 72 18 99/64 L 93 Nasal Cannula O2 Flow Rate 05/16/24 14:00 05/16/24 11:23 2.0 05/16/24 08:59 05/16/24 07:31 3.0 05/16/24 07:09 3 05/16/24 07:00 05/16/24 03:42 3 Laboratory Results Cardiac Enzymes 05/16/24 Range/Units 06:18 AST 35 (13-39) U/L Coagulation 05/16/24 Range/Units 06:18 PT 31.3 H (9.0-12.0) Seconds CBC 05/16/24 Range/Units 06:18 WBC 3.61 L (4.8-10.8) K/ul RBC 4.44 (4.20-5.40) M/uL Hgb 10.6 L (12.0-16.0) g/dl Hct 35.1 L (37.0-47.0) % Plt Count 104 L (130-400) K/uL Neut # (Auto) 2.51 (1.40-6.50) K/uL Lymph # (Auto) 0.37 L (1.20-3.40) K/uL [place] # (Auto) 0.62 H (0.11-0.59) K/uL Eos # (Auto) 0.06 (0.00-0.50) K/uL Baso # (Auto) 0.04 (0.00-0.20) K/uL Comprehensive Metabolic Panel 05/16/24 Range/Units 06:18 Sodium 136 (136-145) mmol/L Potassium 3.8 (3.5-5.1) mmol/L Chloride 95 L (98-107) mmol/L Carbon Dioxide 39 H (21-32) mmol/L BUN 21 (6-23) mg/dl Creatinine 0.65 (0.6-1.2) mg/dl Glucose 72 (70-99(Fasting)) mg/dl Calcium 9.6 (8.6-10.3) mg/dl AST 35 (13-39) U/L ALT 29 (7-52) U/L Alkaline Phosphatase 98 (34-104) U/L Total Protein 5.7 L (6.0-8.3) gm/dl Albumin 2.7 L (3.4-5.0) gm/dl Intake and Output 05/15/24 05/16/24 05/16/24 22:59 06:59 14:59 Intake Total 319.167 / 1159.167 240 / 240 Output Total 1400 / 2902 300 / 2902 600 / 600 Balance -1080.833 / -1742.833 -300 / -1742.833 -360 / -360 Intake: IV 169.167 / 169.167 Magnesium Sulfate / D5w 1 gm In 169.167 / 169.167 100 ml @ 50 mls/hr IV Q2H [facility] Rx#:[id number] Oral 150 / 990 240 / 240 Output: Urine 1400 / 2900 300 / 2900 600 / 600 Other: Other Intake Source sips # Unmeasured Voids 1 Weight 66.9 kg Weight Measurement Method Standing Scale Diagnostic Findings Telemetry reviewed: Afib with controlled rates Medications Administered Current Inpatient Medications Acetaminophen (Acetaminophen 325 Mg Tab) 650 mg PO Q4H PRN PRN Reason: Pain or Fever Stop: 06/11/24 16:50 Last Admin: 05/16/24 05:01 Dose: 650 mg Al Hydrox/Mg Hydrox/Simethicone (Aluminum/Magnesium Susp 30 Ml Udc) 15 ml PO Q4H PRN PRN Reason: Dyspepsia Stop: 06/11/24 16:50 Aspirin (Aspirin 81 Mg Ectab) 81 mg PO QPM MARY Stop: 06/11/24 20:59 Last Admin: 05/15/24 20:37 Dose: 81 mg Atorvastatin Calcium (Atorvastatin 10 Mg Tab) 10 mg PO QPM MARY Stop: 06/11/24 20:59 Last Admin: 05/15/24 20:37 Dose: 10 mg Digoxin (Digoxin 0.125 Mg Tab) 0.125 mg PO QAM [facility] Stop: 06/12/24 08:59 Last Admin: 05/16/24 08:59 Dose: 0.125 mg Furosemide (Furosemide 40 Mg/4 Ml Vial) 40 mg IV BID17 MARY Stop: 06/11/24 16:59 Last Admin: 05/16/24 09:03 Dose: 40 mg Hydroxychloroquine Sulfate (Hydroxychloroquine Sulfate 200 Mg Tab) 200 mg PO QPM MARY Stop: 06/11/24 20:59 Last Admin: 05/15/24 20:37 Dose: 200 mg Levalbuterol HCl (Levalbuterol 1.25 Mg/3 Ml Neb) 1.25 mg NEB Q4H PRN PRN Reason: Shortness Of Breath Or Wheezing Stop: 06/11/24 16:50 Last Admin: 05/14/24 03:35 Dose: 1.25 mg Levothyroxine Sodium (Levothyroxine Sodium 150 Mcg Tablet) 150 mcg PO DAILYBB [facility] Stop: 06/12/24 06:29 Last Admin: 05/16/24 05:01 Dose: 150 mcg Magnesium Oxide (Magnesium Oxide 400 Mg Tab) 400 mg PO QAM [facility] Stop: 06/13/24 08:59 Last Admin: 05/16/24 08:59 Dose: 400 mg Metoprolol Succinate (Metoprolol Succ 50mg Ext Rel Tab) 100 mg PO BID MARY Stop: 06/11/24 20:59 Last Admin: 05/16/24 08:58 Dose: 100 mg Miscellaneous (Remove Nicoderm Patch) 1 each N/A DAILY@0859 [facility] Stop: 06/12/24 08:58 Last Admin: 05/16/24 08:57 Dose: 1 each Nicotine (Nicotine 21 Mg/24 Hr Tdsy) 1 patch TD QAM [facility] Stop: 06/12/24 08:59 Last Admin: 05/16/24 08:57 Dose: 1 patch Ondansetron HCl (Ondansetron Inj 2 Mg/Ml 2 Ml Vial) 4 mg IV Q6H PRN PRN Reason: Nausea Stop: 06/11/24 16:50 Polyethylene Glycol (Polyethylene (Miralax) 17 Gm Pack) 17 gm PO DAILY PRN PRN Reason: Constipation Stop: 06/11/24 16:50 Last Admin: 05/14/24 09:57 Dose: 17 gm Potassium Chloride (Potassium Chloride Crtab 20 Meq Tabcr) 20 meq PO QAM [facility] Stop: 06/12/24 08:59 Last Admin: 05/16/24 09:03 Dose: 20 meq Valacyclovir HCl (Valacyclovir Hcl 500 Mg Tablet) 1,000 mg PO TID [facility] Stop: 05/21/24 13:59 Last Admin: 05/16/24 13:35 Dose: 1,000 mg Warfarin Sodium (Warfarin Sod 2.5 Mg Tab) 2.5 mg PO [id number]@1600 [facility] Stop: 06/11/24 16:59 Last Admin: 05/15/24 15:14 Dose: 2.5 mg Warfarin Sodium (Warfarin Sod 5 Mg Tab) 5 mg PO MoFr@1600 [facility] Stop: 06/13/24 15:59 Last Admin: 05/14/24 17:34 Dose: 5 mg
[2024-05-16] MEDS: POTASSIUM CHLORIDE CRTAB 20 MEQ TABCR PO STA (15:11)
[2024-05-16] MEDS: MAGNESIUM SULFATE / D5W 1 GM/100 ML BAG IV SCH (15:15)
[2024-05-16] MEDS: GABAPENTIN 100 MG CAP PO STA (22:51)
[2024-05-17 07:43] LABS: Hematocrit (blood only) 36.6 % (37.0-47.0); Hemoglobin 10.9 g/dl (12.0-16.0); Mean Corpuscular Hemoglobin 23.4 pg (25.0-34.0); Mean Corpuscular Hgb Conc 29.8 g/dL (32.0-36.0); Mean Corpuscular Volume 78.7 fL (80.0-100.0); Nucleated RBC # (auto) 0.77 K/uL (0.00-0.12); Platelet Count 116 K/uL (130-400); RDW Coefficient of Variation 25.5 % (11.5-14.5); RDW Standard Deviation 68.2 fL (36.4-46.3); Red Blood Count 4.65 M/uL (4.20-5.40); White Blood Count 3.85 K/ul (4.8-10.8)
[2024-05-17 07:54] LABS: Albumin Globulin Ratio 0.9 (0.9-2); Albumin Level 2.8 gm/dl (3.4-5.0); BUN Creatinine Ratio 27.7 (10-20); Bilirubin,Total 0.8 mg/dl (0.2-1.0); Calcium 9.6 mg/dl (8.6-10.3); Creatinine Clr Calc Pharmacy 71.1 ml/min; Est GFR (African American) 101.4 ml/min; Est GFR (Non-African American) 87.5 ml/min; Globulin 3.2 gm/dl (2.5-4.0); Magnesium 1.9 mg/dl (1.7-2.4); Phosphorus 3.2 mg/dl (2.5-4.9)
[2024-05-17 08:06] LABS: INR 2.6 (0.9-1.1); Prothrombin Time 25.9 Seconds (9.0-12.0)
[2024-05-17 08:27] LABS: Anisocytosis Present; Basophils # (auto) 0.04 K/uL (0.00-0.20); Eosinophils # (auto) 0.09 K/uL (0.00-0.50); Eosinophils % (auto) 2.3 %; Immature Granulocytes # (auto) 0.01 K/uL (0.01-0.20); Immature Granulocytes % (auto) 0.3 %; Lymphocytes # (auto) 0.17 K/uL (1.20-3.40); Lymphocytes % (auto) 4.4 %; Monocytes % (auto) 15.6 %; Neutrophils # (auto) 2.94 K/uL (1.40-6.50); Neutrophils % (auto) 76.4 %; Polychromasia 3+; Target Cells 1+
[2024-05-17] MEDS: TORSEMIDE 20 MG TAB PO SCH (11:21)
--- NOTE | 2024-05-17 11:23 | Fluoroscopy Report ---
FL video swallow CLINICAL HISTORY: 73 years-old Female with assess for aspiration/silent aspiration. Dysphagia with a spiration TECHNIQUE: Video fluoroscopic evaluation of swallowing was performed in the AP and lateral projection s by the speech pathology staff. The patient is fed varying consistencies of barium. FLUOROSCOPY TIME: 2.21 minutes. 3940 images were submitted. 3.59 mGy. COMPARISON STUDY: None. FINDINGS: There is laryngeal penetration with silent aspiration noted with thin liquid barium. Vallec ular and piriform sinus retention noted throughout the study, most pronounced with pudding and solid consistencies. There is abnormal hyoid excursion and epiglottic deflection with all consistencies. No additional aspiration identified with the remaining consistencies. Esophageal dysmotility is also no alexandr. IMPRESSION: 1. Laryngeal penetration with thin liquid barium. 2. Please see the speech pathologist report for detailed findings and recommendations. ACT 112: Negative or not required by law. Electronically signed by: Lee Kumar M.D. 05/17/2024 11:21 AM
--- NOTE | 2024-05-17 11:57 | Cardiology Progress Note ---
Date of Service May 17, 2024 Assessment & Plan (1) Acute heart failure with preserved ejection fraction: (2) Acute respiratory failure with hypoxia: (3) Permanent atrial fibrillation: Plan 05/12/24 Patient admitted with worsening SOB, volume overload, hypoxia consistent with a cute on chronic HFpEF. Symptoms have been persistent over the last few weeks. BNP elevated. Start IV lasix - 40 mg IV BID. She received one dose IV lasix this morning. 2nd dose later this afternoon. Magnesium is low - Supplement 2 gm now. Potassium level pending. Recent hyperkalemia and spironolactone stopped as outpatient. Monitor I+O's Afib RVR - Continue digoxin. Increase metoprolol to 100 mg BID INR pending continue coumadin. Continue supplemental O2. 05/13/24: Patient with good urine outputs over the last 24 hours. 4 L output. Weight down on standing scale. BP lower, borderline hypotensive. She already received morning 40 mg IV lasix. If BP remains low, may need to hold PM dose. Stable renal function, potassium. Magnesium remains low - Additional 2 gms ordered today Monitor I+O's Afib - Rates improved Continue digoxin Metoprolol increased to 100 mg BID (morning dose held due to low BP) Will monitor. Continue Coumadin. INR subtherapeutic today at 1.6. Give higher dose 5 mg today. 05/14/25: Ongoing diuresis noted over the last 24 hours. 4 L yesterday, nearly 2 L thus far today. Daily weight with standing scale. Stable renal function, electrolytes Continue furosemide 40 mg IV BID today. Dose limited due to borderline hypotension. Supplement oral magnesium and oral potassium. due to worsening cough. ? Aspiration - repeat chest xray this morning Afib - rates controlled. Continue digoxin, metoprolol and coumadin. INR 2.0. DVT proph - coumadin. 05/15/2024: Significant urine output yesterday at 3.5 L. Weight continues to trend downward. Recommend daily weight with standing scale. Stable renal function and potassium. Continue furosemide 40 mg IV twice daily. Magnesium level is low. Supplement 2 g. Chronic A-fib, rates improved. Continue digoxin, metoprolol. INR 2.7. Continue Coumadin. 05/16/24: BP slightly hypotensive today. Hold additional IV diuretics today/tomorrow. lower extremity cramping reported. Supplement magnesium 2 gm IV Give additional 20 meq of potassium now. Likely transition to oral diuretic tomorrow. Patient reports significant side effects with oral furosemide at home (causing weakness). Does not wish to take when returning home. Would consider torsemide with potassium and magnesium supplement. recheck digoxin level tomorrow AM Continue metoprolol and digoxin. Chronic afib and rates improved INR 3.2 today. Hold coumadin tonight. 05/17/2024 Clinically improved, heart rate controlled. Continue metoprolol and digoxin, anticoagulation with warfarin Furosemide switched to torsemide today. Would decrease to 10 mg torsemide daily on discharge Patient anticipating rehab This chart was completed in part utilizing Speech Voice Recognition Software. Grammatical errors, random word insertions, pronoun errors, and incomplete sentences are an occasional consequence of this system due to software limitations, ambient noise, and hardware issues. Any formal questions or concerns about the content, text, or information contained within the body of this dictation should be directly addressed to the provider for clarification. Admission and Anticipated Discharge Date Admission Date: May 12, 2024 Subjective Patient seen and examined, chart, medications, telemetry reviewed. Pain in her feet, fatigue otherwise no acute complaints. Edema essentially resolved. No fevers or chills no cough Diuretics changed to oral today Physical Exam Constitutional: + thin; no acute distress Neck: trachea midline, no thyromegaly Respiratory: no labored breathing Auscultation: + diminished lung sounds; no rales Cardiovascular: Rate/Rhythm: + irregularly irregular Heart Sounds: + murmur (II/ systolic murmur) Extremities: + edema (Trace only) Gastrointestinal (Abdomen): normal bowel sounds, soft, nontender, no hepatosplenomegaly Skin: + pallor Neurologic: PERRL, EOMI, accommodation nl, no face palsy, no dysarthria Psychiatric: A+Ox3, euthymic affect Results & Data Vital Signs (Past 12 Hours) Vital Signs Temp Pulse Pulse Resp BP BP Pulse Ox 05/17/24 08:16 76 05/17/24 08:13 36.4 C L 76 16 96/59 L 94 05/17/24 07:25 05/17/24 06:00 75 05/17/24 03:54 36.5 C 85 18 118/75 93 O2 Del Method O2 Flow Rate 05/17/24 08:16 05/17/24 08:13 Nasal Cannula 2 05/17/24 07:25 Nasal Cannula 3 05/17/24 06:00 05/17/24 03:54 Nasal Cannula 3 Laboratory Results Laboratory Results - last 24 hr 05/17/24 07:22 WBC 3.85 L RBC 4.65 Hgb 10.9 L Hct 36.6 L MCV 78.7 L MCH 23.4 L MCHC 29.8 L RDW Std Deviation 68.2 H RDW Coeff of Jerri 25.5 H Plt Count 116 L Immature Gran % (Auto) 0.3 Neut % (Auto) 76.4 Lymph % (Auto) 4.4 [place] % (Auto) 15.6 Eos % (Auto) 2.3 Baso % (Auto) 1.0 Neut # (Auto) 2.94 Lymph # (Auto) 0.17 L [place] # (Auto) 0.60 H Eos # (Auto) 0.09 Baso # (Auto) 0.04 Immature Gran # (Auto) 0.01 Absolute Nucleated RBC 0.77 H Nucleated RBC % (auto) 20.0 Polychromasia 3+ Anisocytosis Present Target Cells 1+ PT 25.9 H INR 2.6 H Sodium 137 Potassium 4.0 Chloride 96 L Carbon Dioxide 40 H Anion Gap 1 L BUN 18 Creatinine 0.65 Est Cr Clr Drug Dosing 71.1 Est GFR ( Amer) 101.4 Est GFR (Non-Af Amer) 87.5 BUN/Creatinine Ratio 27.7 H Glucose 77 Calcium 9.6 Phosphorus 3.2 Magnesium 1.9 Total Bilirubin 0.8 AST 37 ALT 29 Alkaline Phosphatase 103 Total Protein 6.0 Albumin 2.8 L Globulin 3.2 Albumin/Globulin Ratio 0.9 Digoxin 1.2
--- NOTE | 2024-05-17 12:51 | Hospitalist Progress Note ---
Date of Service May 17, 2024 Assessment & Plan (1) Acute diastolic CHF (congestive heart failure): Plan Patient is a 73-year-old female with past medical history of COPD, history of lung cancer status post RM Lobectomy 03/08/22 , A-fib on Coumadin, carotid stenosis s/p R CEA, SLE, tobacco use disorder (2-3 ppd), hypothyroidism, hyperparathyroidism, dyslipidemia, h/o IPMN s/p distal pancreatectomy and splenectomy was referred to the ED from cardiology clinic due to volume ove rload. Acute on chronic diastolic heart failure Pleural Effusion History of recent admission in with CHF exacerbation. Was discharged on Lasix 20 mg as needed daily. Was not taking diuretics Presented with bilateral lower extremity 4+ pitting edema going up to upper thigh and lower back. Last echocardiogram in November 2023 showed EF of 55 to 60%; LA moderately dilated. Repeat Echo noting mod dilated LA, severely dilated RA, mod aortic sclerosis w/o stenosis, mild to moderate mitral regurg, mod tricuspid regurg and a moderate L pleural effusion BNP- 964 on admission, 419 in November Continue diuresis with IV Lasix 40 mg twice daily- on hold Strict input output monitoring Daily weights cardiology consulted, appreciate recs -IV lasix 40mg BID transitioned to po torsemide 10mg Atrial fibrillation with RVR On metoprolol and digoxin with coumadin for anticoagulation Cardiology consulted, appreciate recs -metoprolol increased to 100mg BID -continue digoxin Follow INR while on coumadin, goal 2-3 Elevated trop Demand ischemia Trop elevated at 29.5 to 32.3 to 33.8 EKG with noted atrial fibrillation, anterior fascicular block Likely demand ischemia in setting of above Hypotension Likely in setting of IV diuresis above Also on met succ 100mg BID with parameters Continue to monitor Hold lasix doses and metoprolol as needed Continue to monitor Pancytopenia Iron Deficiency anemia Pt with noted pancytopenia peripheral smear reviewed Consider heme consult Anemia panel noting iron deficiency pt on chronic anticoagulation s/p IV venofer 1 bag 200mg on 05/14 Continue to monitor with AM labs Rash Shingles Pt with vesicular rash on an erythematous base in a dermatomal pattern Started on Valtrex 1000mg q8h x 7 days Contact and airborne precautions gabapentin TID Continue to monitor Aspiration Event Dysphagia On 05/14. Chest xray reviewed, unchanged from last. Speech consulted, video swallow to be scheduled on 05/17 COPD Not in acute exacerbation Continue DuoNeb as needed Will need follow-up with pulmonology as outpatient Neuropathy Pain in hands and feet started on gabapentin 100mg TID Hypertensioncontinue on metoprolol, dose increased to 100mg bid Hypothyroidismcontinue levothyroxine Hyperlipidemiacontinue on Lipitor SLEcontinue on Plaquenil Diet: HH/low sodium DVT prophylaxis Coumadin, follow INR Dispo: PT/OT recommending rehab Admission and Anticipated Discharge Date Admission Date: May 12, 2024 Subjective pt sitting up in bed No acute concerns today discussion of next steps and rehab Review of Systems Review of Systems: All systems reviewed & are unremarkable except as noted in Subjective Physical Exam Physical Exam: General: Alert, oriented. No acute distress Skin: Noted vesicular rash on an erythematosus base in left armpit wrapping around to left back Psych: Appropriate mood and affect Neuro: No gross deficits while laying in bed HEENT: NC/AT CV:Irregular Resp: Breath sounds coarse bilaterally, no increased effort of breathing. Crackles at bases Abdomen: Soft, nontender Extremities: edema in lower extremities bilaterally. Results & Data Results & Data Vital Signs (Past 12 Hours) Vital Signs Temp Pulse Pulse Resp BP BP Pulse Ox 05/17/24 12:00 36.6 C 86 18 90/60 L 94 05/17/24 08:16 76 05/17/24 08:13 36.4 C L 76 16 96/59 L 94 05/17/24 07:25 05/17/24 06:00 75 05/17/24 03:54 36.5 C 85 18 118/75 93 O2 Del Method O2 Flow Rate 05/17/24 12:00 Nasal Cannula 2.0 05/17/24 08:16 05/17/24 08:13 Nasal Cannula 2 05/17/24 07:25 Nasal Cannula 3 05/17/24 06:00 05/17/24 03:54 Nasal Cannula 3
[2024-05-17] MEDS: GABAPENTIN 100 MG CAP PO SCH (20:52)
[2024-05-18 07:44] LABS: Hematocrit (blood only) 39.1 % (37.0-47.0); Hemoglobin 11.4 g/dl (12.0-16.0); Mean Corpuscular Hemoglobin 23.4 pg (25.0-34.0); Mean Corpuscular Hgb Conc 29.2 g/dL (32.0-36.0); Mean Corpuscular Volume 80.1 fL (80.0-100.0); Nucleated RBC # (auto) 0.57 K/uL (0.00-0.12); Nucleated RBC % (auto) 13.7 %; Platelet Count 121 K/uL (130-400); RDW Coefficient of Variation 25.7 % (11.5-14.5); Red Blood Count 4.88 M/uL (4.20-5.40); White Blood Count 4.16 K/ul (4.8-10.8)
[2024-05-18 08:00] LABS: Albumin Globulin Ratio 0.9 (0.9-2); BUN Creatinine Ratio 25.7 (10-20); Bilirubin,Total 0.8 mg/dl (0.2-1.0); Calcium 9.6 mg/dl (8.6-10.3); Creatinine Clr Calc Pharmacy 62.4 ml/min; Est GFR (African American) 92.5 ml/min; Est GFR (Non-African American) 79.8 ml/min; Globulin 3.3 gm/dl (2.5-4.0); Magnesium 1.6 mg/dl (1.7-2.4); Phosphorus 3.1 mg/dl (2.5-4.9); Potassium 3.9 mmol/L (3.5-5.1); Total Protein 6.3 gm/dl (6.0-8.3)
[2024-05-18 08:06] LABS: Anisocytosis Present; Basophils # (auto) 0.05 K/uL (0.00-0.20); Basophils % (auto) 1.2 %; Eosinophils # (auto) 0.06 K/uL (0.00-0.50); Eosinophils % (auto) 1.4 %; Howell-Jolly Bodies 1+; Immature Granulocytes # (auto) 0.02 K/uL (0.01-0.20); Immature Granulocytes % (auto) 0.5 %; Lymphocytes # (auto) 0.39 K/uL (1.20-3.40); Lymphocytes % (auto) 9.4 %; Monocytes # (auto) 0.66 K/uL (0.11-0.59); Monocytes % (auto) 15.9 %; Neutrophils # (auto) 2.98 K/uL (1.40-6.50); Neutrophils % (auto) 71.6 %; Polychromasia 1+; Target Cells 1+
[2024-05-18 08:12] LABS: INR 2.3 (0.9-1.1); Prothrombin Time 23.1 Seconds (9.0-12.0)
[2024-05-18] MEDS: TORSEMIDE 10 MG TAB PO SCH (08:22)
[2024-05-18] MEDS ORDERED: TORSEMIDE 20 MG TAB PO SCH (09:00)
--- NOTE | 2024-05-18 09:58 | Hospitalist Progress Note ---
Date of Service May 18, 2024 Assessment & Plan (1) Acute diastolic CHF (congestive heart failure): Plan Patient is a 73-year-old female with past medical history of COPD, history of lung cancer status post RM Lobectomy 03/08/22 , A-fib on Coumadin, carotid stenosis s/p R CEA, SLE, tobacco use disorder (2-3 ppd), hypothyroidism, hyperparathyroidism, dyslipidemia, h/o IPMN s/p distal pancreatectomy and splenectomy was referred to the ED from cardiology clinic due to volume ove rload. Acute on chronic diastolic heart failure Pleural Effusion History of recent admission in with CHF exacerbation. Was discharged on Lasix 20 mg as needed daily. Was not taking diuretics Presented with bilateral lower extremity 4+ pitting edema going up to upper thigh and lower back. Last echocardiogram in November 2023 showed EF of 55 to 60%; LA moderately dilated. Repeat Echo noting mod dilated LA, severely dilated RA, mod aortic sclerosis w/o stenosis, mild to moderate mitral regurg, mod tricuspid regurg and a moderate L pleural effusion BNP- 964 on admission, 419 in November Continue diuresis with IV Lasix 40 mg twice daily- on hold Strict input output monitoring Daily weights cardiology consulted, appreciate recs -IV lasix 40mg BID transitioned to po torsemide 10mg Atrial fibrillation with RVR On metoprolol and digoxin with coumadin for anticoagulation Cardiology consulted, appreciate recs -metoprolol increased to 100mg BID -continue digoxin, dose freq adjusted by cardiology on 05/18 Follow INR while on coumadin, goal 2-3 Elevated trop Demand ischemia Trop elevated at 29.5 to 32.3 to 33.8 EKG with noted atrial fibrillation, anterior fascicular block Likely demand ischemia in setting of above Hypotension Likely in setting of IV diuresis above Also on met succ 100mg BID with parameters Continue to monitor Hold lasix doses and metoprolol as needed Continue to monitor Pancytopenia Iron Deficiency anemia Pt with noted pancytopenia peripheral smear reviewed Consider heme consult Anemia panel noting iron deficiency pt on chronic anticoagulation s/p IV venofer 1 bag 200mg on 05/14 Continue to monitor with AM labs Rash Shingles Pt with vesicular rash on an erythematous base in a dermatomal pattern Started on Valtrex 1000mg q8h x 7 days Contact and airborne precautions gabapentin TID Continue to monitor Aspiration Event Dysphagia On 05/14. Chest xray reviewed, unchanged from last. Speech consulted, video swallow to be scheduled on 05/17 COPD Not in acute exacerbation Continue DuoNeb as needed Will need follow-up with pulmonology as outpatient Neuropathy Pain in hands and feet started on gabapentin 100mg TID Hypertensioncontinue on metoprolol, dose increased to 100mg bid Hypothyroidismcontinue levothyroxine Hyperlipidemiacontinue on Lipitor SLEcontinue on Plaquenil Diet: HH/low sodium DVT prophylaxis Coumadin, follow INR Dispo: PT/OT recommending rehab Admission and Anticipated Discharge Date Admission Date: May 12, 2024 Subjective Pt was seen in the AM. Denied acute concerns but asking for a "favor", stating she wants a regular diet today rather than a heart healthy diet Noted abnormal heart rhythm on telemetry Review of Systems Review of Systems: All systems reviewed & are unremarkable except as noted in Subjective Physical Exam Physical Exam: General: Alert, oriented. No acute distress Skin: Noted vesicular rash on an erythematosus base in left armpit wrapping around to left back Psych: Appropriate mood and affect Neuro: No gross deficits while laying in bed HEENT: NC/AT CV:Irregular Resp: Breath sounds coarse bilaterally, no increased effort of breathing. Crackles at bases Abdomen: Soft, nontender Extremities: trace edema in lower extremities bilaterally. Results & Data Results & Data Vital Signs (Past 12 Hours) Vital Signs Temp Pulse Pulse Resp BP Pulse Ox O2 Del Method 05/18/24 08:23 71 05/18/24 07:37 36.3 C L 71 20 103/65 96 Nasal Cannula 05/18/24 02:40 36.7 C 76 20 107/72 95 Nasal Cannula 05/18/24 01:00 05/17/24 22:24 36.5 C 83 18 96/61 L 96 Nasal Cannula 05/17/24 22:00 Nasal Cannula O2 Del Method O2 Flow Rate 05/18/24 08:23 05/18/24 07:37 3 05/18/24 02:40 3 05/18/24 01:00 Nasal Cannula 05/17/24 22:24 3 05/17/24 22:00 3
[2024-05-18] MEDS: MAGNESIUM SULFATE / D5W 1 GM/100 ML BAG IV SCH (10:19)
--- NOTE | 2024-05-18 14:46 | Cardiology Progress Note ---
Date of Service May 18, 2024 Assessment & Plan (1) Acute heart failure with preserved ejection fraction: (2) Acute respiratory failure with hypoxia: (3) Permanent atrial fibrillation: Plan 05/12/24 Patient admitted with worsening SOB, volume overload, hypoxia consistent with a cute on chronic HFpEF. Symptoms have been persistent over the last few weeks. BNP elevated. Start IV lasix - 40 mg IV BID. She received one dose IV lasix this morning. 2nd dose later this afternoon. Magnesium is low - Supplement 2 gm now. Potassium level pending. Recent hyperkalemia and spironolactone stopped as outpatient. Monitor I+O's Afib RVR - Continue digoxin. Increase metoprolol to 100 mg BID INR pending continue coumadin. Continue supplemental O2. 05/13/24: Patient with good urine outputs over the last 24 hours. 4 L output. Weight down on standing scale. BP lower, borderline hypotensive. She already received morning 40 mg IV lasix. If BP remains low, may need to hold PM dose. Stable renal function, potassium. Magnesium remains low - Additional 2 gms ordered today Monitor I+O's Afib - Rates improved Continue digoxin Metoprolol increased to 100 mg BID (morning dose held due to low BP) Will monitor. Continue Coumadin. INR subtherapeutic today at 1.6. Give higher dose 5 mg today. 05/14/25: Ongoing diuresis noted over the last 24 hours. 4 L yesterday, nearly 2 L thus far today. Daily weight with standing scale. Stable renal function, electrolytes Continue furosemide 40 mg IV BID today. Dose limited due to borderline hypotension. Supplement oral magnesium and oral potassium. due to worsening cough. ? Aspiration - repeat chest xray this morning Afib - rates controlled. Continue digoxin, metoprolol and coumadin. INR 2.0. DVT proph - coumadin. 05/15/2024: Significant urine output yesterday at 3.5 L. Weight continues to trend downward. Recommend daily weight with standing scale. Stable renal function and potassium. Continue furosemide 40 mg IV twice daily. Magnesium level is low. Supplement 2 g. Chronic A-fib, rates improved. Continue digoxin, metoprolol. INR 2.7. Continue Coumadin. 05/16/24: BP slightly hypotensive today. Hold additional IV diuretics today/tomorrow. lower extremity cramping reported. Supplement magnesium 2 gm IV Give additional 20 meq of potassium now. Likely transition to oral diuretic tomorrow. Patient reports significant side effects with oral furosemide at home (causing weakness). Does not wish to take when returning home. Would consider torsemide with potassium and magnesium supplement. recheck digoxin level tomorrow AM Continue metoprolol and digoxin. Chronic afib and rates improved INR 3.2 today. Hold coumadin tonight. 05/17/2024 Clinically improved, heart rate controlled. Continue metoprolol and digoxin, anticoagulation with warfarin Furosemide switched to torsemide today. Would decrease to 10 mg torsemide daily on discharge Patient anticipating rehab 05/18/2024 Slow but steady improvement. Transient wide-complex/aberrant conduction earlier today but no acute cardiac concerns Continue potassium supplement Reduce digoxin to 5 days/week All other meds same This chart was completed in part utilizing Speech Voice Recognition Software. Grammatical errors, random word insertions, pronoun errors, and incomplete sentences are an occasional consequence of this system due to software limitations, ambient noise, and hardware issues. Any formal questions or concerns about the content, text, or information contained within the body of this dictation should be directly addressed to the provider for clarification. Admission and Anticipated Discharge Date Admission Date: May 12, 2024 Subjective Patient was seen and personally examined Denies any acute cardiac complaints with gradual improvement in clinical status. No signs of volume overload with edema substantially resolved Still with significant oxygen requirement secondary to underlying pulmonary issu es Telemetry earlier today with transient aberrant conduction rate 100 bpm wide- complex conduction pattern Physical Exam Constitutional: + ill appearing and + thin; no acute dis tress Neck: trachea midline, no thyromegaly Respiratory: able to speak in complete sentences; no labored breathing Auscultation: + diminished lung sounds; no rales Cardiovascular: Rate/Rhythm: + tachycardic and + irregularly irregular Heart Sounds: + murmur (II/ systolic murmur) Vessels: + JVD Extremities: + edema (Trace only) Gastrointestinal (Abdomen): normal bowel sounds, soft, nontender, no hepatosplenomegaly Skin: + pallor Neurologic: PERRL, EOMI, accommodation nl, no face palsy, no dysarthria Psychiatric: A+Ox3, euthymic affect Results & Data Vital Signs (Past 12 Hours) Vital Signs Temp Pulse Pulse Resp BP Pulse Ox O2 Del Method 05/18/24 13:00 78 05/18/24 11:35 36.4 C L 75 18 92/61 L 91 Nasal Cannula 05/18/24 08:23 71 05/18/24 07:37 36.3 C L 71 20 103/65 96 Nasal Cannula 05/18/24 06:00 72 O2 Flow Rate 05/18/24 13:00 05/18/24 11:35 3 05/18/24 08:23 05/18/24 07:37 3 05/18/24 06:00 Laboratory Results Laboratory Results - last 24 hr 05/18/24 07:22 WBC 4.16 L RBC 4.88 Hgb 11.4 L Hct 39.1 MCV 80.1 MCH 23.4 L MCHC 29.2 L RDW Std Deviation 71.0 H RDW Coeff of Jerri 25.7 H Plt Count 121 L Immature Gran % (Auto) 0.5 Neut % (Auto) 71.6 Lymph % (Auto) 9.4 [place] % (Auto) 15.9 Eos % (Auto) 1.4 Baso % (Auto) 1.2 Neut # (Auto) 2.98 Lymph # (Auto) 0.39 L [place] # (Auto) 0.66 H Eos # (Auto) 0.06 Baso # (Auto) 0.05 Immature Gran # (Auto) 0.02 Absolute Nucleated RBC 0.57 H Nucleated RBC % (auto) 13.7 Polychromasia 1+ Anisocytosis Present Target Cells 1+ Gonzalez-[place] Bodies 1+ PT 23.1 H INR 2.3 H Sodium 137 Potassium 3.9 Chloride 95 L Carbon Dioxide 40 H Anion Gap 2 L BUN 19 Creatinine 0.74 Est Cr Clr Drug Dosing 62.4 Est GFR ( Amer) 92.5 Est GFR (Non-Af Amer) 79.8 BUN/Creatinine Ratio 25.7 H Glucose 70 Calcium 9.6 Phosphorus 3.1 Magnesium 1.6 L Total Bilirubin 0.8 AST 45 H ALT 33 Alkaline Phosphatase 107 H Total Protein 6.3 Albumin 3.0 L Globulin 3.3 Albumin/Globulin Ratio 0.9
--- NOTE | 2024-05-18 19:48 | Communication Note ---
Date of Service: May 18, 2024 Patient SBP 80s as per RN. Patient asymptomatic. AP Hypotension IV albumin 1 dose Decrease maintenance beta-radha dose
[2024-05-18] MEDS: ALBUMIN 25% 12.5 GM/50 ML VIAL IV ONE (20:05)
[2024-05-18 20:52] LABS: BUN Creatinine Ratio 24.7 (10-20); Creatinine Clr Calc Pharmacy 63.3 ml/min; Est GFR (Non-African American) 81.1 ml/min
[2024-05-19 08:02] LABS: Hematocrit (blood only) 39.9 % (37.0-47.0); Hemoglobin 11.5 g/dl (12.0-16.0); Mean Corpuscular Hemoglobin 23.6 pg (25.0-34.0); Mean Corpuscular Hgb Conc 28.8 g/dL (32.0-36.0); Mean Corpuscular Volume 81.8 fL (80.0-100.0); Nucleated RBC # (auto) 0.52 K/uL (0.00-0.12); Nucleated RBC % (auto) 10.9 %; Platelet Count 123 K/uL (130-400); RDW Coefficient of Variation 26.8 % (11.5-14.5); Red Blood Count 4.88 M/uL (4.20-5.40); White Blood Count 4.78 K/ul (4.8-10.8)
[2024-05-19 08:22] LABS: INR 2.1 (0.9-1.1); Prothrombin Time 21.7 Seconds (9.0-12.0)
[2024-05-19 08:25] LABS: Anisocytosis Present; Basophils # (auto) 0.03 K/uL (0.00-0.20); Basophils % (auto) 0.6 %; Eosinophils # (auto) 0.07 K/uL (0.00-0.50); Eosinophils % (auto) 1.5 %; Howell-Jolly Bodies 1+; Immature Granulocytes # (auto) 0.02 K/uL (0.01-0.20); Immature Granulocytes % (auto) 0.4 %; Lymphocytes # (auto) 0.57 K/uL (1.20-3.40); Lymphocytes % (auto) 11.9 %; Monocytes # (auto) 0.73 K/uL (0.11-0.59); Monocytes % (auto) 15.3 %; Neutrophils # (auto) 3.36 K/uL (1.40-6.50); Neutrophils % (auto) 70.3 %; Polychromasia 1+; Target Cells 2+; Tear Drop Cells 1+
[2024-05-19 08:32] LABS: Albumin Level 3.3 gm/dl (3.4-5.0); Bilirubin,Total 0.8 mg/dl (0.2-1.0); Calcium 9.5 mg/dl (8.6-10.3); Creatinine Clr Calc Pharmacy 72.2 ml/min; Est GFR (African American) 101.9 ml/min; Est GFR (Non-African American) 87.9 ml/min; Globulin 3.3 gm/dl (2.5-4.0); Magnesium 1.9 mg/dl (1.7-2.4); Phosphorus 2.6 mg/dl (2.5-4.9); Potassium 4.2 mmol/L (3.5-5.1); Total Protein 6.6 gm/dl (6.0-8.3)
[2024-05-19] MEDS: METOPROLOL SUCC 50MG EXT REL TAB PO SCH (10:09)
--- NOTE | 2024-05-19 11:00 | Cardiology Progress Note ---
Date of Service May 19, 2024 Assessment & Plan (1) Acute heart failure with preserved ejection fraction: (2) Acute respiratory failure with hypoxia: (3) Permanent atrial fibrillation: Plan 05/12/24 Patient admitted with worsening SOB, volume overload, hypoxia consistent with a cute on chronic HFpEF. Symptoms have been persistent over the last few weeks. BNP elevated. Start IV lasix - 40 mg IV BID. She received one dose IV lasix this morning. 2nd dose later this afternoon. Magnesium is low - Supplement 2 gm now. Potassium level pending. Recent hyperkalemia and spironolactone stopped as outpatient. Monitor I+O's Afib RVR - Continue digoxin. Increase metoprolol to 100 mg BID INR pending continue coumadin. Continue supplemental O2. 05/13/24: Patient with good urine outputs over the last 24 hours. 4 L output. Weight down on standing scale. BP lower, borderline hypotensive. She already received morning 40 mg IV lasix. If BP remains low, may need to hold PM dose. Stable renal function, potassium. Magnesium remains low - Additional 2 gms ordered today Monitor I+O's Afib - Rates improved Continue digoxin Metoprolol increased to 100 mg BID (morning dose held due to low BP) Will monitor. Continue Coumadin. INR subtherapeutic today at 1.6. Give higher dose 5 mg today. 05/14/25: Ongoing diuresis noted over the last 24 hours. 4 L yesterday, nearly 2 L thus far today. Daily weight with standing scale. Stable renal function, electrolytes Continue furosemide 40 mg IV BID today. Dose limited due to borderline hypotension. Supplement oral magnesium and oral potassium. due to worsening cough. ? Aspiration - repeat chest xray this morning Afib - rates controlled. Continue digoxin, metoprolol and coumadin. INR 2.0. DVT proph - coumadin. 05/15/2024: Significant urine output yesterday at 3.5 L. Weight continues to trend downward. Recommend daily weight with standing scale. Stable renal function and potassium. Continue furosemide 40 mg IV twice daily. Magnesium level is low. Supplement 2 g. Chronic A-fib, rates improved. Continue digoxin, metoprolol. INR 2.7. Continue Coumadin. 05/16/24: BP slightly hypotensive today. Hold additional IV diuretics today/tomorrow. lower extremity cramping reported. Supplement magnesium 2 gm IV Give additional 20 meq of potassium now. Likely transition to oral diuretic tomorrow. Patient reports significant side effects with oral furosemide at home (causing weakness). Does not wish to take when returning home. Would consider torsemide with potassium and magnesium supplement. recheck digoxin level tomorrow AM Continue metoprolol and digoxin. Chronic afib and rates improved INR 3.2 today. Hold coumadin tonight. 05/17/2024 Clinically improved, heart rate controlled. Continue metoprolol and digoxin, anticoagulation with warfarin Furosemide switched to torsemide today. Would decrease to 10 mg torsemide daily on discharge Patient anticipating rehab 05/18/2024 Slow but steady improvement. Transient wide-complex/aberrant conduction earlier today but no acute cardiac concerns Continue potassium supplement Reduce digoxin to 5 days/week All other meds same 05/19/2024 Patient appears stable from a cardiac standpoint but trends towards lower blood pressures. Transient delirium last evening with resolved Agree with reduction of metoprolol succinate to 50 mg twice per day, continue digoxin as ordered Exam not consistent with volume overload. Suspect torsemide 10 mg 5 days/week on discharge Chronic hypoxia secondary to underlying pulmonary issues. Patient to remain on oxygen supplementation [id number]. Previously on 2 L nasal cannula at home Once again urged continued tobacco cessation on discharge CHF instructions This chart was completed in part utilizing Speech Voice Recognition Software. Grammatical errors, random word insertions, pronoun errors, and incomplete se ntences are an occasional consequence of this system due to software limitations, ambient noise, and hardware issues. Any formal questions or concerns about the content, text, or information contained within the body of this dictation should be directly addressed to the provider for clarification. Admission and Anticipated Discharge Date Admission Date: May 12, 2024 Subjective Patient seen and examined, chart, medications, telemetry reviewed. Mild delirium last night Transient hypotension noted treated with albumin. Patient with chronically low blood pressures. No cardiac complaints chest pains, No edema with mild volume contraction on examination Review of Systems Review of Systems: All systems reviewed & are unremarkable except as noted in Subjective Physical Exam Constitutional: + thin; no acute distress Neck: trachea midline, no thyromegaly Respiratory: able to speak in complete sentences; no labored breathing Auscultation: + diminished lung sounds; no rales Cardiovascular: Rate/Rhythm: + irregularly irregular Heart Sounds: + murmur (II/ systolic murmur) Extremities: no edema Gastrointestinal (Abdomen): normal bowel sounds, soft, nontender, no hepatosplenomegaly Skin: + pallor Neurologic: PERRL, EOMI, accommodation nl, no face palsy, no dysarthria Psychiatric: A+Ox3, euthymic affect Results & Data Vital Signs (Past 12 Hours) Vital Signs Temp Pulse Resp BP BP Pulse Ox O2 Del Method 05/19/24 10:52 36.4 C L 74 18 102/71 96 Nasal Cannula 05/19/24 09:50 70 100/60 05/19/24 08:21 36.4 C L 86 18 107/71 90 Nasal Cannula 05/19/24 08:00 Nasal Cannula 05/19/24 03:01 36.8 C 80 18 103/65 94 Nasal Cannula 05/19/24 01:00 O2 Del Method O2 Flow Rate O2 Flow Rate 05/19/24 10:52 3 05/19/24 09:50 05/19/24 08:21 3 05/19/24 08:00 3 05/19/24 03:01 3 05/19/24 01:00 Nasal Cannula 3 Laboratory Results Laboratory Results - last 24 hr 05/18/24 05/19/24 20:06 07:31 WBC 4.78 L RBC 4.88 Hgb 11.5 L Hct 39.9 MCV 81.8 MCH 23.6 L MCHC 28.8 L RDW Std Deviation 74.0 H RDW Coeff of Jerri 26.8 H Plt Count 123 L Immature Gran % (Auto) 0.4 Neut % (Auto) 70.3 Lymph % (Auto) 11.9 [place] % (Auto) 15.3 Eos % (Auto) 1.5 Baso % (Auto) 0.6 Neut # (Auto) 3.36 Lymph # (Auto) 0.57 L [place] # (Auto) 0.73 H Eos # (Auto) 0.07 Baso # (Auto) 0.03 Immature Gran # (Auto) 0.02 Absolute Nucleated RBC 0.52 H Nucleated RBC % (auto) 10.9 Polychromasia 1+ Anisocytosis Present Target Cells 2+ Tear Drop Cells 1+ Gonzalez-[place] Bodies 1+ PT 21.7 H INR 2.1 H Sodium 135 L 137 Potassium 4.0 4.2 Chloride 95 L 97 L Carbon Dioxide 37 H 38 H Anion Gap 3 2 L BUN 18 16 Creatinine 0.73 0.64 Est Cr Clr Drug Dosing 63.3 72.2 Est GFR ( Amer) 94.0 101.9 Est GFR (Non-Af Amer) 81.1 87.9 BUN/Creatinine Ratio 24.7 H 25.0 H Glucose 89 80 Lactate 1.4 Calcium 10.0 9.5 Phosphorus 2.6 Magnesium 1.9 Total Bilirubin 0.8 AST 57 H ALT 38 Alkaline Phosphatase 131 H Total Protein 6.6 Albumin 3.3 L Globulin 3.3 Albumin/Globulin Ratio 1.0 Digoxin 1.3
[2024-05-19] MEDS: DIGOXIN 0.125 MG TAB PO SCH (15:02)
--- NOTE | 2024-05-19 17:05 | Hospitalist Progress Note ---
Date of Service May 19, 2024 Assessment & Plan (1) Acute diastolic CHF (congestive heart failure): Plan Ms. Patel is a 73-year-old female with past medical history of COPD, history of lung cancer status post RM Lobectomy 03/08/22 , A-fib on Coumadin, carotid stenosis s/p R CEA, SLE, tobacco use disorder (2-3 ppd), hypothyroidism, hyperparathyroidism, dyslipidemia, h/o IPMN s/p distal pancreatectomy and splenectomy was referred to the ED from cardiology clinic due to volume overload. #Acute on chronic diastolic heart failure #Pleural Effusion History of recent admission in with CHF exacerbation. Was discharged on Lasix 20 mg as needed daily. Was not taking diuretics Presented with bilateral lower extremity 4+ pitting edema going up to upper thigh and lower back. Last echocardiogram in November 2023 showed EF of 55 to 60%; LA moderately dilated. Repeat Echo noting mod dilated LA, severely dilated RA, mod aortic sclerosis w/o stenosis, mild to moderate mitral regurg, mod tricuspid regurg and a moderate L pleural effusion BNP- 964 on admission, 419 in November Continue diuresis with IV Lasix 40 mg twice daily- on hold Strict input output monitoring Daily weights cardiology consulted, appreciate recs -IV lasix 40mg BID transitioned to po torsemide 10mg -Will discharge on 10mg torsemide 5 days/week #Atrial fibrillation with RVR On metoprolol and digoxin with coumadin for anticoagulation Cardiology consulted, appreciate recs -metoprolol reduced to 50mg BID 2/2 hypotension -continue digoxin, dose freq adjusted by cardiology on 05/18 Follow INR while on coumadin, goal 2-3 #Elevated trop Demand ischemia Trop elevated at 29.5 to 32.3 to 33.8 EKG with noted atrial fibrillation, anterior fascicular block Likely demand ischemia in setting of above #Hypotension Likely in setting of IV diuresis above Improved s/p IV albumin and 50mg metop BID Continue to monitor #Pancytopenia stable #Iron Deficiency anemia Pt with noted pancytopenia peripheral smear reviewed previously Anemia panel noting iron deficiency pt on chronic anticoagulation s/p IV venofer 1 bag 200mg on 05/14 Continue to monitor with AM labs #Herpes Zoster/Shingles Pt with vesicular rash on an erythematous base in a dermatomal pattern, vesicles crusting over Started on Valtrex 1000mg q8h x 7 days Contact and airborne precautions gabapentin TID Continue to monitor #Aspiration Event #Dysphagia On 05/14. Chest xray reviewed, unchanged from last. Speech consulted, video swallow: -Recommends easy to chew #COPD Not in acute exacerbation Continue DuoNeb as needed Will need follow-up with pulmonology as outpatient #Neuropathy Pain in hands and feet started on gabapentin 100mg TID Hypertensioncontinue on metoprolol, dose increased to 100mg bid Hypothyroidismcontinue levothyroxine Hyperlipidemiacontinue on Lipitor SLEcontinue on Plaquenil Diet: HH/low sodium DVT prophylaxis Coumadin, follow INR Dispo: PT/OT recommending rehab Admission and Anticipated Discharge Date Admission Date: May 12, 2024 Subjective NAEO Reports feeling "ok overall" States that the rase under her right arm is still bothersome, but not nearly as bad as it was Denies any new concerns this morning and ready to go to rehab Physical Exam Constitutional: WD/WN, vitals as above Respiratory: diminished, seems decent effort, no distress noted Cardiovascular: irregularly irregular +INGRID Gastrointestinal (Abdomen): normal bowel sounds, soft, nontender, no hepatosplenomegaly Skin: areas of crusted lesions under left axilla, red rash across left chest Results & Data Results & Data Vital Signs (Past 12 Hours) Vital Signs Temp Pulse Pulse Pulse Resp BP BP 05/19/24 15:16 36.4 C L 80 17 94/60 L 05/19/24 15:02 74 05/19/24 12:24 79 05/19/24 10:52 36.4 C L 74 18 102/71 05/19/24 09:50 70 100/60 05/19/24 08:21 36.4 C L 86 18 107/71 05/19/24 08:00 Pulse Ox O2 Del Method O2 Flow Rate 05/19/24 15:16 95 Nasal Cannula 3 05/19/24 15:02 05/19/24 12:24 05/19/24 10:52 96 Nasal Cannula 3 05/19/24 09:50 05/19/24 08:21 90 Nasal Cannula 3 05/19/24 08:00 Nasal Cannula 3 Laboratory Results Short CBC 05/19/24 Range/Units 07:31 WBC 4.78 L (4.8-10.8) K/ul Hgb 11.5 L (12.0-16.0) g/dl Hct 39.9 (37.0-47.0) % Plt Count 123 L (130-400) K/uL BMP 05/18/24 05/19/24 20:06 07:31 Sodium 135 L 137 Potassium 4.0 4.2 Chloride 95 L 97 L Carbon Dioxide 37 H 38 H BUN 18 16 Creatinine 0.73 0.64 Glucose 89 80 Calcium 10.0 9.5 Liver Function 05/19/24 Range/Units 07:31 Total Bilirubin 0.8 (0.2-1.0) mg/dl AST 57 H (13-39) U/L ALT 38 (7-52) U/L Alkaline Phosphatase 131 H (34-104) U/L Albumin 3.3 L (3.4-5.0) gm/dl
[2024-05-19] MEDS: traMADol HCL 50 MG TABLET PO PRN (21:53)
[2024-05-20 08:11] LABS: Hematocrit (blood only) 36.5 % (37.0-47.0); Hemoglobin 10.8 g/dl (12.0-16.0); Mean Corpuscular Hemoglobin 24.6 pg (25.0-34.0); Mean Corpuscular Hgb Conc 29.6 g/dL (32.0-36.0); Mean Corpuscular Volume 83.1 fL (80.0-100.0); Nucleated RBC # (auto) 0.51 K/uL (0.00-0.12); Nucleated RBC % (auto) 12.6 %; Platelet Count 115 K/uL (130-400); RDW Coefficient of Variation 27.1 % (11.5-14.5); RDW Standard Deviation 74.8 fL (36.4-46.3); Red Blood Count 4.39 M/uL (4.20-5.40); White Blood Count 4.06 K/ul (4.8-10.8)
[2024-05-20 08:12] LABS: BUN Creatinine Ratio 29.1 (10-20); Calcium 9.1 mg/dl (8.6-10.3); Est GFR (African American) 107.1 ml/min; Est GFR (Non-African American) 92.4 ml/min; Magnesium 1.8 mg/dl (1.7-2.4); Phosphorus 2.5 mg/dl (2.5-4.9); Potassium 4.8 mmol/L (3.5-5.1)
--- NOTE | 2024-05-20 09:34 | Hospitalist Progress Note ---
Date of Service May 20, 2024 Assessment & Plan (1) Acute diastolic CHF (congestive heart failure): Plan Ms. Patel is a 73-year-old female with past medical history of COPD, history of lung cancer status post RM Lobectomy 03/08/22 , A-fib on Coumadin, carotid stenosis s/p R CEA, SLE, tobacco use disorder (2-3 ppd), hypothyroidism, hyperparathyroidism, dyslipidemia, h/o IPMN s/p distal pancreatectomy and splenectomy was referred to the ED from cardiology clinic due to volume overload. #Acute on chronic diastolic heart failure #Pleural Effusion History of recent admission in with CHF exacerbation. Was discharged on Lasix 20 mg as needed daily. Was not taking diuretics Presented with bilateral lower extremity 4+ pitting edema going up to upper thigh and lower back. Last echocardiogram in November 2023 showed EF of 55 to 60%; LA moderately dilated. Repeat Echo noting mod dilated LA, severely dilated RA, mod aortic sclerosis w/o stenosis, mild to moderate mitral regurg, mod tricuspid regurg and a moderate L pleural effusion BNP- 964 on admission, 419 in November Continue diuresis with IV Lasix 40 mg twice daily- on hold Strict input output monitoring Daily weights cardiology consulted, appreciate recs -IV lasix 40mg BID transitioned to po torsemide 10mg -Will discharge on 10mg torsemide 5 days/week #Atrial fibrillation with RVR On metoprolol and digoxin with coumadin for anticoagulation Cardiology consulted, appreciate recs -metoprolol reduced to 50mg BID 2/2 hypotension -continue digoxin, dose freq adjusted by cardiology on 05/18 Follow INR while on coumadin, goal 2-3 #Elevated trop Demand ischemia Trop elevated at 29.5 to 32.3 to 33.8 EKG with noted atrial fibrillation, anterior fascicular block Likely demand ischemia in setting of above #Hypotension Likely in setting of IV diuresis above Improved s/p IV albumin and 50mg metop BID Continue to monitor #Pancytopenia stable #Iron Deficiency anemia Pt with noted pancytopenia peripheral smear reviewed previously Anemia panel noting iron deficiency pt on chronic anticoagulation s/p IV venofer 1 bag 200mg on 05/14 Continue to monitor with AM labs #Herpes Zoster/Shingles Pt with vesicular rash on an erythematous base in a dermatomal pattern, vesicles crusting over Started on Valtrex 1000mg q8h x 7 days Contact and airborne precautions gabapentin TID Continue to monitor #Aspiration Event #Dysphagia On 05/14. Chest xray reviewed, unchanged from last. Speech consulted, video swallow: -Recommends easy to chew #COPD Not in acute exacerbation Continue DuoNeb as needed Will need follow-up with pulmonology as outpatient #Neuropathy Pain in hands and feet started on gabapentin 100mg TID Hypertensioncontinue on metoprolol, dose increased to 100mg bid Hypothyroidismcontinue levothyroxine Hyperlipidemiacontinue on Lipitor SLEcontinue on Plaquenil Diet: HH/low sodium DVT prophylaxis Coumadin, follow INR Dispo: PT/OT recommending rehab Admission and Anticipated Discharge Date Admission Date: May 12, 2024 Results & Data Results & Data Vital Signs (Past 12 Hours) Vital Signs Temp Pulse Pulse Resp BP BP Pulse Ox 05/20/24 08:10 75 120/79 05/20/24 07:06 36.4 C L 74 18 98/57 L 91 05/20/24 02:50 36.8 C 70 18 100/67 94 05/19/24 22:32 36.6 C 86 18 97/61 L 95 O2 Del Method O2 Flow Rate 05/20/24 08:10 05/20/24 07:06 Nasal Cannula 3 05/20/24 02:50 Nasal Cannula 3 05/19/24 22:32 Nasal Cannula 3
[2024-05-20 10:20] LABS: Prothrombin Time 20.5 Seconds (9.0-12.0)
--- NOTE | 2024-05-20 10:34 | Discharge Summary ---
Discharge Summary Date of Service May 20, 2024 Principal Dx & Hospital Course #1 = Principal Diagnosis (1) Acute diastolic CHF (congestive heart failure): Plan Ms. Patel is a 73-year-old female with past medical history of COPD, history of lung cancer status post RM Lobectomy 03/08/22 , A-fib on Coumadin, carotid stenosis s/p R CEA, SLE, tobacco use disorder (2-3 ppd), hypothyroidism, hyperparathyroidism, dyslipidemia, h/o IPMN s/p distal pancreatectomy and splenectomy was referred to the ED from cardiology clinic due to volume overload. Patient was started on IV diuersis with notable improvement in symptoms. She was also noted to have development of shingles under left axilla across left breast. Initially patient with a fib RVR as well. Cardiology followed and adjusted digoxin regimen, as well as finalized metopro lol and diuretic regimen. On day of discharge, patient was eager for rehab. She notes that she felt a bit loopy with the 3 times daily gabapentin and would like to trial at bedtime. Patient without any other concerns. #Acute on chronic diastolic heart failure #Pleural Effusion History of recent admission in November/December with CHF exacerbation. Was discharged on Lasix 20 mg as needed daily. Was not taking diuretics Presented with bilateral lower extremity 4+ pitting edema going up to upper thigh and lower back. Last echocardiogram in November 2023 showed EF of 55 to 60%; LA moderately dilated. Repeat Echo noting mod dilated LA, severely dilated RA, mod aortic sclerosis w/o stenosis, mild to moderate mitral regurg, mod tricuspid regurg and a moderate L pleural effusion BNP- 964 on admission, 419 in November Did well with diuresis with IV Lasix 40 mg twice daily- on hold cardiology consulted, appreciate recs -PO torsemide 10mg 5 days a week -PO potassium supplementation 5 days a week -Will discharge on 10mg torsemide 5 days/week #Permanent A Fib #Atrial fibrillation with RVR *resolved On metoprolol and digoxin with coumadin for anticoagulation Cardiology consulted, appreciate recs -metoprolol reduced to 50mg BID 2/2 hypotension -continue digoxin, 5 days a week INR at goal, continue Coumadin dosing #Elevated trop Demand ischemia *resolved Trop elevated at 29.5 to 32.3 to 33.8 EKG with noted atrial fibrillation, anterior fascicular block Likely demand ischemia in setting of above #Hypotension stable Likely in setting of IV diuresis above Improved s/p IV albumin and 50mg metop BID Continue to monitor #Pancytopenia stable #Iron Deficiency anemia Pt with noted pancytopenia peripheral smear reviewed previously Anemia panel noting iron deficiency pt on chronic anticoagulation s/p IV venofer 1 bag 200mg on 05/14 Stable #Herpes Zoster/Shingles Pt with vesicular rash on an erythematous base in a dermatomal pattern, vesicles crusting over Contact and airborne precautions gabapentin TID--reduced to qhs 2/2 side effects Started on Valtrex 1000mg q8h x 14 days given prolonged time to crusting over lesions, can D/C as appropriate contingent on resolution #Aspiration Event #Dysphagia On 05/14. Chest xray reviewed, unchanged from last. Speech consulted, video swallow: -Recommends easy to chew #COPD #Chronic hypoxic resp failure Not in acute exacerbation Continue DuoNeb as needed Will need follow-up with pulmonology as outpatient #Neuropathy Pain in hands and feet started on gabapentin 100mg TID Hypothyroidismcontinue levothyroxine, dose reduced to 150mcg, follow up with PCP Hyperlipidemiacontinue on Lipitor SLEcontinue on Plaquenil Notes For Next Care Provider Please follow up for need for suppressive valacyclovir Please follow up TFTs Please follow up Pulm and Cards OP Medication Changes From Visit Discontinued lasix Start torsemide 10mg MonWeThSaSun with potassium supplement Adjusted digoxin to 0.125mg MonWeThSaSun at 1600 Reduced levothyroxine from 175 to 150 Added gabapentin 100mg qhs Valacylovir 1000mg TID for extended course given slow resolution of symptoms (now starting to crust over after ~6-7 days on therapy) Admission HPI Per Admitting Provider Patient is 73-year-old female with PMH COPD, history of lung CA s/p right VATS with RML lateral wedge resection and franco dissection, atrial fibrillation anticoagulated on Coumadin, dyslipidemia, carotid stenosis s/p right carotid endarterectomy, SLE, tobacco use, hypothyroidism, dyslipidemia, history IPMN s/p distal pancreatectomy and splenectomy and other medical problems listed below presented to ER from cardiology clinic for volume overload. Reviewed recent inpatient hospitalization notes 11/2023 for acute hypoxic respiratory failure, acute on chronic heart failure. Has been following up with cardiology outpatient for persistent atrial fibrillation RVR. Her metoprolol was increased to 75 mg twice daily from 50 mg twice daily. Had follow-up appointment with cardiology on 04/01/2024 patient had remained tachycardic and metoprolol was continued at 75 mg twice daily and digoxin was added at 125 mcg daily, Aldactone was stopped due to hyperkalemia, Lasix 20mg, however patient states hasn't been taking Lasix as when she takes it she feels like she doesn't have any energy. Her levothyroxine was reduced to 150 mcg daily however patient thinks is still taking 175mcg daily. Patient continues to use oxygen 2L with exertion at home. She reports chronic has cough with white phlegm and doesn't think worsening cough. Uses albuterol as needed. States past week with some lightheadedness and denies CP, syncope. Reviewed outpatient notes was seen in outpatient cardiology clinic today 05/12/2024 for close follow-up and patient had reported continued to feel poorly with progressive shortness of breath over past week and orthopnea, PND and fluid retention with weight gain 10 to 15 pounds. States took Lasix Friday and Friday and did urinate more but has continued edema. States edema extends from legs to abdomen. Patient was referred to ER today for further evaluation and tr eatment. Denies fever/chills, diaphoresis, N/V/D/C, GARCIA, neck pain, CP, palpitations, hemoptysis, sore throat, rhinorrhea, abdominal pain, paresthesias, rashes, urinary symptoms. In ER given lasix 40mg IV, Xopenex, Solumderol 40mg IV Admission Exam Per Admitting Provider Constitutional: Alert oriented x 3; not in distress. Respiratory: Occasional bilateral basilar crackles Cardiovascular: Irregular, no murmur, no edema Vessels: no JVD or carotid bruit Chest: normal inspection of chest Abdomen: normal bowel sounds, soft, nontender, no hepatosplenomegaly Musculoskeletal: 4+ pitting edema going up to the lower back. Neurologic: PERRL, EOMI, accommodation nl, no face palsy, no dysarthria CN's II- XI intact bilaterally and moves all extremities Psychiatric: A+Ox3, euthymic affect Discharge Exam Constitutional WD/WN, vitals as above Respiratory diminshed Cardiovascular irregularly irregular Updated Medication List Medication Instructions Recorded Confirmed Type hydroxychloroquine 200 mg tablet 200 mg PO QPM 12/08/18 05/12/24 History atorvastatin 10 mg tablet 10 mg PO QPM 01/13/19 05/12/24 History Oxygen Home #1 ea 05/01/22 12/15/23 Rx albuterol sulfate 90 mcg/actuation 2 puff inhalation Q4 PRN Shortness 12/15/23 05/12/24 History aerosol inhaler Of Breath Or Wheezing aspirin 81 mg capsule 81 mg PO QPM 12/15/23 05/12/24 History warfarin 5 mg tablet 5 mg PO UD 12/15/23 05/12/24 History warfarin 5 mg tablet 2.5 mg PO UD 05/12/24 05/12/24 History digoxin 125 mcg (0.125 mg) tablet 125 mcg PO SuMoWeThSa@1600 #30 tabs 05/20/24 Rx gabapentin 100 mg capsule 100 mg PO QPM #30 caps 05/20/24 Rx levothyroxine 150 mcg tablet 150 mcg PO DAILYBB #30 tabs 05/20/24 Rx (Synthroid) magnesium oxide 400 mg (241.3 mg 400 mg PO QAM #30 tabs 05/20/24 Rx magnesium) tablet metoprolol succinate 50 mg 50 mg PO BID #60 tabs 05/20/24 Rx tablet,extended release 24 hr nicotine 21 mg/24 hr daily 1 patch transdermal QAM #30 ea 05/20/24 Rx transdermal patch (Nicoderm CQ) potassium chloride 20 mEq 20 meq PO SuMoWeThSa@0900 #30 tabs 05/20/24 Rx tablet,extended release(part/cryst) torsemide 10 mg tablet 10 mg PO SuMoWeThSa@0900 #30 tabs 05/20/24 Rx valacyclovir 500 mg tablet 1,000 mg (2 x 500 mg) PO TID 8 05/20/24 Rx days #48 tabs Hospital Stay Data Consultations 05/12/24 14:13 Consult Cardiology Routine 05/12/24 15:14 ED Decision to Admit Stat Diagnostic Imagining Performed 05/17/24 10:00 FL video swallow Routine Pending Results Patient Have Any Pending Studies at Discharge: No Discharge Instructions Given to Patient (Per Discharging Provider) You were admitted for volume overload and found to be in acute heart failure exacerbation. #Acute on chronic diastolic heart failure -Will discharge on 10mg torsemide 5 days a week (Mon, Wed, Lily, Sa, Sun) -Take potassium supplement with water pill in the morning #Permanent Atrial fibrillation -metoprolol reduced to 50mg two times a day -continue digoxin 0.125mg at 4pm 5 days a week (Fri, Fri, Fri, , Sun) Continue Coumadin, INR check in 3 days #Herpes Zoster/Shingles Started on Valtrex 1000mg every 8 hours, will continue for 7 more days (05/21 last day of this dosing) #Aspiration Event #Dysphagia Speech consulted, video swallow: -Recommends easy to chew #COPD #Chronic hypoxic respiratory failure, continue O2 Not in acute exacerbation Continue DuoNeb as needed Will need follow-up with pulmonology as outpatient #Neuropathy Pain in hands and feet Reduced gabapentin to 100mg at bedtime due to sleepiness #Hypothyroidism Reduced Levothyroxine from 175mcg to 150mcg please resume all home medications as prescribed Total Time Total Time Spent Total Time Spent (In Minutes): 45
[2024-05-20] MEDS ORDERED: GABAPENTIN 100 MG CAP PO SCH (21:00)
== END 2024-05-20 13:52 | DRG 291 ==
LOC: ED 11:16 → SUATTDRO 14:06 → EDINP 14:06 → 2E 16:31 → 2S 05-14 13:27